=== PATIENT | female | born 1955 | race Caucasian/White ===

== ENCOUNTER → 2017-05-18 11:56 | Outpatient (CLI) | payer OTHER, MEDICARE, SELFPAY ==
[2017-05-18 12:10] LABS: Microscopic, Urine URINE MICROSCOPIC (MICROSCOPIC)
[2017-05-18 12:56] LABS: Basophils % 0.4 % (0.1-2.0); Eosinophils # 0.1 K/mm3 (0.0-0.4); Eosinophils % 1.1 % (0.1-12.0); Hemoglobin 12.8 g/dL (12.2-16.2); Lymphocytes # 1.5 K/mm3 (0.7-4.5); Lymphocytes % 18.5 K/mm3 (10-50); Mean Corpuscular HGB Conc 30.4 g/dL (31.8-35.4); Mean Corpuscular Hemoglobin 26.3 pg (27.0-31.2); Mean Corpuscular Volume 86.6 fl (81-99); Monocytes # 0.3 K/mm3 (0.1-1.0); Monocytes % 3.9 % (1.7-9.3); Neutrophils # 6.2 K/mm3 (1.8-7.8); Neutrophils % 76.2 % (37.0-80.0); Platelet Count 210 K/mm3 (142-424); Red Blood Count 4.85 M/mm3 (4.20-5.40); Red Cell Distribution Width 14.4 % (11.5-17.5); White Blood Count 8.1 K/mm3 (4.8-10.8)
[2017-05-18 13:33] LABS: Amphetamine/Metha Screen,Urine Negative ng/mL (<1000); Barbiturates Screen,Urine Negative ng/mL (<200); Benzodiazepines Screen,Urine Negative ng/mL (200); Cannabinoid Screen,Urine Negative ng/mL (<50); Cocaine Screen,Urine Negative ng/g (<300); Methadone Screen,Urine Negative ng/mL (<300); Opiate Screen,Urine Negative ng/mL (<300); Phencyclidine Screen,Urine Negative ng/mL (<25)
[2017-05-18 13:52] LABS: Appearance,Urine CLEAR (Clear); Bilirubin,Urine Negative (Negative); Blood, Urine Negative (Negative); Color,Urine YELLOW (Yellow); Glucose,Urine (UA) Negative (Negative); Ketones,Urine Negative (Negative); Leukocyte Esterase,Urine 2+ (Negative); Nitrate,Urine Negative (Negative); Protein,Urine Negative (Negative); Specific Gravity, Urine <= 1.005 (1.005-1.030); Urobilinogen,Urine 0.2 EU/dl (0.2)
[2017-05-18 13:53] LABS: Alanine Aminotransferase 26 U/L (12-78); Albumin Level 3.8 gm/dL (3.4-5.0); Albumin/Globulin Ratio 1.2 (1.1-1.8); Alkaline Phosphatase 157 U/L (46-116); Anion Gap 14.5 mEq/L (5-15); Bilirubin,Total 0.3 mg/dL (0.2-1.0); Blood Urea Nitrogen 19 mg/dL (7-18); Calcium 9.3 mg/dL (8.5-10.1); Carbon Dioxide 25 mmol/L (21.0-32.0); Chloride 106 mmol/L (98-107); Creatinine,Serum 0.62 mg/dL (0.55-1.02); Estimated Glomerular Filt Rate 99 ml/min (>60); Ferritin 10 ng/mL (8-388); GFR (African American) 119 ML/MIN (>60); Globulin 3.1 gm/dl (1.3-3.2); Glucose 107 mg/dL (74-106); Sodium 141 mmol/L (136-145); Total Protein,Serum 6.9 gm/dL (6.4-8.2)
[2017-05-18 13:55] LABS: Aspartate Amino Transferase 23 U/L (15-37); Potassium 4.5 mmoL/L (3.5-5.1)
[2017-05-18 14:05] LABS: Bacteria,Urine 2+ /lpf
[2017-05-20 12:08] LABS: Vitamin B12 391 pg/mL (232-1245); Vitamin D 25 Hydroxy 15.1 ng/mL (30.0-100.0)
== END ==
PROVIDERS: PCP Internal Medicine Adolescent Medicine; Visit Provider Internal Medicine Adolescent Medicine
DX: D50.9 Iron deficiency anemia, unspecified (principal); G25.9 Extrapyramidal and movement disorder, unspecified; E55.9 Vitamin D deficiency, unspecified
CPT/HCPCS: 36415; 80053; 80305; 81001; 82607; 82652; 82728; 85025; 87086; 87088; 87186

== ENCOUNTER → 2017-09-09 11:05 | Outpatient (CLI) | payer OTHER, MEDICARE, SELFPAY ==
[2017-09-09 11:32] LABS: Basophils # 0.1 K/mm3 (0-0.2); Eosinophils # 0.2 K/mm3 (0.0-0.4); Eosinophils % 2.5 % (0.1-12.0); Hematocrit 38.6 % (37.0-47.0); Hemoglobin 12.7 g/dL (12.2-16.2); Lymphocytes # 1.6 K/mm3 (0.7-4.5); Lymphocytes % 22.9 K/mm3 (10-50); Mean Corpuscular HGB Conc 32.9 g/dL (31.8-35.4); Mean Corpuscular Hemoglobin 23.8 pg (27.0-31.2); Mean Corpuscular Volume 72.5 fl (81-99); Mean Platelet Volume 24.8 fl (7.4-10.4); Monocytes # 0.3 K/mm3 (0.1-1.0); Monocytes % 4.2 % (1.7-9.3); Neutrophils # 4.9 K/mm3 (1.8-7.8); Neutrophils % 68.4 % (37.0-80.0); Platelet Count 105 K/mm3 (142-424); Red Blood Count 5.32 M/mm3 (4.20-5.40); White Blood Count 7.1 K/mm3 (4.8-10.8)
[2017-09-09 12:45] LABS: Alanine Aminotransferase 27 U/L (12-78); Albumin/Globulin Ratio 1.3 (1.1-1.8); Alkaline Phosphatase 146 U/L (46-116); Anion Gap 13.3 mEq/L (5-15); Aspartate Amino Transferase 23 U/L (15-37); Bilirubin,Total 0.3 mg/dL (0.2-1.0); Blood Urea Nitrogen 20 mg/dL (7-18); Calcium 9.6 mg/dL (8.5-10.1); Carbon Dioxide 30 mmol/L (21.0-32.0); Chloride 106 mmol/L (98-107); Creatinine,Serum 0.69 mg/dL (0.55-1.02); Estimated Glomerular Filt Rate 87 ml/min (>60); Ferritin 7 ng/mL (8-388); Free Thyroxine Index 2.9 ug/dL (5.93-13.13); GFR (African American) 105 ML/MIN (>60); Globulin 3.2 gm/dl (1.3-3.2); Glucose 108 mg/dL (74-106); Potassium 4.3 mmoL/L (3.5-5.1); Sodium 145 mmol/L (136-145); T4 (Thyroxine) 8.1 ug/dl (4.7-13.3); Thyroid Stimulating Hormone 2.19 uIU/ml (0.358-3.740); Total Protein,Serum 7.2 gm/dL (6.4-8.2); Triiodothryronine (T3) Uptake 36 % (31-39)
[2017-09-10 20:26] LABS: Vitamin B12 300 pg/mL (232-1245); Vitamin D 25 Hydroxy 28.5 ng/mL (30.0-100.0)
== END ==
PROVIDERS: Visit Provider Internal Medicine Adolescent Medicine
DX: D50.9 Iron deficiency anemia, unspecified (principal); G25.9 Extrapyramidal and movement disorder, unspecified; R20.2 Paresthesia of skin
CPT/HCPCS: 36415; 80053; 82607; 82652; 82728; 84436; 84443; 84479; 85025

== ENCOUNTER → 2017-12-09 10:01 | Outpatient (CLI) | payer OTHER, MEDICARE, SELFPAY ==
[2017-12-09 10:38] LABS: Basophils % 0.5 % (0.1-2.0); Eosinophils # 0.2 K/mm3 (0.0-0.4); Eosinophils % 2.6 % (0.1-12.0); Hematocrit 41.6 % (37.0-47.0); Hemoglobin 12.8 g/dL (12.2-16.2); Lymphocytes # 1.6 K/mm3 (0.7-4.5); Lymphocytes % 23.7 K/mm3 (10-50); Mean Corpuscular HGB Conc 30.7 g/dL (31.8-35.4); Mean Corpuscular Hemoglobin 25.2 pg (27.0-31.2); Mean Corpuscular Volume 82.3 fl (81-99); Mean Platelet Volume 8.4 fl (7.4-10.4); Monocytes # 0.3 K/mm3 (0.1-1.0); Monocytes % 4.3 % (1.7-9.3); Neutrophils # 4.6 K/mm3 (1.8-7.8); Neutrophils % 68.8 % (37.0-80.0); Platelet Count 203 K/mm3 (142-424); Red Blood Count 5.06 M/mm3 (4.20-5.40); Red Cell Distribution Width 16.8 % (11.5-17.5); White Blood Count 6.7 K/mm3 (4.8-10.8)
[2017-12-09 11:09] LABS: Alanine Aminotransferase 29 U/L (12-78); Albumin/Globulin Ratio 1.3 (1.1-1.8); Alkaline Phosphatase 140 U/L (46-116); Anion Gap 12.3 mEq/L (5-15); Aspartate Amino Transferase 22 U/L (15-37); Bilirubin,Total 0.3 mg/dL (0.2-1.0); Blood Urea Nitrogen 15 mg/dL (7-18); Calcium 9.2 mg/dL (8.5-10.1); Carbon Dioxide 29 mmol/L (21.0-32.0); Chloride 106 mmol/L (98-107); Creatinine,Serum 0.74 mg/dL (0.55-1.02); Estimated Glomerular Filt Rate 80 ml/min (>60); Ferritin 8 ng/mL (8-388); GFR (African American) 97 ML/MIN (>60); Globulin 3.2 gm/dl (1.3-3.2); Glucose 102 mg/dL (74-106); Potassium 4.3 mmoL/L (3.5-5.1); Sodium 143 mmol/L (136-145); Total Protein,Serum 7.2 gm/dL (6.4-8.2)
[2017-12-10 18:30] LABS: Vitamin B12 1014 pg/mL (232-1245); Vitamin D 25 Hydroxy 28.7 ng/mL (30.0-100.0)
== END ==
PROVIDERS: PCP Internal Medicine Adolescent Medicine; Visit Provider Internal Medicine Adolescent Medicine
DX: D50.8 Other iron deficiency anemias (principal); E53.8 Deficiency of other specified B group vitamins; E55.9 Vitamin D deficiency, unspecified
CPT/HCPCS: 36415; 80053; 82607; 82652; 82728; 85025

== ENCOUNTER → 2017-12-14 09:21 | Outpatient (CLI) | payer OTHER, MEDICARE, SELFPAY ==
--- NOTE | 2017-12-14 09:41 | MM_ITS ---
MM Dig screening mamm BI w/CAD CAD Screening COMPARISON: None, previous mammograms at [facility] have been purged INDICATION: There is no personal or family history of breast cancer TECHNIQUE: Standard CC and MLO images were obtained. R2 CAD reviewed. FINDINGS: Moderate diffuse scattered fibroglandular densities are seen throughout both breasts. There is asymmetric benign-appearing nodular densities left breast. Recommend the patient return for spot compression views and ultrasound may be necessary as well. There are few benign-appearing calcifications in each breast. There are no suspicious microcalcifications. There is arterial calcification in both breasts. IMPRESSION: Diffusely dense parenchymal pattern with asymmetric nodular densities left breast BI-RADS Category: 0 Need Additional Imaging Evaluation RECOMMENDED FOLLOW-UP: IMM - IMMEDIATE FOLLOW-UP RECOMMENDED (A letter has been sent to the patient regarding results of the study.)
--- NOTE | 2017-12-14 09:42 | XR_ITS ---
XR DEXA axial skeleton HISTORY: ITS.REASON: POST MENOPAUSAL ORDERING PHYSICIAN: Gagan Solomon MD PATIENT AGE: 62 years COMPARISON: None FINDINGS: The BMD measured at the Right femoral neck is 0.574 g/cm squared with a T score of -3.4. This is considered Osteoporotic according to the World Health Organization criteria. Fracture risk is High. Treatment is advised. L1 L4 density has a T score of -2.0. IMPRESSION: ] Wrist. Treatment recommended. Suggest follow-up exam December 2018
== END ==
PROVIDERS: PCP Internal Medicine Adolescent Medicine; Visit Provider Internal Medicine Adolescent Medicine
DX: Z12.31 Encounter for screening mammogram for malignant neoplasm of breast (principal); Z13.820 Encounter for screening for osteoporosis; Z78.0 Asymptomatic menopausal state
CPT/HCPCS: 77067; 77080

== ENCOUNTER → 2018-02-17 09:38 | Outpatient (CLI) | payer OTHER, MEDICARE, SELFPAY ==
--- NOTE | 2018-02-17 09:40 | MM_ITS ---
MM Dig mamm DX unilat LT CAD, US breast LT complete Ordering Physician: Gagan Solomon MD Patient Age: 62 years Female COMPARISON: 12/14/2017 INDICATION: Follow-up abnormal mammogram TECHNIQUE: Problem-solving views of the left breast along with left breast ultrasound FINDINGS: There is average fibroglandular tissue. Macrolobulated nodular density is noted in the lower aspect of the left breast at 5 mm. There was a nodular opacity present in the superior aspect of the left breast on the MLO view. This however did appear to compress out. Left breast ultrasound: At 5:00 near the nipple there is a macro lobular 5 mm hypoechoic lesion. This does appear to have some enhanced through transmission of sound but does have some macro lobular extension laterally. This may represent a complex cyst however due to the somewhat spiculated appearance ultrasound-guided fine-needle aspiration is suggested. IMPRESSION: Mildly suspicious lesion at 5:00 near the nipple noted on ultrasound. This may correspond to the nodular density noted in the inferior aspect of the left breast BI-RADS Category: 4 Suspicious Abnormality-Biopsy Considered RECOMMENDED FOLLOW-UP: BIO - BIOPSY RECOMMENDED Recommend ultrasound-guided fine-needle aspiration of the hypoechoic nodule at 5:00 A letter has been sent to the patient regarding results of the study.)
== END ==
PROVIDERS: PCP Internal Medicine Adolescent Medicine; Visit Provider Internal Medicine Adolescent Medicine
DX: R92.8 Other abnormal and inconclusive findings on diagnostic imaging of breast (principal)
CPT/HCPCS: 76641; 77065

== ENCOUNTER → 2018-03-09 09:29 | Outpatient (CLI) | payer OTHER, MEDICARE, SELFPAY ==
--- NOTE | 2018-03-09 09:33 | US_ITS ---
FNA w guidance, MM Dig mamm DX unilat LT CAD, US breast LT complete HISTORY: ITS.REASON: LT BREAST NODULE ORDERING PHYSICIAN: Gagan Solomon MD PATIENT AGE: 62 years COMPARISON: 02/17/2018 Prebiopsy ultrasound: Ultrasound performed the left breast targeted to the 5:00 region once again demonstrates the complex hypoechoic nodule with somewhat irregular margins. Appropriate location was marked for FNA/biopsy TECHNIQUE:: Following obtaining informed consent, using aseptic technique and local anesthesia with buffered lidocaine, fine-needle aspiration was performed of the nodule of interest using sonographic guidance. 1 pass was made into the nodule with a 25-gauge needle. Minimal aspirate was obtained and the nodule disappeared. Specimen was given to cytology. The patient tolerated the procedure well without evidence of immediate complications and left the ultrasound suite in stable condition. CYTOLOGY:Negative for malignancy. apocrine metaplasia compatible with cyst contents Postbiopsy mammogram: The previously noted nodular density in the inferior aspect of the left breast is less apparent. There is some increased density in this region which may be related to lidocaine infiltration last biopsy changes. IMPRESSION: Successful sonographic guided FNA of left breast nodule straightening a cyst. No evidence of malignancy. Recommend follow-up mammogram and ultrasound in 6 months per routine protocol
== END ==
PROVIDERS: PCP Internal Medicine Adolescent Medicine; Visit Provider Internal Medicine Adolescent Medicine
DX: R92.8 Other abnormal and inconclusive findings on diagnostic imaging of breast (principal)
CPT/HCPCS: 10022; 76641; 77065

== ENCOUNTER → 2018-10-18 10:46 | Outpatient (CLI) | payer OTHER, MEDICARE, SELFPAY ==
[2018-10-18 11:14] LABS: Basophils % 0.4 % (0.1-2.0); Eosinophils # 0.1 K/mm3 (0.0-0.4); Eosinophils % 1.5 % (0.1-12.0); Hemoglobin 12.7 g/dL (12.2-16.2); Lymphocytes # 1.5 K/mm3 (0.7-4.5); Lymphocytes % 17.2 % (10-50); Mean Corpuscular HGB Conc 29.5 g/dL (31.8-35.4); Mean Corpuscular Hemoglobin 25.1 pg (27.0-31.2); Mean Corpuscular Volume 85.1 fl (81-99); Mean Platelet Volume 8.7 fl (7.4-10.4); Monocytes # 0.3 K/mm3 (0.1-1.0); Monocytes % 3.9 % (1.7-9.3); Neutrophils # 6.5 K/mm3 (1.8-7.8); Neutrophils % 76.9 % (37.0-80.0); Platelet Count 204 K/mm3 (142-424); Red Blood Count 5.05 M/mm3 (4.20-5.40); Red Cell Distribution Width 15.5 % (11.5-17.5); White Blood Count 8.4 K/mm3 (4.8-10.8)
[2018-10-18 12:51] LABS: Alanine Aminotransferase 35 U/L (12-78); Albumin/Globulin Ratio 1.5 (1.1-1.8); Alkaline Phosphatase 83 U/L (46-116); Anion Gap 14.6 mEq/L (5-15); Aspartate Amino Transferase 30 U/L (15-37); Bilirubin,Total 0.2 mg/dL (0.2-1.0); Blood Urea Nitrogen 16 mg/dL (7-18); Calcium 9.3 mg/dL (8.5-10.1); Carbon Dioxide 27 mmol/L (21.0-32.0); Chloride 106 mmol/L (98-107); Creatinine,Serum 0.79 mg/dL (0.55-1.02); Estimated Glomerular Filt Rate 74 ml/min (>60); Ferritin 14 ng/mL (8-388); GFR (African American) 90 ML/MIN (>60); Globulin 2.7 gm/dl (1.3-3.2); Glucose 89 mg/dL (74-106); Potassium 4.6 mmoL/L (3.5-5.1); Sodium 143 mmol/L (136-145); Total Protein,Serum 6.7 gm/dL (6.4-8.2)
[2018-10-19 22:05] LABS: Vitamin B12 268 pg/mL (232-1245); Vitamin D 25 Hydroxy 20.9 ng/mL (30.0-100.0)
== END ==
PROVIDERS: Visit Provider Internal Medicine Adolescent Medicine
DX: D50.9 Iron deficiency anemia, unspecified (principal); E55.9 Vitamin D deficiency, unspecified
CPT/HCPCS: 36415; 80053; 82607; 82652; 82728; 85025

== ENCOUNTER → 2019-04-17 11:28 | Outpatient (CLI) | payer OTHER, MEDICARE, SELFPAY ==
--- NOTE | 2019-04-17 | CA_ITS ---
APPROVED REPORT Exam: Pharmacologic Technologist: Stacey Polanco Ht: 5 ft 5 in Wt: 130 lbs BSA: 1.65 m2 HR: 66 bpm BP: 145/77 mmHg Indications: Angina Medical History Medications: Propranolol,,,,, Iron,,,,, Famotidine,,,,, DulOXETINE,,,,, AmANTADINE,,,,, Alendronate,,,,, Constulose,,,,, Stress Test Details Test: LEXISCAN HR Resting HR: 73 bpm Max Heart Rate (APMHR): 159 bpm Max HR Achieved: 101 bpm Target HR (85% APMHR): 135 bpm % of APMHR: 63 Recovery HR: 80 bpm BP Resting BP: 145.0/77.0 mmHg Max BP: 148.0/84.0 mmHg Recovery BP: 148.0/84.0 mmHg ECG Clinical Reason for Termination: Completed Protocol Exercise duration: 04:00 min Highest Stage Achieved: Exercise capacity: 1.0 METs Stress ECG Conclusion Resting ECG: Normal sinus rhythm, inferior ST abnormalities. Symptoms: No chest pain Arrhythmias/Ectopy: None ST-T Changes: < 1.[address] segment changes. Conclusion: Non-diagnostic Test Summary REST . . . . . . . Resting REST 08:27 . . 73 . 145/ 77 . . Stage 1 . . . . . . . Myoview Injected Stage 1 01:00 . . 97 . . . . Stage 2 01:00 . . 101 . 125/ 72 . . Stage 3 01:00 . . 96 . 137/ 63 . . Stage 4 01:00 . . 87 . 144/ 79 . Stop exercise at 04:00 RECOVERY 01:00 . . 86 . . . . RECOVERY 02:00 . . 83 . . . . RECOVERY 03:00 . . 80 . 140/ 78 . . RECOVERY 04:00 . . 80 . 148/ 84 . . RECOVERY 04:12 . . 79 . 148/ 84 . . Electronically signed by : Brad Gabriel, 04/17/2019 20:28:47
--- NOTE | 2019-04-17 11:38 | NM_ITS ---
APPROVED REPORT Exam: Nuclear Stress Test Indication: Angina, Chest pain, SOB, Palpitaions, Syncope, Fatigue, HTN, Tobacco use, Family history Patient Location: Outpatient Stress Tech: Stacey Polanco NM Tech:Brenda Conner, ARRT, RT (R)(N) Ht: 5 ft 5 in Wt: 130 lbs Bra Size: B HR: 66 bpm BP: 145/77 mmHg BSA: 1.65 m2 BMI: 21.6 History: Angina, Chest pain, SOB, Palpitaions, Syncope, Fatigue, HTN, Tobacco use, Family history Procedure: Patient received a 0.4 mg of intravenous Lexiscan, resting heart rate 66 bpm, resting blood pressure 145/77 mmHg, with Lexiscan maximum heart rate achived was 100 bpm which is Less than 85 % of the maximum predicted heart rate and blood pressure was 125/72 mmHg. With Lexiscan, patient denied any complaint of chest pain. Electrocardiogram Resting EKG shows sinus rhythm, with Lexiscan there is less than 1.[address] segment depression noted from the baseline EKG. The EKG portion of the Lexiscan Myoview is nondiagnostic. Cardiac Stress and Resting SPECT Images: Cardiac Stress and Resting SPECT images were obtained using technetium 99m Myoview 32.5 mCi stress and 10.39 mCi at rest. Gated SPECT for analysis of segmental wall motion and calculation of the ejection fraction also done. Cardiac stress and resting SPECT images show uniform myocardial activity without segmental perfusion abnormality, computer derived ejection fraction is over 65% with no regional wall motion abnormality, right ventricle is normal size and contractility. Conclusion: 1. The EKG portion of the Lexiscan Myoview is nondiagnostic. 2. No scintigraphic evidence of reversible ischemia seen, computer derived ejection fraction is over 65% with no regional wall motion abnormality, right ventricle is normal size and contractility. 3. Normal Lexiscan Myoview study. Electronically signed by : Brad Gabriel, 04/17/2019 20:30:42
--- NOTE | 2019-04-17 12:20 | HMH.ITSHM ---
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 []amantadine DULOXETINE PROPRANOLOL FAMOTIDINE ALENDRONATE IRON CONSTOLOSE
== END ==
PROVIDERS: PCP Internal Medicine Adolescent Medicine; Visit Provider Internal Medicine Adolescent Medicine
DX: I20.8 Other forms of angina pectoris (principal)
CPT/HCPCS: 78452; 93017; A9502; J2785

== ENCOUNTER → 2019-05-16 12:46 | Outpatient (CLI) | payer OTHER, MEDICARE, SELFPAY ==
[2019-05-16 13:54] LABS: Alanine Aminotransferase 33 U/L (9-52); Albumin Level 3.9 g/dL (3.4-5.0); Albumin/Globulin Ratio 1.3 (1.1-1.8); Alkaline Phosphatase 83 U/L (46-116); Aspartate Amino Transferase 26 U/L (15-37); Bilirubin,Total 0.3 mg/dL (0.2-1.0); Blood Urea Nitrogen 17 mg/dL (7-18); Calcium 9.3 mg/dL (8.5-10.1); Carbon Dioxide 30 mmol/L (21.0-32.0); Chloride 110 mmol/L (98-107); Creatinine,Serum 0.66 mg/dL (0.55-1.02); Estimated Glomerular Filt Rate 91 ml/min (>60); GFR (African American) 110 ML/MIN (>60); Glucose 100 mg/dL (74-106); Sodium 147 mmol/L (137-145); Total Protein,Serum 6.9 g/dL (6.4-8.2)
[2019-05-16 14:21] LABS: Hemoglobin A1C 5.8 % (0.0-7.0)
== END ==
PROVIDERS: Visit Provider Internal Medicine Adolescent Medicine
DX: R73.09 Other abnormal glucose (principal)
CPT/HCPCS: 36415; 80053; 83036

== ENCOUNTER → 2019-07-03 08:04 | Outpatient (CLI) | payer OTHER, MEDICARE, SELFPAY ==
[2019-07-03 09:14] LABS: Basophils % 0.5 % (0.1-2.0); Eosinophils # 0.2 K/mm3 (0.0-0.4); Eosinophils % 3.4 % (0.1-12.0); Hematocrit 46.1 % (37.0-47.0); Lymphocytes # 1.4 K/mm3 (0.7-4.5); Lymphocytes % 27.3 % (10-50); Mean Corpuscular HGB Conc 30.4 g/dL (31.8-35.4); Mean Corpuscular Hemoglobin 26.9 pg (27.0-31.2); Mean Corpuscular Volume 88.5 fl (81-99); Mean Platelet Volume 9.5 fl (7.4-10.4); Monocytes # 0.2 K/mm3 (0.1-1.0); Neutrophils # 3.3 K/mm3 (1.8-7.8); Neutrophils % 64.7 % (37.0-80.0); Platelet Count 202 K/mm3 (142-424); Red Blood Count 5.21 M/mm3 (4.20-5.40); Red Cell Distribution Width 14.7 % (11.5-17.5); White Blood Count 5.2 K/mm3 (4.8-10.8)
[2019-07-03 09:17] LABS: Chloride 107 mmol/L (98-107)
[2019-07-03 09:18] LABS: Potassium 4.5 mmoL/L (3.5-5.1); Sodium 141 mmol/L (136-145)
[2019-07-03 09:20] LABS: Alanine Aminotransferase 21 U/L (12-78); Albumin Level 4.2 g/dl (3.5-5.0); Albumin/Globulin Ratio 1.6 (1.1-1.8); Alkaline Phosphatase 105 U/L (38-126); Anion Gap 11.5 mEq/L (5-15); Aspartate Amino Transferase 29 U/L (14-36); Bilirubin,Total 0.2 mg/dl (0.2-1.3); Blood Urea Nitrogen 24 mg/dl (7-17); Calcium 9.6 mg/dl (8.4-10.2); Carbon Dioxide 27 mmol/L (22.0-30.0); Estimated Glomerular Filt Rate 85 ml/min (>60); GFR (African American) 103 ML/MIN (>60); Globulin 2.7 g/dL (1.3-3.2); Glucose 106 mg/dl (74-100); Total Protein,Serum 6.9 g/dl (6.3-8.2)
[2019-07-03 09:38] LABS: Triiodothryronine (T3) Uptake 37 % (23.5-40.5)
[2019-07-03 09:39] LABS: Free Thyroxine Index 2.1 ug/dL (5.93-13.13); T4 (Thyroxine) 5.7 ug/dl (5.53-11.0)
[2019-07-03 09:53] LABS: Thyroid Stimulating Hormone 3.95 uIU/mL (0.465-4.68)
[2019-07-03 09:56] LABS: Ferritin 7.57 ng/ml (11.1-264)
[2019-07-04 23:12] LABS: Vitamin B12 192 pg/mL (232-1245); Vitamin D 25 Hydroxy 18.9 ng/mL (30.0-100.0)
== END ==
PROVIDERS: Visit Provider Internal Medicine Adolescent Medicine
DX: D50.9 Iron deficiency anemia, unspecified (principal); E55.9 Vitamin D deficiency, unspecified; R41.3 Other amnesia
CPT/HCPCS: 36415; 80053; 82607; 82652; 82728; 84436; 84443; 84479; 85025

== ENCOUNTER → 2020-03-12 08:40 | Outpatient (CLI) | payer OTHER, MEDICARE, SELFPAY ==
[2020-03-12 09:19] LABS: Basophils % 0.5 % (0.1-2.0); Eosinophils # 0.2 K/mm3 (0.0-0.4); Eosinophils % 4.4 % (0.1-12.0); Hematocrit 43.2 % (37.0-47.0); Hemoglobin 12.8 g/dL (12.2-16.2); Lymphocytes # 1.4 K/mm3 (0.7-4.5); Lymphocytes % 26.8 % (10-50); Mean Corpuscular HGB Conc 29.7 g/dL (31.8-35.4); Mean Corpuscular Hemoglobin 28.5 pg (27.0-31.2); Mean Corpuscular Volume 95.9 fl (81-99); Mean Platelet Volume 8.3 fl (7.4-10.4); Monocytes # 0.3 K/mm3 (0.1-1.0); Neutrophils # 3.3 K/mm3 (1.8-7.8); Neutrophils % 63.3 % (37.0-80.0); Platelet Count 271 K/mm3 (142-424); Red Blood Count 4.51 M/mm3 (4.20-5.40); Red Cell Distribution Width 14.5 % (11.5-17.5); White Blood Count 5.1 K/mm3 (4.8-10.8)
[2020-03-12 09:31] LABS: Chloride 110 mmol/L (98-107); Potassium 4.5 mmoL/L (3.5-5.1); Sodium 141 mmol/L (136-145)
[2020-03-12 09:33] LABS: Blood Urea Nitrogen 19 mg/dl (7-17); Estimated Glomerular Filt Rate 85 ml/min (>60); GFR (African American) 103 ML/MIN (>60)
[2020-03-12 09:34] LABS: Alanine Aminotransferase 21 U/L (12-78); Albumin Level 3.3 g/dl (3.5-5.0); Albumin/Globulin Ratio 1.5 (1.1-1.8); Alkaline Phosphatase 99 U/L (38-126); Anion Gap 7.5 mEq/L (5-15); Aspartate Amino Transferase 26 U/L (14-36); Bilirubin,Total 0.3 mg/dl (0.2-1.3); Calcium 9.1 mg/dl (8.4-10.2); Carbon Dioxide 28 mmol/L (22.0-30.0); Globulin 2.2 g/dL (1.3-3.2); Glucose 105 mg/dl (74-100); Magnesium 2.1 mg/dl (1.6-2.3); Total Protein,Serum 5.5 g/dl (6.3-8.2)
[2020-03-12 10:09] LABS: Ferritin 8.73 ng/ml (11.1-264)
[2020-03-12 10:41] LABS: 25-OH Vitamin D, Total 21.5 ng/mL (30-100)
[2020-03-12 11:13] LABS: Vitamin B12 492 pg/mL (239-931)
== END ==
PROVIDERS: Visit Provider Internal Medicine Adolescent Medicine
DX: G25.9 Extrapyramidal and movement disorder, unspecified (principal); R29.6 Repeated falls
CPT/HCPCS: 36415; 80053; 82306; 82607; 82728; 83735; 85025

== ENCOUNTER → 2020-04-17 14:48 | Outpatient (CLI) | payer OTHER, MEDICARE, SELFPAY ==
[2020-04-17 17:13] LABS: Folate 8.28 ng/mL
== END ==
PROVIDERS: Visit Provider Internal Medicine Medical Oncology
DX: E61.1 Iron deficiency (principal)
CPT/HCPCS: 36415; 82746

== ENCOUNTER → 2020-09-04 11:58 | Outpatient (CLI) | payer OTHER, MEDICARE, SELFPAY ==
[2020-09-04 12:40] LABS: Basophils % 0.4 % (0.1-2.0); Eosinophils # 0.2 K/mm3 (0.0-0.4); Hemoglobin 9.8 g/dL (12.2-16.2); Lymphocytes # 1.4 K/mm3 (0.7-4.5); Lymphocytes % 24.8 % (10-50); Mean Corpuscular Hemoglobin 22.3 pg (27.0-31.2); Mean Platelet Volume 8.5 fl (7.4-10.4); Monocytes # 0.2 K/mm3 (0.1-1.0); Monocytes % 4.1 % (1.7-9.3); Neutrophils # 3.8 K/mm3 (1.8-7.8); Neutrophils % 67.6 % (37.0-80.0); Platelet Count 220 K/mm3 (142-424); Red Blood Count 4.42 M/mm3 (4.20-5.40); Red Cell Distribution Width 18.7 % (11.5-17.5); White Blood Count 5.6 K/mm3 (4.8-10.8)
[2020-09-04 13:41] LABS: Chloride 105 mmol/L (98-107); Potassium 4.5 mmoL/L (3.5-5.1); Sodium 137 mmol/L (136-145)
[2020-09-04 13:44] LABS: Alanine Aminotransferase 28 U/L (12-78); Albumin Level 4.1 g/dl (3.5-5.0); Albumin/Globulin Ratio 1.5 (1.1-1.8); Alkaline Phosphatase 132 U/L (38-126); Anion Gap 10.5 mEq/L (5-15); Aspartate Amino Transferase 36 U/L (14-36); Bilirubin,Total 0.5 mg/dl (0.2-1.3); Blood Urea Nitrogen 23 mg/dl (7-17); Calcium 8.8 mg/dl (8.4-10.2); Carbon Dioxide 26 mmol/L (22.0-30.0); Estimated Glomerular Filt Rate 85 ml/min (>60); GFR (African American) 103 ML/MIN (>60); Globulin 2.7 g/dL (1.3-3.2); Glucose 85 mg/dl (74-100); Total Protein,Serum 6.8 g/dl (6.3-8.2)
[2020-09-04 13:59] LABS: Free Thyroxine Index 1.9 ug/dL (5.93-13.13); Triiodothryronine (T3) Uptake 38 % (23.5-40.5)
[2020-09-04 14:00] LABS: 25-OH Vitamin D, Total 21.3 ng/mL (30-100)
[2020-09-04 14:12] LABS: Thyroid Stimulating Hormone 1.31 uIU/mL (0.465-4.68)
[2020-09-04 14:17] LABS: Ferritin 6.42 ng/ml (11.1-264)
[2020-09-04 16:07] LABS: Vitamin B12 828 pg/mL (239-931)
== END ==
PROVIDERS: Visit Provider Internal Medicine Adolescent Medicine
DX: G25.9 Extrapyramidal and movement disorder, unspecified (principal); D50.9 Iron deficiency anemia, unspecified; E55.9 Vitamin D deficiency, unspecified
CPT/HCPCS: 36415; 80053; 82306; 82607; 82728; 84436; 84443; 84479; 85025

== ENCOUNTER 2020-10-11 23:46 | Emergency (ER) | payer OTHER, MEDICARE, SELFPAY ==
[2020-10-11 23:51] VITALS: BP 193/66; PULSE 96; RESP 18; TEMP 36.6; O2SAT 98
[2020-10-12] VITALS (7 sets, daily range): BP systolic 149–193; BP diastolic 65–87; PULSE 79–96; RESP 18; TEMP 36.6; O2SAT 92–97
--- NOTE | 2020-10-12 00:09 | CT_ITS ---
PROCEDURE INFORMATION: Exam: CT Abdomen And Pelvis With Contrast Exam date and time: 10/12/2020 12:09 AM Age: 64 years old Clinical indication: Abdominal pain; Localized; Right upper quadrant (ruq); Additional info: Ruq pain TECHNIQUE: Imaging protocol: Computed tomography of the abdomen and pelvis with contrast. Radiation optimization: All CT scans at this facility use at least one of these dose optimization techniques: automated exposure control; mA and/or kV adjustment per patient size (includes targeted exams where dose is matched to clinical indication); or iterative reconstruction. Contrast material: ISOVUE; Contrast volume: 75 ml; Contrast route: IV; COMPARISON: CR AFU ABDOMEN-FLAT UPRIGHT 10/06/2016 2:26 PM FINDINGS: Lungs: There are mild bibasilar dependent changes. Liver: Normal. No mass. Gallbladder and bile ducts: Previous cholecystectomy with mild intra and extrahepatic biliary dilatation. Pancreas: There is pancreatic atrophy and mild prominence of the pancreatic duct. Calcification at the pancreatic head. There is edema involving the pancreatic head with adjacent inflammation. Spleen: Normal. No splenomegaly. Adrenal glands: Nonspecific left adrenal gland nodule measuring 1 cm. Kidneys and ureters: 9 mm right renal cyst. There is symmetric prominence of both renal pelves without discrete obstructing ureteral calculus. Minimal left-sided nephrolithiasis. Stomach and bowel: Gastric postoperative change. There is moderate colonic fecal retention. Appendix: No evidence of appendicitis. Intraperitoneal space: Unremarkable. No free air. No significant fluid collection. Vasculature: Vascular calcification. Lymph nodes: Unremarkable. No enlarged lymph nodes. Urinary bladder: Unremarkable as visualized. Reproductive: Unremarkable as visualized. Bones/joints: There are degenerative changes involving the spine. Soft tissues: Unremarkable. IMPRESSION: 1. Edema involving the pancreatic head with adjacent inflammatory change compatible with acute pancreatitis. 2. No drainable fluid collection or evidence of pancreatic necrosis. 3. 1 cm left adrenal gland nodule, indeterminate. Adrenal protocol CT or MRI as clinically warranted. 4. Additional non emergent findings as above. COMMENTS: 1. Consistent with the [employer]'s Incidental Findings Committee white paper (J Am Lorenzo Radiol 2017): Any incidental adrenal lesion less than or equal to 1 cm is likely benign. No follow-up imaging is recommended for these lesions per consensus recommendations based on imaging criteria. Further lab evaluation could be pursued if warranted based on clinical findings. 2. Consistent with the [employer]'s Incidental Findings Committee white paper (J Am Lorenzo Radiol 2018): Any incidental renal lesion less than 1 cm or classified as too small to characterize, or any incidental cystic renal lesion characterized as simple-appearing, is likely benign. No follow-up imaging is recommended for these lesions per consensus recommendations based on imaging criteria.
[2020-10-12 00:53] LABS: Basophils % 0.2 % (0.1-2.0); Eosinophils # 0.1 K/mm3 (0.0-0.4); Eosinophils % 0.6 % (0.1-12.0); Hematocrit 38.8 % (37.0-47.0); Hemoglobin 11.7 g/dL (12.2-16.2); Lymphocytes # 1.5 K/mm3 (0.7-4.5); Lymphocytes % 14.8 % (10-50); Mean Corpuscular HGB Conc 30.1 g/dL (31.8-35.4); Mean Corpuscular Hemoglobin 24.1 pg (27.0-31.2); Mean Corpuscular Volume 79.9 fl (81-99); Mean Platelet Volume 8.8 fl (7.4-10.4); Monocytes # 0.5 K/mm3 (0.1-1.0); Monocytes % 4.9 % (1.7-9.3); Neutrophils # 7.8 K/mm3 (1.8-7.8); Neutrophils % 79.5 % (37.0-80.0); Platelet Count 219 K/mm3 (142-424); Red Blood Count 4.85 M/mm3 (4.20-5.40); Red Cell Distribution Width 19.1 % (11.5-17.5); White Blood Count 9.8 K/mm3 (4.8-10.8)
[2020-10-12 00:57] LABS: Alanine Aminotransferase 28 U/L (12-78); Albumin Level 4.4 g/dl (3.5-5.0); Albumin/Globulin Ratio 1.3 (1.1-1.8); Alkaline Phosphatase 142 U/L (38-126); Amylase 69 U/L (30-110); Anion Gap 13.8 mEq/L (5-15); Aspartate Amino Transferase 35 U/L (14-36); Bilirubin,Total 0.4 mg/dl (0.2-1.3); Blood Urea Nitrogen 16 mg/dl (7-17); Calcium 9.2 mg/dl (8.4-10.2); Carbon Dioxide 31 mmol/L (22.0-30.0); Chloride 98 mmol/L (98-107); Creatinine Clearance Estimated 50 mL/min (50-200); Estimated Glomerular Filt Rate 63 ml/min (>60); GFR (African American) 77 ML/MIN (>60); Globulin 3.3 g/dL (1.3-3.2); Glucose 120 mg/dl (74-100); Lipase 218 U/L (23-300); Potassium 3.8 mmoL/L (3.5-5.1); Sodium 139 mmol/L (136-145); Total Protein,Serum 7.7 g/dl (6.3-8.2)
[2020-10-12 01:02] LABS: C-Reactive Protein 12.1 mg/L (0-4)
[2020-10-12 01:17] LABS: Procalcitonin 0.093 ng/mL (0.0-2.0)
[2020-10-12 01:19] LABS: Erythrocyte Sedimentation Rate 21 mm/hr (0-30)
--- NOTE | 2020-10-12 02:15 | HMH.EDNVD ---
ED Disposition Clinical Impression: Pancreatitis, acute Qualifiers: Pancreatitis type: unspecified pancreatitis type Acute pancreatitis complication: no infection or necrosis Qualified Code(s): K85.90 - Acute pancreatitis without necrosis or infection, unspecified Disposition: Admitted as Observation Condition on Discharge: Good Instructions: DI for Acute Abdominal Pain Referrals: Gagan Solomon MD [Primary Care Provider] - - Critical Care Critical Care Time: No Attestation: On 10/11/20, the high probability of a clinically significant, sudden or life threatening deterioration of the following system(s) required my full and direct attention, intervention and personal management. The time I documented below is in addition to time spent performing reported procedures but includes the following listed in this critical care notation. Medical Decision Making - Medical Records Medical records reviewed: Yes: I reviewed the patient's medical records. - [place] Inquiry Pt receiving controlled substance: No Vital Signs: 10/11/20 23:51 10/12/20 00:04 10/12/20 00:27 Temperature 97.8 F Temperature Source Oral Pulse Rate 96 H 87 Pulse Rate [Right] 96 H Respiratory Rate 18 Blood Pressure 193/66 H 184/87 H Blood Pressure [Right Arm] 193/66 H Blood Pressure Mean [Right Arm] 108 02 Sat by Pulse Oximetry 98 95 97 Oxygen Delivery Method 10/12/20 00:30 10/12/20 01:00 10/12/20 02:00 Temperature Temperature Source Pulse Rate 92 H 87 79 Pulse Rate [Right] Respiratory Rate Blood Pressure 163/65 H 178/79 H 159/80 H Blood Pressure [Right Arm] Blood Pressure Mean [Right Arm] 02 Sat by Pulse Oximetry 97 95 92 L Oxygen Delivery Method Room Air 10/12/20 02:30 Temperature Temperature Source Pulse Rate 85 Pulse Rate [Right] Respiratory Rate Blood Pressure 149/86 H Blood Pressure [Right Arm] Blood Pressure Mean [Right Arm] 02 Sat by Pulse Oximetry 93 L Oxygen Delivery Method - Lab Data Lab results reviewed: Yes: I reviewed the patient's lab results. Lab Results 10/12/20 00:30: WBC 9.8, RBC 4.85, Hgb 11.7 L, Hct 38.8, MCV 79.9 L, MCH 24.1 L, MCHC 30.1 L, RDW 19.1 H, Plt Count 219, MPV 8.8, Neut % (Auto) 79.5, Lymph % (Auto) 14.8, [place] % (Auto) 4.9, Eos % (Auto) 0.6, Baso % (Auto) 0.2, Neut # (Auto) 7.8, Lymph # (Auto) 1.5, [place] # (Auto) 0.5, Eos # (Auto) 0.1, Baso # (Auto) 0.0, ESR 21 10/12/20 00:30: Sodium 139, Potassium 3.8, Chloride 98, Carbon Dioxide 31 H, Anion Gap 13.8, BUN 16, Creatinine 0.90, Estimated Creat Clear 50, Estimated GFR 63, Est GFR ( Amer) 77, Glucose 120 H, Calcium 9.2, Total Bilirubin 0.4, AST 35, ALT 28, Alkaline Phosphatase 142 H, C-Reactive Protein 12.1 H, Total Protein 7.7, Albumin 4.4, Globulin 3.3 H, Albumin/Globulin Ratio 1.3, Amylase 69, Lipase 218, Procalcitonin 0.093 10/12/20 02:23: Urine Color Straw, Urine Appearance Clear, Urine pH 8.0, Ur Specific Mccarley 1.010, Urine Protein Negative, Urine Glucose (UA) Negative, Urine Ketones Negative, Urine Blood Negative, Urine Nitrate Negative, Urine Bilirubin Negative, Urine Urobilinogen 0.2, Ur Leukocyte Esterase Negative, Urine WBC Occasional, Ur Squamous Epith Cells Occasional, Urine Bacteria Trace Result diagrams: 10/12/20 00:30 10/12/20 00:30 Orders (Tests/Meds): ED MEDICATIONS Generic Name Dose Route Start Last Admin Trade Name Freq PRN Reason Stop Dose Admin Sodium Chloride 1,000 mls @ 999 mls/hr 10/12/20 00:15 10/12/20 00:20 Sod Chlor 0.9% 1000ml Bag IV 10/12/20 01:15 999 mls/hr .Q1H1M ELI Administration Sodium Chloride 1,000 mls @ 999 mls/hr 10/12/20 02:30 10/12/20 02:27 Sod Chlor 0.9% 1000ml Bag IV 10/12/20 03:30 999 mls/hr .Q1H1M ELI Administration Sodium Chloride 8 ml 10/12/20 00:11 Sodium Chloride 0.9% 10ml Vial IV 11/11/20 00:10 NEEDED PRN dilute pepcid Discontinued Medications Generic Name Dose Route Start Last Admin Trade N
[2020-10-12 02:28] LABS: Microscopic, Urine URINE MICROSCOPIC (MICROSCOPIC)
[2020-10-12 02:30] LABS: Appearance,Urine CLEAR (Clear); Bilirubin,Urine Negative (Negative); Blood, Urine Negative (Negative); Color,Urine STRAW (Yellow); Glucose,Urine (UA) Negative (Negative); Ketones,Urine Negative (Negative); Leukocyte Esterase,Urine Negative (Negative); Nitrate,Urine Negative (Negative); Protein,Urine Negative (Negative); Urobilinogen,Urine 0.2 EU/dl (0.2)
[2020-10-12 02:34] LABS: Coronavirus 19, PCR Not Detected (NotDetected); Influenza A, PCR Not Detected (NotDetected); Influenza B, PCR Not Detected (NotDetected)
[2020-10-12 02:39] LABS: Bacteria,Urine Trace /lpf; Squamous Epithelial Cell,Urine Occasional #/hpf (0-5); WBC,Urine Occasional #/hpf (0-3)
--- NOTE | 2020-10-12 02:53 | PC.NURSE ---
paged Dr pitts at this time
--- NOTE | 2020-10-12 02:57 | PC.NURSE ---
Dr Parks on phone with dr pitts at this time
--- NOTE | 2020-10-12 03:04 | PC.NURSE ---
Pt does not want to be admitted and wishes to go home.
== END 2020-10-12 03:31 | disposition admitted as inpatient to this hospital (09) ==
LOC: ER 10-12 03:00 → 2ND 10-12 03:05
PROVIDERS: Emergency Provider Emergency Medicine; PCP Internal Medicine Adolescent Medicine
DX: K85.90 Acute pancreatitis without necrosis or infection, unspecified (principal); F17.210 Nicotine dependence, cigarettes, uncomplicated
CPT/HCPCS: 74177; 80053; 81001; 82150; 83690; 84145; 85025; 85651; 86140; 96365; 96366; 96375; 99283; J2405; Q9967; U0003

== ENCOUNTER → 2021-08-08 09:45 | Outpatient (CLI) | payer OTHER, MEDICARE, SELFPAY | PROVIDERS: Visit Provider Surgery | DX: Z01.812 Encounter for preprocedural laboratory examination (principal); Z11.52 Encounter for screening for COVID-19; Z13.810 Encounter for screening for upper gastrointestinal disorder; R10.13 Epigastric pain | CPT/HCPCS: C9803; U0003; U0005 ==

== ENCOUNTER 2021-08-11 11:39 | Day surgery (SDC) | payer OTHER, MEDICARE, SELFPAY ==
[2021-08-07 12:16] VITALS: BMI 20.7
[2021-08-11 12:31] VITALS: BP 166/90; PULSE 88; RESP 16; TEMP 36.7; O2SAT 96
--- NOTE | 2021-08-11 13:19 | HMH.SCOPE ---
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 Sedation:: Monitored anesthesia care Procedure:: After informed consent was obtained the patient was taken to the endoscopy suite. Sedation ensued after the patient was transferred to the left lateral decubitus position. Pulse, blood pressure, and oxygen saturation were monitored throughout the procedure. The endoscope was advanced into the efferent and afferent limbs distal to anastomosis. The gastroscope was carefully removed and the patient was transferred to recovery in stable condition. Please see findings and specimens below for detail. Findings:: Gastroesophageal junction at 38 cm Distal esophagus appeared normal with no inflammatory changes or ulcerations Inflammation of small gastric remnant; however, no ulcerations or bleeding noted Anastomosis appeared normal Both efferent limb and afferent limb appeared normal Specimens:: Gastric remnant biopsies Recommendations:: Follow-up pathology UGI/SBFT in near future May require cholestyramine Complications:: No immediate Estimated blood obtained (mL): 1
[2021-08-11 13:45] VITALS: O2SAT 96
--- NOTE | 2021-08-11 13:48 | P.PN_ITS ---
[facility] Anesthesia Checklist - Patient Identification Patient Identification: Arm Band - Structural Data Admitted From: Home Planned Operative Procedure/s: EGD Consent for Planned Operative Procedure(s) Verified: Yes Verified Documents: Surgical Consent - NPO Status Verified Time NPO: 00:00 - Airway Assessment C-Spine Mobility Assessed: Yes TMJ Mobility Assessed: Yes Dentition: Edentulous - Neurological Assessment Level of Consciousness: Awake, Alert, Appropriate - Anesthesia Plan Anesthesia Risk discussed: Yes ASA Class: III Anesthesia Type: MAC [facility] History I have reviewed the patient's past medical history: Yes Medical History: Denies:: Cancer, Diabetes Mellitus Type 1, Diabetes Mellitus Type 2, Internal Pacemaker, MRSA, Seizures *Have you ever received a pneumonia vaccine?: Yes *Have you received a flu vaccine this season?: Yes Anesthesia experience/problems:: none Other Surgeries: No: Pacemaker Amputation: No - *Social History Last grade of school completed: GED Smoking Status: Never smoker # Packs/Day (cigarettes): 1 Alcohol Intake: never Substance Use Type: denies use *Occupational Status:: unemployed Housing: house Household Members: spouse *Travel in the last 8 weeks: None Family Hx:: Unable to obtain, No significant family history
[2021-08-11 14:07] VITALS: BP 110/61; PULSE 77; RESP 16; TEMP 36.6; O2SAT 96
[2021-08-11 14:17] VITALS: BP 116/71; PULSE 82; RESP 16; TEMP 36.6; O2SAT 95
[2021-08-11 14:27] VITALS: BP 138/51; PULSE 85; RESP 16; TEMP 36.6; O2SAT 95
[2021-08-11 14:31] VITALS: BP 128/79; PULSE 77; RESP 16; TEMP 36.6; O2SAT 95
== END 2021-08-11 14:31 | disposition home or self-care (01) ==
LOC: OUTP 11:40
PROVIDERS: PCP Internal Medicine Adolescent Medicine; Visit Provider Surgery
PROC: 0DJ08ZZ Inspection of Upper Intestinal Tract, Via Natural or Artificial Opening Endoscopic (ICD-10-PCS; CPT 43235; principal; 2021-08-11 13:00)
DX: K31.9 Disease of stomach and duodenum, unspecified (principal); Z87.11 Personal history of peptic ulcer disease; Z90.49 Acquired absence of other specified parts of digestive tract; R10.13 Epigastric pain
CPT/HCPCS: 43239

== ENCOUNTER → 2021-08-28 07:42 | Outpatient (CLI) | payer OTHER, MEDICARE, SELFPAY ==
--- NOTE | 2021-08-28 07:43 | FL_ITS ---
FINAL REPORT CLINICAL HISTORY: NAUSEA, HX OF PEPTIC ULCER FT: 4:29 FINDINGS: AIR CONTRAST UPPER GI AND SMALL BOWEL FOLLOW THROUGH HISTORY: Nausea and vomiting, history of ulcer repair. TECHNIQUE: Patient ingested thick and thin barium contrast. Effervescent crystals were also administered. Spot and overhead films were performed. Additional barium was administered for a small bowel follow-through. A total of 25 images were saved. FINDINGS: UGI: The esophagus demonstrates no morphologic abnormalities. No mucosal defects are seen and motility appears normal. There are postoperative changes of partial gastrectomy. No gastric filling defects are seen. No episodes of gastroesophageal reflux observed. Small bowel loops are mildly dilated and contain retained debris. The patient states NPO for approximately 12 hours. There is no evidence of obstruction. Findings could be due to ileus. 13 mm barium tablet passes easily through the esophagus and into the stomach. SBFT: [employer] film demonstrates surgical clips in the right upper quadrant, consistent with prior cholecystectomy. Transit time of contrast to the colon is normal. Contrast reaches the colon in approximately 1 hour. The terminal ileum is slightly irregular. Terminal ileitis is not excluded. Fluoroscopy Time: 4 minutes 29 seconds. IMPRESSION: Status post partial gastrectomy. Mildly dilated small bowel loops with retained debris. There is no small bowel obstruction. Findings could be due to ileus. Slight irregularity of the terminal ileum and terminal ileitis is not excluded. Consider CT. Reviewed, Interpreted and Dictated by Milana Rhodes MD Transcribed by Olamide Machado PA-C Authenticated by Milana Rhodes MD on 08/28/2021 12:57:[address] [facility]
== END ==
PROVIDERS: PCP Internal Medicine Adolescent Medicine; Visit Provider Surgery
DX: R11.2 Nausea with vomiting, unspecified (principal); Z87.11 Personal history of peptic ulcer disease; Z90.3 Acquired absence of stomach [part of]
CPT/HCPCS: 74246; 74248

== ENCOUNTER → 2021-09-09 07:27 | Outpatient (CLI) | payer OTHER, MEDICARE, SELFPAY ==
--- NOTE | 2021-09-09 07:27 | CT_ITS ---
FINAL REPORT CLINICAL HISTORY: nausea, headache COMPARISON: 05/21/2016 FINDINGS: Axial images of the head were obtained without contrast. Coronal reformatted images were also obtained. This study was performed with techniques to keep radiation doses as low as reasonably achievable (ALARA). Individualized dose reduction techniques using automated exposure control or adjustment of mA and/or kV according to the patient's size were employed. There is generalized age-appropriate atrophy. Periventricular low-attenuation areas are seen consistent with mild chronic ischemic changes. There is no evidence of intracranial hemorrhage or mass. There is no evidence of acute infarct. There is no evidence of shift of the midline structures. No skull abnormality is seen on the bone window images. There are calcifications in several right mastoid air cells. IMPRESSION: Atrophy and mild periventricular chronic ischemic changes. No acute intracranial abnormality identified. Reviewed, Interpreted and Dictated by Ervin Macdonald III, MD Transcribed by Ananya Alicea Authenticated and [facility]
== END ==
PROVIDERS: PCP Internal Medicine Adolescent Medicine; Visit Provider Surgery
DX: R51.9 Headache, unspecified (principal); R11.0 Nausea
CPT/HCPCS: 70450

== ENCOUNTER 2022-03-22 20:02 | Inpatient (IN) | payer OTHER, MEDICARE, SELFPAY ==
[2022-03-22 20:02] VITALS: BP 176/86; PULSE 103; RESP 16; TEMP 36.7; O2SAT 96; BMI 20.7
--- NOTE | 2022-03-22 20:05 | XR_ITS ---
PROCEDURE INFORMATION: Exam: XR Chest Exam date and time: 03/22/2022 8:18 PM Age: 66 years old Clinical indication: Injury or trauma; Fall; Blunt trauma (contusions or hematomas) TECHNIQUE: Imaging protocol: Radiologic exam of the chest. Views: 4 or more views. COMPARISON: CR CXR CHEST(2 VIEWS-NOT PORTABLE) 10/06/2016 2:23 PM FINDINGS: Lungs: Unremarkable. No consolidation. Pleural spaces: Unremarkable. No pleural effusion. No pneumothorax. Heart/Mediastinum: Unremarkable. No cardiomegaly. Bones/joints: Unremarkable. IMPRESSION: Negative chest
--- NOTE | 2022-03-22 20:05 | XR_ITS ---
PROCEDURE INFORMATION: Exam: XR Right Hip Exam date and time: 03/22/2022 8:13 PM Age: 66 years old Clinical indication: Injury or trauma; Fall; Blunt trauma (contusions or hematomas); Right; Hip TECHNIQUE: Imaging protocol: Radiologic exam of the Right hip. Views: 2 or 3 views hip with pelvis when performed. COMPARISON: CT ABDOMEN PELVIS W CON 10/12/2020 1:19 AM FINDINGS: Bones/joints: There is an acute intertrochanteric fracture of the right hip with mild malalignment and foreshortening of the femoral neck. Remainder of visualized osseous structures are intact. Soft tissues: Unremarkable. IMPRESSION: Acute intertrochanteric fracture right hip
[2022-03-22 20:25] LABS: Coronavirus 19, PCR Not Detected (NotDetected); Influenza A, PCR Not Detected (NotDetected); Influenza B, PCR Not Detected (NotDetected)
--- NOTE | 2022-03-22 20:25 | HMH.EDFALL ---
Discharge Plan Disposition Patient Disposition: Admitted As Inpatient Chief Complaint: Fall Clinical Impressions Clinical Impression: Closed hip fracture, Anemia Discharge ED Provider: Bruce Parks Fall HPI General Chief Complaint: Fall Stated Complaint: fall Time Seen by Provider: 03/22/22 20:10 Mode of Arrival: EMS Source of Information: Patient, Spouse, EMS and Medical Record Limitations: No Limitations Description of Symptoms (Recalled from ER Triage Doc. by RN): pt states was making a bed and got blanket wrapped in feet and fall. pt c/o rt hip and leg pain History of Present Illness HPI Narrative: acute rt hip pain after fall MD complaint: fall Onset (ago): hour(s) Fall from: standing Fall witnessed: no Place fall occurred: home Loss of consciousness: none Prolonged down time: no Context: tripped/slipped Location of injury: head Location of injury - extremities: Right: thigh Severity: moderate Associated symptoms (after fall): denies Related Data Home Medications Medication Instructions Recorded Confirmed alendronate 35 mg tablet 35 mg PO WEEKLY bone health 04/17/20 03/22/22 amantadine HCl 100 mg capsule 100 mg PO BID . 04/17/20 03/22/22 cariprazine 1.5 mg capsule 1.5 mg PO DAILY . 04/17/20 03/22/22 (Vraylar) duloxetine 60 mg capsule,delayed 60 mg PO BID Depression 04/17/20 03/22/22 release ergocalciferol (vitamin D2) 1,250 1,250 mcg PO WEEKLY Supplement 04/17/20 03/22/22 mcg (50,000 unit) capsule propranolol 40 mg tablet 40 mg PO BID High blood pressure 04/17/20 03/22/22 Allergies Allergy/AdvReac Type Severity Reaction Status Date / Time tetracycline [TETRACYCLINE] Allergy Unknown I-HIVES Verified 09/23/21 10:10 [facility] Disclaimer: The information contained in this section may have been updated after the patient was seen, as this information can be updated by other users. Social History Smoking Status: Current every day smoker alcohol intake: never substance use type: denies use current occupational status: unemployed Travel in the last 8 weeks: None household members: spouse housing: house current occupational exposures/hazards: No caffeine: Yes ROS Obtained: Yes All systems reviewed & no additional complaints except as documented Physical Exam General General appearance: alert Head Head exam: atraumatic Eye Eye exam: Present PERRL and EOMI ENT ENT exam: Present mucous membranes moist Neck Neck exam: Present trachea midline Respiratory Respiratory exam: Present normal lung sounds bilaterally; Absent respiratory distress Cardiovascular Cardiovascular exam: Present regular rate and systolic murmur Abdominal Exam Abdominal exam: Present soft; Absent tenderness or guarding Expanded Lower Extremity Exam Right: Hip/Pelvis exam: Present shortening of leg, pain on hip/pelvis palpation and hip pain on leg movement Neurovascular/Tendon exam: Absent pulse deficit Neurological Exam Neurological exam: Present alert, oriented X3 and CN II-XII intact; Absent motor sensory deficit Psychiatric Psychiatric exam: Present normal affect Skin Skin exam: Absent rash Medical Decision Making Medical Records Medical records reviewed: Yes I reviewed the patient's medical records. [place] Inquiry Pt receiving controlled substance: No Vital Signs: 03/22/22 20:02 Temperature 98.0 F Temperature Source Oral Pulse Rate [Right] 103 H Respiratory Rate 16 Blood Pressure [Right Arm] 176/86 H Blood Pressure Mean [Right Arm] 116 02 Sat by Pulse Oximetry 96 Lab Data Lab results reviewed: Yes I reviewed the patient's lab results. Lab Results 03/22/22 20:12: SARS-CoV-2 (PCR) Not detected, Influenza A Untype (PCR) Not detected, Influenza Type B (PCR) Not detected 03/22/22 20:14: WBC 8.3, RBC 3.44 L, Hgb 8.2 L, Hct 28.0 L, MCV 81.6, MCH 23.9 L, MCHC 29.3 L, RDW 19.9 H, Plt Count 349, MPV 9.6, Neut % (Auto) 89.5 H, Lymph % (Auto) 7.0 L, [place] % (Auto) 3.
[2022-03-22 20:34] LABS: Alanine Aminotransferase 19 U/L (12-78); Albumin Level 3.9 g/dl (3.5-5.0); Albumin/Globulin Ratio 1.4 (1.1-1.8); Alkaline Phosphatase 177 U/L (38-126); Anion Gap 8.9 mEq/L (5-15); Aspartate Amino Transferase 32 U/L (14-36); Blood Urea Nitrogen 25 mg/dl (7-17); Calcium 8.9 mg/dl (8.4-10.2); Carbon Dioxide 25 mmol/L (22.0-30.0); Chloride 109 mmol/L (98-107); Creatinine Clearance Estimated 51 mL/min (50-200); Estimated Glomerular Filt Rate 56 ml/min (>60); GFR (African American) 68 ML/MIN (>60); Globulin 2.7 g/dL (1.3-3.2); Glucose 115 mg/dl (74-100); Potassium 3.9 mmoL/L (3.5-5.1); Sodium 139 mmol/L (136-145); Total Protein,Serum 6.6 g/dl (6.3-8.2)
[2022-03-22 20:35] LABS: Bilirubin,Total < 0.1 mg/dl (0.2-1.3)
--- NOTE | 2022-03-22 20:42 | CT_ITS ---
PROCEDURE INFORMATION: Exam: CT Right Lower Extremity Without Contrast, Hip Exam date and time: 03/22/2022 8:36 PM Age: 66 years old Clinical indication: Injury or trauma; Fall; Blunt trauma TECHNIQUE: Imaging protocol: CT of the Right lower extremity without contrast was performed. Exam focused on the hip. Radiation optimization: All CT scans at this facility use at least one of these dose optimization techniques: automated exposure control; mA and/or kV adjustment per patient size (includes targeted exams where dose is matched to clinical indication); or iterative reconstruction. COMPARISON: CR XR HIP RT 2-3V W/PELVIS 03/22/2022 8:13 PM FINDINGS: Bones/joints: There is a comminuted intertrochanteric fracture of the right hip with overriding of fracture components resulting in foreshortening of the femoral neck and varus angulation at the fracture site. Lesser trochanter is almost completely avulsed from the parent bone. There is no dislocation. Right hip joint articular surfaces fairly well preserved. Remaining visualized osseous structures are unremarkable. Soft tissues: Normal. IMPRESSION: Acute comminuted intertrochanteric fracture right hip
[2022-03-22 21:08] LABS: Basophils % 0.1 % (0.1-2.0); Eosinophils % 0.3 % (0.1-12.0); Hemoglobin 8.2 g/dL (12.2-16.2); Lymphocytes # 0.6 K/mm3 (0.7-4.5); Mean Corpuscular HGB Conc 29.3 g/dL (31.8-35.4); Mean Corpuscular Hemoglobin 23.9 pg (27.0-31.2); Mean Corpuscular Volume 81.6 fl (81-99); Mean Platelet Volume 9.6 fl (7.4-10.4); Monocytes # 0.3 K/mm3 (0.1-1.0); Monocytes % 3.1 % (1.7-9.3); Neutrophils # 7.4 K/mm3 (1.8-7.8); Neutrophils % 89.5 % (37.0-80.0); Platelet Count 349 K/mm3 (142-424); Red Blood Count 3.44 M/mm3 (4.20-5.40); Red Cell Distribution Width 19.9 % (11.5-17.5); White Blood Count 8.3 K/mm3 (4.8-10.8)
[2022-03-22 21:13] LABS: MANUAL DIFFERENTIAL MANUAL DIFFERENTIAL (MANUAL DIFF)
[2022-03-22 21:42] LABS: Hypochromasia 2+; Lymphocytes % 7 % (10-50); Monocytes % 2 % (2-9); Neutrophils % 91 % (42-76); Poikilocytosis 1+; Total Cells Counted 100
[2022-03-22 21:43] LABS: Platelet Estimate Normal; Stomatocytes 1+
[2022-03-22 22:53] VITALS: BP 169/108; PULSE 112; RESP 16; TEMP 36.7; O2SAT 96
--- NOTE | 2022-03-22 23:10 | PC.NURSE ---
PT ARRIVED TO FLOOR VIA STRETCHER AT THIS TIME
[2022-03-23] VITALS (20 sets, daily range): BP systolic 123–167; BP diastolic 72–91; PULSE 81–108; RESP 14–22; TEMP 6.1–43; O2SAT 90–96; BMI 20.8
--- NOTE | 2022-03-23 06:09 | PC.NURSE ---
Pt admitted this shift. Pt is A&OX4. She has been medicated for right hip pain PRN per MAR. Rhonchi noted to bilat upper lobes. Pt tolerates RA with O2 sats >90%. Jack catheter in place draining clear/yellow urine. 20GIV in RAC patent with NS infusing @100 ml/hr. Pt has remained NPO since 0000 this morning. Bed alarm on and functioning, and fall precautions in place.
[2022-03-23 07:28] LABS: Basophils % 0.6 % (0.1-2.0); Eosinophils # 0.1 K/mm3 (0.0-0.4); Eosinophils % 1.4 % (0.1-12.0); Hemoglobin 8.2 g/dL (12.2-16.2); Lymphocytes # 1.3 K/mm3 (0.7-4.5); Lymphocytes % 21.9 % (10-50); Mean Corpuscular HGB Conc 30.4 g/dL (31.8-35.4); Mean Corpuscular Hemoglobin 24.3 pg (27.0-31.2); Mean Corpuscular Volume 79.9 fl (81-99); Mean Platelet Volume 9.6 fl (7.4-10.4); Monocytes # 0.4 K/mm3 (0.1-1.0); Monocytes % 6.4 % (1.7-9.3); Neutrophils % 69.7 % (37.0-80.0); Platelet Count 324 K/mm3 (142-424); Red Blood Count 3.38 M/mm3 (4.20-5.40); Red Cell Distribution Width 20.1 % (11.5-17.5); White Blood Count 5.7 K/mm3 (4.8-10.8)
--- NOTE | 2022-03-23 07:36 | EXP.HP ---
History of Present Illness *Admission Date: 03/22/22 *Reason for visit:: Fall with right hip fracture *History of present illness: 66-year-old female with history of recurrent anemia from B12 and iron deficiency and a history of an idiosyncratic choreoathetoid movement disorder. She was making her bed yesterday and became tangled up in the bed clothes and fell down, right onto her right hip area. Intense pain, immobility, brought to the ER where she had a complex intertrochanteric right hip fracture and admitted to hospital for pain control and orthopedic consultation. [facility] Disclaimer: The information contained in this section may have been updated after the patient was seen, as this information can be updated by other users. Medical History (Updated 03/23/22 @ 07:42 by Gagan Solomon MD) Anxiety Cholecystectomy planned Depression HTN (hypertension) Multiple sclerosis Stomach ulcer Surgical History (Updated 03/23/22 @ 00:37 by Fara Mobley RN) H/O tubal ligation Hx of appendectomy Family History (Updated 03/23/22 @ 00:36 by Fara Mobley RN) FH: kidney cancer Diabetes CHF (congestive heart failure) Heart attack Social History Smoking Status: Current every day smoker alcohol intake: never substance use type: denies use current occupational status: unemployed Travel in the last 8 weeks: None household members: spouse housing: house current occupational exposures/hazards: No caffeine: Yes Review of Systems Review of Systems Review of systems:: pertinent systems reviewed and negative unless documented below Meds Home Medications and Allergies Home Medications Medication Instructions Recorded Confirmed Type alendronate 35 mg tablet 35 mg PO WEEKLY bone health 04/17/20 03/22/22 History amantadine HCl 100 mg capsule 200 mg PO BID Tremors 04/17/20 03/23/22 History cariprazine 1.5 mg capsule 1.5 mg PO DAILY . 04/17/20 03/22/22 History (Vraylar) duloxetine 60 mg capsule,delayed 60 mg PO BID Depression 04/17/20 03/22/22 History release ergocalciferol (vitamin D2) 1,250 1,250 mcg PO WEEKLY Supplement 04/17/20 03/22/22 History mcg (50,000 unit) capsule propranolol 40 mg tablet 40 mg PO BID High blood pressure 04/17/20 03/22/22 History cyanocobalamin (vitamin B-12) 1,000 mcg IM WEEKLY Supplement 03/23/22 03/23/22 History 1,000 mcg/mL injection solution famotidine 20 mg tablet 20 mg PO BID acid reflux 03/23/22 03/23/22 History New Prescriptions to Start Prescriptions: Allergies Allergy/AdvReac Type Severity Reaction Status Date / Time tetracycline [TETRACYCLINE] Allergy Unknown I-HIVES Verified 09/23/21 10:10 Exam Data for Last 24 hours Vital signs and Labs for Last 24 Hours: Temp Pulse Resp BP Pulse Ox 98.1 F 96 H 16 157/90 H 93 L 03/23/22 04:00 03/23/22 04:00 03/23/22 04:00 03/23/22 04:00 03/23/22 04:00 Laboratory Results - last 24 hr 03/22/22 20:12: SARS-CoV-2 (PCR) Not detected, Influenza A Untype (PCR) Not detected, Influenza Type B (PCR) Not detected 03/22/22 20:14: WBC 8.3, RBC 3.44 L, Hgb 8.2 L, Hct 28.0 L, MCV 81.6, MCH 23.9 L, MCHC 29.3 L, RDW 19.9 H, Plt Count 349, MPV 9.6, Neut % (Auto) 89.5 H, Lymph % (Auto) 7.0 L, [place] % (Auto) 3.1, Eos % (Auto) 0.3, Baso % (Auto) 0.1, Neut # (Auto) 7.4, Lymph # (Auto) 0.6 L, [place] # (Auto) 0.3, Eos # (Auto) 0.0, Baso # (Auto) 0.0, Total Counted 100, Neutrophils % (Manual) 91 H, Lymphocytes % (Manual) 7 L, Monocytes % (Manual) 2, Platelet Estimate Normal, Hypochromasia 2+, Poikilocytosis 1+, Stomatocytes 1+ 03/22/22 20:14: Sodium 139, Potassium 3.9, Chloride 109 H, Carbon Dioxide 25, Anion Gap 8.9, BUN 25 H, Creatinine 1.00, Estimated Creat Clear 51, Estimated GFR 56 L, Est GFR ( Amer) 68, Glucose 115 H, Calcium 8.9, Total Bilirubin < 0.1 L, AST 32, ALT 19, Alkaline Phosphatase 177 H, Total Protein 6.6, Albumin 3.9, Globulin 2.7, Albumin/Globulin Ratio 1.4 03/23/22 07:07: WBC 5.7 D, RBC
[2022-03-23 07:44] LABS: Anion Gap 7.5 mEq/L (5-15); Blood Urea Nitrogen 15 mg/dl (7-17); Calcium 8.4 mg/dl (8.4-10.2); Carbon Dioxide 27 mmol/L (22.0-30.0); Chloride 109 mmol/L (98-107); Creatinine Clearance Estimated 51 mL/min (50-200); Estimated Glomerular Filt Rate 101 ml/min (>60); GFR (African American) 122 ML/MIN (>60); Glucose 101 mg/dl (74-100); Potassium 3.5 mmoL/L (3.5-5.1); Sodium 140 mmol/L (136-145)
--- NOTE | 2022-03-23 10:23 | EXP.ORTH.CON ---
Documented by User: KERON Alvarez 03/23/22 11:43 History of Present Illness *Admission Date: 03/22/22 *Reason for visit:: Right hip fracture *History of present illness: Mrs. Ohara is a 66 year old female patient who was admitted to the acute inpatient service following a mechanical fall at home yesterday evening 03/22/2022. She reports that she was attempting to make the bed yesterday and became tangled up in the bed sheets/quilt, causing her to fall onto her right hip. She reports that she had immediate pain in the right hip and was unable to get up to walk so she was brought to the [facility] ER where subsequent x-ray demonstrated a right intertrochanteric femur fracture. This morning the patient is lying comfortably in bed and her is present at the bedside. She reports right hip pain as to be expected. She denies any other injuries. She denies any history of distal tingling/numbness. Her past medical history is significant for an anemia from B12 and iron deficiency, and history of an idiosyncratic choreoathetoid movement disorder. At baseline she lives in her own home and ambulates without the use of any assistive devices. She denies any other symptoms or concerns at this time. [facility] Disclaimer: The information contained in this section may have been updated after the patient was seen, as this information can be updated by other users. Medical History (Updated 03/23/22 @ 07:42 by Gagan Solomon MD) Anxiety Cholecystectomy planned Depression HTN (hypertension) Multiple sclerosis Stomach ulcer Surgical History (Updated 03/23/22 @ 00:37 by Fara Mobley RN) H/O tubal ligation Hx of appendectomy Family History (Updated 03/23/22 @ 00:36 by Fara Mobley RN) Other CHF (congestive heart failure) Diabetes FH: kidney cancer Heart attack Social History Smoking Status: Current every day smoker alcohol intake: never substance use type: denies use current occupational status: unemployed Travel in the last 8 weeks: None household members: spouse housing: house current occupational exposures/hazards: No caffeine: Yes Meds Home Medications and Allergies Home Medications Medication Instructions Recorded Confirmed Type alendronate 35 mg tablet 35 mg PO WEEKLY bone health 04/17/20 09/23/21 History amantadine HCl 100 mg capsule 200 mg PO BID Tremors 04/17/20 03/23/22 History cariprazine 1.5 mg capsule 1.5 mg PO DAILY . 04/17/20 09/23/21 History (Vraylar) duloxetine 60 mg capsule,delayed 60 mg PO BID Depression 04/17/20 03/22/22 History release ergocalciferol (vitamin D2) 1,250 1,250 mcg PO WEEKLY Supplement 04/17/20 03/22/22 History mcg (50,000 unit) capsule propranolol 40 mg tablet 40 mg PO BID High blood pressure 04/17/20 03/22/22 History cyanocobalamin (vitamin B-12) 1,000 mcg IM WEEKLY Supplement 03/23/22 03/23/22 History 1,000 mcg/mL injection solution famotidine 20 mg tablet 20 mg PO BID acid reflux 03/23/22 03/23/22 History New Prescriptions to Start Prescriptions: Allergies Allergy/AdvReac Type Severity Reaction Status Date / Time tetracycline [TETRACYCLINE] Allergy Unknown I-HIVES Verified 09/23/21 10:10 Ortho Exam (Inpt) Vital signs and Labs for Last 24 Hours: Temp Pulse Resp BP Pulse Ox 98.2 F 102 H 14 159/79 H 90 L 03/23/22 08:00 03/23/22 08:00 03/23/22 08:00 03/23/22 08:00 03/23/22 08:00 Laboratory Results - last 24 hr 03/22/22 20:12: SARS-CoV-2 (PCR) Not detected, Influenza A Untype (PCR) Not detected, Influenza Type B (PCR) Not detected 03/22/22 20:14: WBC 8.3, RBC 3.44 L, Hgb 8.2 L, Hct 28.0 L, MCV 81.6, MCH 23.9 L, MCHC 29.3 L, RDW 19.9 H, Plt Count 349, MPV 9.6, Neut % (Auto) 89.5 H, Lymph % (Auto) 7.0 L, [place] % (Auto) 3.1, Eos % (Auto) 0.3, Baso % (Auto) 0.1, Neut # (Auto) 7.4, Lymph # (Auto) 0.6 L, [place] # (Auto) 0.3, Eos # (Auto) 0.0, Baso # (Auto) 0.0, Total Counted 100, Neutrophil
--- NOTE | 2022-03-23 15:04 | PC.NURSE ---
PT IS RESTING IN BED. RIGHT LEG POSITIONED AND ELEVATED WITH PILLOWS. PT HAS REFUSED TURNING AND REPOSITIONING DUE TO IT BEING SO PAINFUL. MEDICATED PER MAR FOR DISCOMFORT. CONSENT HAS BEEN SIGNED FOR SURGERY. THE PLAN IS FOR PT TO GO TO SURGERY AT 1700. LUNG SOUNDS HAVE SCATTERED WHEEZES/RHONCHI. ABDOMEN SOFT/NON TENDER WITH ACTIVE BOWEL SOUNDS. CATHETER DRAINING AT BEDSIDE. WILL CONTINUE TO MONITOR.
--- NOTE | 2022-03-23 16:59 | XR_ITS ---
PROCEDURE INFORMATION: Exam: XR Right Hip Exam date and time: 03/23/2022 4:45 PM Age: 66 years old Clinical indication: Screening exam; Gamma nail inserted in right hip in or using c-arm guidance. ; Additional info: Orif right hip using c-arm guidance TECHNIQUE: Imaging protocol: Radiologic exam of the Right hip. Views: 2 or 3 views hip with pelvis when performed. COMPARISON: CT HIP RT WO CON 03/22/2022 8:36 PM FINDINGS: Bones/joints: Intraoperative radiographs of the right hip are obtained. There is intramedullary alisson and dynamic compression screw fixation of the proximal femur. Soft tissues: Unremarkable. IMPRESSION: Intraoperative radiographs as above.
--- NOTE | 2022-03-23 18:00 | P.PN_ITS ---
[facility] Disclaimer: The information contained in this section may have been updated after the patient was seen, as this information can be updated by other users. Medical History (Updated 03/23/22 @ 07:42 by Gagan Solomon MD) Anxiety Cholecystectomy planned Depression HTN (hypertension) Multiple sclerosis Stomach ulcer Surgical History (Updated 03/23/22 @ 00:37 by Fara Mobley RN) H/O tubal ligation Hx of appendectomy Family History (Updated 03/23/22 @ 00:36 by Fara Mobley RN) Other CHF (congestive heart failure) Diabetes FH: kidney cancer Heart attack Social History Smoking Status: Current every day smoker alcohol intake: never substance use type: denies use current occupational status: unemployed Travel in the last 8 weeks: None household members: spouse housing: house current occupational exposures/hazards: No caffeine: Yes [facility] Anesthesia Checklist Patient Identification Patient Identification: Arm Band Structural Data Admitted From: Inpatient Planned Operative Procedure/s: Right Hip Cephalomedullary Nailing Consent for Planned Operative Procedure(s) Verified: Yes Verified Documents: Surgical Consent and History and Physical NPO Status Verified Time NPO: 00:00 Additional verifications Anesthesia Reactions: No Airway Assessment C-Spine Mobility Assessed: Yes TMJ Mobility Assessed: Yes Dentition: Edentulous Neurological Assessment Level of Consciousness: Awake and Alert Anesthesia Plan Anesthesia Risk discussed: Yes Anesthesia Plan: Verified ASA Class: III Anesthesia Type: General
--- NOTE | 2022-03-23 18:45 | EXP.OP.NOTE ---
Date of procedure: 03/23/22 Pre-op Diagnosis:: Right intertrochanteric femur fracture Post-op Diagnosis:: Same Procedure performed:: 71029: Cephalomedullary nail fixation right intertrochanteric femur fracture Surgeon:: Lonnie Quintana JR, MD EXPORT SALES ASSISTANT:: Benja Brito Anesthesia: GETA Estimated blood loss (mL): 100 Clinical Note:: 66-year-old female fell, sustained right intertrochanteric femur fracture. I had a discussion with she and her family regarding further management, recommended cephalomedullary nail fixation. They were amenable with the plan. We discussed the risk and benefits of surgery. Risks included but were not limited to pain, bleeding, infection, damage to adjacent structures, need for further surgery, wound healing complications, loss of limb, . Patient expressed verbal consent and written consent was obtained for the above procedure. Operative findings:: Safe intraosseous hardware placement Operative note:: Patient was identified in preoperative holding. Operative site was marked in indelible ink. History, physical, consent were reviewed and updated. Patient was surrendered to the anesthesia team, taken to the operative suite. The patient was secured onto the fracture table with a belt and tape across the arms and upper chest area. Anesthesia was induced. A perineal post had been placed. The operative extremity was secured down and longitudinal traction applied through the post. The contralateral extremity was secured with pillow and jluis wrap to arm. C-arm fluoroscopy was then brought in to check fracture alignment, and it was found to be acceptable on AP and lateral views. The operative extremity was prepped and draped in the usual sterile fashion. The operative team donned sterile gowns and gloves and a timeout was called. All in attendance agreed regarding the patient's identity, procedure, operative site. Weight-based dose of antibiotics was given prior to incision. A stab wound incision was made proximal to the tip of the greater trochanter and a Steinmann pin placed on the tip of the greater trochanter, localizing it on AP and lateral views to be in the center. This was placed down into the femur to the level of the lesser trochanter. The knife was used to enlarge the opening proximally and a guide placed over the pin down to the tip of the greater trochanter. The drill was used through the guide to open the greater trochanter. A ball-tipped guidewire was placed in the canal was reamed to appropriate diameter. The cephalomedullary nail was advanced over the guidewire to appropriate position. The placement was checked on AP and lateral views. The triple sleeve cannula was then placed through the guide connected onto the insertion handle. This was placed against the skin and then an incision made through the skin and fascia down onto bone. The cannula was then placed down until it was flush on the bone. The guide pin was drilled up into the center of the femoral head on AP and lateral views. The inner sleeve was then removed, and the length of the blade was measured. Step reamer was advanced to appropriate depth over the wire. A 10.5 mm lag screw of appropriate length was placed with tip apex distance less than 20 mm. Attention was then turned proximally, and the flexible screwdriver was used to tighten down the proximal screw to the lag screw. The distal screws and cannulas were then placed through the targeting device and a small incision made through the skin and fascia allowing it to be placed flush against bone. Drill was used to drill through both cortices. An interlocking bolt of appropriate length was placed after drilling. Orthogonal fluoroscopic views demonstrated appropriate fracture alignment, safe intraosseous hardware placement with appropriate tip apex distance and no apparent fracture at the tip of the nail. Wounds were closed in anatomic layers. Sterile dressings applied. Counts were correct x2. There we
--- NOTE | 2022-03-23 18:56 | EXP.ANES.I ---
[facility] Anesthesia Record Part I Anesthesia Record I Intake, IV Amount: 1,100 Estimated blood loss (mL): 100 Urine output (mL): 50 Blood Pressure: 148/82 SaO2: 91 Pulse Rate: 91 Respiratory Rate: 16 Temperature: 96 F Patient is:: Drowsy, Nasal O2 and Stable Stable to PACU at:: 18:50
--- NOTE | 2022-03-23 19:14 | XR_ITS ---
PROCEDURE INFORMATION: Exam: XR Right Hip Exam date and time: 03/23/2022 6:54 PM Age: 66 years old Clinical indication: Hip pain; Right hip; Prior surgery; Surgery date: Post-operative (0-2 days); Additional info: Post right hip nailing TECHNIQUE: Imaging protocol: Radiologic exam of the Right hip. Views: 2 or 3 views hip with pelvis when performed. COMPARISON: SD XR HIP RT 2-3V W/PELVIS 03/23/2022 4:45 PM FINDINGS: Bones/joints: Intramedullary alisson and dynamic compression screw fixation. Underlying fracture of the right femur neck. Normal anatomic alignment. Soft tissues: Soft tissue gas along the right lateral hip and surgical skin dedra. IMPRESSION: Intraoperative findings as above.
--- NOTE | 2022-03-23 19:44 | SUR.PHASEI ---
1849- pt to pacu via bed. Pt is sleeping comfortably. Arouses easily. Warm blankets applied. Pt is laying with her legs bent. Pillow placed underneath for comfort measures. VSS. 1899-xray @ bedside for 2 views of right hip. Pt encouraged to deep breath and cough.VSS. 1909- pt sleeping. Arouses easily. No other changes in physical assessment. VSS. 1919-Detailed report called to [facility]. 1924-pt transfered to 2nd floor via bed per [place] w/4 lpm o2. Bedside report given to [facility] upon arrival. Bed lowered and locked in lowest position. Family @ BS.
[2022-03-24] VITALS (20 sets, daily range): BP systolic 114–167; BP diastolic 50–81; PULSE 80–101; RESP 14–22; TEMP 36.9–37.5; O2SAT 89–98; BMI 20.9
--- NOTE | 2022-03-24 05:09 | PC.NURSE ---
pt returned from surgery during this shift, currently on 2L NC, dressing to right hip, C/D/I, has complained of pain 2 X this shift and was treated per JUN, younger remains in place, 550 mL out so far this shift
[2022-03-24 06:56] LABS: Basophils % 0.3 % (0.1-2.0); Eosinophils # 0.1 K/mm3 (0.0-0.4); Eosinophils % 1.8 % (0.1-12.0); Hematocrit 24.6 % (37.0-47.0); Hemoglobin 7.5 g/dL (12.2-16.2); Lymphocytes # 0.7 K/mm3 (0.7-4.5); Lymphocytes % 9.6 % (10-50); Mean Corpuscular HGB Conc 30.2 g/dL (31.8-35.4); Mean Corpuscular Hemoglobin 24.7 pg (27.0-31.2); Mean Corpuscular Volume 81.5 fl (81-99); Mean Platelet Volume 8.9 fl (7.4-10.4); Monocytes # 0.4 K/mm3 (0.1-1.0); Monocytes % 5.4 % (1.7-9.3); Neutrophils # 6.2 K/mm3 (1.8-7.8); Neutrophils % 82.9 % (37.0-80.0); Platelet Count 287 K/mm3 (142-424); Red Blood Count 3.02 M/mm3 (4.20-5.40); Red Cell Distribution Width 20.2 % (11.5-17.5); White Blood Count 7.4 K/mm3 (4.8-10.8)
[2022-03-24 07:41] LABS: Chloride 108 mmol/L (98-107); Sodium 137 mmol/L (136-145)
[2022-03-24 07:42] LABS: Potassium 3.9 mmoL/L (3.5-5.1)
[2022-03-24 07:44] LABS: Blood Urea Nitrogen 15 mg/dl (7-17); Creatinine Clearance Estimated 51 mL/min (50-200); Estimated Glomerular Filt Rate 101 ml/min (>60); GFR (African American) 122 ML/MIN (>60)
[2022-03-24 07:45] LABS: Anion Gap 9.9 mEq/L (5-15); Calcium 8.3 mg/dl (8.4-10.2); Carbon Dioxide 23 mmol/L (22.0-30.0); Glucose 87 mg/dl (74-100)
--- NOTE | 2022-03-24 08:06 | EXP.ACUTE.PN ---
Subjective *Date: 03/24/22 *Time: 08:06 Interval history: Overnight patient did well. OR notes reviewed. Patient has some pain but has not had pain meds since 1 AM. Long discussion with her and her family about placement issues. Medical Exam Vital signs and Labs for Last 24 Hours: Vital Signs Temp Pulse Pulse Resp BP BP Pulse Ox 03/24/22 04:00 98.9 F 91 H 16 133/75 90 L 03/24/22 02:15 89 16 136/65 94 L 03/24/22 01:15 98.5 F 91 H 16 130/68 90 L 03/24/22 00:15 85 14 134/68 92 L 03/23/22 23:15 81 16 134/72 95 03/23/22 22:15 88 16 141/79 H 95 03/23/22 21:45 93 H 16 151/72 H 95 03/23/22 20:00 92 L 03/23/22 21:15 98.9 F 98 H 17 148/84 H 94 L 03/23/22 20:45 96 H 16 147/80 H 94 L 03/23/22 20:15 98 H 16 152/84 H 90 L 03/23/22 20:00 98 H 17 148/83 H 92 L 03/23/22 19:45 104 H 17 123/75 93 L 03/23/22 19:30 99.5 F 103 H 18 153/91 H 95 03/23/22 19:25 101 H 20 167/81 H 90 L 03/23/22 19:20 100 H 20 165/82 H 90 L 03/23/22 19:10 100 H 20 162/81 H 93 L 03/23/22 19:00 99 H 20 145/91 H 94 L 03/23/22 18:50 91 H 22 148/82 H 96 03/23/22 16:00 98.0 F 88 14 151/78 H 91 L 03/23/22 18:57 96 F L 91 H 16 148/82 H Intake and Output 03/23/22 03/24/22 03/24/22 19:59 03:59 11:59 Intake Total 1099 Output Total 600 / 1150 550 / 1150 Balance 500 / 829 -550 / 829 879 / 829 Intake: Intake, Total IV Amount 1099 Cefazolin Sodium 2 gm In 0.9 % 100 / 100 Sodium Chloride 100 ml @ 200 mls/hr IV Q8H [facility] Rx#:[id number] Ringers Solution,Lactated 1,000 779 / 779 ml @ 75 mls/hr IV .[id number] [facility] Rx#:[id number] Output: Output, Urine Amount 600 / 600 Output, Urine Amount (Catheter) 550 / 550 Jack 550 / 550 Other: Number of Unmeasured Voids 1 Weight 126 lb Patient Weight 03/24/22 11:59 Weight 126 lb Laboratory Results - last 24 hr 03/24/22 06:38: WBC 7.4 D, RBC 3.02 L, Hgb 7.5 L, Hct 24.6 L, MCV 81.5, MCH 24.7 L, MCHC 30.2 L, RDW 20.2 H, Plt Count 287, MPV 8.9, Neut % (Auto) 82.9 H, Lymph % (Auto) 9.6 L, [place] % (Auto) 5.4, Eos % (Auto) 1.8, Baso % (Auto) 0.3, Neut # (Auto) 6.2, Lymph # (Auto) 0.7, [place] # (Auto) 0.4, Eos # (Auto) 0.1, Baso # (Auto) 0.0 03/24/22 06:38: Sodium 137, Potassium 3.9, Chloride 108 H, Carbon Dioxide 23, Anion Gap 9.9, BUN 15, Creatinine 0.60, Estimated Creat Clear 51, Estimated GFR 101, Est GFR ( Amer) 122, Glucose 87, Calcium 8.3 L I & O for Labs for Last 24 Hours: Intake & Output 03/21/22 03/22/22 03/23/22 03/24/22 11:59 11:59 11:59 11:59 Intake Total 293 / 293 1978 Output Total 3150 / 3150 1150 / 1150 Balance -2857 / -2857 829 / 829 Weight 124 lb 15.998 oz 126 lb Comment:: Patient is alert, pleasant. Oriented x3. Extremities are warm and well-perfused. Heart rate regular. Abdomen soft. Jack catheter draining clear yellow urine.'s good boots in place. 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 Seems to been very well. Continue pain control. PT and OT evaluation. Anemia-hemoglobin down to 7.5, transfuse 1 unit given her postoperative status and history of anemia and fatigue issues. Chorea-fairly stable. PT OT. She is a bit higher risk for rehab given her movement disorder issues. We will send referral notes to rehab facilities.
--- NOTE | 2022-03-24 08:50 | EXP.ORTH.PN ---
Subjective *Date: 03/24/22 *Time: 08:57 Interval history: Mrs. Ohara is a 66 year old female patient who underwent an uneventful right hip cephalomedullary nail fixation performed by Dr. Quintana yesterday evening 03/23/2022. Today the patient is postop day #1. This morning the patient is lying comfortably in bed. She reports right hip pain as to be expected but states that it is well controlled with as needed pain medication and rest. She states that she did not rest well last night and is sleepy today. She denies any episodes of nausea, vomiting, fevers, chills, rigors, or distal tingling/numbness. She has not yet ambulated. She denies any other symptoms or concerns at this time. Ortho Exam (Inpt) Vital signs and Labs for Last 24 Hours: Temp Pulse Resp BP Pulse Ox 98.4 F 101 H 14 114/72 91 L 03/24/22 08:00 03/24/22 08:00 03/24/22 08:00 03/24/22 08:00 03/24/22 08:00 Laboratory Results - last 24 hr 03/24/22 06:38: WBC 7.4 D, RBC 3.02 L, Hgb 7.5 L, Hct 24.6 L, MCV 81.5, MCH 24.7 L, MCHC 30.2 L, RDW 20.2 H, Plt Count 287, MPV 8.9, Neut % (Auto) 82.9 H, Lymph % (Auto) 9.6 L, [place] % (Auto) 5.4, Eos % (Auto) 1.8, Baso % (Auto) 0.3, Neut # (Auto) 6.2, Lymph # (Auto) 0.7, [place] # (Auto) 0.4, Eos # (Auto) 0.1, Baso # (Auto) 0.0 03/24/22 06:38: Sodium 137, Potassium 3.9, Chloride 108 H, Carbon Dioxide 23, Anion Gap 9.9, BUN 15, Creatinine 0.60, Estimated Creat Clear 51, Estimated GFR 101, Est GFR ( Amer) 122, Glucose 87, Calcium 8.3 L I & O for Labs for Last 24 Hours: Intake & Output 03/21/22 03/22/22 03/23/22 03/24/22 23:59 23:59 23:59 23:59 Intake Total 1393 / 1393 1359 / 1359 Output Total 3750 / 4300 550 / 550 Balance -2357 / -2907 809 / 809 Weight 125 lb 124 lb 15.998 oz 125 lb 10.616 oz Head: Present normocephalic and atraumatic Eyes: Present as per HPI ENT: Present normal exam Neck: Present normal inspection, full ROM and trachea midline; Absent lymphadenopathy Respiratory: Present normal respiratory effort, able to speak in complete sentences and symmetric chest movement; Absent accessory muscle use Cardiac: Present Reg Rate and Rhythm GI: Present soft; Absent tenderness Comment:: Upon examination of the lower extremities: Limb lengths are grossly equal. Upon examination of the right hip: Dressings present are clean, dry, and intact. No evidence of drainage or bleeding noted. The right hip and proximal femur are tender to palpation. Attempted movements of the right hip are somewhat painful. Thigh and calf are soft nontender; Homans' sign is negative. No clinical evidence of DVT or compartment syndrome noted. Posterior tibial pulse 1+; capillary refill is brisk. Sensation to light touch is grossly intact throughout. Patient is actively lysing the foot, ankle, and toes. Diagnostic imaging: Postoperative x-ray performed at [facility] on 03/23/2020 reviewed along with radiologist report. X-ray of the right hip demonstrates an intertrochanteric femur fracture status post cephalomedullary nailing with orthopedic components in satisfactory alignment and fixation. No evidence of orthopedic complications noted. Radiologist report is as follows: FINDINGS: Bones/joints: Intramedullary alisson and dynamic compression screw fixation. Underlying fracture of the right femur neck. Normal anatomic alignment. Soft tissues: Soft tissue gas along the right lateral hip and surgical skin dedra. IMPRESSION: Intraoperative findings as above. Skin: Present intact, warm and normal turgor; Absent cyanosis, erythema, lesions or jaundice Neuro: Present Cranial Nerve 2-12 Intact, Motor Function Intact, Sensory Function Intact, alert, awake, oriented x 3, tone normal and moves all extremities; Absent Numbness or Tingling Assessment and Plan *Assessment and plan (1) Closed hip fracture: Status: Acute Category: Medical C
--- NOTE | 2022-03-24 10:28 | HMH.OTEV ---
OT Inpatient Evaluation Rehab OT IP Evaluation Start: 03/23/22 18:50 Freq: ONCE Status: Active Protocol: Document 03/24/22 10:24 MARQUIS (Rec: 03/24/22 10:28 MARQUIS [id number]) Rehab OT IP Assessment Subjective History 66-year-old female fell, sustained right intertrochanteric femur fracture. I had a discussion with she and her family regarding further management, recommended cephalomedullary nail fixation. They were amenable with the plan. We discussed the risk and benefits of surgery. Risks included but were not limited to pain, bleeding, infection, damage to adjacent structures, need for further surgery, wound healing complications, loss of limb, . Patient expressed verbal consent and written consent was obtained for the above procedure. Patient underwent s/p Cephalomedullary nail fixation right intertrochanteric femur fracture on 03/23/22. Patient lives at home with in 1 story home with 2-3 [place]. Independent with ADLs and fx'l mobility. Patient stated that she fell in her bedroom when trying to make the bed. Subjective I can try to move. Instructed Patient on proper hand and foot placement to complete supine->sit @ EOB requiring Mod A x2. Patient demonstrated good dynamic sitting balance, however requested to lay back in bed 2 * feeling nausea. Objective Patient Orientation Person,Place,Name,Age,Birthday ,Year Upper Extremity Gross ROM WNL Bed Mobility bed mobility - supine/sit Assist Level Minimal x 2 (25% assist) Rehab OT IP prob,goals,plan Problems Date of Evaluation: 03/24/22 OT IP Problems Bed Mobility,Transfers,Gait,
--- NOTE | 2022-03-24 10:31 | PC.NURSE ---
courtesy tech round: pt up to chair with call light within reach.
--- NOTE | 2022-03-24 11:10 | HMH.PTEV ---
Physical Therapy Evaluation Rehab PT IP Evaluation Start: 03/23/22 18:50 Freq: ONCE Status: Active Protocol: Document 03/24/22 11:00 LENA (Rec: 03/24/22 11:10 LENA [id number]) Subjective/History History History Patient is a 66 year old female presenting admitted to [facility] 03/23/22 secondar to a fall at home resulting in R intertrochanteric fracture. ORIF performed 03/23/22. Patient reports that she was previously living at home with spouse who is a haul truck driver and gone for 14 hours at a time. Patient reports 4 steps to enter the home. Previously independent with all ADL's . Subjective Subjective I'm tired and just want to sleep. I don't feel like walking right now. Rehab PT IP Eval Objective Appearance Patient Behavior Appropriate,Cooperative Patient Orientation Person,Place,Name,Birthday Difficulty following instructions none Speech Pattern Clear,Appropriate Ambulation Patient Able to Ambulate No Balance Ability to Arise Unable Sitting Balance Steady, safe Dynamic Sitting Balance Ability Normal Transfers Bed Transfer Ability Minimal x 1 (25% assist) Pain Right Hip Pain Intensity 6 ROM All Extremities PT ROM Status WFL MMT RLE PT MMT ABN Abnormal MMT Grade 3-/5 Rehab PT IP prob,goals,plan Problems Date of Evaluation: 03/24/22 PT IP Problems Bed Mobility,Transfers,Gait, Balance,Self care,Safety Rehab Potential Rehab Potential Good Equipment Needs Assistive Devices Rolling / Wheeled Walker Plan PT Intervention Plan Bed Mobility,Transfers,Gait, Balance,Self care,Safety, Therapeutic Exercise PT Plan Frequency BID Duration LOS Discharge Goals Bed Transfer Ability Independent Sit to Stand Chair Transfer Ability Contact Guard/Hand Hold Ambulation Assistive Device Rolling Walker Ambulation Distance (feet) 20 Discharge Plan PT Discharge Plan PT suggests that patient is to discharge to SNF for further rehab once found medically
--- NOTE | 2022-03-24 11:30 | SW/DCPLANNER ---
Addendum entered by [facility] 03/31/22 15:33: Patient information/order has been faxed to [facility] today. Addendum entered by [facility] 03/31/22 15:31: Per Dr Solomon due to patient ambulating the well and insurance not approving [facility] at this time: the plan is to discharge patient home tomorrow with home health ([facility]). MD did discuss this plan with patient. Patient is planned to discharge tomorrow pending no setbacks. Addendum entered by [facility] 03/30/22 13:12: All updated information has been faxed to [facility]. Addendum entered by [facility] 03/30/22 10:54: [facility] stated that she is currently working w/ insurance regarding this patien and will follow up. Addendum entered by [facility] 03/29/22 10:24: Per Padmini bocanegra/ [facility] has stated that insurance is still pending at this time (insurance company is closed today due to holiday). Per Dr Briceño patient is not medically stable for discharge today. I will continue to follow up with Padmini at [facility]. Addendum entered by [facility] 03/25/22 14:42: [facility] approval is still pending at this time. Addendum entered by [facility] 03/25/22 08:08: Padmini [facility]on[facility] stated that she is still waiting for insurance approval at this time. I have updated MD and patient/family. Addendum entered by [facility] 03/24/22 13:34: [facility] stated that she has sent all patient information to MD and insurance. Padmini stated that pending insurance approval she can accept this patient. Original Note: Patient/family have expressed an interest in [facility] once medically stable for discharge. P[facility] is willing to review the referral and stated that she will have a bed available for tomorrow. Patient information has been faxed to [facility] at this time. If [facility] can not accept patient would be interested in [place] or [facility].
--- NOTE | 2022-03-24 11:55 | PC.NURSE ---
OFFERED TO TURN AND REPOSITION PATIENT. PATIENT DECLINED AT THIS TIME; STATED SHE WAS COMFORTABLE AND WOULD TURN SELF WHEN SHE WAS READY. PATIENT REQUESTED A PEPSI; PROVIDED SOFT DRINK TO PATIENT. FAMILY MEMBER AT BEDSIDE.
--- NOTE | 2022-03-24 12:04 | EXP.ANES.II ---
[facility] Anesthesia Record Part II Anesthesia Record Part II Discharge Time: 19:25 Destination: Medical Surgical Department PACU nurse assessment reviewed?: Yes Patient Condition:: Good Anesthesia Complications:: None Swallowing reflex intact?: Yes Cyanosis?: No Blood Pressure: 167/81 Pulse Rate: 101 Temperature: 99.5 F Mental Status: Alert & Oriented Pain level:: 0 Nausea and/or vomitting:: None Intake, IV Amount: 0
[2022-03-24 16:55] LABS: Hemoglobin 8.1 g/dL (12.2-16.2)
[2022-03-25 04:00] VITALS: BP 146/74; PULSE 84; RESP 18; TEMP 36.9; O2SAT 92; BMI 21.7
--- NOTE | 2022-03-25 06:10 | PC.NURSE ---
Aox 4 and assist times 1 to turn. Has taken pain meds po twice my shift so she can go to [facility] today. i tried to lower her oxygen from 4L to 3L and she dropped to 88%. She states she doesn't wear oxygen at home.
[2022-03-25 06:58] LABS: Basophils % 0.2 % (0.1-2.0); Eosinophils # 0.1 K/mm3 (0.0-0.4); Eosinophils % 1.9 % (0.1-12.0); Hematocrit 28.4 % (37.0-47.0); Hemoglobin 8.4 g/dL (12.2-16.2); Lymphocytes # 0.8 K/mm3 (0.7-4.5); Lymphocytes % 11.4 % (10-50); Mean Corpuscular HGB Conc 29.7 g/dL (31.8-35.4); Mean Corpuscular Hemoglobin 24.1 pg (27.0-31.2); Mean Corpuscular Volume 81.1 fl (81-99); Mean Platelet Volume 9.5 fl (7.4-10.4); Monocytes # 0.4 K/mm3 (0.1-1.0); Monocytes % 5.7 % (1.7-9.3); Neutrophils # 5.6 K/mm3 (1.8-7.8); Neutrophils % 80.9 % (37.0-80.0); Platelet Count 245 K/mm3 (142-424); Red Cell Distribution Width 20.2 % (11.5-17.5); White Blood Count 6.9 K/mm3 (4.8-10.8)
[2022-03-25 07:06] LABS: Chloride 106 mmol/L (98-107)
[2022-03-25 07:07] LABS: Potassium 3.8 mmoL/L (3.5-5.1); Sodium 138 mmol/L (136-145)
[2022-03-25 07:10] LABS: Anion Gap 6.8 mEq/L (5-15); Blood Urea Nitrogen 11 mg/dl (7-17); Calcium 8.4 mg/dl (8.4-10.2); Carbon Dioxide 29 mmol/L (22.0-30.0); Creatinine Clearance Estimated 53 mL/min (50-200); Estimated Glomerular Filt Rate 124 ml/min (>60); GFR (African American) 150 ML/MIN (>60); Glucose 102 mg/dl (74-100)
[2022-03-25 08:00] VITALS: BP 143/69; PULSE 95; RESP 18; TEMP 36.9; O2SAT 93
--- NOTE | 2022-03-25 08:12 | EXP.DC.SUM ---
General Admission date:: 03/22/22 Discharge date: 03/25/22 HPI HPI HPI: Mrs. Ohara is a 66 year old female patient who was admitted to the acute inpatient service following a mechanical fall at home yesterday evening 03/22/2022. She reports that she was attempting to make the bed yesterday and became tangled up in the bed sheets/quilt, causing her to fall onto her right hip. She reports that she had immediate pain in the right hip and was unable to get up to walk so she was brought to the [facility] ER where subsequent x-ray demonstrated a right intertrochanteric femur fracture. This morning the patient is lying comfortably in bed and her is present at the bedside. She reports right hip pain as to be expected. She denies any other injuries. She denies any history of distal tingling/numbness. Her past medical history is significant for an anemia from B12 and iron deficiency, and history of an idiosyncratic choreoathetoid movement disorder. At baseline she lives in her own home and ambulates without the use of any assistive devices. She denies any other symptoms or concerns at this time. Hospital Course Hospital Course Hospital Course: Patient was admitted, underwent ORIF of hip fracture and this was uncomplicated on the day of admission. Following day did well. Slight anemia postoperatively and was given 1 unit of packed cells which did well and she maintained her hemoglobin above 8.5 this morning. Creatinine and other electrolytes are unremarkable. Eating well this morning and participating in PT. A bed is been found for her at the [facility] and she will be transferred there for ongoing rehab. Please note she is been on Percocet for pain with good control Exam Data for Last 24 hours Vital signs and Labs for Last 24 Hours: Temp Pulse Resp BP Pulse Ox 98.5 F 84 18 146/74 H 92 L 03/25/22 04:00 03/25/22 04:00 03/25/22 04:00 03/25/22 04:00 03/25/22 04:00 Laboratory Results - last 24 hr 03/24/22 08:42: Blood Type O Positive, Antibody Screen Negative, Crossmatch (AHG) See Detail 03/24/22 16:50: Hgb 8.1 L, Hct 27.0 L 03/25/22 06:49: WBC 6.9, RBC 3.50 L, Hgb 8.4 L, Hct 28.4 L, MCV 81.1, MCH 24.1 L, MCHC 29.7 L, RDW 20.2 H, Plt Count 245, MPV 9.5, Neut % (Auto) 80.9 H, Lymph % (Auto) 11.4, [place] % (Auto) 5.7, Eos % (Auto) 1.9, Baso % (Auto) 0.2, Neut # (Auto) 5.6, Lymph # (Auto) 0.8, [place] # (Auto) 0.4, Eos # (Auto) 0.1, Baso # (Auto) 0.0 03/25/22 06:49: Sodium 138, Potassium 3.8, Chloride 106, Carbon Dioxide 29, Anion Gap 6.8, BUN 11 D, Creatinine 0.50 L, Estimated Creat Clear 53, Estimated GFR 124, Est GFR ( Amer) 150 D, Glucose 102 H, Calcium 8.4 I & O for Last 24 hours: Intake & Output 03/22/22 03/23/22 03/24/22 03/25/22 11:59 11:59 11:59 11:59 Intake Total 293 / 293 2459 / 2459 1390 / 1390 Output Total 3150 / 3150 1150 / 1150 1550 / 1550 Balance -2857 / -2857 1309 / 1309 -160 / -160 Weight 124 lb 15.998 oz 125 lb 10.616 oz 130 lb 8.218 oz Constitutional Constitutional: no acute distress *Routine HEENT Exam Head: Present normocephalic Eye: Present EOMI and PERRL ENT: Present mucous membranes moist *Routine Neck Exam Neck: Present supple; Absent lymphadenopathy *Routine Respiratory Exam Respiratory: Present CTA bilaterally *Routine Cardiovascular Exam Cardiovascular: Present RRR *Routine Abdominal Exam Abdominal: Present soft and normoactive bowel sounds; Absent tenderness *Routine Extremities Exam Extremities: Absent cyanosis, clubbing or edema Comments: Patient is able to bend her hip. Distal extremities warm and well-perfused. Detailed Ortho exam per Ortho *Routine Skin Exam Skin: Present warm; Absent rash *Routine Neurological Exam Neurological: Present alert and oriented X3 Results Data Completed and Pending Labs on day of discharge: Labs from last 24 hours 03/25/22 03/25/22 03/24/22 06:49 06:49 16:50 WBC 6.9 RBC 3.50 L
--- NOTE | 2022-03-25 08:16 | DIET.NUTRFU ---
disliked breakfast this AM, encouraged her to fill out menu selection. Reviewed meal alternates for breakfast, did not want anything. Agreed to Ensure. Reminded her to get protein at all meals at Rehab facility. Offered to take lunch order and she declined.
--- NOTE | 2022-03-25 09:13 | EXP.ORTH.PN ---
Subjective *Date: 03/25/22 *Time: 08:50 Interval history: Mrs. Ohara is a 66 year old female patient who underwent an uneventful right hip cephalomedullary nail fixation performed by Dr. Quintana on 03/23/2022. Today the patient is postop day #2. This morning the patient is lying comfortably in bed. She reports right hip pain as to be expected but states that it is well controlled with as needed pain medication and rest. She denies any episodes of nausea, vomiting, fevers, chills, rigors, or distal tingling/numbness. She states that she has been up to the bedside charir but has not ambulated much. She denies any other symptoms or concerns at this time. Ortho Exam (Inpt) Vital signs and Labs for Last 24 Hours: Temp Pulse Resp BP Pulse Ox 98.5 F 84 18 146/74 H 92 L 03/25/22 04:00 03/25/22 04:00 03/25/22 04:00 03/25/22 04:00 03/25/22 04:00 Laboratory Results - last 24 hr 03/24/22 08:42: Blood Type O Positive, Antibody Screen Negative, Crossmatch (AHG) See Detail 03/24/22 16:50: Hgb 8.1 L, Hct 27.0 L 03/25/22 06:49: WBC 6.9, RBC 3.50 L, Hgb 8.4 L, Hct 28.4 L, MCV 81.1, MCH 24.1 L, MCHC 29.7 L, RDW 20.2 H, Plt Count 245, MPV 9.5, Neut % (Auto) 80.9 H, Lymph % (Auto) 11.4, [place] % (Auto) 5.7, Eos % (Auto) 1.9, Baso % (Auto) 0.2, Neut # (Auto) 5.6, Lymph # (Auto) 0.8, [place] # (Auto) 0.4, Eos # (Auto) 0.1, Baso # (Auto) 0.0 03/25/22 06:49: Sodium 138, Potassium 3.8, Chloride 106, Carbon Dioxide 29, Anion Gap 6.8, BUN 11 D, Creatinine 0.50 L, Estimated Creat Clear 53, Estimated GFR 124, Est GFR ( Amer) 150 D, Glucose 102 H, Calcium 8.4 I & O for Labs for Last 24 Hours: Intake & Output 03/22/22 03/23/22 03/24/22 03/25/22 23:59 23:59 23:59 23:59 Intake Total 1393 / 1393 2089 / 2149 660 / 660 Output Total 3750 / 4300 550 / 550 1550 / 1550 Balance -2357 / -2907 1539 / 1599 -890 / -890 Weight 125 lb 124 lb 15.998 oz 125 lb 10.616 oz 130 lb 8.218 oz Head: Present normocephalic and atraumatic Eyes: Present as per HPI ENT: Present normal exam Neck: Present normal inspection, full ROM and trachea midline; Absent lymphadenopathy Respiratory: Present normal respiratory effort, able to speak in complete sentences and symmetric chest movement; Absent accessory muscle use Cardiac: Present Reg Rate and Rhythm GI: Present soft; Absent tenderness Comment:: Upon examination of the lower extremities: Limb lengths are grossly equal. Upon examination of the right hip: Dressings present are clean, dry, and intact. No evidence of drainage or bleeding noted. Out of the dressings, the surgical incisions appear healthy and are healing well. No erythema, induration, bleeding, purulent drainage, or other signs of infection noted. The right hip and proximal femur are tender to palpation. Attempted movements of the right hip are somewhat painful. Thigh and calf are soft nontender; Homans' sign is negative. No clinical evidence of DVT or compartment syndrome noted. Posterior tibial pulse 1+; capillary refill is brisk. Sensation to light touch is grossly intact throughout. Patient is actively lysing the foot, ankle, and toes. Skin: Present intact, warm and normal turgor; Absent cyanosis, erythema, lesions or jaundice Neuro: Present Cranial Nerve 2-12 Intact, Motor Function Intact, Sensory Function Intact, alert, awake, oriented x 3, tone normal and moves all extremities; Absent Numbness or Tingling Assessment and Plan *Assessment and plan (1) Closed hip fracture: Status: Acute Category: Medical Code(s): S72.009A - Fracture of unspecified part of neck of unspecified femur, initial encounter for closed fracture Plan I have discussed the clinical findings and diagnostic imaging with the patient. Overall she is doing well this morning from an orthopedic standpoint and may be discharged when medically appropriate. I have changed her surgical dressings and the surgical incisions are healthy and without signs of infection. Sterile mally
[2022-03-25 15:32] VITALS: BP 144/78; PULSE 86; RESP 24; TEMP 37.4; O2SAT 92
[2022-03-25 20:00] VITALS: BP 155/65; PULSE 65; RESP 22; TEMP 37.2; O2SAT 93; O2SAT 94
--- NOTE | 2022-03-25 23:17 | PC.NURSE ---
Jonathan (son) has been added to contact list.
[2022-03-26 03:58] VITALS: BP 149/77; PULSE 93; RESP 20; TEMP 37.4; O2SAT 91
[2022-03-26 04:00] VITALS: BMI 22.6
--- NOTE | 2022-03-26 05:15 | PC.NURSE ---
Pt. awaiting approval from insurance to go to [facility]. Son states he will take his mother there if she is to leave.
[2022-03-26 08:00] VITALS: BP 169/61; PULSE 97; RESP 20; TEMP 37; O2SAT 94
--- NOTE | 2022-03-26 15:31 | PC.NURSE ---
Addendum entered by Surekha Mason RN 03/26/22 18:23: AT 1700 ROUNDS PT WAS POSITIONED IN BED. RESPIRATION 40/MIN. O2 SATURATION 93% ON 3 L. PT STATED SHE WAS FEELING SOA. LUNG SOUNDS HAD SCATTERED WHEEZES/RHONCHI AND RIGHT SIDED CRACKLES (RLL). NOTIFIED PCP. ORDERS RECEIVED ( PORTABLE CXR, LASIX 40 MG IV AND DUONEBS Q4H PRN) Original Note: PT IS RESTING IN BED. TOLERATED SITTING UP IN THE CHAIR FOR A COUPLE OF HOURS THIS SHIFT HOWEVER PT REQUESTED TO GO BACK TO BED 20 MIN AFTER PHYSICAL THERAPY GOT HER UP. PT HAS BEEN SLEEPING MOST OF THE SHIFT. DRESSING TO THE RIGHT HIP C/D/I. EATING AND DRINKING FAIR. LUNG SOUNDS HAVE SCATTERED WHEEZES/RHONCHI. ABDOMEN SOFT/NON TENDER WITH ACTIVE BOWEL SOUNDS. O2 SATURATION 90-94% ON 3 L NC. WILL CONTINUE TO MONITOR.
[2022-03-26 16:00] VITALS: BP 143/73; PULSE 90; RESP 18; TEMP 37.1; O2SAT 94
--- NOTE | 2022-03-26 17:26 | XR_ITS ---
PROCEDURE INFORMATION: Exam: XR Chest Exam date and time: 03/26/2022 5:29 PM Age: 66 years old Clinical indication: Shortness of breath; Additional info: SOA TECHNIQUE: Imaging protocol: Radiologic exam of the chest. Views: 1 view. COMPARISON: CR XR CHEST AP 03/22/2022 8:18 PM FINDINGS: Patient is mildly rotated. Lungs: Mild right basilar opacity. Lungs are otherwise clear. Pleural spaces: Unremarkable. No pleural effusion. No pneumothorax. Heart/Mediastinum: Cardiomediastinal silhouette is normal. Bones/joints: No acute abnormality. IMPRESSION: Mild right basilar opacity, may reflect atelectasis versus infectious/inflammatory process.
[2022-03-26 18:18] VITALS: PULSE 90; PULSE 96; O2SAT 93
[2022-03-26 20:00] VITALS: BP 153/63; PULSE 80; RESP 22; TEMP 38.3; O2SAT 93; O2SAT 98
[2022-03-26 21:21] LABS: Lactic Acid 0.6 mmol/L (0.7-2.1)
[2022-03-27] VITALS (9 sets, daily range): BP systolic 132–155; BP diastolic 69–99; PULSE 74–90; RESP 18–20; TEMP 36.4–36.9; O2SAT 89–96; BMI 22.1
--- NOTE | 2022-03-27 04:46 | PC.NURSE ---
Pt. had a temp of 101.0 and iv Levaquin given. Pt. to have a CXR this am and needs a sputum.
--- NOTE | 2022-03-27 06:00 | XR_ITS ---
PROCEDURE INFORMATION: Exam: XR Chest Exam date and time: 03/27/2022 5:43 AM Age: 66 years old Clinical indication: Shortness of breath; Additional info: SOA TECHNIQUE: Imaging protocol: Radiologic exam of the chest. Views: 1 view. COMPARISON: CR XR CHEST PORTABLE 03/26/2022 5:29 PM FINDINGS: Lungs: Unremarkable. No consolidation. Pleural spaces: Unremarkable. No pleural effusion. No pneumothorax. Heart/Mediastinum: Unremarkable. No cardiomegaly. Bones/joints: Unremarkable. IMPRESSION: No acute findings.
[2022-03-27 08:03] LABS: Basophils % 0.4 % (0.1-2.0); Eosinophils % 0.8 % (0.1-12.0); Hemoglobin 8.7 g/dL (12.2-16.2); Lymphocytes # 0.6 K/mm3 (0.7-4.5); Lymphocytes % 10.2 % (10-50); Mean Corpuscular Hemoglobin 24.1 pg (27.0-31.2); Mean Corpuscular Volume 80.3 fl (81-99); Mean Platelet Volume 9.6 fl (7.4-10.4); Monocytes # 0.5 K/mm3 (0.1-1.0); Monocytes % 9.7 % (1.7-9.3); Neutrophils # 4.4 K/mm3 (1.8-7.8); Neutrophils % 79.1 % (37.0-80.0); Platelet Count 177 K/mm3 (142-424); Red Blood Count 3.61 M/mm3 (4.20-5.40); White Blood Count 5.6 K/mm3 (4.8-10.8)
[2022-03-27 08:08] LABS: Chloride 100 mmol/L (98-107)
[2022-03-27 08:09] LABS: Sodium 137 mmol/L (136-145)
[2022-03-27 08:12] LABS: Blood Urea Nitrogen 19 mg/dl (7-17); Calcium 8.6 mg/dl (8.4-10.2); Carbon Dioxide 34 mmol/L (22.0-30.0); Creatinine Clearance Estimated 54 mL/min (50-200); Estimated Glomerular Filt Rate 101 ml/min (>60); GFR (African American) 122 ML/MIN (>60); Glucose 96 mg/dl (74-100)
--- NOTE | 2022-03-27 09:59 | EXP.ACUTE.PN ---
Subjective *Date: 03/27/22 *Time: 09:59 Interval history: Patient had fever yesterday evening and some shortness of breath. CXR was ordered and showed possible right sided pneumonia. Levaquin was started. This morning patient still feels short of breath. No other complaints. Medical Exam Vital signs and Labs for Last 24 Hours: Vital Signs Temp Pulse Pulse Resp BP Pulse Ox 03/27/22 08:00 98.2 F 88 18 132/75 96 03/27/22 04:00 98.5 F 87 20 141/69 H 92 L 03/26/22 20:00 93 L 03/26/22 20:00 101.0 F H 80 22 153/63 H 98 03/26/22 18:18 96 H 03/26/22 18:18 90 03/26/22 18:18 93 L 03/26/22 16:00 98.8 F 90 18 143/73 H 94 L Intake and Output 03/26/22 03/27/22 03/27/22 23:59 07:59 15:59 Intake Total 240 / 840 Output Total 1400 / 1950 450 / 650 200 / 650 Balance -1160 / -1110 -450 / -650 -200 / -650 Intake: Intake, Oral Amount 240 / 840 Output: Output, Urine Amount 1400 / 1950 450 / 650 200 / 650 Other: Number of Voids 1 Weight 133 lb 4.8 oz Patient Weight 03/27/22 23:59 Weight 133 lb 4.8 oz Laboratory Results - last 24 hr 03/26/22 20:58: Lactate 0.6 L 03/27/22 07:36: WBC 5.6, RBC 3.61 L, Hgb 8.7 L, Hct 29.0 L, MCV 80.3 L, MCH 24.1 L, MCHC 30.0 L, RDW 20.0 H, Plt Count 177 D, MPV 9.6, Neut % (Auto) 79.1, Lymph % (Auto) 10.2, [place] % (Auto) 9.7 H, Eos % (Auto) 0.8, Baso % (Auto) 0.4, Neut # (Auto) 4.4, Lymph # (Auto) 0.6 L, [place] # (Auto) 0.5, Eos # (Auto) 0.0, Baso # (Auto) 0.0 03/27/22 07:36: Sodium 137, Potassium 4.0, Chloride 100, Carbon Dioxide 34 H, Anion Gap 7.0, BUN 19 H D, Creatinine 0.60, Estimated Creat Clear 54, Estimated GFR 101, Est GFR ( Amer) 122, Glucose 96, Calcium 8.6 I & O for Labs for Last 24 Hours: Intake & Output 03/24/22 03/25/22 03/26/22 03/27/22 23:59 23:59 23:59 23:59 Intake Total 2089 / 2149 1620 / 1620 840 / 840 Output Total 550 / 550 2250 / 2250 1700 / 1950 650 / 650 Balance 1539 / 1599 -630 / -630 -860 / -1110 -650 / -650 Weight 125 lb 10.616 oz 130 lb 8.218 oz 136 lb 2 oz 133 lb 4.8 oz Radiology Reports for the Last 24 Hours: Repeat CXR this morning was read as normal but appears to be worse to me and is consistent with a right sided pneumonia Constitutional: Present no acute distress Respiratory: Present rhonchi (occasional) Cardiac: Present Reg Rate and Rhythm GI: Present normal bowel sounds; Absent tenderness Skin: Present intact; Absent erythema Assessment and Plan *Assessment and plan (1) Closed hip fracture: Status: Acute Category: Medical Code(s): S72.009A - Fracture of unspecified part of neck of unspecified femur, initial encounter for closed fracture (2) Anemia: Status: Acute Category: Medical Code(s): D64.9 - Anemia, unspecified (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
[2022-03-28] VITALS (9 sets, daily range): BP systolic 138–190; BP diastolic 70–93; PULSE 66–85; RESP 17–30; TEMP 36.5–37.2; O2SAT 85–95; BMI 21.5
--- NOTE | 2022-03-28 10:33 | EXP.ACUTE.PN ---
Subjective *Date: 03/28/22 *Time: 10:33 Interval history: Patient feels a little better this morning. She would like her neb treatments to be scheduled and not PRN. Medical Exam Vital signs and Labs for Last 24 Hours: Vital Signs Temp Pulse Pulse Resp BP Pulse Ox 03/28/22 08:00 97.7 F 80 17 152/74 H 92 L 03/28/22 07:10 82 03/28/22 07:10 79 03/28/22 07:10 85 L 03/28/22 04:00 98.4 F 78 18 148/78 H 91 L 03/27/22 23:52 97.6 F 74 18 150/81 H 94 L 03/27/22 21:54 74 03/27/22 21:54 74 03/27/22 20:00 98.4 F 90 18 141/99 H 91 L 03/27/22 16:00 98.2 F 78 18 134/79 92 L 03/27/22 16:54 77 03/27/22 16:54 75 03/27/22 16:54 94 L 03/27/22 12:00 98.3 F 80 20 155/79 H 89 L 03/27/22 13:10 81 03/27/22 13:10 80 03/27/22 13:10 94 L Intake and Output 03/27/22 03/28/22 03/28/22 23:59 07:59 15:59 Intake Total 240 / 240 180 / 180 Output Total 200 / 850 Balance 40 / -610 180 / 180 Intake: Intake, Oral Amount 240 / 240 180 / 180 Output: Output, Urine Amount 200 / 850 Other: Number of Voids 1 Number of Unmeasured Voids 1 Weight 129 lb 8 oz Patient Weight 03/28/22 23:59 Weight 129 lb 8 oz I & O for Labs for Last 24 Hours: Intake & Output 03/25/22 03/26/22 03/27/22 03/28/22 23:59 23:59 23:59 23:59 Intake Total 1620 / 1620 840 / 840 240 / 240 180 / 180 Output Total 2250 / 2250 1700 / 1950 850 / 850 Balance -630 / -630 -860 / -1110 -610 / -610 180 / 180 Weight 130 lb 8.218 oz 136 lb 2 oz 133 lb 4.8 oz 129 lb 8 oz Constitutional: Present no acute distress Respiratory: Present rhonchi (occasional) Cardiac: Present Reg Rate and Rhythm GI: Present normal bowel sounds; Absent tenderness Skin: Present intact; Absent erythema Assessment and Plan *Assessment and plan (1) Closed hip fracture: Status: Acute Category: Medical Code(s): S72.009A - Fracture of unspecified part of neck of unspecified femur, initial encounter for closed fracture (2) Anemia: Status: Acute Category: Medical Code(s): D64.9 - Anemia, unspecified (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 OK to schedule nebs, continue current treatment.
--- NOTE | 2022-03-28 20:49 | PC.NURSE ---
Pt up to bsc, SOA with exertion. Wheezing and use of accessory muscles noted. Dr. Briceño notified and orders received for Duoneb once now. RT notified.
[2022-03-29] VITALS (10 sets, daily range): BP systolic 128–158; BP diastolic 53–84; PULSE 58–84; RESP 18–26; TEMP 36.6–36.9; O2SAT 93–97; BMI 20.5
--- NOTE | 2022-03-29 03:45 | PC.NURSE ---
Pt up to BSC. SOA and tachypneic with exertion. Wheezing and use of accessory muscles noted. Pt requesting breathing treatment. Dr. Briceño notified and orders received for Duoneb Q4HR PRN. RT notified.
--- NOTE | 2022-03-29 04:17 | PC.NURSE ---
Pt has required PRN Duonebs in addition to Q6HR scheduled duonebs. Pt has no complaints or SOA while laying in bed, only with exertion. Pt remains on 4L NC, tolerating fair O2 sats in 90's. Audible wheezes noted. Pt c/o pain in right hip once this shift and was medicated per JUN. Voids per BSC with standby assistance. Dressing to right hip c/d/i. LR infusing @ 75 ml/hr.
[2022-03-29 07:10] LABS: Basophils % 0.6 % (0.1-2.0); Eosinophils # 0.1 K/mm3 (0.0-0.4); Hematocrit 29.9 % (37.0-47.0); Hemoglobin 9.1 g/dL (12.2-16.2); Lymphocytes # 0.7 K/mm3 (0.7-4.5); Lymphocytes % 15.2 % (10-50); Mean Corpuscular HGB Conc 30.4 g/dL (31.8-35.4); Mean Corpuscular Hemoglobin 24.2 pg (27.0-31.2); Mean Corpuscular Volume 79.7 fl (81-99); Mean Platelet Volume 10.7 fl (7.4-10.4); Monocytes # 0.4 K/mm3 (0.1-1.0); Monocytes % 7.7 % (1.7-9.3); Neutrophils # 3.6 K/mm3 (1.8-7.8); Neutrophils % 75.5 % (37.0-80.0); Platelet Count 131 K/mm3 (142-424); Red Blood Count 3.75 M/mm3 (4.20-5.40); Red Cell Distribution Width 19.9 % (11.5-17.5); White Blood Count 4.8 K/mm3 (4.8-10.8)
[2022-03-29 07:15] LABS: Chloride 99 mmol/L (98-107); Sodium 136 mmol/L (136-145)
[2022-03-29 07:18] LABS: Blood Urea Nitrogen 13 mg/dl (7-17); Calcium 8.6 mg/dl (8.4-10.2); Carbon Dioxide 35 mmol/L (22.0-30.0); Creatinine Clearance Estimated 50 mL/min (50-200); Estimated Glomerular Filt Rate 124 ml/min (>60); GFR (African American) 150 ML/MIN (>60); Glucose 93 mg/dl (74-100)
--- NOTE | 2022-03-29 08:00 | PC.NURSE ---
IV pump cleared for multiple shifts
--- NOTE | 2022-03-29 08:40 | EXP.ACUTE.PN ---
Subjective *Date: 03/29/22 *Time: 08:40 Interval history: Patient reports more difficulty breathing overnight, got an extra duoneb treatment. Medical Exam Vital signs and Labs for Last 24 Hours: Vital Signs Temp Pulse Pulse Resp BP Pulse Ox 03/29/22 05:45 72 03/29/22 05:45 76 03/29/22 05:45 93 L 03/29/22 04:00 98.5 F 75 25 H 158/84 H 93 L 03/29/22 00:00 98.1 F 68 26 H 147/74 H 94 L 03/28/22 22:00 66 30 H 152/72 H 94 L 03/28/22 21:21 85 03/28/22 21:21 85 03/28/22 21:21 91 L 03/28/22 20:00 98.9 F 81 30 H 190/93 H 91 L 03/28/22 15:14 98.4 F 68 17 149/70 H 95 03/28/22 12:43 72 03/28/22 12:43 69 03/28/22 12:43 90 L 03/28/22 11:29 98.6 F 74 17 138/80 92 L Intake and Output 03/28/22 03/29/22 03/29/22 23:59 07:59 15:59 Intake Total 240 / 900 2315 / 2315 Output Total 250 / 250 1100 / 1100 Balance -10 / 650 -1100 / 1215 2315 / 1215 Intake: Intake, Oral Amount 240 / 900 Intake, Total IV Amount 2315 / 2315 Ringers Solution,Lactated 1,000 2315 / 2315 ml @ 75 mls/hr IV .[id number] [facility] Rx#:[id number] Output: Output, Urine Amount 250 / 250 1100 / 1100 Other: Number of Unmeasured Voids 1 0 Weight 123 lb 5 oz Patient Weight 03/29/22 23:59 Weight 123 lb 5 oz Laboratory Results - last 24 hr 03/29/22 06:44: WBC 4.8, RBC 3.75 L, Hgb 9.1 L, Hct 29.9 L, MCV 79.7 L, MCH 24.2 L, MCHC 30.4 L, RDW 19.9 H, Plt Count 131 L D, MPV 10.7 H, Neut % (Auto) 75.5, Lymph % (Auto) 15.2, [place] % (Auto) 7.7, Eos % (Auto) 1.0, Baso % (Auto) 0.6, Neut # (Auto) 3.6, Lymph # (Auto) 0.7, [place] # (Auto) 0.4, Eos # (Auto) 0.1, Baso # (Auto) 0.0 03/29/22 06:44: Sodium 136, Potassium 4.0, Chloride 99, Carbon Dioxide 35 H, Anion Gap 6.0, BUN 13 D, Creatinine 0.50 L, Estimated Creat Clear 50, Estimated GFR 124, Est GFR ( Amer) 150 D, Glucose 93, Calcium 8.6 I & O for Labs for Last 24 Hours: Intake & Output 03/26/22 03/27/22 03/28/22 03/29/22 23:59 23:59 23:59 23:59 Intake Total 840 / 840 240 / 240 900 / 900 2315 / 2315 Output Total 1700 / 1950 850 / 850 250 / 250 1100 / 1100 Balance -860 / -1110 -610 / -610 650 / 650 1215 / 1215 Weight 136 lb 2 oz 133 lb 4.8 oz 129 lb 8 oz 123 lb 5 oz Microbiology Reports for the Last 24 Hours: Microbiology 03/26/22 20:58 Blood Blood Culture - Preliminary NO GROWTH AFTER 48 HOURS 03/26/22 20:58 Blood Blood Culture - Preliminary NO GROWTH AFTER 48 HOURS Constitutional: Present no acute distress Respiratory: Present rhonchi (occasional) and wheezes Cardiac: Present Reg Rate and Rhythm GI: Present normal bowel sounds; Absent tenderness Skin: Present intact; Absent erythema Assessment and Plan *Assessment and plan (1) Closed hip fracture: Status: Acute Category: Medical Code(s): S72.009A - Fracture of unspecified part of neck of unspecified femur, initial encounter for closed fracture (2) Anemia: Status: Acute Category: Medical Code(s): D64.9 - Anemia, unspecified (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
--- NOTE | 2022-03-29 08:41 | XR_ITS ---
PROCEDURE INFORMATION: Exam: XR Chest Exam date and time: 03/29/2022 8:47 AM Age: 66 years old Clinical indication: Cough; Additional info: F/u right sided pneumonia TECHNIQUE: Imaging protocol: Radiologic exam of the chest. Views: 2 views. COMPARISON: CR XR CHEST PORTABLE 03/27/2022 5:43 AM FINDINGS: Lungs: Previous right lung opacities on 03/27/2022 chest x-ray have resolved. No airspace consolidation or nodules. Lungs are hyperinflated. No vascular congestion. Pleural spaces: No pleural effusion. No pneumothorax. Heart/Mediastinum: Heart may be slightly enlarged. Bones/joints: No fractures or bone lesions. IMPRESSION: 1. Hyperinflation. No acute pulmonary disease. Previous right lung opacities have resolved. 2. Borderline cardiomegaly.
--- NOTE | 2022-03-29 09:12 | P.PN_ITS ---
Subjective *Date: 03/29/22 *Time: 09:12 Medical Exam Vital signs and Labs for Last 24 Hours: Vital Signs Temp Pulse Pulse Resp BP Pulse Ox 03/29/22 05:45 72 03/29/22 05:45 76 03/29/22 05:45 93 L 03/29/22 04:00 98.5 F 75 25 H 158/84 H 93 L 03/29/22 00:00 98.1 F 68 26 H 147/74 H 94 L 03/28/22 22:00 66 30 H 152/72 H 94 L 03/28/22 21:21 85 03/28/22 21:21 85 03/28/22 21:21 91 L 03/28/22 20:00 98.9 F 81 30 H 190/93 H 91 L 03/28/22 15:14 98.4 F 68 17 149/70 H 95 03/28/22 12:43 72 03/28/22 12:43 69 03/28/22 12:43 90 L 03/28/22 11:29 98.6 F 74 17 138/80 92 L Intake and Output 03/28/22 03/29/22 03/29/22 23:59 07:59 15:59 Intake Total 240 / 900 2315 / 2315 Output Total 250 / 250 1100 / 1100 Balance -10 / 650 -1100 / 1215 2315 / 1215 Intake: Intake, Oral Amount 240 / 900 Intake, Total IV Amount 2315 / 2315 Ringers Solution,Lactated 1,000 2315 / 2315 ml @ 75 mls/hr IV .[id number] [facility] Rx#:[id number] Output: Output, Urine Amount 250 / 250 1100 / 1100 Other: Number of Unmeasured Voids 1 0 Weight 55.934 kg Patient Weight 03/29/22 23:59 Weight 55.934 kg Laboratory Results - last 24 hr 03/29/22 06:44: WBC 4.8, RBC 3.75 L, Hgb 9.1 L, Hct 29.9 L, MCV 79.7 L, MCH 24.2 L, MCHC 30.4 L, RDW 19.9 H, Plt Count 131 L D, MPV 10.7 H, Neut % (Auto) 75.5, Lymph % (Auto) 15.2, [place] % (Auto) 7.7, Eos % (Auto) 1.0, Baso % (Auto) 0.6, Jerzy t # (Auto) 3.6, Lymph # (Auto) 0.7, [place] # (Auto) 0.4, Eos # (Auto) 0.1, Baso # (Auto) 0.0 03/29/22 06:44: Sodium 136, Potassium 4.0, Chloride 99, Carbon Dioxide 35 H, Anion Gap 6.0, BUN 13 D, Creatinine 0.50 L, Estimated Creat Clear 50, Estimated GFR 124, Est GFR ( Amer) 150 D, Glucose 93, Calcium 8.6 I & O for Labs for Last 24 Hours: Intake & Output 03/26/22 03/27/22 03/28/22 03/29/22 23:59 23:59 23:59 23:59 Intake Total 840 / 840 240 / 240 900 / 900 2315 / 2315 Output Total 1700 / 1950 850 / 850 250 / 250 1100 / 1100 Balance -860 / -1110 -610 / -610 650 / 650 1215 / 1215 Weight 61.745 kg 60.464 kg 58.74 kg 55.934 kg Microbiology Reports for the Last 24 Hours: Microbiology 03/26/22 20:58 Blood Blood Culture - Preliminary NO GROWTH AFTER 48 HOURS 03/26/22 20:58 Blood Blood Culture - Preliminary NO GROWTH AFTER 48 HOURS The patient's infection will respond to the chosen ABx?: Yes Is the patient receiving the right drug, dose, and route?: Yes Could a more targeted ABx be ordered?: No
--- NOTE | 2022-03-29 17:56 | PC.NURSE ---
no acute changes from previous shift. iv lasix given with adequate uop. ivmf stopped. pt has c/o soa x2 this shift and pain x1, treated per jun. dsg to rt hip in place, cdi. no concerns voiced at this time.
[2022-03-30] VITALS (11 sets, daily range): BP systolic 119–142; BP diastolic 56–83; PULSE 63–82; RESP 14–20; TEMP 36.4–36.8; O2SAT 92–97; BMI 21.4
--- NOTE | 2022-03-30 03:16 | PC.NURSE ---
Pt resting in bed at this time. Lungs had Bilat rhonchi this morning, resp even and non labored. Pt wearing 4L 02 per NC. Pt has been encouraged to ambulate and cough, deep breath. Pt A/O X 4. IV is patent. Pt educated on medications and Plan of care. Encouraged to report any needs. Bed locked in low position, side rails up x 2, call light in reach.
[2022-03-30 07:26] LABS: Eosinophils # 0.1 K/mm3 (0.0-0.4); Eosinophils % 1.4 % (0.1-12.0); Hematocrit 27.3 % (37.0-47.0); Hemoglobin 8.6 g/dL (12.2-16.2); Lymphocytes # 0.9 K/mm3 (0.7-4.5); Mean Corpuscular HGB Conc 31.6 g/dL (31.8-35.4); Mean Corpuscular Hemoglobin 24.8 pg (27.0-31.2); Mean Corpuscular Volume 78.5 fl (81-99); Mean Platelet Volume 10.1 fl (7.4-10.4); Monocytes # 0.4 K/mm3 (0.1-1.0); Monocytes % 8.2 % (1.7-9.3); Neutrophils # 2.9 K/mm3 (1.8-7.8); Neutrophils % 68.4 % (37.0-80.0); Platelet Count 94 K/mm3 (142-424); Red Blood Count 3.48 M/mm3 (4.20-5.40); White Blood Count 4.2 K/mm3 (4.8-10.8)
[2022-03-30 07:30] LABS: Chloride 96 mmol/L (98-107)
[2022-03-30 07:31] LABS: Sodium 136 mmol/L (136-145)
[2022-03-30 07:33] LABS: Potassium 3.6 mmoL/L (3.5-5.1)
[2022-03-30 07:34] LABS: Anion Gap 6.6 mEq/L (5-15); Blood Urea Nitrogen 15 mg/dl (7-17); Calcium 8.6 mg/dl (8.4-10.2); Carbon Dioxide 37 mmol/L (22.0-30.0); Creatinine Clearance Estimated 52 mL/min (50-200); Estimated Glomerular Filt Rate 124 ml/min (>60); GFR (African American) 150 ML/MIN (>60); Glucose 93 mg/dl (74-100)
--- NOTE | 2022-03-30 08:24 | EXP.ACUTE.PN ---
Subjective *Date: 03/30/22 *Time: 08:24 Interval history: Patient feels a little better today. Still on 4 Liters of O2 per NC, rehab has still not been approved. Medical Exam Vital signs and Labs for Last 24 Hours: Vital Signs Temp Pulse Pulse Resp BP Pulse Ox 03/30/22 06:12 79 03/30/22 06:12 82 03/30/22 06:12 95 03/30/22 04:00 98.1 F 69 20 142/83 H 97 03/30/22 00:00 98.0 F 66 20 131/56 L 95 03/29/22 23:13 83 03/29/22 23:13 83 03/29/22 20:00 98.5 F 70 22 134/80 94 L 03/29/22 18:15 76 03/29/22 18:15 76 03/29/22 18:15 95 03/29/22 16:00 98.4 F 67 20 154/80 H 97 03/29/22 12:00 98.1 F 81 18 128/53 L 95 03/29/22 11:01 58 L 03/29/22 11:01 60 Intake and Output 03/29/22 03/30/22 03/30/22 23:59 07:59 15:59 Intake Total 600 / 3275 240 / 240 Output Total 400 / 2600 250 / 250 Balance 200 / 675 -250 / -10 240 / -10 Intake: Intake, Oral Amount 600 / 960 240 / 240 Output: Output, Urine Amount 400 / 2600 250 / 250 Other: Number of Unmeasured Voids 0 Weight 128 lb 6.4 oz Patient Weight 03/30/22 23:59 Weight 128 lb 6.4 oz Laboratory Results - last 24 hr 03/30/22 06:50: WBC 4.2 L, RBC 3.48 L, Hgb 8.6 L, Hct 27.3 L, MCV 78.5 L, MCH 24.8 L, MCHC 31.6 L, RDW 20.0 H, Plt Count 94 L D, MPV 10.1, Neut % (Auto) 68.4, Lymph % (Auto) 21.0, [place] % (Auto) 8.2, Eos % (Auto) 1.4, Baso % (Auto) 1.0, Neut # (Auto) 2.9, Lymph # (Auto) 0.9, [place] # (Auto) 0.4, Eos # (Auto) 0.1, Baso # (Auto) 0.0 03/30/22 06:50: Sodium 136, Potassium 3.6, Chloride 96 L, Carbon Dioxide 37 H, Anion Gap 6.6, BUN 15, Creatinine 0.50 L, Estimated Creat Clear 52, Estimated GFR 124, Est GFR ( Amer) 150, Glucose 93, Calcium 8.6 I & O for Labs for Last 24 Hours: Intake & Output 03/27/22 03/28/22 03/29/22 03/30/22 23:59 23:59 23:59 23:59 Intake Total 240 / 240 900 / 900 3275 / 3275 240 / 240 Output Total 850 / 850 250 / 250 2600 / 2600 250 / 250 Balance -610 / -610 650 / 650 675 / 675 -10 / -10 Weight 133 lb 4.8 oz 129 lb 8 oz 123 lb 5 oz 128 lb 6.4 oz Constitutional: Present no acute distress Respiratory: Present rhonchi (occasional) and wheezes (much improved) Cardiac: Present Reg Rate and Rhythm GI: Present normal bowel sounds; Absent tenderness Skin: Present intact; Absent erythema Assessment and Plan *Assessment and plan (1) Closed hip fracture: Status: Acute Category: Medical Code(s): S72.009A - Fracture of unspecified part of neck of unspecified femur, initial encounter for closed fracture (2) Anemia: Status: Acute Category: Medical Code(s): D64.9 - Anemia, unspecified (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 Platelet drop like caused by Levaquin, will stop it today. Care management still working on a placement plan.
--- NOTE | 2022-03-30 15:48 | PC.NURSE ---
Patient weaned to 3LNC. When weaned to 2.5LNC oxygen saturations between 85-86%. VS stable. Lungs sound diminished on ascultation. Patient reports pain from right hip and oxycodone given. Patient able to ambulate into hallway with assistance. No other changes noted.
[2022-03-31] VITALS (10 sets, daily range): BP systolic 117–160; BP diastolic 48–90; PULSE 60–81; RESP 16–20; TEMP 36.6–37.1; O2SAT 82–97; BMI 21.4
[2022-03-31 07:14] LABS: Basophils # 0.1 K/mm3 (0-0.2); Basophils % 1.2 % (0.1-2.0); Eosinophils # 0.2 K/mm3 (0.0-0.4); Eosinophils % 2.6 % (0.1-12.0); Hematocrit 28.6 % (37.0-47.0); Hemoglobin 8.8 g/dL (12.2-16.2); Lymphocytes # 1.5 K/mm3 (0.7-4.5); Lymphocytes % 25.5 % (10-50); Mean Corpuscular HGB Conc 30.6 g/dL (31.8-35.4); Mean Corpuscular Hemoglobin 24.2 pg (27.0-31.2); Mean Corpuscular Volume 79.1 fl (81-99); Mean Platelet Volume 10.8 fl (7.4-10.4); Monocytes # 0.3 K/mm3 (0.1-1.0); Monocytes % 5.5 % (1.7-9.3); Neutrophils # 3.9 K/mm3 (1.8-7.8); Neutrophils % 65.2 % (37.0-80.0); Platelet Count 105 K/mm3 (142-424); Red Blood Count 3.62 M/mm3 (4.20-5.40); Red Cell Distribution Width 20.3 % (11.5-17.5)
[2022-03-31 07:23] LABS: Chloride 100 mmol/L (98-107); Potassium 3.8 mmoL/L (3.5-5.1); Sodium 138 mmol/L (136-145)
[2022-03-31 07:26] LABS: Anion Gap 7.8 mEq/L (5-15); Blood Urea Nitrogen 15 mg/dl (7-17); Calcium 8.3 mg/dl (8.4-10.2); Carbon Dioxide 34 mmol/L (22.0-30.0); Creatinine Clearance Estimated 52 mL/min (50-200); Estimated Glomerular Filt Rate 101 ml/min (>60); GFR (African American) 122 ML/MIN (>60); Glucose 102 mg/dl (74-100)
--- NOTE | 2022-03-31 09:11 | EXP.ORTH.PN ---
Subjective *Date: 03/31/22 *Time: 08:40 Interval history: Mrs. Ohara is a 66 year old female patient who underwent an uneventful right hip cephalomedullary nail fixation performed by Dr. Quintana on 03/23/2022. Today the patient is postop day #8. This morning the patient is lying comfortably in bed. She reports right hip pain as to be expected but states that it is well controlled with as needed pain medication and rest. She states that she has been up ambulating some over the weekend of this is going well. She denies any episodes of nausea, vomiting, fevers, chills, rigors, or distal tingling/numbness. She reports that her hip is not giving her much trouble overall. She denies any other symptoms or concerns at this time. Ortho Exam (Inpt) Vital signs and Labs for Last 24 Hours: Temp Pulse Resp BP Pulse Ox 98.1 F 77 18 117/48 L 90 L 03/31/22 08:00 03/31/22 08:00 03/31/22 08:00 03/31/22 08:00 03/31/22 08:00 Laboratory Results - last 24 hr 03/31/22 06:58: WBC 6.0 D, RBC 3.62 L, Hgb 8.8 L, Hct 28.6 L, MCV 79.1 L, MCH 24.2 L, MCHC 30.6 L, RDW 20.3 H, Plt Count 105 L, MPV 10.8 H, Neut % (Auto) 65.2, Lymph % (Auto) 25.5, [place] % (Auto) 5.5, Eos % (Auto) 2.6, Baso % (Auto) 1.2, Neut # (Auto) 3.9, Lymph # (Auto) 1.5, [place] # (Auto) 0.3, Eos # (Auto) 0.2, Baso # (Auto) 0.1 03/31/22 06:58: Sodium 138, Potassium 3.8, Chloride 100, Carbon Dioxide 34 H, Anion Gap 7.8, BUN 15, Creatinine 0.60, Estimated Creat Clear 52, Estimated GFR 101, Est GFR ( Amer) 122, Glucose 102 H, Calcium 8.3 L I & O for Labs for Last 24 Hours: Intake & Output 03/28/22 03/29/22 03/30/22 12/28/22 23:59 23:59 23:59 23:59 Intake Total 900 / 900 3275 / 3275 1960 / 1960 Output Total 250 / 250 2600 / 2600 1050 / 1050 200 / 200 Balance 650 / 650 675 / 675 910 / 910 -200 / -200 Weight 129 lb 8 oz 123 lb 5 oz 128 lb 6.4 oz 128 lb 6.391 oz Head: Present normocephalic and atraumatic Eyes: Present as per HPI ENT: Present normal exam Neck: Present normal inspection, full ROM and trachea midline; Absent lymphadenopathy Respiratory: Present normal respiratory effort, able to speak in complete sentences and symmetric chest movement; Absent accessory muscle use Cardiac: Present Reg Rate and Rhythm GI: Present soft; Absent tenderness Comment:: Upon examination of the lower extremities: Limb lengths are grossly equal. Upon examination of the right hip: Dressings present are clean, dry, and intact. No evidence of drainage or bleeding noted. The right hip and proximal femur are tender to palpation. Attempted movements of the right hip are somewhat painful. Thigh and calf are soft nontender; Homans' sign is negative. No clinical evidence of DVT or compartment syndrome noted. Posterior tibial pulse 1+; capillary refill is brisk. Sensation to light touch is grossly intact throughout. Patient is actively mobilizing the foot, ankle, and toes. Skin: Present intact, warm and normal turgor; Absent cyanosis, erythema, lesions or jaundice Neuro: Present Cranial Nerve 2-12 Intact, Motor Function Intact, Sensory Function Intact, alert, awake, oriented x 3, tone normal and moves all extremities; Absent Numbness or Tingling Assessment and Plan *Assessment and plan (1) Closed hip fracture: Status: Acute Category: Medical Code(s): S72.009A - Fracture of unspecified part of neck of unspecified femur, initial encounter for closed fracture Plan Patient is a 66-year-old female status post cephalomedullary nailing of the right hip performed by Dr. Quintana 03/23/2022. She was slated to be discharged to [facility] for short-term rehabilitation, but subsequently developed difficulty breathing and was found to have pneumonia for which she is now undergoing treatment. Overall she continues to do well from an orthopedic standpoint and may be discharged when medically appropriate. Continue PT/OT; patient may ambulate weightbearing as tolerated on the right lower extr
--- NOTE | 2022-03-31 13:01 | CT_ITS ---
FINAL REPORT TECHNIQUE: Then section axial CT images of the chest were obtained with contrast. Three-D reformatted images were also obtained.This study was performed with techniques to keep radiation doses as low as reasonably achievable (ALARA). Individualized dose reduction techniques using automated exposure control or adjustment of mA and/or kV according to the patient''s size were employed. CLINICAL HISTORY: . soa, recent surgery FINDINGS: There is no evidence of pulmonary embolism. There is no evidence of thoracic aortic aneurysm or dissection. There is no evidence of mediastinal or hilar mass or adenopathy. There is no evidence of pulmonary mass or suspicious nodule. There are bilateral lower lobe opacities, atelectasis or pneumonia. Limited images of the upper abdomen demonstrate postoperative changes from cholecystectomy and postoperative changes near the GE junction. IMPRESSION: 1. No evidence of pulmonary embolism. 2. Bilateral lower lobe opacities, atelectasis or pneumonia.. Reviewed, Interpreted and Dictated by Ervin Macdonald III, MD Transcribed by [employer] [facility] and [facility]
--- NOTE | 2022-03-31 15:09 | PC.NURSE ---
patient has done well this shift. no complaints. has been up to chair today. remains on 3l o2. has been standing and transferring well in room. diet tolerated well. encouraged to ring out as needed. expiratory mal noted.
--- NOTE | 2022-03-31 17:55 | EXP.ACUTE.PN ---
Subjective *Date: 03/31/22 *Time: 17:55 Interval history: Patient is feeling overall better today. Vital signs have improved and oxygen requirements have somewhat improved. This afternoon we did CTA of chest to make sure PE was not involved, and she does not have a PE, looks like atelectasis and other issues are improving. Medical Exam Vital signs and Labs for Last 24 Hours: Vital Signs Temp Pulse Pulse Resp BP Pulse Ox 03/31/22 16:00 98.4 F 66 18 151/73 H 96 03/31/22 15:38 88 L 03/31/22 11:52 98.2 F 63 18 160/78 H 97 03/31/22 08:00 98.1 F 77 18 117/48 L 90 L 03/31/22 05:45 67 03/31/22 05:45 72 03/31/22 05:45 82 L 03/31/22 04:00 97.9 F 60 16 140/68 94 L 03/31/22 00:00 98 F 81 16 148/55 H 94 L 03/30/22 22:57 63 03/30/22 22:57 63 03/30/22 22:57 94 L 03/30/22 20:00 92 L 03/30/22 20:00 97.9 F 69 16 124/62 92 L Intake and Output 03/31/22 03/31/22 03/31/22 03:59 11:59 19:59 Intake Total 240 / 1960 360 / 360 Output Total 200 / 1000 800 / 800 Balance 40 / 960 -440 / -440 Intake: Intake, Oral Amount 240 / 1960 360 / 360 Output: Output, Urine Amount 200 / 1000 800 / 800 Other: Weight 128 lb 6.391 oz Laboratory Results - last 24 hr 03/31/22 06:58: WBC 6.0 D, RBC 3.62 L, Hgb 8.8 L, Hct 28.6 L, MCV 79.1 L, MCH 24.2 L, MCHC 30.6 L, RDW 20.3 H, Plt Count 105 L, MPV 10.8 H, Neut % (Auto) 65.2, Lymph % (Auto) 25.5, [place] % (Auto) 5.5, Eos % (Auto) 2.6, Baso % (Auto) 1.2, Neut # (Auto) 3.9, Lymph # (Auto) 1.5, [place] # (Auto) 0.3, Eos # (Auto) 0.2, Baso # (Auto) 0.1 03/31/22 06:58: Sodium 138, Potassium 3.8, Chloride 100, Carbon Dioxide 34 H, Anion Gap 7.8, BUN 15, Creatinine 0.60, Estimated Creat Clear 52, Estimated GFR 101, Est GFR ( Amer) 122, Glucose 102 H, Calcium 8.3 L I & O for Labs for Last 24 Hours: Intake & Output 03/29/22 03/30/22 03/31/22 04/01/22 11:59 11:59 11:59 11:59 Intake Total 3155 / 3155 1080 / 1080 1960 / 1960 360 / 360 Output Total 1999 / 1999 1100 / 1750 1000 / 1000 800 / 800 Balance 1155 / 1155 -20 / -670 960 / 960 -440 / -440 Weight 123 lb 5 oz 128 lb 6.4 oz 128 lb 6.391 oz Comment:: Alert, pleasant. Oriented x3. Lungs have good air movement, very minimal atelectatic changes, does have some expiratory wheezing. No edema noted. Her functional status is vastly improved, PT notes reviewed. Good pulses in extremities, she is able to flex her hips and stand without significant pain. 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 Platelet drop like caused by Levaquin, will stop it today. Care management still working on a placement plan Plan update 03/31/2022-oxygenation improved, CTA negative. Continue supportive care, I think patient can go home and she is agreeable to this. We will set up DME and home health for tomorrow..
[2022-04-01] VITALS: BP 138/76; PULSE 78; RESP 20; TEMP 36.9; O2SAT 98
[2022-04-01 03:58] VITALS: BP 150/72; PULSE 64; RESP 18; TEMP 36.7; O2SAT 97
[2022-04-01 05:30] VITALS: PULSE 65; PULSE 71; O2SAT 95
--- NOTE | 2022-04-01 06:15 | PC.NURSE ---
patient says she is going home today, medicated x 1 for pain 8/10 right leg at 2023. no further c/o pain voiced.drsg c/d/i to right hip/thigh. no s/s of infection.
[2022-04-01 07:51] VITALS: BP 120/55; PULSE 71; RESP 20; TEMP 36.6; O2SAT 98
--- NOTE | 2022-04-01 09:47 | EXP.DC.SUM ---
General Admission date:: 03/22/22 Discharge date: 04/01/22 HPI HPI HPI: Mrs. Ohara is a 66 year old female patient who was admitted to the acute inpatient service following a mechanical fall at home yesterday evening 03/22/2022. She reports that she was attempting to make the bed yesterday and became tangled up in the bed sheets/quilt, causing her to fall onto her right hip. She reports that she had immediate pain in the right hip and was unable to get up to walk so she was brought to the [facility] ER where subsequent x-ray demonstrated a right intertrochanteric femur fracture. This morning the patient is lying comfortably in bed and her is present at the bedside. She reports right hip pain as to be expected. She denies any other injuries. She denies any history of distal tingling/numbness. Her past medical history is significant for an anemia from B12 and iron deficiency, and history of an idiosyncratic choreoathetoid movement disorder. At baseline she lives in her own home and ambulates without the use of any assistive devices. She denies any other symptoms or concerns at this time. Hospital Course Hospital Course Hospital Course: Patient was admitted, and found to have hip fracture as noted, underwent ORIF. Did very nicely with this. Initially did well with PT. Patient and family requested [facility] evaluation for transfer. This was in the works and in fact patient was approved to go to [facility] but she developed wheezing, congestion and viral pneumonitis. She was treated with oxygen, antibiotics and steroids, antibiotics were stopped for 5 days. Her respiratory status improved. This morning and she was doing well on 3 L nasal cannula oxygen. She will be discharged home with nebulizer treatments, oxygen, close follow-up in my office and with Ortho. She is met all of her orthopedic goals and is independently ambulating. Please see PT notes for details. Exam Data for Last 24 hours Vital signs and Labs for Last 24 Hours: Temp Pulse Resp BP Pulse Ox 97.8 F 71 20 120/55 L 98 04/01/22 07:51 04/01/22 07:51 04/01/22 07:51 04/01/22 07:51 04/01/22 07:51 I & O for Last 24 hours: Intake & Output 03/29/22 03/30/22 03/31/2222 11:59 11:59 11:59 11:59 Intake Total 3155 / 3155 1080 / 1080 1960 / 1960 960 / 960 Output Total 1999 1100 / 1750 1000 / 1000 2800 / 2800 Balance 1155 / 1155 -20 / -670 960 / 960 -1840 / -1840 Weight 123 lb 5 oz 128 lb 6.4 oz 128 lb 6.391 oz 120 lb 6 oz Microbiology Reports for the Last 24 Hours: Microbiology 03/26/22 20:58 Blood Blood Culture - Final NO GROWTH AFTER 5 DAYS 03/26/22 20:58 Blood Blood Culture - Final NO GROWTH AFTER 5 DAYS Constitutional Constitutional: no acute distress *Routine HEENT Exam Head: Present normocephalic Eye: Present EOMI and PERRL ENT: Present mucous membranes moist *Routine Neck Exam Neck: Present supple; Absent lymphadenopathy *Routine Respiratory Exam Respiratory: Present rhonchi and wheezes *Routine Cardiovascular Exam Cardiovascular: Present RRR *Routine Abdominal Exam Abdominal: Present soft and normoactive bowel sounds; Absent tenderness *Routine Extremities Exam Extremities: Absent cyanosis, clubbing or edema Comments: Per ortho *Routine Skin Exam Skin: Present warm; Absent rash *Routine Neurological Exam Neurological: Present alert and oriented X3 DS: Diagnosis Discharge Diagnosis (1) Closed hip fracture: Status: Acute (2) Anemia: Status: Acute (3) Chorea: Status: Acute (4) Pneumonia: Status: Acute (5) Thrombocytopenia: Status: Acute (6) Hypoxia: Status: Acute Meds Home Medications and Allergies Home Medications Medication Instructions Recorded Confirmed Type amantadine HCl 100 mg capsule 200 mg PO BID Tremors 04/17/20 03/23/22 History duloxetine 60 mg capsul
--- NOTE | 2022-04-01 09:51 | EXP.ORTH.PN ---
Subjective *Date: 04/01/22 *Time: 10:00 Interval history: Mrs. Ohara is a 66 year old female patient who underwent an uneventful right hip cephalomedullary nail fixation performed by Dr. Quintana on 03/23/2022. Today the patient is postop day #9. This morning the patient is lying comfortably in bed. She is anxious today about going home. She states that she is doing well in regards to her right hip. She has been participating with physical therapy and has been ambulating weightbearing as tolerated without difficulty. She denies any episodes of nausea, vomiting, fevers, chills, rigors, or distal tingling/numbness. She denies any other symptoms or concerns at this time. Ortho Exam (Inpt) Vital signs and Labs for Last 24 Hours: Temp Pulse Resp BP Pulse Ox 97.8 F 71 20 120/55 L 98 04/01/22 07:51 04/01/22 07:51 04/01/22 07:51 04/01/22 07:51 04/01/22 07:51 I & O for Labs for Last 24 Hours: Intake & Output 03/29/22 03/30/22 03/31/22 04/01/22 23:59 23:59 23:59 23:59 Intake Total 3275 / 3275 1960 / 1960 840 / 840 360 / 360 Output Total 2600 / 2600 1050 / 1050 1600 / 2400 1400 / 1400 Balance 675 / 675 910 / 910 -760 / -1560 -1040 / -1040 Weight 123 lb 5 oz 128 lb 6.4 oz 128 lb 6.391 oz 120 lb 6 oz Microbiology Reports for the Last 24 Hours: Microbiology 03/26/22 20:58 Blood Blood Culture - Final NO GROWTH AFTER 5 DAYS 03/26/22 20:58 Blood Blood Culture - Final NO GROWTH AFTER 5 DAYS Head: Present normocephalic and atraumatic Eyes: Present as per HPI ENT: Present normal exam Neck: Present normal inspection, full ROM and trachea midline; Absent lymphadenopathy Respiratory: Present normal respiratory effort, able to speak in complete sentences and symmetric chest movement; Absent accessory muscle use Cardiac: Present Reg Rate and Rhythm GI: Present soft; Absent tenderness Comment:: Upon examination of the lower extremities: Limb lengths are grossly equal. Upon examination of the right hip: Dressings present are clean, dry, and intact. No evidence of drainage or bleeding noted. The right hip and proximal femur are tender to palpation. Attempted movements of the right hip are somewhat painful. Thigh and calf are soft nontender; Homans' sign is negative. No clinical evidence of DVT or compartment syndrome noted. Posterior tibial pulse 1+; capillary refill is brisk. Sensation to light touch is grossly intact throughout. Patient is actively mobilizing the foot, ankle, and toes. Skin: Present intact, warm and normal turgor; Absent cyanosis, erythema, lesions or jaundice Neuro: Present Cranial Nerve 2-12 Intact, Motor Function Intact, Sensory Function Intact, alert, awake, oriented x 3, tone normal and moves all extremities; Absent Numbness or Tingling Assessment and Plan *Assessment and plan (1) Closed hip fracture: Status: Acute Category: Medical Code(s): S72.009A - Fracture of unspecified part of neck of unspecified femur, initial encounter for closed fracture Plan Patient is a 66-year-old female status post cephalomedullary nailing of the right hip performed by Dr. Quintana 03/23/2022. She was slated to be discharged to [facility] for short-term rehabilitation, but subsequently developed difficulty breathing and was found to have pneumonia for which she has been undergoing treatment. Overall she continues to do well from an orthopedic standpoint and may be discharged when medically appropriate. Continue PT/OT; patient may ambulate weightbearing as tolerated on the right lower extremity. Plan to continue DVT prophylaxis with Xarelto 10 mg p.o. daily for 5 weeks postoperatively. Continue rest, ice, activity modification, and pain medication as needed. Upon discharge, we will plan to see the patient for her first postoperative follow-up in our clinic in approximately 1 week for staple removal, xray, and wound inspection; the patient wesley
--- NOTE | 2022-04-02 12:45 | CARE MANAGER ---
Patient was ordered home health PT/OT and skilled nurisng prior to discharge with [facility] (Da could not see the patient until next week) spoke with Esther, osei, demographics faxed today. They will begin services today (04/02/22.)
--- NOTE | 2022-04-02 16:27 | CARE MANAGER ---
Contacted patient related to hospital discharge. Patient states she is in some pain but the pain medication does help. She denies questions or concerns and is aware of follow up appointments. LUDY Castro
== END 2022-04-01 11:03 | disposition home health service (06) | DRG 480 ==
LOC: ER 20:18 → 2ND 21:41
PROVIDERS: Family Medicine; Orthopaedic Surgery; Admitting Provider Internal Medicine Adolescent Medicine; Emergency Provider Emergency Medicine; PCP Internal Medicine Adolescent Medicine; Visit Provider Internal Medicine Adolescent Medicine
PROC: 0QH804Z Insertion of Internal Fixation Device into Right Femoral Shaft, Open Approach (ICD-10-PCS; principal; 2022-03-23 17:00)
DX: S72.001A Fracture of unspecified part of neck of right femur, initial encounter for closed fracture (principal); J18.9 Pneumonia, unspecified organism; D64.9 Anemia, unspecified; F32.A Depression, unspecified; I10 Essential (primary) hypertension; G35 Multiple sclerosis; I05.0 Rheumatic mitral stenosis; W18.30XA Fall on same level, unspecified, initial encounter; F17.200 Nicotine dependence, unspecified, uncomplicated; G25.5 Other chorea; D69.6 Thrombocytopenia, unspecified
CPT/HCPCS: 27245; 36415; 51702; 71045; 71046; 71275; 73502; 73700; 76000; 80048; 80053; 83605; 85007; 85014; 85018; 85025; 86850; 87040; 94640; 94760; 94761; 97110; 97116; 97163; 97165; 97530; 99285; C1713; C1769; C9803; J1956; J2405; P9016; Q9967; U0003; U0005

== ENCOUNTER → 2022-04-09 12:30 | Outpatient (CLI) | payer OTHER, MEDICARE, SELFPAY ==
--- NOTE | 2022-04-09 12:41 | XR_ITS ---
FINAL REPORT CLINICAL HISTORY: rt hip pain COMPARISON: March 23, 2022 FINDINGS: RIGHT HIP Two views of the right hip with an AP pelvis were obtained. There are postoperative changes from ORIF of the right proximal femur. The known intertrochanteric fracture is slightly less distinct from the prior exam, compatible with partial fracture healing. No displacement is noted. The hardware is unremarkable. The visualized bony structures are well aligned. No soft tissue abnormality is seen. IMPRESSION: Healing intertrochanteric fracture without displacement. Reviewed, Interpreted and Dictated by Irina Nichole MD Transcribed by My Martínez Authenticated and [facility]
== END ==
PROVIDERS: PCP Internal Medicine Adolescent Medicine; Visit Provider Orthopaedic Surgery
DX: S72.001A Fracture of unspecified part of neck of right femur, initial encounter for closed fracture (principal); M25.551 Pain in right hip
CPT/HCPCS: 73502

== ENCOUNTER 2022-05-07 10:43 | Emergency (ER) | payer OTHER, MEDICARE, SELFPAY ==
[2022-05-07] VITALS (30 sets, daily range): BP systolic 139–201; BP diastolic 77–108; PULSE 85–122; RESP 15–91; TEMP 36.8; O2SAT 29–100; BMI 23.6
--- NOTE | 2022-05-07 10:46 | HMH.EDGENADL ---
Discharge Plan Disposition Patient Disposition: Xfer Other Prescriptions Prescriptions: No Action amantadine HCl 100 mg capsule 200 mg PO BID duloxetine 60 mg capsule,delayed release(DR/EC) 60 mg PO BID ergocalciferol (vitamin D2) 1,250 mcg (50,000 unit) capsule 1,250 mcg PO WEEKLY Rx Instructions: 2 weekly propranolol 40 mg tablet 40 mg PO BID famotidine 20 mg tablet 20 mg PO BID Label Comments: TAKE 1 TABLET BY MOUTH TWICE DAILY cyanocobalamin (vitamin B-12) 1,000 mcg/mL solution 1,000 mcg IM WEEKLY Label Comments: USE DIRECTED INTRAMUSCULARLY ONCE WEEKLY FOR 30 DAYS acetaminophen-codeine 300-30 mg tablet 1 tab PO Q6H PRN (Reason: pain) Qty: 30 0RF Clinical Impressions Clinical Impression: Kerry-prosthetic fracture around prosthetic hip, Closed femur fracture Discharge ED Provider: Philip Hodge Adult HPI General Stated complaint: hip pain Time Seen by Provider: 05/07/22 10:46 History of Present Illness HPI narrative: Patient presents secondary to fall with significant soft tissue deformity in her right mid thigh. She complains of severe pain history is limited secondary to the pain. She is able to tell me that she has had a hip replacement and within the last few years on the same leg. She denies any decreased sensation or decreased motor movements in that leg. She was brought in by private vehicle by her family. Related Data Home Medications Medication Instructions Recorded Confirmed amantadine HCl 100 mg capsule 200 mg PO BID Tremors 04/17/20 04/09/22 duloxetine 60 mg capsule,delayed 60 mg PO BID Depression 04/17/20 04/09/22 release ergocalciferol (vitamin D2) 1,250 1,250 mcg PO WEEKLY Supplement 04/17/20 04/09/22 mcg (50,000 unit) capsule propranolol 40 mg tablet 40 mg PO BID High blood pressure 04/17/20 04/09/22 cyanocobalamin (vitamin B-12) 1,000 mcg IM WEEKLY Supplement 03/23/22 04/09/22 1,000 mcg/mL injection solution famotidine 20 mg tablet 20 mg PO BID acid reflux 03/23/22 04/09/22 Previous Rx's Medication Instructions Recorded acetaminophen 300 mg-codeine 30 mg 1 tab PO Q6H PRN pain #30 tabs 04/01/22 tablet Allergies Allergy/AdvReac Type Severity Reaction Status Date / Time tetracycline [TETRACYCLINE] Allergy Unknown I-HIVES Verified 04/09/22 13:19 [facility] Disclaimer: The information contained in this section may have been updated after the patient was seen, as this information can be updated by other users. Medical History (Updated 05/07/22 @ 11:35 by Philip Hodge MD) Anxiety Cholecystectomy planned Depression HTN (hypertension) Multiple sclerosis Stomach ulcer Surgical History (Updated 04/09/22 @ 13:20 by SLAVA Bush) H/O tubal ligation History of repair of right hip joint Hx of appendectomy Family History Other CHF (congestive heart failure) Diabetes FH: kidney cancer Heart attack Social History Smoking Status: Current every day smoker alcohol intake: never substance use type: denies use current occupational status: unemployed Travel in the last 8 weeks: None household members: spouse housing: house current occupational exposures/hazards: No caffeine: Yes ROS Obtained: Yes All systems reviewed & no additional complaints except as documented Physical Exam General General appearance: alert and in no apparent distress (In significant distress secondary to pain) Head Head exam: atraumatic and normocephalic Eye Eye exam: Present normal appearance, PERRL and EOMI ENT ENT exam: Present normal exam Neck Neck exam: Present normal inspection Chest Chest inspection: Present normal inspection and symmetric chest wall rise; Absent tenderness Respiratory Respiratory exam: Present normal lung sounds bilaterally; A
--- NOTE | 2022-05-07 11:09 | PC.NURSE ---
pt family in lobby, updated them on pt condition and POC at this time. Pt requested that we have him wait in the lobby until we get everything done and then bring him back. I told pt family that pt requested he wait in lobby at this time.
--- NOTE | 2022-05-07 11:23 | XR_ITS ---
FINAL REPORT CLINICAL HISTORY: fall COMPARISON: 04/09/2022 FINDINGS: Right femur Two views were obtained. There is a transverse fracture of the femur just inferior to the hardware with lateral displacement of the distal fracture fragment, new since prior. The joint spaces appear normal. No soft tissue abnormality is identified. IMPRESSION: Fracture of the femur with lateral displacement of the distal fracture fragment, new since prior. Reviewed, Interpreted and Dictated by Ervin Macdonald III, MD Transcribed by Ananya Alicea Authenticated and [facility]
--- NOTE | 2022-05-07 11:28 | PC.NURSE ---
RACHEAL CORDERO speaking with [facility] for consult with Ortho
--- NOTE | 2022-05-07 11:30 | PC.NURSE ---
on the phone with at
--- NOTE | 2022-05-07 11:35 | PC.NURSE ---
pt accepted to ER per Dr. Mckeon
--- NOTE | 2022-05-07 11:36 | PC.NURSE ---
Patient has been accepted by [facility];
[2022-05-07 11:57] LABS: Coronavirus 19, PCR Not Detected (NotDetected); Influenza A, PCR Not Detected (NotDetected); Influenza B, PCR Not Detected (NotDetected)
--- NOTE | 2022-05-07 13:00 | PC.NURSE ---
report called to destinee at [facility]
--- NOTE | 2022-05-07 13:45 | PC.NURSE ---
waiting environmental protection specialist back from [facility] on possible transport
--- NOTE | 2022-05-07 13:54 | PC.NURSE ---
[facility] accepted flight, states approx 28 min eta plus lift.
--- NOTE | 2022-05-07 14:00 | PC.NURSE ---
called house carpenter helper for chopper landing
--- NOTE | 2022-05-07 21:41 | PC.NURSE ---
Reports faxed to [facility] medical records per Irina Rodriguez
== END 2022-05-07 14:45 | disposition other institution (70) ==
PROVIDERS: Emergency Provider Student in an Organized Health Care Education/Training Program; PCP Internal Medicine Adolescent Medicine
DX: M97.01XA Periprosthetic fracture around internal prosthetic right hip joint, initial encounter (principal); F41.9 Anxiety disorder, unspecified; I10 Essential (primary) hypertension; G35 Multiple sclerosis; Z87.19 Personal history of other diseases of the digestive system; Z98.51 Tubal ligation status; X58.XXXA Exposure to other specified factors, initial encounter; Z82.49 Family history of ischemic heart disease and other diseases of the circulatory system; F17.210 Nicotine dependence, cigarettes, uncomplicated; Z83.3 Family history of diabetes mellitus; Z80.51 Family history of malignant neoplasm of kidney
CPT/HCPCS: 27250; 73552; 96374; 96375; 96376; 99152; 99291; C9803; G0390; J2405; U0003; U0005

== ENCOUNTER 2023-10-28 08:30 | Outpatient (CLI) | payer OTHER, MEDICARE, SELFPAY ==
--- NOTE | 2023-10-28 08:32 | CA_ITS ---
APPROVED REPORT EXAM: Comprehensive 2D, Doppler, and color-flow Echocardiogram Farm Machine Operator: Sulma Mansfield, DORIAN, RVS Ht: 5 ft 5 in Wt: 125lbs BSA: 1.62 BP: 145/56 mmHg Indications: weightloss, fatigue, abn ekg, pedal edema, ex-smoker, htn 2D Dimensions IVSd 1.10 cm F: 0.6-1.0 LVEF (Visual) 49.30 % PWd 1.11 cm F: 0.6 - 1.0 LA Volume 125.00 mL LVDd 5.36 cm F: 3.9 - 5.3 LA Volume Index 77.16 mL/m2 (M/F) 16-34 LVDs 4.01 cm F: 2.2 - 3.5 M-Mode Dimensions LA Diam 2.87 cm (1.9-4.0) EPSs 1.43 cm TAPSE 2.30 (<1.7) LV Diastology E Decel Time 137 (160-240 msec) E/A Ratio 0.85 MED A' 18.30 cm/s LAT A' 10.20 cm/s Aortic Valve AoV Peak Nitin. 147.0 (50-130 cm/s) AO Peak GR. 8.60 mmHg AO Mean GR. 4.30 (<5 mmHg) AO VTI 30.4 (18-25 cm) Mitral Valve MV A Velocity 171.0 (40-130 cm/s) E/A Ratio 0.85 Pulmonary Valve PV Peak Velocity 95.0 (50-150 cm/s) MN End VMAX 168.0 cm/s Tricuspid Valve TR P. Velocity 221.00 cm/s RAP Estimate 10.00 mmHg RVSP 29.50 mmHg Left Ventricle The left ventricle is normal size. The left ventricular systolic function is low-normal. There is increased LV wall thickness. There are no regional wall motion abnormalities present. Transmitral Doppler flow pattern suggests impaired LV relaxation. LVEF is 50%. Right Ventricle The right ventricle is normal size. The right ventricular systolic function is normal. Atria Left atrium is severely dilated. The right atrium size is normal. There is no Doppler evidence of interatrial shunt. Aortic Valve The aortic valve is mildly thickened. Trace aortic regurgitation. There is no aortic valvular stenosis. Mitral Valve Mild mitral annular calcification. The mitral valve leaflets are mildly thickened. Mild mitral stenosis. Mean MV gradient 6 mmHg (HR 95 bpm). Mild mitral regurgitation. Tricuspid Valve The tricuspid valve leaflets are thin and pliable. Mild tricuspid regurgitation. RVSP is 25-30 mmHg. Pulmonic Valve The pulmonary valve is normal in structure. Mild pulmonic regurgitation. Great Vessels The aortic root is normal in size. The ascending aorta is not well-visualized. IVC is normal in size and collapses >50% with inspiration. Pericardium Trivial, circumferential pericardial effusion is present. No echo indications of tamponade. Other Information Study Quality: Fair Conclusion Low-normal LV systolic function (LVEF 50%). Severe LA dilation. Mild MAC. Mild MS. Mean MV gradient 6 mmHg (HR 95 bpm). Mild MR, mild TR, mild PI. Trivial, circumferential pericardial effusion. No echo indications of tamponade. Electronically signed by : Halie Pena MD 10/30/2023 00:46:47
== END 2023-10-28 23:59 | disposition home or self-care (01) ==
LOC: RT 08:30
PROVIDERS: PCP Internal Medicine Adolescent Medicine; Visit Provider Internal Medicine Adolescent Medicine
DX: I51.7 Cardiomegaly (principal); R60.0 Localized edema; R94.31 Abnormal electrocardiogram [ECG] [EKG]
CPT/HCPCS: 93306

== ENCOUNTER 2023-11-18 15:37 | Emergency (ER) | payer OTHER, MEDICARE, SELFPAY ==
[2023-11-18] VITALS (30 sets, daily range): BP systolic 109–150; BP diastolic 44–74; PULSE 80–95; RESP 17–20; TEMP 36.6–36.8; O2SAT 91–97; BMI 20.7
--- NOTE | 2023-11-18 15:50 | ECG_ITS ---
APPROVED REPORT Exam: Resting ECG HR:77 bpm ECG Measurements Heart Rate 77 AXES MD 120 P 45 QRSd 77 QRS 41 QT 381 T 54 QTc 413 Conclusion SINUS RHYTHM POSSIBLE LEFT ATRIAL ENLARGEMENT [-0.1mV P-WAVE IN V1/V2] POSSIBLE LEFT VENTRICULAR HYPERTROPHY [VOLTAGE CRITERIA PLUS LAE OR QRS WIDENING] POSSIBLE SEPTAL MYOCARDIAL INFARCTION , PROBABLY OLD [30 ms Q WAVE IN V1/V2] V6 difficult to interpret secondary to artifact however there are no findings of STEMI Electronically signed by : NYLA NJ, 11/18/2023 23:51:41
--- NOTE | 2023-11-18 16:10 | XR_ITS ---
PROCEDURE INFORMATION: Exam: XR Chest Exam date and time: 11/18/2023 4:15 PM Age: 67 years old Clinical indication: Pain; Angina pectoris; Additional info: Chest pain TECHNIQUE: Imaging protocol: Radiologic exam of the chest. Views: 1 view. COMPARISON: 1. CT ANGIO CHEST PE PROTOCOL 03/31/2022 1:23 PM 2. CR XR CHEST 2V 03/29/2022 8:47 AM 3. CR XR CHEST PORTABLE 03/27/2022 5:43 AM FINDINGS: Lungs: Unremarkable. No consolidation. Pleural spaces: Unremarkable. No pleural effusion. No pneumothorax. Heart/Mediastinum: Heart size appears enlarged with interval increase in size since previous studies. Bones/joints: Unremarkable. IMPRESSION: Cardiomegaly with interval increase in size. No acute pulmonary disease.
[2023-11-18 16:20] LABS: Basophils % 0.6 % (0.1-2.0); Eosinophils # 0.1 K/mm3 (0.0-0.4); Eosinophils % 2.3 % (0.1-12.0); Lymphocytes # 0.9 K/mm3 (0.7-4.5); Lymphocytes % 20.1 % (10-50); Mean Corpuscular Hemoglobin 25.3 pg (27.0-31.2); Mean Corpuscular Volume 84.2 fl (81-99); Mean Platelet Volume 11.2 fl (7.4-10.4); Monocytes # 0.3 K/mm3 (0.1-1.0); Monocytes % 7.2 % (1.7-9.3); Neutrophils % 69.8 % (37.0-80.0); Platelet Count 243 K/mm3 (142-424); Red Blood Count 2.45 M/mm3 (4.20-5.40); Red Cell Distribution Width 23.8 % (11.5-17.5); White Blood Count 4.2 K/mm3 (4.8-10.8)
[2023-11-18 16:22] LABS: Albumin Level 3.4 g/dl (3.5-5.0); Chloride 105 mmol/L (98-107); Sodium 135 mmol/L (136-145)
[2023-11-18 16:23] LABS: Hematocrit 20.6 % (37.0-47.0); Hemoglobin 6.2 g/dL (12.2-16.2); Potassium 4.1 mmoL/L (3.5-5.1)
--- NOTE | 2023-11-18 16:23 | PC.NURSE ---
aware of H&H of 6.2 and 20.6
[2023-11-18 16:25] LABS: Alanine Aminotransferase 19 U/L (12-78); Anion Gap 7.1 mEq/L (5-15); Aspartate Amino Transferase 34 U/L (14-36); Blood Urea Nitrogen 20 mg/dl (7-17); Carbon Dioxide 27 mmol/L (22.0-30.0); Creatinine Clearance Estimated 50 mL/min (50-200); Estimated Glomerular Filt Rate 56 ml/min (>60); GFR (African American) 67 ML/MIN (>60)
[2023-11-18 16:26] LABS: Albumin/Globulin Ratio 1.4 (1.1-1.8); Alkaline Phosphatase 134 U/L (38-126); Bilirubin,Total 0.4 mg/dl (0.2-1.3); Calcium 8.2 mg/dl (8.4-10.2); Globulin 2.5 g/dL (1.3-3.2); Glucose 83 mg/dl (74-100); Total Protein,Serum 5.9 g/dl (6.3-8.2)
--- NOTE | 2023-11-18 16:37 | ED_ITS ---
Discharge Plan Disposition Patient Disposition: Home, Self-Care Condition: Good Prescriptions Prescriptions: No Action amantadine HCl 100 mg capsule 200 mg PO BID duloxetine 60 mg capsule,delayed release(DR/EC) 60 mg PO BID ergocalciferol (vitamin D2) 1,250 mcg (50,000 unit) capsule 1,250 mcg PO WEEKLY Rx Instructions: 2 weekly propranolol 40 mg tablet 40 mg PO BID famotidine 20 mg tablet 20 mg PO BID Patient Comments: TAKE 1 TABLET BY MOUTH TWICE DAILY cyanocobalamin (vitamin B-12) 1,000 mcg/mL solution 1,000 mcg IM WEEKLY Patient Comments: USE DIRECTED INTRAMUSCULARLY ONCE WEEKLY FOR 30 DAYS acetaminophen-codeine 300-30 mg tablet 1 tab PO Q6H PRN (Reason: pain) Qty: 30 0RF Referrals Follow up/Referrals: Gagan Solomon MD [Primary Care Provider] - See instructions Activity Restrictions/Add. Instructions Additional Instructions/Restrictions: You were evaluated in the ER and are appropriate for discharge at this time. Continue taking your home medications as previously prescribed. Make an appointment with Dr. Solomon as soon as possible to be reevaluated and to discuss iron infusion. Return to the ER with new, worsening, or otherwise concerning symptoms Clinical Impressions Clinical Impression: Iron deficiency anemia, Symptomatic anemia Print Language Print Language: Greenlandic Discharge ED Provider: Blanca Allen General Chief Complaint: Shortness of Breath/Dyspnea Stated Complaint: blood work per Juanito low blood count Time Seen by Provider: 11/18/23 16:21 Mode of Arrival: Ambulatory Source of Information: Patient and Spouse Limitations: No Limitations Description of Symptoms (Recalled from ER Triage Doc. by RN): pt sent by pcp office for further workup. pt reports she had labs drawn and was called today and told to come in. pt reports shortness of breath, weakness, chest heaviness. pt reports symptoms intermittent for the past month. per office report from pcp pts hemoglobin was approx 5, and told pt to come in. reports bilateral leg swelling, diarrhea that began today. History of Present Illness HPI narrative: 67-year-old female presents to the ER for concerns of abnormal labs as well as chest heaviness and diffuse weakness. Patient reports symptoms have been going on for the last month. Patient had labs at her primary few days ago and was called today for concerns of low hemoglobin and told to come in. Patient reports she has had intermittent leg swelling that they are not currently swollen. She also does report diarrhea though it is normal brown color, not bloody or black. No headache, occasional lightheadedness, ROS otherwise negative Related Data Home Medications ?Medication ?Instructions ?Recorded ?Confirmed amantadine HCl 100 mg capsule 200 mg PO BID Tremors 04/17/20 04/09/22 duloxetine 60 mg capsule,delayed 60 mg PO BID Depression 04/17/20 04/09/22 release ergocalciferol (vitamin D2) 1,250 1,250 mcg PO WEEKLY Supplement 04/17/20 04/09/22 mcg (50,000 unit) capsule propranolol 40 mg tablet 40 mg PO BID High blood pressure 04/17/20 04/09/22 cyanocobalamin (vitamin B-12) 1,000 mcg IM WEEKLY Supplement 03/23/22 04/09/22 1,000 mcg/mL injection solution famotidine 20 mg tablet 20 mg PO BID acid reflux 03/23/22 04/09/22 Previous Rx's ?Medication ?Instructions ?Recorded acetaminophen 300 mg-codeine 30 mg 1 tab PO Q6H PRN pain #30 tabs 04/01/22 tablet Allergies Allergy/AdvReac Type Severity Reaction Status Date / Time tetracycline [TETRACYCLINE] Allergy Unknown I-HIVES Verified 04/09/22 13:19 [facility] Disclaimer: The information contained in this section may have been updated after the patient was seen, as this information can be updated by other users. Medical History (Updated 11/18/23 @ 22:34 by Florina Reyes RN) Cholecystectomy planned Depression Anxiety HTN (hypertension) Stomach ulcer Multiple sclerosis Surgical History (Updated 04/09/22 @ 13:20 by SLAVA Bush) History of repair of right hip joint H/O tubal ligation Hx of appendectomy Family History Other CHF (congestive heart failure) Diabetes FH: kidney cancer Heart attack Social History Smoking Status: Current every day smoker alcohol intake: never substance use type: denies use current occupational status: unemployed Travel in the last 8 weeks: None household members: spouse housing: house current occupational exposures/hazards: No caffeine: Yes ROS Obtained: Yes All systems reviewed & no additional complaints except as documented Positive ROS per HPI Physical Exam General General appearance: alert and in no apparent distress Head Head exam: atraumatic and normocephalic Eye Eye exam: Present PERRL and EOMI ENT ENT exam: Present mucous membranes moist Neck Neck exam: Present normal inspection and full ROM Chest Chest inspection: Present symmetric chest wall rise Respiratory Respiratory exam: Present normal lung sounds bilaterally; Absent respiratory distress, wheezes or stridor Cardiovascular Cardiovascular exam: Present regular rate and normal rhythm Abdominal Exam Abdominal exam: Present soft; Absent distention or tenderness Extremities Exam Extremities exam: Present full ROM and other (Capillary refill 2 to 3 seconds); Absent edema Neurological Exam Neurological exam: Present alert and oriented X3; Absent motor sensory deficit Psychiatric Psychiatric exam: Present normal affect and normal mood Skin Skin exam: Present warm, dry and pallor HEART Score HEART Score HEART Score assessment performed?: Yes History (anamnesis): Slightly suspicious ECG: Non-specific disturbance Age: 45-65 years Risk factors: 1-2 risk factors Troponin: </= normal limit HEART Score: 3 Critical Care Critical Care Time Critical Care Time: No Medical Decision Making Medical Records Medical records reviewed: Yes I reviewed the patient's medical records. MR Comment: Patient has an extensive history of anemia dating back a few years. She does also have a history of orthopedic injury. [place] Inquiry Pt receiving controlled substance: No Vital Signs Vital Signs: 11/18/23 15:38 11/18/23 16:00 11/18/23 16:30 Temperature 97.9 F Temperature Source Oral Pulse Rate 80 83 Pulse Rate [Left Radial] 88 Respiratory Rate 17 TAR Vitals Timing Blood Pressure 121/60 125/56 L Blood Pressure [Right Arm] 121/49 L Blood Pressure Mean Blood Pressure Mean [Right Arm] 73 Blood Pressure Source Blood Pressure Position 02 Sat by Pulse Oximetry 97 96 94 L Oxygen Delivery Method Room Air Room Air 11/18/23 17:00 11/18/23 17:30 11/18/23 18:00 Temperature Temperature Source Pulse Rate 83 87 88 Pulse Rate [Left Radial] Respiratory Rate TAR Vitals Timing Blood Pressure 115/56 L 123/56 L 120/47 L Blood Pressure [Right Arm] Blood Pressure Mean Blood Pressure Mean [Right Arm] Blood Pressure Source Blood Pressure Position 02 Sat by Pulse Oximetry 93 L 92 L 93 L Oxygen Delivery Method 11/18/23 18:30 11/18/23 19:25 11/18/23 19:50 Temperature 98.2 F Temperature Source Oral Pulse Rate 90 94 H Pulse Rate [Left Radial] Respiratory Rate 20 20 TAR Vitals Timing Pre-Blood Vitals Blood Pressure 113/58 L 126/44 L 143/60 H Blood Pressure [Right Arm] Blood Pressure Mean 87 Blood Pressure Mean [Right Arm] Blood Pressure Source Automatic Cuff Blood Pressure Position Sitting 02 Sat by Pulse Oximetry 93 L 92 L 95 Oxygen Delivery Method Room Air Lab Data Labs: Lab Results 11/18/23 16:05: WBC 4.2 L, RBC 2.45 L, Hgb 6.2 L*, Hct 20.6 L*, MCV 84.2, MCH 25.3 L, MCHC 30.0 L, RDW 23.8 H, Plt Count 243, MPV 11.2 H, Neut % (Auto) 69.8, Lymph % (Auto) 20.1, Th[place]morton % (Auto) 7.2, Eos % (Auto) 2.3, Baso % (Auto) 0.6, Neut # (Auto) 3.0, Lymph # (Auto) 0.9, Throckmorton # (Auto) 0.3, Eos # (Auto) 0.1, Baso # (Auto) 0.0, Sodium 135 L, Potassium 4.1, Chloride 105, Carbon Dioxide 27, Anion Gap 7.1, BUN 20 H, Creatinine 1.00, Estimated Creat Clear 50, Estimated GFR 56 L, Est GFR ( Amer) 67, Glucose 83, Calcium 8.2 L, Iron 30 L, TIBC 450, Iron Saturation 6.27560 L, Total Bilirubin 0.4, AST 34, ALT 19, Alkaline Phosphatase 134 H, Troponin I 0.03, Total Protein 5.9 L, Albumin 3.4 L, Globulin 2.5, Albumin/Globulin Ratio 1.4 11/18/23 16:29: Blood Type O Positive, Antibody Screen Negative, Crossmatch ([facility]) See Detail 11/18/23 19:20: Troponin I 0.02 11/18/23 19:50: Stool Occult Blood Negative 11/18/23 16:05 11/18/23 16:05 Response Orders (Tests/Meds): ED MEDICATIONS Generic Name Dose Route Start Last Admin Trade Name Freq PRN Reason Stop Dose Admin Sodium Chloride 250 mls @ 25 mls/hr 11/18/23 19:15 11/18/23 20:30 Sod Chlor 0.9% 250ml Bag IV 11/19/23 19:14 25 mls/hr .Q10H ELI Administration Sodium Chloride 10 ml 11/18/23 16:10 Sodium Chloride 0.9% 10ml Flush Syringe IV 12/18/23 16:09 NEEDED PRN Maintain IV Site ORDERS Category Date Time Status Transfuse RBC's [Red Blood Cells] Stat BBK 11/18/23 16:29 Results Type and Screen Stat BBK 11/18/23 16:29 Results XR chest portable Stat Exams 11/18/23 16:10 Completed Complete Blood Count Auto Diff Stat Lab 11/18/23 16:05 Completed Comprehensive Metabolic Panel Stat Lab 11/18/23 16:05 Completed Iron and TIBC Stat Lab 11/18/23 16:05 Completed Occult Blood,Stool Stat Lab 11/18/23 19:50 Completed Transferrin Stat Lab 11/18/23 16:05 Received Troponin I Q3H Lab 11/18/23 19:20 Completed Troponin I Stat Lab 11/18/23 16:05 Completed Urinalysis and Microscopic Stat Lab 11/18/23 22:25 Received MDM Narrative Medical Decision Narrative: In summary, this 67-year-old female presents to the emergency department today with chest heaviness, lab recheck. On initial evaluation patient is hemodynamically stable, afebrile, pale, abdominal exam is benign, cardiopulmonary exam is benign. Differential diagnosis includes but is not limited to anemia, GI bleed, hematuria, iron deficiency, electrolyte abnormality, ACS. Based on these concerns, I ordered cardiac workup, serum labs, Hemoccult, urine studies. ECG personally interpreted demonstrates normal sinus rhythm, rate 77, normal axis, normal RI and QTc, no STEMI. Labs personally reviewed demonstrate significant anemia, hemoglobin 6.2, patient is consented for transfusion and receiving PRBC. Trace hyponatremia, mild prerenal azotemia, trace hypocalcemia. Hemoccult negative. Patient has findings on iron studies consistent with iron deficiency which given her history is likely the underlying cause of her anemia. XR personally interpreted demonstrates no acute thoracic abnormality, see radiology read for final interpretation. Troponin studies are unremarkable, no significant delta on repeat. Patient received blood transfusion. She tolerated this well. She remained stable after. She is appropriate for discharge at this time. I instructed her to follow-up closely with Dr. Solomon to discuss iron infusions. Patient was given instructions on symptomatic management, follow up instructions, and return precautions for the emergency department. Patient indicated understanding and was discharged in stable condition.
[2023-11-18 16:47] LABS: Iron 30 ug/dL (37-170)
[2023-11-18 16:56] LABS: Total Iron Binding Capacity 450 ug/dL (265-497); Troponin I 0.03 ng/ml (0.00-0.034)
--- NOTE | 2023-11-18 19:15 | PC.NURSE ---
rudy spoke to lab, blood would be ready 10-15 minutes after order is placed
[2023-11-18 20:08] LABS: Occult Blood,Stool Negative (Negative)
[2023-11-18] MEDS: 0.9 % SODIUM CHLORIDE 250 ML 25 ML IV (20:30)
[2023-11-18 21:00] LABS: Troponin I 0.02 ng/ml (0.00-0.034)
--- NOTE | 2023-11-18 21:45 | PC.NURSE ---
1950: Pre-Blood vital signs done.
--- NOTE | 2023-11-18 21:46 | PC.NURSE ---
Addendum entered by Florina Reyes RN 11/18/23 21:49: starting rate 75 ml/HR. Original Note: 2021: Blood checked and started vitals obtained at start.
--- NOTE | 2023-11-18 21:47 | PC.NURSE ---
2036: 15 minutes of blood completed,vital signs stable rate turned up to 150 ml/Hr.
--- NOTE | 2023-11-18 21:50 | PC.NURSE ---
2100: Pt. coughing and has a scratchy throat. blood stopped and Dr. Allen notified. Pt. states she gets a scratchy throat and coughs sometimes, she denies any blood transfusion reactions. vital signs stable.
--- NOTE | 2023-11-18 21:52 | PC.NURSE ---
2109: coughing has stopped and blood restarted at 150 ml/hr. tolerating well. VS stable.
--- NOTE | 2023-11-18 21:53 | PC.NURSE ---
2130 blood rate turned up to 200 ml/hr.
--- NOTE | 2023-11-18 22:20 | PC.NURSE ---
lab notified that trop was not needed and to cancel the order
[2023-11-18 22:29] LABS: Microscopic, Urine URINE MICROSCOPIC (MICROSCOPIC)
--- NOTE | 2023-11-18 22:41 | PC.NURSE ---
2218 Blood transfusion completed. vital signs stable. Pt. tolerated transfusion well.
[2023-11-18 22:49] LABS: Appearance,Urine CLEAR (Clear); Bilirubin,Urine Negative (Negative); Blood, Urine Negative (Negative); Color,Urine YELLOW (Yellow); Glucose,Urine (UA) Negative (Negative); Ketones,Urine Negative (Negative); Leukocyte Esterase,Urine Negative (Negative); Nitrate,Urine Negative (Negative); PH,Urine 6.5 (5.0-8.5); Protein,Urine Negative (Negative); Urobilinogen,Urine 0.2 EU/dl (0.2)
[2023-11-18 23:09] LABS: Squamous Epithelial Cell,Urine Occasional #/hpf (0-5)
--- NOTE | 2023-11-18 23:23 | PC.NURSE ---
Blood transfusion verified and started per [facility] policy with LUDY Espinoza at bedside with patient. TAR not allowing documenting RN or LUDY Espinoza to verify and begin blood transfusion in TAR. We are able to verify the blood, but TAR gives pop-up that doesn't allow to move further.
[2023-11-19 09:36] LABS: Transferrin 345 mg/dL (192-364)
== END 2023-11-18 23:20 | disposition home or self-care (01) ==
PROVIDERS: Emergency Provider Emergency Medicine; PCP Internal Medicine Adolescent Medicine
DX: D50.9 Iron deficiency anemia, unspecified (principal); D64.9 Anemia, unspecified
CPT/HCPCS: 36430; 71045; 80053; 81001; 82272; 83540; 83550; 84466; 84484; 85025; 86850; 93005; 99285; G0328; P9016

== ENCOUNTER 2023-11-29 08:29 | Outpatient (CLI) | payer OTHER, MEDICARE, SELFPAY ==
[2023-11-29] MEDS: SODIUM CHLORIDE 0.9% 10ML FLUSH SYRINGE 10 ML IV (08:52)
[2023-11-29] MEDS: SODIUM CHLORIDE 0.9% 50ML BAG 50 ML IV (08:52)
[2023-11-29 08:53] VITALS: BP 113/77; PULSE 94; RESP 20; TEMP 36.4; O2SAT 97
[2023-11-29] MEDS: IRON SUCROSE COMPLEX 200 MG in 0.9 % SODIUM CHLORIDE 100 ML 220 MG IV (08:53)
[2023-11-29 09:30] VITALS: BP 116/51; PULSE 84; RESP 20; TEMP 36.4; O2SAT 97
== END 2023-11-29 09:32 | disposition home or self-care (01) ==
LOC: INF 08:30
PROVIDERS: PCP Internal Medicine Adolescent Medicine; Visit Provider Internal Medicine Adolescent Medicine
DX: D50.9 Iron deficiency anemia, unspecified (principal)
CPT/HCPCS: 96365; J1756

== ENCOUNTER 2023-12-06 08:25 | Outpatient (CLI) | payer OTHER, MEDICARE, SELFPAY ==
[2023-12-06 09:01] VITALS: BP 119/86; PULSE 89; RESP 18; TEMP 36.6; O2SAT 99
[2023-12-06] MEDS: IRON SUCROSE COMPLEX 200 MG in 0.9 % SODIUM CHLORIDE 100 ML 220 MG IV (09:01)
[2023-12-06] MEDS: SODIUM CHLORIDE 0.9% 50ML BAG 50 ML IV (09:01)
[2023-12-06] MEDS: SODIUM CHLORIDE 0.9% 10ML FLUSH SYRINGE 10 ML IV (09:01)
[2023-12-06 09:43] VITALS: BP 150/85; PULSE 88; RESP 18; O2SAT 99
== END 2023-12-06 09:53 | disposition home or self-care (01) ==
LOC: INF 08:32
PROVIDERS: PCP Internal Medicine Adolescent Medicine; Visit Provider Internal Medicine Adolescent Medicine
DX: D50.9 Iron deficiency anemia, unspecified (principal)
CPT/HCPCS: 96365; J1756

== ENCOUNTER 2023-12-13 08:53 | Outpatient (CLI) | payer OTHER, MEDICARE, SELFPAY ==
--- NOTE | 2023-12-13 08:59 | CT_ITS ---
FINAL REPORT CLINICAL HISTORY: WEIGHT LOSS/ABD PAIN COMPARISON: 10/12/2020 FINDINGS: CT OF THE ABDOMEN AND PELVIS WITH CONTRAST Axial CT images of the abdomen and pelvis were obtained after the administration of oral and iv contrast. Coronal and sagittal reformatted images were also obtained and reviewed.This study was performed with techniques to keep radiation doses as low as reasonably achievable (ALARA). Individualized dose reduction techniques using automated exposure control or adjustment of mA and/or kV according to the patient's size were employed. Abdomen: Mild scarring is present in the lung bases.. The heart is normal in size. Postoperative changes of a gastric bypass are noted. The gallbladder has been surgically resected. Mild biliary ductal dilatation is noted in the liver, favor post cholecystectomy change.. The spleen is unremarkable. No adrenal mass is present. The pancreas reveals mild pancreatic ductal dilatation, with several calcifications in the head and uncinate process of the pancreas consistent with changes of chronic pancreatitis. There is a less than 3 mm nonobstructing left renal stone present. There is mild wall thickening of the right renal pelvis, not seen on the prior exam of 2020, likely inflammatory. 2 right renal cysts are present, the larger measuring 21 mm in size. The aorta is normal in caliber. Moderate vascular calcifications are noted. There is no free fluid or adenopathy. No mass or abnormal fluid collection is seen. Pelvis: The appendix is not well-visualized. The urinary bladder is unremarkable. No inflammatory process is seen. There is no evidence of mass or adenopathy. There is no evidence of bowel obstruction. A moderate to large amount of stool is present in the colon. IMPRESSION: Mild wall thickening is present in the right renal pelvis, new since the prior exam of 2020, likely inflammatory. Several calcifications are noted in the head and uncinate process of the pancreas with mild pancreatic ductal dilatation, consistent with chronic pancreatitis. The gallbladder has been surgically resected, and there is mild biliary ductal dilatation, favor post cholecystectomy change. Reviewed, Interpreted and Dictated by Ervin Macdonald III, MD Transcribed by Africa Ohara Authenticated and . [facility]
[2023-12-13] MEDS: SODIUM CHLORIDE 0.9% 10ML SYR (RAD ONLY) 10 ML IV (09:36)
[2023-12-13] MEDS: IOHEXOL-240 100ML BOTTLE 75 ML IV (09:36)
== END 2023-12-13 23:59 | disposition home or self-care (01) ==
LOC: RAD 08:54
PROVIDERS: PCP Internal Medicine Adolescent Medicine; Visit Provider Internal Medicine Adolescent Medicine
DX: R10.84 Generalized abdominal pain (principal); R63.4 Abnormal weight loss
CPT/HCPCS: 74177; Q9966

== ENCOUNTER 2023-12-23 09:08 | Outpatient (CLI) | payer OTHER, MEDICARE, SELFPAY ==
[2023-12-23 09:27] LABS: Basophils % 0.7 % (0.1-2.0); Eosinophils # 0.2 K/mm3 (0.0-0.4); Eosinophils % 4.3 % (0.1-12.0); Hematocrit 36.7 % (37.0-47.0); Hemoglobin 9.9 g/dL (12.2-16.2); Lymphocytes % 20.9 % (10-50); Mean Corpuscular Hemoglobin 23.8 pg (27.0-31.2); Mean Corpuscular Volume 88.1 fl (81-99); Mean Platelet Volume 8.3 fl (7.4-10.4); Monocytes # 0.2 K/mm3 (0.1-1.0); Monocytes % 4.2 % (1.7-9.3); Neutrophils # 3.2 K/mm3 (1.8-7.8); Neutrophils % 69.9 % (37.0-80.0); Platelet Count 204 K/mm3 (142-424); Red Blood Count 4.16 M/mm3 (4.20-5.40); White Blood Count 4.6 K/mm3 (4.8-10.8)
[2023-12-23 10:04] LABS: Amylase 71 U/L (30-110); Lipase 105 U/L (23-300)
[2023-12-23 10:39] LABS: Iron 44 ug/dL (37-170)
[2023-12-23 10:48] LABS: Total Iron Binding Capacity 425 ug/dL (265-497)
[2023-12-23 11:16] LABS: Ferritin 13.6 ng/ml (11.1-264)
== END 2023-12-23 23:59 | disposition home or self-care (01) ==
LOC: LAB 09:10
PROVIDERS: PCP Internal Medicine Adolescent Medicine; Visit Provider Nurse Practitioner Family
DX: D50.9 Iron deficiency anemia, unspecified (principal); K86.89 Other specified diseases of pancreas; K86.1 Other chronic pancreatitis; R10.84 Generalized abdominal pain
CPT/HCPCS: 36415; 82150; 82728; 83540; 83550; 83690; 85025

== ENCOUNTER 2024-01-09 12:38 | Outpatient (CLI) | payer OTHER, MEDICARE, SELFPAY ==
--- NOTE | 2024-01-09 12:43 | MR_ITS ---
FINAL REPORT TECHNIQUE: MRI of the abdomen with and without contrast, with MRCP three-dimensional study performed as well. CLINICAL HISTORY: chronic pancreatitis dilated pancreatic duct COMPARISON: Prior CT of the abdomen and pelvis dated 12/13/2023 FINDINGS: Multiplanar MR imaging of the abdomen was performed without and with contrast. Three-dimensional MRCP images of the abdomen were performed as well, evaluated and interpreted. There is motion on many sequences which somewhat limits overall image quality. Images of the liver reveal no evidence of mass. There is moderate biliary ductal dilatation present. The gallbladder has been surgically resected. The use of the MRCP are significantly limited by motion, however no evidence of common bile duct stone or stricture is seen. Mild pancreatic ductal dilatation is present. No other mass or adenopathy is identified. No abnormal fluid collection is seen. No abnormal contrast enhancement is seen on the postcontrast images. Right renal cysts are present measuring up to 21 mm, also seen on the prior CT of December 12. Cortical thinning is present in the upper pole of the left kidney. IMPRESSION: Motion on many sequences somewhat limits overall image quality. The patient is post cholecystectomy, and there is moderate biliary ductal dilatation. Three-dimensional MRCP images were performed, evaluated, and interpreted. There is no evidence of common bile duct stone or stricture. Mild pancreatic ductal dilatation is once again identified. Reviewed, Interpreted and Dictated by Ervin Macdonald III, MD Transcribed by Africa Ohara Authenticated and [facility]
[2024-01-09 13:13] LABS: Blood Urea Nitrogen 18 mg/dl (7-17); Estimated Glomerular Filt Rate 72 ml/min (>60); GFR (African American) 87 ML/MIN (>60)
[2024-01-09] MEDS: GADOTERIDOL INJ 20ML SYRINGE 11 ML IV (14:14)
[2024-01-09] MEDS: SODIUM CHLORIDE 0.9% 10ML SYR (RAD ONLY) 10 ML IV (14:14)
[2024-01-09] MEDS: 0.9 % SODIUM CHLORIDE 50 ML VIAL 20 ML IV (14:14)
== END 2024-01-09 23:59 | disposition home or self-care (01) ==
LOC: RAD 12:39
PROVIDERS: PCP Nurse Practitioner Family; Visit Provider Nurse Practitioner Family
DX: R10.84 Generalized abdominal pain (principal); K86.1 Other chronic pancreatitis; K86.89 Other specified diseases of pancreas
CPT/HCPCS: 36415; 74183; 82565; 84520; A9576

== ENCOUNTER 2024-02-20 10:25 | Day surgery (SDC) | payer OTHER, MEDICARE, SELFPAY ==
[2024-02-17 15:16] VITALS: BMI 20.2
--- OUTSIDE RECORDS SUMMARY | 2024-02-20 10:29 | XMS_ITS | Encounter Summary ---
Author Organization [facility] Address [address] [id number] Care Team Providers Care Mobile Battery Technician Name Role Phone Gagan Solomon MD Primary Care Provider [phone] Reason for Visit * Reason Onset Date Comments HCN - Patient Message 06/24/2022 Encounter Details Date Type Department Care Team (Late st Contact Info) Description 06/24/2022 Telephone [facility]opa[facility] Surgery [facility] Medicine [address] [place] [address] Eleuterio Rod MD [address] [place] [address] HCN - Patient Message Social History Tobacco Use Types Packs/Day Years Used Date Smoking Tobacco: Every Day Cigarettes Smokeless Tobacco: Never Alcohol Use Standard Drinks/Week Comments No 0 (1 standard drink = 0.6 oz pure alcohol) Alcoholic Drinks/day: Never Drank Alcohol PHQ-2 Answer Date Recorded Patient Health Questionnaire-2 Score 0 05/24/2022 PHQ-2A Answer Date Recorded Patient Health Questionnaire-2 Score 0 05/24/2022 Comments Unknown Sex and Gender Information Value Date Recorded Sex Assigned at Not on file Legal Sex Female 7:34 PM EDT Gender Identity Not on file Sexual Orientation Not on file COVID-19 Exposure Response Date Recorded In the last 10 days, have yo u been in contact with someone who was confirmed or suspected to have Coronavirus/COVID-19? No / Unsure 06/23/2022 7:51 AM EDT documented as of this encounter Miscellaneous Notes * Telephone Encounter - Marcus Chavez RN - 06/24/2022 1:59 PM EDT Duplicate task * Telephone Encounter - Josh Garcia - 06/24/2022 12:02 PM EDT Clinical Concern/Question Reason for Call: Dr. Rod pt is requesting a call back from clinical staff to confirm whether or not she should continue lovenox injections. Best contact number: [phone] Optimal time of day to reach caller: ANYTIME Additional comments/information from caller: None Note: Please do not reply to this message. Follow-up communication and further actions as a result of this message need to be communicated with the patient directly, if the patient is not active onMyChart. If the patient is active on MyChart, they will receive notification of the communication/outcome via [employer] documented in this encounter Plan of Treatment Not on file documented as of this encounter Visit Diagnoses Not on filedocumented in this encounter Additional Health Concerns Assessment Noted Time A fall risk assessment has been complete d for the patient 06/23/2022 7:58 AM EDT documented as of this encounter Care Teams Mobile Battery Technician Relationship Specialty Start Date End Date Gagna Solomon MD [address] [place] [id number] PCP - General 08/15/20 documented as of this encounter
--- OUTSIDE RECORDS SUMMARY | 2024-02-20 10:29 | XMS_ITS | Clinical Summary ---
Author Organization [facility] Address [address] [place] [address] Care Team Providers Care Medical Assistant Ob Gyn Name Role Phone Gagan Solomon MD Primary Care Provider [phone] Allergies Active Allergy Reactions Criticality Noted Date Comments Tetracycline Hives Medium 05/07/2022 Medications amantadine (Symmetrel) 100 MG capsule Take 200 mg by mouth 2 (two) times a day. Active cyanocobalamin (Vitamin B-12) 1000 MCG/ML injection Inject 1,000 mcg into the muscle 1 (one) time per week. Tuesday Active DULoxetine (Cymbalta) [address] capsule Take 60 mg by mouth 2 (two) times a day. Do not crush or chew. Active ipratropium-alb uterol (Duo-Neb) 0.5-2.5 mg/3 mL nebulizer solution Take 3 mL by nebulization every 8 (eight) hours. Active famotidine (Pepcid) 20 MG tablet Take 20 mg by mouth 2 (two) times a day if needed for heartburn. Active methocarbamol (Robaxin) 500 MG tablet Take 1 tablet (500 mg total) by mouth every 6 (six) hours if needed for muscle spasms. 50 tablet 3 Active acetaminophen (Tylenol) 500 MG tablet Take 2 tablets (1,000 mg total) by mouth every 6 (six) hours if needed for pain. 100 tablet 3 Active gabapentin (Neurontin) 100 MG capsule Take 1 capsule (100 mg total) by mouth 3 (three) times a day. 42 capsule 3 Active Active Problems Problem Noted Date Diagnosed Date Closed displaced transverse fracture of shaft of right femur 05/07/2022 Primary hypertension 05/07/2022 Multiple sclerosis 05/07/2022 Immunizations Name Administration Dates Next Due Influenza, seasonal, injectable 06/06/2012,02/02,02/01/2012 Pneumococcal Polysaccharide PPV23 06/06/2012 Family History Medical History Relation Name Comments FRANKY disease Brother 1 Hypertension Brother 2 Stroke Brother 3 Kidney cancer Father Conversions - Other Mother Respirat ory Failure Heart disease Mother Thyroid cancer Sister Relation Name Status Comments Brother 1 Brother 2 Brother 3 Father Mother Sister Social History Tobacco Use Types Packs/Day Years [...] on file Sexual Orientation Not on file Last Filed Vital Signs Vital Sign Reading Time Taken Comments Blood Pressure 144/73 06/23/2022 7:58 AM EDT Pulse 88 06/23/2022 7:58 AM EDT Temperature 36.8 ??C (98.2 ??F) 06/23/2022 7:58 AM ED T Respiratory Rate 16 05/14/2022 12:14 PM EST Oxygen Saturation 96% 06/23/2022 7:58 AM EDT Inhaled Oxygen Concentration - - Weight 56.7 kg (125 lb) 06/23/2022 7:58 AM EDT Height 165.1 cm (5' 5 ) 06/23/2022 7:58 AM EDT Body Mass Index 20.8 06/23/2022 7:58 AM EDT Plan of Treatment Health Maintenance Due Date Last Done Comments [facility]-Bone Density Scan 1957 [facility]-Hepatitis C Screening 1957 [facility]-Medicare Annual Wellness (AWV) 1955 [facility]-/Child/Adol SDOH Screenings 1955 [facility]- SDOH Screenings 11/29/1975 [facility]-Adult SDOH Screenings 11/29/1975 CT Colonography 2002 FIT-DNA 2002 FIT 2002 FOBT 2002 Sigmoidoscopy 2002 [facility]-Breast Cancer Screening 11/29/2007 [facility]-Zoster Vaccines (1 of 2) 11/29/2007 [facility]-Pneumococcal Vaccine: 65+ Years (2 of 2 - PCV) 2022 06/06/2012 [facility]-Depression Screening 05/24/2023 05/24/2022 [id number] Vaccine (2 - season) 2023 08/11/2020 [facility]-Influenza Vaccine (#1) 12/04/202312/10, 01/07/2020, 01/24/2019, Additional history exists Colonoscopy 03/10/2026 03/10/2016, 10/22/2011 [facility]-Colorectal Cancer Screening 03/10/2026 [facility]-DTaP,Tdap,and Td Vaccines (2 - Td or Tdap) 04/17/2030 04/17/2020 [facility]-RSV Vaccine: 60+ Years or (1 - 1-dose 75+ series) 2032 [facility]-HIB Vaccines Aged Out No longer e ligible based on patient's age to complete this topic [facility]-HPV Vaccines Aged Out No longer e ligible based on patient's age to complete this topic [facility]-Hepatitis A Vaccines Aged Out No longer eligible based on patient's age to complete this topic [facility]-IPV Vaccines Aged Out No longer e ligible based on patient's age to complete this topic [facility]-Rotavirus Vaccines Aged Out No lo nger eligible based on patient's age to complete this topic Medical Devices Implanted Type Area Brake Reliner Device Identifier Shelf Expiration Date Model / Serial / Lot Screw Lag [id number] 10.5mm Ti 90mm - [id number] Implanted:Qty: 1 on 05/08/2022 by Eleuterio Rod MD at [facility] Right: Femur [employer] ([employer])-[id number] 02/01/2027 [id number] / / [id number] Nail Long 2mm Rad [id number] Rt - [id number] Implanted:Qty: 1 on 05/08/2022 by Eleuterio Rod MD at [facility] Right: Femur [employer] ([employer])-[id number] 07/02/2026 [id number] / / [id number] Screw 5.0mm T2 Lock Full Thrd 45mm - [id number] Implanted:Qty: 1 on 05/08/2022 by Eleuterio Rod MD at [facility] Right: Femur [employer] ([employer])-[id number] 09/01/2026 [id number] / / [id number] Screw 5.0mm Ti T2 Lock Full Thrd 40mm - [id number] Implanted:Qty: 1 on 05/08/2022 by Eleuterio Rod MD at [facility] Right: Femur [employer] ([employer])-[id number] 02/01/2027 [id number] / / [id number] Procedures Procedure Name Priority Date/Time Associated Diagnosis Comments COLONOSCOPY 03/10/2016 from Last 3 Months or Most Recently Relevant to Health Maintenance Results * COLONOSCOPY (03/10/2016) Anatomical Region Laterality Modality Endoscopy Narrative 03/10/2016 Ordered by an unspecified provider. us Historical Provider GI PROCEDURE ORDERABLES F inal Result from Last 3 Months or Most Recently Relevant to Health Maintenance Insurance MEDICARE [facility] Advance Directives * Full Code (Latest Code Status on File) Date Activated Date Inactivated Comments 05/07/2022 8:33 PM 05/14/2022 3:56 PM Question Answer Comments Patient has decision-making capacity? Yes Care Teams Medical Assistant Ob Gyn Relationship Specialty Start Date End Date Gagan Solomon MD [address] [place] [address] PCP - General 08/15/20
--- OUTSIDE RECORDS SUMMARY | 2024-02-20 10:29 | XMS_ITS | Encounter Summary ---
Author Organization Healthcare Address [address] [place] [address] Care Team Providers Care Painter Plate Name Role Phone Gagan Solomon MD Primary Care Provider [phone] Encounter Details Date Type Department Care Team (Latest Contact Info) Description 06/23/2022 8:01 AM EDT - 06/23/2022 11:59 PM EDT Hospital En[facility] [address] [place] [address] Closed displaced transverse fracture of shaft of right femur with routine healing, subsequent encounter Discharge Disposition: Home or Self Care Social History Tobacco Use Types Packs/Day Years [...] AM EDT documented as of this encounter Medications at Time of Discharge acetaminophen (Tylenol) 500 MG tablet Take 2 tablets (1,000 mg total) by mouth every 6 (six) hours if needed for pain. 100 tablet 05/14/2022 amantadine (Symmetrel) 100 MG capsule Take 200 mg by mouth 2 (two) times a day. cyanocobalamin (Vitamin B-12) 1000 MCG/ML injection Inject 1,000 mcg into the muscle 1 (one) time per week. Tuesday DULoxetine (Cymbalta) [address] capsule Take 60 mg by mouth 2 (two) times a day. Do not crush or chew. famotidine (Pepcid) 20 MG tablet Take 20 mg by mouth 2 (two) times a day if needed for heartburn. gabapentin (Neurontin) 100 MG capsule Take 1 capsule (100 mg total) by mouth 3 (three) times a day. 42 capsule 05/14/2022 ipratropium-albu terol (Duo-Neb) 0.5-2.5 mg/3 mL nebulizer solution Take 3 mL by nebulization every 8 (eight) hours. methocarbamol (Robaxin) 500 MG tablet Take 1 tablet (500 mg total) by mouth every 6 (six) hours if needed for muscle spasms. 50 tablet 05/14/2022 naloxone (Narcan) 4 mg/0.1 mL nasal spray Administer 1 spray (4 mg total) into affected nostril(s) if needed for opioid reversal. Call 911. Give 4 mg (1 spray) into one nostril. Repeat every 2-3 minutes as needed, alternating nostrils, until medical assistance arrives. 1 each 05/14/2022 4 documented as of this encounter Plan of Treatment Not on file documented as of this encounter Procedures Procedure Name Priority Date/Time Associated Diagnosis Comments XR FEMUR RIGHT 2+ VIEWS Routine 06/23/2022 8:16 AM EDT Closed displaced transverse fracture of shaft of right femur with routine healing, subsequent encounter documented in this encounter Results * XR Femur Right 2+ Views (06/23/2022 8:16 AM EDT) Anatomical Region Laterality Modality Lower Extremities, Femur Right Digital Radiography Impressions 06/23/2022 8:21 AM EDT No evidence of hardware loosening or failure with increased callus formation across the right femoral fracture. CRITICAL RESULT: ?? No. COMMUNICATION: Per this written report. Dictated by August Quigley MD on 06/23/2022 8:19 AM Signed by August Quigley MD on 06/23/2022 8:21 AM Narrative 06/23/2022 8:21 AM EDT Exam/Procedure: XR FEMUR RIGHT 2+ VIEWS ordered by АННА PENNINGTON, [id number] CLINICAL INDICATION: pain TECHNIQUE: XR FEMUR RIGHT 2+ VIEWS COMPARISON: 05/08/2022 FINDINGS: Redemonstration of an intramedullary nail with screw fixation spanning the right femur fracture with similar osseous alignment and increased callus formation compared to the prior study. No new fracture is noted relative to the prior exam. Interval removal of skin dedra and resolution soft tissue emphysema. Procedure Note August Quigley MD - 06/23/2022 Exam/Procedure: XR FEMUR RIGHT 2+ VIEWS ordered by АННА PENNINGTON,[id number] CLINICAL INDICATION: pain TECHNIQUE: XR FEMUR RIGHT 2+ VIEWS COMPARISON: 05/08/2022 FINDINGS: Redemonstration of an intramedullary nail with screw fixation spanning theright femur fracture with similar osseous alignment and increased callusformation compared to the prior study. No new fracture is noted relativeto the prior exam. Interval removal of skin dedra and resolution softtissue emphysema. IMPRESSION: No evidence of hardware loosening or failure with increased callusformation across the right femoral fracture. CRITICAL RESULT: No. COMMUNICATION: Per this written report. Dictated by August Quigley MD on 06/23/2022 8:19 AM Signed by August Quigley MD on 06/23/2022 8:21 AM us Анна Pennington RISK MANAGER IMG XR PROCEDURES Final Res ult documented in this encounter Visit Diagnoses Diagnosis Closed displaced transverse fracture of shaft of right femur with routine healing, subsequent encounter documented in this encounter Additional Health Concerns Assessment Noted Time A fall risk assessment has been complete d for the patient 06/23/2022 7:58 AM EDT documented as of this encounter Care Teams Painter Plate Relationship Specialty Start Date End Date Gagan Solomon MD [address] [place] [address] PCP - General 08/15/20 documented as of this encounter
--- OUTSIDE RECORDS SUMMARY | 2024-02-20 10:29 | XMS_ITS | Encounter Summary ---
Author Organization [facility] Address [address] [place] [id number] Care Team Providers Care Branch Rental Manager Name Role Phone Gagan Solomon MD Primary Care Provider [phone] Source Comments This information has been disclosed to you from confidential records protectfrom disclosure by state law. You shall make no further disclosure of thisinformation without the specific, written, and informed release of theindividual to whom it pertains, or as otherwise permitted by law. A generalauthorization for the release of medical or other information is not sufficientfor the purposes of the release of HIV test results or diagnoses. [id number] Reason for Visit * Reason Comments Fatigue Involuntary Movements Encounter Details Date Type Department Care Team (Late st Contact Info) Description 01/25/2017 11:20 AM EDT Office Visit [facility] [address] [facility], [address] [place] [address] Gallo Arora MD [address] [facility] [place] [address] Malnutrition, calorie ([facility]) (Primary Dx); Neuropathy; Movement disorder Social History Tobacco Use Types Packs/Day Years Used Date Smoking Tobacco: Every Day Smokeless Tobacco: Never Alcohol Use Standard Drinks/Week Comments No 0 (1 standard drink = 0.6 oz pur e alcohol) Comments Unknown Sex and Gender Information Value Date Recorded Sex Assigned at Not on file Legal Sex Female 9:15 AM EDT Gender Identity Not on file Sexual Orientation Not on file documented as of this encounter Last Filed Vital Signs Vital Sign Reading Time Taken Comments Blood Pressure 105/70 01/25/2017 10:59 AM EDT Pulse 66 01/25/2017 10:59 AM EDT Temperature - - Respiratory Rate - - Oxygen Saturation - - Inhaled Oxygen Concentration - - Weight 60.3 kg (133 lb) 01/25/2017 10:59 AM EDT Height 165.1 cm (5' 5 ) 01/25/2017 10:59 AM EDT Body Mass Index 22.13 01/25/2017 10:59 AM EDT documented in this encounter Progress Notes * Gallo Arora MD - 01/25/2017 11:20 AM EDT Images from the original note were not included. Richa Ohara 1955 [id number] #[id number] Imp Nutritional deficiency Neuropathy akathesia rec Outside records from [facility] EMG/NCT Discharge summaries MRI brain report [facility] laboratory for serum methylmalonic acid, serum protein electrophoresis, ANI with reflex, ANCA panel, CPK, hepatitis C antibody, ESR, Trepia, HIV, cryoglobulins, vitamin D, thiamine, pyridoxine, and serum screen for heavy metals (Hg, Pb, As), cmp, cbc with diff, Folate, ferritin F/u one month --Danitza MRI brain 10/06/16 [facility] --Danitza * Gallo Arora MD - 01/25/2017 11:20 AM EDT Images from the original note were not included. Ms. Ohara is a 61-year-old, right-handed resident of [place], [place] whom we have been asked to evaluate for generalized fatigue, but also blurred vision, involuntary movements of the arms, faceand legs, impaired concentration, hearing problems, leg pain, as well as back and neck pain. Symptoms began about 1 year ago, at that time when she presented to [facility] with severe anem ia. We do not have those records available for our review today, but according to them her hemoglobin was 3 and that it was estimated that she may in 2 weeks if not treated. She has been bothered by chronic fatigue since that time, feeling hot 5 or 6 times a week for 30 or 40 minutes like my body will burn up from the waist up to the face and from the feet distally, blurred vision, heari ng difficulties, leg pain, pain in the neck and lower back, decreased concentration, and involuntary movements of the arms and legs. She believes she was seen at the [facility] sometime in the past, for these involuntary movements, treated with diphenhydramine which failed, and currently is taking amantadine. Other medical issues include peptic ulcer disease with a loss to 70 pounds in 2009 leading to discovery of an ulcer that ruptured into the stomach , and about 6 months later, removal of two-thirds of my stomach. She has also had her gallbladder removed 2009, and a tubal 1979. She hasbeen three times with 2 live births, 2 living children currently, and the tubal .She has also been treated for depression and migraines. MEDICATIONS: 1. Amantadine. 2. Fluoxetine. 3. Hydroxyzine. 4. Linaclotide. 5. Nortriptyline. 6. Ondansetron. 7. Propranolol. ALLERGIES: 1. There is a history of an adverse or allergic reaction to tetracycline. SOCIAL HISTORY: Her , with whom she is here today, and she have been 23 years. 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 She does smoke tobacco, but never used alcohol. She finished the 10th grade, but did get her GED (general equivalance diploma). FAMILY HISTORY:Positive for diabetes, stroke, heart disease, hyperlipidemia, seizures, migraines, hypertension, cancer. Her mother from complications of heart disease and her father from cancer. REVIEW OF SYSTEMS: A 12-point review of systems is positive for items mentioned above and in addition, rash, rapidheartbeat, shortness of breath, abdominal pain, vomiting and constipation, sexual dysfunction, anxiety. On examination she is alert. Memory for recent and remote events seems adequate. Attention and concentration may be mildly impaired. Speech is fluent. Verbal comprehension intact. Vital signs by nursing staff, blood pressure 105/70, pulse 66, weight 133 pounds, stated height 5 feet 5 inches. With the [place] Cognitive Assessment she scores 28 points. She missed 1 point for being unable toname more than 8 words that begin with the letter F in 1 minute, and 1 point for delayed recall. Pupils are equal, round and reactive to light. Extraocular movements are full without increase in horizontal nystagmus. Visual suarez full. Visual acuity 20/25 -1 O.D., 20/30 -1 O.S. with glasses using a pocket card. Facial sensation normal. No facial weakness. Hearing judged normal by finger rub. Tongue midline, but some mild glossitis. Sternocleidomastoid and trapezius strength normal, but somepain with rotation of the head either to the left or right, not so much with flexion. Strength and tone in both upper and lower extremities probably normal. Rapid alternating movement and fine motor movement probably normal. Coordination as tested by [id number] and rapid foot patting normal. There is noted mild akathisia with a restless posture, moving arms, hands, legs and trunk and facial movements. Sensation to vibration decreased to the knees. Position sense preserved distally. Light touch and sharp decreased to the knees bilaterally. Deep tendon reflexes are easily elicited in the upper extremities, not particularly brisk at the knees, depressed at the ankles, but overall symmetrica l. Plantar response is flexor. She can stand from a seated position, arms crossed at the chest, using the power of both legs simultaneously and walks briskly down the kovacs and back again with normal arm swing. Tandem is judged only fair to poor. Romberg negative. IMPRESSION: Symptoms of fatigue, memory impairment, chronic pain, onset about 2015, may be due to chronic nutritional deficiency associated with partial gastric resection and, by history, a profound weight loss. In addition, sensory disturbance may represent a neuropathy. Comorbid conditions include akathisia, chronic headaches suggesting migraine, depression, anxiety, and tobacco use. RECOMMENDATION(S): 1. Obtain outside records from the [facility] including any discharge summaries, Neurologic consultations, and the result of an EMG/NCV that she believes was performed there. 2. Obtain MRI report from [facility]. 3. Lab today for serum methylmalonic acid, serum protein electrophoresis, ANI with reflex, ANCA panel, CPK, hepatitis C antibody, sedimentation rate, Trepia, HIV, cryoglobulins, vitamin D, thiamine, pyridoxine, serum screen for heavy metals, complete metabolic profile, CBC with diff, folate and serum ferritin. 4. Follow up with us after these studies are completed. Cc: Gagan Keating MD [address] [place] [address] Addendum 01/26/17: Testing indicates low vitamin D 12.2 ng/ml. Staff will notify the patient of theresults of the vitamin D and instruct the following: The patient should either supplement their diet with vitamin D rich foods (dairy products fortified with vitamin D, fish or liver), or vitamin D supplements (1600 IU of vitamin D3 daily). After one month, the vitamin D can be rechecked and if normal, reduce the dosage to the daily requirement of 600 IU per day. They should followup with us or their personal physician to follow vitamin D levels, calcium, and phosphorous. --Danitza Addendum 01/29/17: MMA high at 722 nmol/L consistent with B12 deficiency, and serum ferritin low at7.1 ng/ml. Staff will notify patient of the abnormal tests and have her f/u with Dr. Ohara or us for treatment of the deficiencies. --Danitza /[facility] [id number] Addendum 02/01/17: Records from Dr. Gagan Keating received. 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 --Danitza Addendum 03/07/17: I called patient and instructed staff that II need the radiologist report of the MRI brain 10/06/16 from [facility] faxed to me. She has been unable to schedule a f/u appointment due to her 's busy schedule. Staff will squeeze her into my schedule on a no later than 11:30 am within the next month and let her know. --Danitza documented in this encounter Plan of Treatment Not on file documented as of this encounter Results * (ABNORMAL) Ferritin (01/25/2017 12:24 PM EDT) Ferritin 7.1(L) 11.0 - 306.8 ng/mL 01/25/2017 9:49 PM EDT [facility] Serum specimen (specimen) 01/25/2017 12:24 PM EDT 01/25/2017 9:08 PM EDT Gallo Arora MD LAB BLOOD ORDERABLES Jocelyn l Result Performing Organization Address City/[facility]/ZIP Co de Phone Number [facility] [address] * Folate RBC (01/25/2017 12:24 PM EDT) Folate, Hemolysate 367.3 Not Estab. ng/mL 01/26/2017 4:28 PM EDT [facility] SR Hematocrit 39.5 34.0 - 46.6 % 01/26/2017 8:30 AM EDT [facility] RBC Folate 930 >498 ng/mL 01/26/2017 4:28 PM EDT [facility] Whole blood specimen (specimen) 01/25/2017 12:24 PM EDT 01/26/2017 5:08 PM EDT Narrative [facility] - 01/26/2017 5:08 PM EDT PERFORMED AT: [facility] [id number] PAD TUFTER: Tony Carranza, PhD ?? PHONE: [phone] Gallo Arora MD LAB BLOOD ORDERABLES Jocelyn l Result [facility] [address] * Differential (01/25/2017 12:24 PM EDT) Neutrophils Relative 61.9 40.0 - 80.0 % 01/25/2017 9:31 PM EDT [facility] Lymphocytes Relative 29.2 15.0 - 45.0 % 01/25/2017 9:31 PM EDT [facility] Monocytes Relative 6.7 0.0 - 12.0 % 01/25/2017 9:31 PM EDT [facility] Eosinophils Relative 1.7 0.0 - 8.0 % 01/25/2017 9:31 PM EDT [facility] Basophils Relative 0.5 0.0 - 1.0 % 01/25/2017 9:31 PM EDT [facility] nRBC 0 0 - 0 /100 WBC 01/25/2017 9:31 PM EDT [facility] Neutrophils Absolute 3,466 1,500 - 7,800 /uL 01/25/2017 9:31 PM EDT [facility] Lymphocytes Absolute 1,635 850 - 3,900 /uL 01/25/2017 9:31 PM EDT [facility] Monocytes Absolute 375 200 - 950 /uL 01/25/2017 9:31 PM EDT [facility] Eosinophils Absolute 95 15 - 500 /uL 01/25/2017 9:31 PM EDT [facility] Basophils Absolute 28 0 - 200 /uL 01/25/2017 9:31 PM EDT [facility] Whole blood specimen (specimen) 01/25/2017 12:24 PM EDT 01/25/2017 9:22 PM EDT Gallo Arora MD LAB BLOOD ORDERABLES Jocelyn savage Result [facility] [address] * (ABNORMAL) CBC (01/25/2017 12:24 PM EDT) WBC 5.6 3.8 - 10.8 10E3/uL 01/25/2017 9:31 PM EDT [facility] RBC 4.50 3.80 - 5.10 10E6/uL 01/25/2017 9:31 PM EDT [facility] Hemoglobin 12.9 11.7 - 15.5 g/dL 01/25/2017 9:31 PM EDT [facility] Hematocrit 39.8 35.0 - 45.0 % 01/25/2017 9:31 PM EDT [facility] MCV 88.5 80.0 - 100.0 fL 01/25/2017 9:31 PM EDT [facility] MCH 28.7 27.0 - 33.0 pg 01/25/2017 9:31 PM EDT [facility] MCHC 32.4 32.0 - 36.0 g/dL 01/25/2017 9:31 PM EDT [facility] RDW 15.8(H) 11.0 - 15.0 % 01/25/2017 9:31 PM EDT [facility] Platelets 174 140 - 400 10E3/uL 01/25/2017 9:31 PM EDT [facility] MPV 9.0 7.5 - 11.5 fL 01/25/2017 9:31 PM EDT [facility] Whole blood specimen (specimen) 01/25/2017 12:24 PM EDT 01/25/2017 9:22 PM EDT us Gallo Arora MD LAB BLOOD ORDERABLES Jocelyn l Result Performing Organization Address City/State/[facility] Co de Phone Number [facility] [address] * (ABNORMAL) Comprehensive metabolic panel (01/25/2017 12:24 PM EDT) Sodium 143 133 - 146 mmol/L 01/25/2017 9:47 PM EDT [facility] Potassium 4.2 3.5 - 5.3 mmol/L 01/25/2017 9:47 PM EDT [facility] Chloride 110 98 - 110 mmol/L 01/25/2017 9:47 PM EDT [facility] CO2 24 21 - 33 mmol/L 01/25/2017 9:47 PM EDT [facility] Anion Gap 9 3 - 16 mmol/L 01/25/2017 9:47 PM EDT [facility] BUN 24 7 - 25 mg/dL 01/25/2017 9:47 PM EDT [facility] Creatinine 0.71 0.60 - 1.30 mg/dL 01/25/2017 9:47 PM EDT [facility] Glucose 71 70 - 100 mg/dL 01/25/2017 9:47 PM EDT [facility] Calcium 9.0 8.6 - 10.3 mg/dL 01/25/2017 9:47 PM EDT [facility] Total Bilirubin 0.3 0.0 - 1.5 mg/dL 01/25/2017 9:47 PM EDT [facility] AST 22 13 - 39 U/L 01/25/2017 9:47 PM EDT [facility] ALT 20 7 - 52 U/L 01/25/2017 9:47 PM EDT [facility] Alkaline Phosphatase 142(H) 36 - 125 U/L 01/25/2017 9:47 PM EDT [facility] Total Protein 6.0(L) 6.4 - 8.9 g/dL 01/25/2017 9:47 PM EDT [facility] Albumin 3.8 3.5 - 5.7 g/dL 01/25/2017 9:47 PM EDT [facility] Osmolality, Calculated 299 278 - 305 mOsm/kg 01/25/2017 9:47 PM EDT [facility] eGFR AA CKD-EPI >90 See note. 7 9:47 PM EDT [facility] eGFR NONAA CKD-EPI >90 See note. 01/25/2017 9:47 PM EDT [facility] Plasma specimen (specimen) 01/25/2017 12:24 PM EDT 01/25/2017 9:24 PM EDT Narrative [facility] - 01/25/2017 9:47 PM EDT Must the patient be fasting for this test?->No As of 06/03/2015 the estimated GFR is calculated from serum creatinine using the Chronic Kidney Disease Epidemiology Collaboration (CKD-EPI) equation in patients 18 years and older. ??The reference range is >60 mL/min/1.73m2. ??eGFR values greater than 90 will be reported as >90mL/min/1.73m2. Reference: Troy , Black LA, Talon CH, Bello YL, Eric AF, 3rd, Jun HI, et. al. A new equation to estimate glomerular filtration rate. ??Carley Tc Operator Med. 2009:150(9):604-12 us Gallo Arora MD LAB BLOOD ORDERABLES Jocelyn l Result [facility] [address] [place] [address], [facility] * Heavy Metals Panel, Blood (01/25/2017 12:24 PM EDT) Lead None Detected 0 - 19 ug/dL 01/28/2017 4:22 PM EDT [facility] Comment: ?Environmental Exposure: ? WHO Recommendation ?<20 ?Occupational Exposure: ? OSHA Lead Std ?40 ? SASHA ?30 ?Detection Limit = ??1 Arsenic 15 2 - 23 ug/L 01/28/2017 10:37 PM EDT [facility] Comment:Detection Limit = 1 Mercury None Detected 0.0 - 14.9 ug/L 01/28/2017 10:37 PM EDT [facility] Comment: ?Environmental Exposure: ??<15.0 ?Occupational Exposure: ? SASHA - Inorganic Mercury: 15.0 ?Detection Limit = ??1.0 Whole blood specimen (specimen) 01/25/2017 12:24 PM EDT 01/29/2017 12:05 AM EDT [facility] - 01/29/2017 12:05 AM EDT PERFORMED AT: [address] [id number] PAD TUFTER: Matt Lackey MD ?? PHONE: [phone] Gallo Arora MD LAB BLOOD ORDERABLES Jocelyn l Result Performing Organization Address [facility] de Phone Number [facility] [address] [place] [address] * Vitamin B6 (01/25/2017 12:24 PM EDT) Pathologist [facility] Vitamin B6 7.0 2.0 - 32.8 ug/L 01/27/2017 4:49 PM EDT [facility] Plasma specimen (specimen) 01/25/2017 12:24 PM EDT 01/27/2017 5:08 PM EDT [facility] - 01/27/2017 5:08 PM EDT PERFORMED AT: [address] [id number] PAD TUFTER: Matt Lackey MD ?? PHONE: [phone] Gallo Arora MD LAB BLOOD ORDERABLES Jocelyn l Result Performing Organization Address [facility] de Phone Number [facility] [address] [place] [address] * Vitamin B1, whole blood (01/25/2017 12:24 PM EDT) Vit. B1, Whole Blood 125.3 66.5 - 200.0 nmol/L 02/01/2017 5:48 PM EDT [facility] Comment: This test was developed and its performance characteristics determined by [employer]. It has not been cleared or approved by the Food and Drug Administration. Whole blood specimen (specimen) 01/25/2017 12:24 PM EDT 02/01/2017 6:06 PM EDT [facility] - 02/01/2017 6:06 PM EDT PERFORMED AT: [address] [id number] PAD TUFTER: Matt Lackey MD ?? PHONE: [phone] Gallo Arora MD LAB BLOOD ORDERABLES Jocelyn l Result Performing Organization Address [facility] Co de Phone Number [facility] [address] [facility]. [address] * (ABNORMAL) Vitamin D 25 hydroxy (01/25/2017 12:24 PM EDT) Vit D, 25-Hydroxy 12.2(L) 30.0 - 100 ng/mL 01/26/2017 11:12 AM EDT [facility]ALTH [facility] Comment: Vitamin D deficiency has been defined by the [place] of Medicine (IOM) and an Endocrine Society practice guideline as a level of serum 25-OH Vitamin D less than 20 ng/mL. ?? The Endocrine Society went on to further define Vitamin D insufficiency as a level between 21-29 ng/mL. 1) ??IOM. 2010 Dietary reference intakes for calcium and D. ??Gómez D.C: The National Academies Press 2) ??Ridge MF, Awilda DAVENPORT, Zaria TOBAR, et al. ??Evaluation, treatment, and prevention of Vitamin D deficiency: an Endocrine Society clinical practice guideline. ??JCEM. ??2010; 96(7):1911-30. Serum specimen (specimen) 01/25/2017 12:24 PM EDT 01/25/2017 9:08 PM EDT Gallo Arora MD LAB BLOOD ORDERABLES Jocelyn l Result Performing Organization Address [facility]/ZIP Co de Phone Number [facility] [address] [facility] [place] [address], [facility] * Cryoglobulin, Screen (01/25/2017 12:24 PM EDT) Cryoglobulin Comment None detected 01/31/2017 3:32 PM EDT [facility] Comment: None Detected at 72 hours This test was developed and its performance characteristics determined by [facility]. It has not been cleared or approved by the Food and Drug Administration. Serum specimen (specimen) 01/25/2017 12:24 PM EDT 01/31/2017 4:08 PM EDT Narrative [facility] - 01/31/2017 4:08 PM EDT PERFORMED AT: [facility] [id number] PAD TUFTER: Tony Carranza, PhD ?? PHONE: [phone] Gallo Arora MD LAB BLOOD ORDERABLES Jocelyn l Result Performing Organization Address City/[facility] Co de Phone Number [facility] [address] [place] [address] * HIV 1+2 Antibody/Antigen with Reflex (01/25/2017 12:24 PM EDT) Pathologist [facility] HIV 1+2 AB/AGN Nonreactive Nonreactive 01/25/2017 10:00 PM EDT [facility] Serum specimen (specimen) 01/25/2017 12:24 PM EDT 01/25/2017 9:08 PM EDT Narrative [facility] - 01/25/2017 10:00 PM EDT HIV-1 p24 Antigen and HIV-1/HIV-2 Antibody not detected. Gallo Arora MD LAB BLOOD ORDERABLES Jocelyn l Result Performing Organization Address [facility] Co de Phone Number [facility] [address] [place] [address]. [address] * Syphilis Screening (Trepia) (01/25/2017 12:24 PM EDT) Treponema Pallidum Negative Negative 01/26/2017 9:55 AM EDT [facility] Comment: No serological evidence of infection with Treponema pallidum (incubating or early primary syphilis cannot be excluded). Serum specimen (specimen) 01/25/2017 12:24 PM EDT 01/25/2017 9:08 PM EDT Gallo Arora MD LAB BLOOD ORDERABLES Jocelyn l Result [facility] [address] * Sed Rate (01/25/2017 12:24 PM EDT) Pathologist [facility] Sed Rate 17 0 - 30 mm/hr 01/25/2017 9:50 PM EDT [facility] Whole blood specimen (specimen) 01/25/2017 12:24 PM EDT 01/25/2017 9:22 PM EDT Gallo Arora MD LAB BLOOD ORDERABLES Jocelyn l Result Performing Organization Address [facility] Co de Phone Number [facility] [address] * Hepatitis C Antibody (01/25/2017 12:24 PM EDT) [facility] HCV Ab Nonreactive Nonreactive 01/25/2017 9:59 PM EDT [facility] Comment:Health Department no tified in accordance with reportable infectious disease guidelines. HCVAB Number 0.13 0.00 - 0.79 S/CO 01/25/2017 9:59 PM EDT [facility] Serum specimen (specimen) 01/25/2017 12:24 PM EDT 01/25/2017 9:08 PM EDT Narrative [facility] - 01/25/2017 9:59 PM EDT Antibodies to HCV not detected; does not exclude the possibility of exposure to HCV. Gallo Arora MD LAB BLOOD ORDERABLES Jocelyn l Result Performing Organization Address City/[facility]/ZIP Co de Phone Number [facility] [address] * (ABNORMAL) CK (01/25/2017 12:24 PM EDT) [facility] Total CK 25(L) 30 - 223 U/L 01/25/2017 9:47 PM EDT [facility] Plasma specimen (specimen) 01/25/2017 12:24 PM EDT 01/25/2017 9:24 PM EDT us Gallo Arora MD LAB BLOOD ORDERABLES Jocelyn savage Result [facility] [address] [place] [address], [facility] * ANCA Panel (01/25/2017 12:24 PM EDT) ANCA Myeloperoxidase AB <9.0 0.0 - 9.0 U/mL 01/27/2017 2:11 PM EDT [facility] LAB ANCA Proteinase 3 <3.5 0.0 - 3.5 U/mL 01/27/2017 2:11 PM EDT [facility] C-ANCA <1:20 Neg:<1:20 titer 01/26/2017 4:11 PM EDT [facility] Perinuclear (P-ANCA) Titer <1:20 Neg:<1:20 titer 01/26/2017 4:11 PM EDT [facility] Comment: The presence of positive fluorescence exhibiting P-ANCA or C-ANCA patterns alone is not specific for the diagnosis of Heriberto's Granulomatosis (WG) or microscopic polyangiitis. Decisions about treatment should not be based solely on ANCA IFA results. ??The International ANCA Group Consensus recommends follow up testing of positive sera with both DE-3 and MPO-ANCA enzyme immunoassays. As many as 5% serum samples are positive only by EIA. Ref. AM J Clin Pathol 1999;111:507-513. Atypical Panca Titer <1:20 Neg:<1:20 titer 01/26/2017 4:11 PM EDT [facility] Comment: The atypical pANCA pattern has been observed in a significant percentage of patients with ulcerative colitis, primary sclerosing cholangitis and autoimmune hepatitis. Serum specimen (specimen) 01/25/2017 12:24 PM EDT 01/27/2017 3:08 PM EDT Narrative HEALTH LAB - 01/27/2017 3:08 PM EDT PERFORMED AT: [facility] [id number] PAD TUFTER: Matt Lackey MD ?? PHONE: [phone] PERFORMED AT: [facility] [address] [id number] PAD TUFTER: Tony Carranza, PhD ?? PHONE: [phone] Gallo Arora MD LAB BLOOD ORDERABLES Jocelyn l Result Performing Organization Address City/[facility] Co de Phone Number [facility] [address] [facility]. [address] * ANI w/reflex to IFA/Comp Panel (01/25/2017 12:24 PM EDT) Pathologist [facility] ANI Screen Negative Negative 02/02/2017 2:27 PM EDT [facility] ANI Ratio 0.29 0.00 - 0.99 ratio 02/02/2017 2:27 PM EDT [facility] Serum specimen (specimen) 01/25/2017 12:24 PM EDT 01/25/2017 9:08 PM EDT Gallo Arora MD LAB BLOOD ORDERABLES Jocelyn l Result Performing Organization Address [facility] Co de Phone Number [facility] [address] [facility]. [address] * (ABNORMAL) Serum Protein Electrophoresis, Reflex to IT (01/25/2017 12:24 PM EDT) [facility] Album[facility], Protein Electrophoresis 3.9 3.70 - 4.90 g/dL 01/27/2017 10:40 AM EDT [facility] Alpha 1 0.3 0.20 - 0.40 g/dL 01/27/2017 10:40 AM EDT [facility] Alpha 2 0.6 0.50 - 1.00 g/dL 01/27/2017 10:40 AM EDT [facility] Beta 0.6 0.60 - 1.00 g/dL 01/27/2017 10:40 AM EDT [facility] Gamma Globulin 0.8 0.50 - 1.50 g/dL 01/27/2017 10:40 AM EDT [facility] Total Protein (PE) 6.2(L) 6.4 - 8.9 g/dL 01/26/2017 7:29 AM EDT [facility] M Aubrey 0.0 g/dL 01/27/2017 10:40 AM EDT [facility] Interpretation (PE) See Note 01/27 10:40 AM EDT [facility] Comment:Protein separation s hows a normal pattern. No monoclonal protein seen.Reviewed by Franca Mccarthy MD and Benny Mccoy, PhD. Serum specimen (specimen) 01/25/2017 12:24 PM EDT 01/25/2017 9:17 PM EDT us Gallo Arora MD LAB BLOOD ORDERABLES Jocelyn l Result Performing Organization Address City/[facility] Co de Phone Number [facility] [address] [facility]. [address] * (ABNORMAL) Methylmalonic acid, serum (01/25/2017 12:24 PM EDT) Methylmalonic Acid 722(H) 0 - 378 nmol/L 01/29/2017 12:20 AM EDT [facility] Serum specimen (specimen) 01/25/2017 12:24 PM EDT 01/29/2017 1:06 AM EDT Narrative HEALTH LAB - 01/29/2017 1:06 AM EDT PERFORMED AT: [address] [id number] PAD TUFTER: Matt Lackey MD ?? PHONE: [phone] us Gallo Arora MD LAB BLOOD ORDERABLES Jocelyn l Result Performing Organization Address [facility] Co de Phone Number [facility] [address] [facility]. 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
--- OUTSIDE RECORDS SUMMARY | 2024-02-20 10:29 | XMS_ITS | Encounter Summary ---
Author Organization [facility] Address [address] [place] [address] Care Team Providers Care Conservation Of Resources Commissioner Name Role Phone Gagan Solomon MD Primary Care Provider [phone] Source Comments This information has been disclosed [...] release of HIV test results or diagnoses. [id number] Reason for Visit * Reason Comments Results Encounter Details Date Type Department Care Team (Late st Contact Info) Description 03/07/2017 Telephone [facility] Neurology at [address], [address] [place] [address] Gallo Arora MD [address] [facility] [place] [address] Results Social History Tobacco Use Types Packs/Day Years [...] on file documented as of this encounter Miscellaneous Notes * Telephone Encounter - Fara Joy LPN - 03/07/2017 4:11 PM EST Received MRI report. Faxed to [facility] office for to review, as he will be there tomorrow. * Telephone Encounter - Fara Joy LPN - 03/07/2017 3:38 PM EST Images from the original note were not included. MD Fara Silva LPN Caller: Unspecified (Today, ??9:08 AM) ?? Ms. Joy: ??I called her but I need the radiologist report of the MRI brain 10/06/[facility] faxed to me. ??She has been unable to schedule a f/u appointment due to her 's busy schedule. ??Please squeeze her into my schedule on a Tuesday in [place] no later than11:30 am within the next month and let her know. ??Thanks. ??--Danitza Contacted Psychiatric. Requested MRI Brain 10/06/16 report be faxed to me. Awaiting Report. Left Mrs Lev whittington VM to return my call to get her scheduled with Dr Arora. * Telephone Encounter - Roly Barrientos MA - 03/07/2017 9:08 AM EST Pt requesting results for MRI, states she completed a MRI out side of [facility], also states she gave a copy to Dr Arora in 01-25-17 appt and has yet to receive a response. Please advise. documented in this encounter Plan of Treatment Not on file documented as of this encounter Visit Diagnoses Not on filedocumented in this encounter Care Teams Conservation Of Resources Commissioner Relationship Specialty Start Date End Date Gagan Solomon MD PCP - General Internal Medicine 01/25/17 documented as of this encounter
--- OUTSIDE RECORDS SUMMARY | 2024-02-20 10:29 | XMS_ITS | Clinical Summary ---
Author Organization [facility] Address [facility] [place] [address] Care Team Providers Care Loss Prevention Leader Name Role Phone Gagan Solomon MD Primary Care Provider [phone] Source Comments This information has been disclosed to you from confidential records protectedfrom disclosure by state law. You shall make no further disclosure of thisinformation without the specific, written, and informed release of theindividual to whom it pertains, or as otherwise permitted by law. A generalauthorization for the release of medical or other information is not sufficientfor the purposes of therelease of HIV test results or diagnoses. [id number] Allergies Active Allergy Reactions Criticality Noted Date Comments Tetracyclines 01/25/2017 Medications linaclotide (LINZESS) 290 mcg Cap Take 290 mcg by mouth daily. Active FLUoxetine (PROZAC) 20 MG tablet Take 20 mg by mouth daily. Active amantadine HCl (SYMMETREL) 100 mg capsule Take 100 mg by mouth 2 times a day. Active hydrOXYzine pamoate (VISTARIL) 25 MG capsule Take 25 mg by mouth 3 times a day. Active nortriptyline (PAMELOR) 10 MG capsule Take 10 mg by mouth 2 times a day. Active ondansetron (ZOFRAN) 4 MG tablet Take 4 mg by mouth 3 times a day. Active propranolol (INDERAL) 10 MG tablet Take 10 mg by mouth 2 times a day. Active Family History Medical History Relation Comments Cancer Father Heart disease Mother Relation Status Comments Father Mother Social History Tobacco Use Types Packs/Day Years [...] Mass Index 22.13 01/25/2017 10:59 AM EDT Plan of Treatment Not on file Insurance [facility] [address] RESOURCE Care Teams Loss Prevention Leader Relationship Specialty Start Date End Date Gagan Solomon MD PCP - General Internal Medicine 01/25/17
--- OUTSIDE RECORDS SUMMARY | 2024-02-20 10:29 | XMS_ITS | Encounter Summary ---
Author Organization [facility] Address [address] [id number] Care Team Providers Care Bindery Operator Name Role Phone Gagan Solomon MD Primary Care Provider [phone] Reason for Visit * Reason Comments Post-op Follow-up Encounter Details Date Type Department Care Team (Late st Contact Info) Description 05/24/2022 8:50 AM EST Office Visit [facility] [address], [address] [place] [address] Анна Pennington, JANA [address] [place] [address] Closed displaced transverse fracture of shaft of right femur with routine healing, subsequent encounter (Primary Dx) Social History Tobacco Use Types Packs/Day Years Used Date Smoking Tobacco: Every Day Cigarettes Smokeless Tobacco: Never Tobacco Cessation:Ready to Q uit: Not Asked; Counseling Given: Not Answered Alcohol Use Standard Drinks/Week Comments No 0 [...] suspected to have Coronavirus/COVID-19? No / Unsure 05/24/2022 8:39 AM EST documented as of this encounter Last Filed Vital Signs Vital Sign Reading Time Taken Comments Blood Pressure 104/70 05/24/2022 8:48 AM EST Pulse 97 05/24/2022 8:48 AM EST Temperature 36.7 ??C (98.1 ??F) 05/24/2022 8:48 AM ES T Respiratory Rate - - Oxygen Saturation 96% 05/24/2022 8:48 AM EST Inhaled Oxygen Concentration - - Weight 56.7 kg (125 lb) 05/24/2022 8:48 AM EST Height 165.1 cm (5' 5 ) 05/24/2022 8:48 AM EST Body Mass Index 20.8 05/24/2022 8:48 AM EST documented in this encounter Miscellaneous Notes * Progress Notes - Анна Pennington APRN - 05/24/2022 8:50 AM EST CC: Removal of deep implant, IMN right femoral shaft fracture 05/08/2022 HPI: Richa Ohara is a 66 y.o. female 2wks s/p the above listed procedures. She states that sheis doing well. She has not started home health therapy yet but is up ambulating with her walker at home. She states that most of her pain is in her femur and knee. Denies any numbness, tingling. Denies any trauma or injury. Denies any fever, chills, nausea, vomiting. Physical Assessment: Well healing surgical incisions. Gwyn c/d/I. No edema, erythema, ecchymosis. Discomfort with PROM of hip/knee. Calf non-tender. Strength EHL/FHL/GSC/TA1. SILT s/s/sp/dp/t. Toes WWP. XRAY: No images Assessment/Plan: Status Post Removal of deep implant, IMN right femoral shaft fracture 05/08/2022 -Gwyn removed, steristrips placed - She can shower and get incisions wet, no soaking/lotion/ointments to incisions -WBAT RLE -Recommend Ice/elevation/over the counter medications as needed for pain -Follow-up in 4wks, with xrays, sooner if needed The patient was given an opportunity to ask questions and all their questions were answered to their satisfaction. documented in this encounter Plan of Treatment Not on file documented as of this encounter Results * XR Femur Right [...] RIGHT 2+ VIEWS ordered by АННА PENNINGTON, [id number] CLINICAL INDICATION: pain TECHNIQUE: XR FEMUR RIGHT 2+ VIEWS COMPARISON: 05/08/2022 FINDINGS: Redemonstration of an intramedullary nail with screw fixation spanning the right femur fracture with similar osseous alignment and increased callus formation compared to the prior study. No new fracture is noted relative to the prior exam. Interval removal of skin gwyn and resolution soft tissue emphysema. Procedure Note August Quigley MD - 06/23/2022 Exam/Procedure: XR FEMUR RIGHT 2+ VIEWS ordered by АННА PENNINGTON,[id number] CLINICAL INDICATION: pain TECHNIQUE: XR FEMUR RIGHT 2+ VIEWS COMPARISON: 05/08/2022 FINDINGS: Redemonstration of an intramedullary nail with screw fixation spanning theright femur fracture with similar osseous alignment and increased callusformation compared to the prior study. No new fracture is noted relativeto the prior exam. Interval removal of skin gwyn and resolution softtissue emphysema. IMPRESSION: No evidence of hardware loosening or failure with increased callusformation across the right femoral fracture. CRITICAL RESULT: No. COMMUNICATION: Per this written report. Dictated by August Quigley MD on 06/23/2022 8:19 AM Signed by August Quigley MD on 06/23/2022 8:21 AM us Анна Pennington FOLDER STITCHER OPERATOR IMG XR PROCEDURES Final Res ult documented in this encounter Visit Diagnoses Diagnosis Closed displaced transverse fracture of shaft of right femur with routine healing, subsequent encounter- Primary Closed displaced transverse fracture of shaft of right femur with routine healing, subsequent encounter documented in this encounter Additional Health Concerns Assessment Noted Time A fall risk assessment has been complete d for the patient 05/24/2022 8:45 AM EST documented as of this encounter Care Teams Bindery Operator Relationship Specialty Start Date End Date Gagan Solomon MD [address] [place] [address] PCP - General 08/15/20 documented as of this encounter
--- OUTSIDE RECORDS SUMMARY | 2024-02-20 10:29 | XMS_ITS | Encounter Summary ---
Author Organization [facility] Address [address] [place] [address] Care Team Providers Care Television Mechanic Name Role Phone Gagan Solomon MD Primary Care Provider [phone] Encounter Details Date Type Department Care Team (Latest Contact Info) Description 06/23/2022 Travel Social History Tobacco Use Types Packs/Day Years [...] AM EDT documented as of this encounter Plan of Treatment Not on file documented as of this encounter Visit Diagnoses Not on filedocumented in this encounter Additional Health Concerns Assessment Noted Time A fall risk assessment has been complete d for the patient 06/23/2022 7:58 AM EDT documented as of this encounter Care Teams Television Mechanic Relationship Specialty Start Date End Date Gagan Solomon MD [address] [place] [address] PCP - General 08/15/20 documented as of this encounter
--- OUTSIDE RECORDS SUMMARY | 2024-02-20 10:29 | XMS_ITS | Encounter Summary ---
Author Organization [facility] Address [address] [place] [address] Care Team Providers Care Kilnman Name Role Phone Gagan Solomon MD Primary Care Provider [phone] Encounter Details Date Type Department Care Team (Latest Contact Info) Description 05/24/2022 Travel Social History Tobacco Use Types Packs/Day [...] AM EST documented as of this encounter Plan of Treatment Not on file documented as of this encounter Visit Diagnoses Not on filedocumented in this encounter Additional Health Concerns Assessment Noted Time A fall risk assessment has been complete d for the patient 05/24/2022 8:45 AM EST documented as of this encounter Care Teams Kilnman Relationship Specialty Start Date End Date Gagan Solomon MD [address] [place] [address] PCP - General 08/15/20 documented as of this encounter
--- OUTSIDE RECORDS SUMMARY | 2024-02-20 10:29 | XMS_ITS | Encounter Summary ---
Author Organization [facility] Address [address] [place] [address] Care Team Providers Care Artillery Meteorological Man Name Role Phone Gagan Solomon MD Primary Care Provider [phone] Source Comments This information has been disclosed [...] release of HIV test results or diagnoses. [id number] Encounter Details Date Type Department Care Team (Late st Contact Info) Description 02/08/2017 Telephone [facility] Neurology at [address], [address] [place] [phone] Gallo Arora MD [address] [facility] [place] [address] Social History Tobacco Use Types Packs/Day Years [...] encounter Miscellaneous Notes * Telephone Encounter - Ofelia Do MA - 02/08/2017 12:12 PM EST Patient was notified. Told to call her PCP for her blood levels being low. She will follow up on 03/01. * Telephone Encounter - Ofelia Do MA - 02/08/2017 11:02 AM EST Please advise. I will be happy to call patient back with results. * Telephone Encounter - Patricia Ruiz LPN - 02/08/2017 10:55 AM EST Pt states she was seen by Dr Arora on 01/25. States she would like to have her lab results. Pleaseadvise. documented in this encounter Plan of Treatment Not on file documented as of this encounter Visit Diagnoses Not on filedocumented in this encounter Care Teams Artillery Meteorological Man Relationship Specialty Start Date End Date Gagan Solomon MD PCP - General Internal Medicine 01/25/17 documented as of this encounter
--- OUTSIDE RECORDS SUMMARY | 2024-02-20 10:29 | XMS_ITS | Encounter Summary ---
Author Organization [facility] Address [address] [place] [address] Care Team Providers Care Outpatient Physical Therapist Assistant Name Role Phone Gagan Solomon MD Primary Care Provider [phone] Source Comments This information has been disclosed [...] release of HIV test results or diagnoses. [id number] Encounter Details Date Type Department Care Team (Late st Contact Info) Description 01/26/2017 Telephone [facility] Neurology at [address], [address] [place] [phone] Gallo Arora MD [address] [facility] [place] [address] Social History Tobacco Use Types [...] encounter Miscellaneous Notes * Telephone Encounter - Ely Shahid MA - 01/26/2017 2:01 PM EDT Spoke with the patient and gave her the result of her Vitamin D. Call completed * Telephone Encounter - Ely Shahid MA - 01/26/2017 2:00 PM EDT ----- Message from Gallo Arora MD sent at 01/26/2017 1:58 PM EDT ----- Testing indicates low vitamin D. Please notify the patient of the results of the vitamin D and instruct the following: The patient should either supplement their diet with vitamin D rich foods (dairyproducts fortified with vitamin D, fish or liver), or vitamin D supplements (1600 IU of vitamin D3 daily). After one month, the vitamin D can be rechecked and if normal, reduce the dosage to the daily requirement of 600 IU per day. They should followup with us or their personal physician to follow vitamin D levels, calcium, and phosphorous. Thanks. --Danitza documented in this encounter Plan of Treatment Not on file documented as of this encounter Visit Diagnoses Not on filedocumented in this encounter Care Teams Outpatient Physical Therapist Assistant Relationship Specialty Start Date End Date Gagan Solomon MD PCP - General Internal Medicine 01/25/17 documented as of this encounter
--- OUTSIDE RECORDS SUMMARY | 2024-02-20 10:29 | XMS_ITS | Encounter Summary ---
Author Organization [facility] Address [address] [place] [address] Care Team Providers Care Patrol Officer Name Role Phone Gagan Solomon MD Primary Care Provider [phone] Source Comments This information has been disclosed [...] release of HIV test results or diagnoses. [id number] Encounter Details Date Type Department Care Team (Late st Contact Info) Description 02/08/2017 Oncology Treatment Summary [facility] Neurology at [address], [address] [place] [address] Gallo Arora MD [address] [facility] [place] [address] Social History Tobacco Use Types [...] on file documented as of this encounter Plan of Treatment Not on file documented as of this encounter Visit Diagnoses Not on filedocumented in this encounter Care Teams Patrol Officer Relationship Specialty Start Date End Date Gagan Solomon MD PCP - General Internal Medicine 01/25/17 documented as of this encounter
--- OUTSIDE RECORDS SUMMARY | 2024-02-20 10:29 | XMS_ITS | Encounter Summary ---
Author Organization [facility] Address [address] [id number] Care Team Providers Care Western Felt Hat Blocker Name Role Phone Gagan Solomon MD Primary Care Provider [phone] Reason for Visit * Reason Onset Date Comments HCN - Patient Message 06/23/2022 Encounter Details Date Type Department Care Team (Late st Contact Info) Description 06/23/2022 Telephone [facility] Orthopaedic Surgery & Sports Medicine [address] [place] [address] Eleuterio Rod MD [address] [place] [address] HCN - Patient Message Social [...] Encounter - Marcus Chavez RN - 06/24/2022 1:58 PM EDT I called patient and told that she could stop the injections per PAINT ROLLER COVERMAKER recommendations. * Telephone Encounter - Marcus Chavez RN - 06/24/2022 12:00 PM EDT Tried calling patient no answer left VM for patient to call back need to know what Rx she is takingfor blood thinner. * Telephone Encounter - Shavon Verdugo - 06/23/2022 3:03 PM EDT Clinical Concern/Question Reason for Call: patient of Dr. Rod is requesting a call back regarding if she needs to continuetaking her blood thinner. Best contact number: [phone] (home) Optimal time of day to reach caller: ANYTIME Additional comments/information from caller: None Note: Please do not reply to this message. Follow-up communication and further actions as a result of this message need to be communicated with the patient directly, if the patient is not active onMyChart. If the patient is active on MyChart, they will receive notification of the communication/outcome via [employer]. documented in this encounter Plan of Treatment Not on file documented as of this encounter Visit Diagnoses Not on filedocumented in this encounter Additional Health Concerns Assessment Noted Time A fall risk assessment has been complete d for the patient 06/23/2022 7:58 AM EDT documented as of this encounter Care Teams Western Felt Hat Blocker Relationship Specialty Start Date End Date Gagan Solomon MD [address] [place] [address] PCP - General 08/15/20 documented as of this encounter
--- OUTSIDE RECORDS SUMMARY | 2024-02-20 10:29 | XMS_ITS | Encounter Summary ---
Author Organization Healthcare Address [address] [id number] Care Team Providers Care City Councilman Name Role Phone Gagan Solomon MD Primary Care Provider [phone] Reason for Visit * Reason Comments Follow-up Encounter Details Date Type Department Care Team (Late st Contact Info) Description 06/23/2022 7:50 AM EDT Office Visit [facility] Orthopaedic Surgery & Sports Medicine [address] [place] [address] Eleuterio Rod MD [address] [place] [address] Closed displaced transverse fracture of [...] AM EDT documented as of this encounter Last Filed Vital Signs Vital Sign Reading Time Taken Comments Blood Pressure 144/73 06/23/2022 7:58 AM EDT Pulse 88 06/23/2022 7:58 AM EDT Temperature 36.8 ??C (98.2 ??F) 06/23/2022 7:58 AM ED T Respiratory Rate - - Oxygen Saturation 96% 06/23/2022 7:58 AM EDT Inhaled Oxygen Concentration - - Weight 56.7 kg (125 lb) 06/23/2022 7:58 AM EDT Height 165.1 cm (5' 5 ) 06/23/2022 7:58 AM EDT Body Mass Index 20.8 06/23/2022 7:58 AM EDT documented in this encounter Miscellaneous Notes * Progress Notes - Maryam Graves PA - 06/23/2022 7:50 AM EDT Chief complaint: Right periprosthetic femoral shaft fracture s/p Removal of hardware, IMN right femoral shaft fracture DOS: 05/08/2022 HPI: Richa Ohara is a 66 year old female who presents to clinic for follow up 6 weeks s/p the above stated procedure. Patient states that she has been doing well since her last visit. She is currently in a wheelchair however typically ambulates around the home with a walker and is working with PT to transition to a cane. Patient did not use any assistive devices prior to her injury. She is working with home health PT 2x weekly and feels like she is improving. Denies any numbness, tingling. Denies any further trauma or injury. Physical Assessment: Right lower extremity: No erythema, ecchymosis Mild edema of ankle Knee ROM 0-120 Ankle ROM 20 dorsiflexion, 30 plantarflexion Strength 5/5 EHL/FHL/GSC/TA 4/5 KF/KE 3/5 HF/HAbd/HAdd SILT s/s/sp/dp/t +2 dp/pt pulses XRAY: 2 views right femur were ordered, reviewed, and interpreted by us, showing healing fracture with hardware in place, no signs of loosening or failure Assessment: 66 year old female Status Post Removal of hardware, IMN right femoral shaft fracture DOS: 05/08/2022 Plan: -Continue WBAT RLE -Continue PT for strengthening and gait training -FU 6 weeks with images The patients images were discussed with them. The patient was given an opportunity to ask questionsand all their questions were answered to their satisfaction. Maryam Graves PA-C Department of Orthopaedic Surgery and Sports Medicine Consult Pager: [phone] Service Pager:[phone] Cosigned by Eleuterio Rod MD at 06/25/2022 9:25 AM EDT Associated attestation - Eleuterio Rod MD - 06/25/2022 9:25 AM EDT I saw and evaluated the patient with the resident/fellow. I discussed the case with the resident/fellow and agree with the findings and plan as documented. documented in this encounter Plan of Treatment Not on file documented as of this encounter Visit Diagnoses Diagnosis Closed displaced transverse fracture of shaft of right femur with routine healing, subsequent encounter- Primary documented in this encounter Additional Health Concerns Assessment Noted Time A fall risk assessment has been complete d for the patient 06/23/2022 7:58 AM EDT documented as of this encounter Care Teams City Councilman Relationship Specialty Start Date End Date Gagan Solomon MD [address] [place] [address] PCP - General 08/15/20 documented as of this encounter
--- OUTSIDE RECORDS SUMMARY | 2024-02-20 10:29 | XMS_ITS | Encounter Summary ---
Author Organization [facility] Address [facility] [place] [address] Care Team Providers Care Fourdrinier Tender Name Role Phone Unavailable Primary Care Provider Unavailabl e Source Comments This information has been disclosed [...] release of HIV test results or diagnoses. [id number] Encounter Details Date Type Department Care Team (Late st Contact Info) Description 01/24/2017 Abstract [facility] Neurology at [address], [address] [place] [address] Gallo Arora MD [address] [facility] [place] [address] Social History Tobacco Use Types Packs/Day Years Used Date Smoking Tobacco: Never Assessed Comments Unknown Sex and Gender Information Value Date Recorded Sex Assigned at Not on file Legal Sex Female 9:15 AM EDT Gender Identity Not on file Sexual Orientation Not on file documented as of this encounter Plan of Treatment Not on file documented as of this encounter Visit Diagnoses Not on filedocumented in this encounter
--- OUTSIDE RECORDS SUMMARY | 2024-02-20 10:30 | XMS_ITS | Encounter Summary ---
Author Organization [facility] Address [address] [place] [address] Care Team Providers Care Beauty Culturist Apprentice Name Role Phone Unavailable Primary Care Provider Unavailabl e Encounter Details Date Type Department Care Team (Late st Contact Info) Description 11/01/2012 [facility] Vitals Encounter [facility] OUTPATIENT CONVERSIONS [address] [place] [address] ProviderAwa MD [address] [place] [address] Social History Tobacco Use Types Packs/Day Years Used Date Smoking Tobacco: Never Assessed Comments Unknown Sex and Gender Information Value Date Recorded Sex Assigned at Not on file Legal Sex Female 7:34 PM EDT Gender Identity Not on file Sexual Orientation Not on file documented as of this encounter Last Filed Vital Signs Vital Sign Reading Time Taken Comments Blood Pressure - - Pulse - - Temperature - - Respiratory Rate - - Oxygen Saturation - - Inhaled Oxygen Concentration - - Weight 59 kg (130 lb 0.1 oz) 11/01/2012 11:16 AM EDT Height 165.1 cm (5' 5 ) 11/01/2012 11:16 AM EDT Body Mass Index 21.63 11/01/2012 11:16 AM EDT documented in this encounter Plan of Treatment Not on file documented as of this encounter Visit Diagnoses Not on filedocumented in this encounter
--- OUTSIDE RECORDS SUMMARY | 2024-02-20 10:30 | XMS_ITS | Encounter Summary ---
Author Organization [facility] Address [address] [place], [place] [id number] Care Team Providers Care Derrick Barge Operator Name Role Phone Unavailable Primary Care Provider Unavailabl e Encounter Details Date Type Department Care Team (Late st Contact Info) Description 12/19/2012 [facility] Vitals Encounter [facility] OUTPATIENT CONVERSIONS [address] [place] [address] ProviderAwa MD [address] [place] [address] Social History Tobacco Use Types Packs/Day [...] - Inhaled Oxygen Concentration - - Weight 57.2 kg (125 lb 15.9 oz) 12/19/2012 8:05 AM EDT Height 165.1 cm (5' 5 ) 12/19/2012 8:05 AM EDT Body Mass Index 20.97 12/19/2012 8:05 AM EDT documented in this encounter Plan of Treatment Not on file documented as of this encounter Visit Diagnoses Not on filedocumented in this encounter
--- OUTSIDE RECORDS SUMMARY | 2024-02-20 10:30 | XMS_ITS | Encounter Summary ---
Author Organization [facility] Address [address] [place], [place] [address] Care Team Providers Care Associate Professor Of Art Name Role Phone Gagan Solomon MD Primary Care Provider [phone] Reason for Visit * Auth/Cert (Routine) Specialty Diagnoses / Procedures Referred By Best luna Referred To Contact Diagnoses Oth fracture of shaft of right femur, init for clos fx (CMS/HCC) Mechanical fall; periprosthetic fx with >90 degree; in traction splint Gagan Weiss MD [address] [facility] [address] [place] [address] Phone: tel: fax: [facility] [address] [place] [address] Phone: tel: Referral ID Status Reason Start Date Expiration Date Visits Re quested Visits Authorized [id number] 1 1 Encounter Details Date Type Department Care Team (Late st Contact Info) Description 05/08/2022 7:37 AM EST Anesthesia Event [facility] [address] [place] [address] Juan Carlos Garcia MD [address] [place] [id number] Anesthesia Record Procedure Summary Procedure Name Responsible Anesthesiologist Anesthesia Start Time Anesthesia Stop Time Right femur removal of IMN and insertion of IMN (Right: Leg Upper) Juan Carlos Garcia MD 05/08/22 0737 05/08/22 1016 Events Date Time Event Comment 05/08/2022 0733 0737 An Start 0739 An Start Data 0740 In Room 0745 An Induction The patient was reevaluated immediately before moderate or deep sedation use and before anesthesia induction. 0747 An Intubation 0751 Anesthesia Ready 0829 Proc Start 1003 Proc Fin 1007 An Extubation 1011 an stop data 1012 Out of Room 1016 Handoff to Receiving I compl eted my handoff to the receiving clinician during which we: 1. Identified the patient 2. Identified the responsible provider 3. Reviewed the pertinent medical history 4. Discussed the surgical course 5. Reviewed intra-op anesthesia management and issues during anesthesia 6. Set expectations for post-procedure period 7. Allowed opportunity for questions and acknowledgement of understanding. 1016 An Stop Meds Name Total HYDROmorphone 1 MG/ML 0.5 mg Lidocaine HCl 100 MG/5ML 60 mg rocuronium 50 MG/5ML 90 mg midazolam (Versed) injection 1 mg/mL 2 m g fentaNYL (Sublimaze) injection 50 mcg/mL 50 mcg propofol (Diprivan) injection 10 mg/mL 1 50 mg dexamethasone (Decadron) injection 4 mg/ mL 4 mg ePHEDrine injection prefilled syringe 5 mg/mL 10 mg phenylephrine (Con-Synephrine) prefilled syringe 1 mg/10 mL 250 mcg ondansetron (Zofran) injection 2 mg/mL 4 mg sugammadex (Bridion) injection 100 mg/mL 200 mg ceFAZolin (Ancef) injection 2 g 2 g lactated Ringer's infusion 1,000 mL * Agents Name O2 N2O Air Sevoflurane Isoflurane Desflurane Inspired Desflurane Inspired Isoflurane Inspired Sevoflurane N2O Inspired N2O * Blood No blood administrations on file. Lines, Drains, and Airways Type Details Placement Removal Wound 05/08/22; 0836; N; Y es; Incision (surgical incision for femur fracture repair); Leg; Anterior, Proximal, Right, Upper 05/08/22 0836 by Gagan Coates RN Urethral Catheter Placement Date: 05/07/22; Placement Time: 0150; Existing LDA Placed by: Outside Facility; Type: Latex; Removal Date: 05/09/22; Removal Time: 0800 05/07/22 0150 by Alina Shepherd RN 05/09/22 0800 by Anahy Schulz RN Peripheral IV Placement Date: 05/07/22; Placement Time: 1534; Existing LDA Placed by: EMS; Catheter Size: 20 G; Orientation: Right; Location: Antecubital; Removal Date: 05/08/22; Removal Time: 2104; Removal Reason: Other (Comment) (pain w/flush attempt;) 05/07/22 1534 by Alina Shepherd RN 05/08/222104 by Kiki Xie RN Peripheral IV Placement Date: 05/07/22; Placement Time: 180; Catheter Size: 20 G; Orientation: Left; Location: Wrist; Removal Date: 05/14/22; Removal Time: 1300; Removal Reason: Discharge 05/07/22 180 by Alina Shepherd RN 05/14/22 1300 by Harmony Peace RN ETT Placement Date: 05/08/22; Placement Time: 07 (created via procedure documentation); Mask Ventilation: 0; Technique: Direct laryngoscopy; Type: ETT - single; Single Lumen Tube Size: 7 mm; Cuffed: Yes; Laryngoscope: Alberto; Blade Size: 3; Location: Oral; Grade View: Grade I; Insertion Attempts: 1; Placement Verification: Auscultation, Capnometry; Airway Comments: Atraumatic. No change to dentition. ; Placed by: Resident ; Removal Date: 05/08/22; Removal Time: 1007 05/08/22 0747 by Doug Flor DO 05/08/22 1007 by Doug Flor DO documented in this encounter Social History Tobacco Use Types Packs/Day Years Used Date Smoking Tobacco: Every Day Cigarettes Smokeless Tobacco: Never Alcohol Use Standard Drinks/Week Comments No 0 (1 standard drink = 0.6 oz pure alcohol) Alcoholic Drinks/day: Never Drank Alcohol Comments Unknown Sex and Gender Information Value Date Recorded Sex Assigned at Not on file Legal Sex Female 7:34 PM EDT Gender Identity Not on file Sexual Orientation Not on file COVID-19 Exposure Response Date Recorded In the last 10 days, have yo u been in contact with someone who was confirmed or suspected to have Coronavirus/COVID-19? No / Unsure 05/07/2022 3:17 PM EST documented as of this encounter Miscellaneous Notes * Anesthesia Postprocedure Evaluation - Doug Flor DO - 05/08/2022 10:20 AM EST Patient: Richa Ohara Anesthesia Type: general Vitals Value Taken Time BP 145/73 05/08/22 1020 Temp 98.1 05/08/22 1020 Pulse 86 05/08/22 1020 Resp 17 05/08/22 1020 SpO2 97 05/08/22 1020 Anesthesia Post Evaluation Patient location during evaluation: PACU Level of consciousness: baseline Pain management: adequate (pain score 0-3) Airway patency: natural airway Cardiovascular status: acceptable Respiratory status: acceptable Hydration status: acceptable No notable events documented. Cosigned by Juan Carlos Garcia MD at 05/08/2022 11:28 AM EST Associated attestation - Juan Carlos Garcia MD - 05/08/2022 11:28 AM EST I agree with the findings and care plan documented in the postprocedure evaluation note. * Anesthesia Procedure Notes - Doug Flor DO - 05/08/2022 8:35 AM EST Associated Order(s): Airway Airway Date/Time: 05/08/2022 7:47 AM Urgency: elective Airway not difficult General Information and Staff Patient location during procedure: OR Anesthesiologist: Juan Carlos Garcia MD Resident: Doug Flor DO Performed: Resident Indications and Patient Condition Indications for airway management: anesthesia Spontaneous Ventilation: absent Preoxygenated: yes Patient position: sniffing Mask difficulty assessment: 0 - not attempted Final Airway Details Final airway type: endotracheal airway Successful airway: ETT Cuffed: yes Successful intubation technique: direct laryngoscopy Endotracheal tube insertion site: oral Blade: Alberto Blade size: #3 ETT size (mm): 7.0 Cormack-Lehane Classification: grade I - full view of glottis Placement verified by: chest auscultation and capnometry Cuff volume (mL): 5 Measured from: gums ETT to gums (cm): 20 Number of attempts at approach: 1 Additional Comments Atraumatic. No change to dentition. Cosigned by Juan Carlos Garcia MD at 05/08/2022 9:36 AM EST Associated attestation - Juan Carlos Garica MD - 05/08/2022 9:36 AM EST I was present during all critical and rascon portions of the procedure(s) and immediately available [facility] the entire duration. See resident note for details. * Anesthesia Preprocedure Evaluation - Juan Carlos Garcia MD - 05/08/2022 7:05 AM EST Images from the original note were not included. Patient: Richa Ohara Procedure Information Date/Time: 05/08/22729 Procedure: Right femur removal of IMN and insertion of IMN (Right: Leg Upper) - Supine, clare, ortho soft tissue, synthes TFNA, sterile traction, c-arm Location: [facility] / [facility] OR Surgeons: Eleuterio Rod MD HPI: Richa Ohara is a 66 y.o. female with HTN, MS, idiosyncratic choreoathetosis movements, peptic ulcer disease s/p stomach resection, and body mass index is 20.8 kg/m??. who presents with Oth fracture of shaft of right femur, init for clos fx (CMS/[facility]), now for History of right intratrochanteric femur fracture from a fall status post ORIF in March, [facility]. Postoperatively patient developed viral pneumonitis, she was treated with oxygen, antibiotic and steroid. Currently patient uses using wheelchair and walker at home. Now with subsequent fall and femur fracture. ROS: Relevant Problems Cardio (+) Primary hypertension ALLERGIES: Allergies Allergen Reactions ??? Tetracycline Hives NPO STATUS: SOCIAL HX: Social History Tobacco Use ??? Smoking status: Every Day Packs/day: 0.25 Types: Cigarettes ??? Smokeless tobacco: Never Substance Use Topics ??? Alcohol use: No Comment: Alcoholic Drinks/day: Never Drank Alcohol ??? Drug use: Never SURGICAL HX: Past Surgical History: Procedure Laterality Date ??? CHOLECYSTECTOMY N/A Cholecystectomy from [facility] ??? OTHER SURGICAL HISTORY N/A Esophagogastroduodenoscopy from [facility] ??? OTHER SURGICAL HISTORY N/A Exploratory Laparotomy from [facility] ??? TUBAL LIGATION N/A Tubal Ligation from [facility] PAST MEDICAL HX: Past Medical History: Diagnosis Date ??? 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 Anemia ??? Chronic or unspecified gastric ulcer with perforation (CMS/HCC) Gastric ulcer with perforation ??? Conversions - Other Acute Peptic Ulcer With Perforation ??? Conversions - Other Cerumen Impaction ??? Conversions - Other Constipation ??? Conversions - Other Dehydration (Na, H2O) ??? Conversions - Other Duodenal Ulcer ??? Conversions - Other Hypokalemia ??? Deficiency of other specified B group vitamins Vitamin B 12 deficiency ??? Depression ??? Heart failure (CMS/HCC) ??? Iron deficiency Iron deficiency ??? Peptic ulcer ??? Unspecified protein-calorie malnutrition (CMS/HCC) Malnutrition ??? Vitamin D deficiency MEDICATIONS: Scheduled ??? [MAR Hold] amantadine, 200 mg, Oral, BID ??? [MAR Hold] DULoxetine, 60 mg, Oral, BID ??? [MAR Hold] ergocalciferol, 50,000 Units, Oral, Weekly ??? [MAR Hold] famotidine, 20 mg, Oral, BID ??? [MAR Hold] gabapentin, 100 mg, Oral, TID ??? [MAR Hold] methocarbamol, 500 mg, Oral, 4x daily ??? [MAR Hold] polyethylene glycol, 17 g, Oral, Daily ??? [MAR Hold] Povidone-Iodine, 1 Swab, Nasal, Daily ??? [MAR Hold] propranolol, 40 mg, Oral, BID ??? [MAR Hold] senna-docusate, 1 tablet, Oral, BID Outpatient No medications prior to admission. No current outpatient medications PRNs PRN medications: [MAR Hold] acetaminophen, [MAR Hold] bisacodyl, [MAR Hold] ipratropium-albuterol, [MAR Hold] magnesium hydroxide, [MAR Hold] oxyCODONE OR [MAR Hold] oxyCODONE, Insert peripheral IV AND Saline lock IV AND [MAR Hold] sodium chloride AND [MAR Hold] sodium chloride OBJECTIVE DATA: LABS O Positive HGB (g/dL) Date Value 05/08/2022 9.2 (L) 05/07/2022 10.1 (L) 05/22/2016 9.6 (L) HCT (%) Date Value 05/08/2022 31.9 (L) 05/07/2022 33.9 (L) 05/22/2016 32.4 (L) Platelet Count Date Value 05/08/2022 228 10*3/uL 05/07/2022 222 10*3/uL 05/22/2016 229 k/uL INR (no units) Date Value 05/08/2022 0.9 05/21/2016 1.0 Potassium, Plasma (mmol/L) Date Value 05/08/2022 3.6 (L) 05/07/2022 3.9 05/21/2016 4.0 Creatinine, Plasma (mg/dL) Date Value 05/08/2022 0.60 Labs in last 18 hours CBC WBC 6.90 Hb 9.2 (L) Plt 228 Hct 31.9 (L) ANC ?? INR 0.9, PTT ??, Anti-Xa ?? BMP Na 138 Cl 102 BUN 16 Glu 178 (H) K 3.6 (L) Co2 27 Cr 0.60 Ca 8.8 (L) iCa ?? Mg 1.9, Phos 4.2 Lactate ?? LFT AST 33 AlkPhos 159 (H) T Prot 5.8 (L) ALK 21 Bili <0.2 (L) Alb ?? D.Bili ?? EKG Encounter Date: 05/07/22 ECG Adult Result Value EKG DIAGNOSIS CLASS Borderline Abnormal Ventricular Rate 112 Atrial Rate 112 HI Interval 134 QRSD Interval 90 QT Interval 328 QTC Interval 447 P Ramona 67 R Ramona 55 T Wave Ramona 74 Diagnosis Poor data quality, interpretation may be adversely affected Diagnosis Sinus tachycardia Diagnosis Otherwise normal ECG *Note: Due to a large number of results and/or encounters for the requested time period, some results have not been displayed. A complete set of results can be found in Results Review. ECHO No echocardiogram results found for the past 12 months PFTs No results found for: DFU2YQB, KJV1APBY, LRC8SJV, FVCPRED IMAGING: XR Femur Right 2+ Views, XR Knee Right 3 + Views, XR Femur Left 2+ Views, XR Tibia Fibula Right 2+ Views, XR Hips Bilateral W or WO Pelvis 3-4 Views Result Date: 05/07/2022 Narrative: Exam/Procedure: XR TIBIA FIBULA RIGHT 2+ VIEWS, XR HIPS BILATERAL W OR WO PELVIS 3-4 VIEWS, XR FEMUR RIGHT 2+ VIEWS, XR KNEE RIGHT 3 VIEWS, XR FEMUR LEFT 2+ VIEWS ordered by ROBERTO RAUSCH, [id number] CLINICAL INDICATION: Femur fx TECHNIQUE: XR TIBIA FIBULA RIGHT 2+ VIEWS, XR HIPS BILATERALW OR WO PELVIS 3-4 VIEWS, XR FEMUR RIGHT 2+ VIEWS, XR KNEE RIGHT 3 VIEWS, XR FEMUR LEFT 2+ VIEWS COMPARISON: None. FINDINGS: No widening of the SI joints or the symphysis. Osteopenia. The pelvic ringappears intact. Hips anatomically aligned. Proximal left femur appears intact. Intact proximal right femoral hardware, likely from ORIF of prior intertrochanteric fracture. Displaced diaphyseal fracture of the proximal right femur just caudal to the intramedullary portion of the hardware, with cranial migration of the distal fracture segment, and posterior apex angulation of the fracture. The distal right femur appears intact and anatomically aligned, no fracture or or effusion is appreciated at the right knee. Impression: Displaced diaphyseal fracture of the proximal right femur just caudal to the previouslyplaced hardware, with cranial migration of the distal fracture segment, and posterior apex angulation. No other acute osseous findings. CRITICAL RESULT: No. COMMUNICATION: Per this written report. Dictated by Paul Garcia MD on 05/07/2022 6:01 PM Signed by Paul Garcia MD on 05/07/2022 6:05 PM XR Femur Right 2+ Views Result Date: 05/07/2022 Narrative: This study was performed at an outside facility and has been loaded into the PACS systemfor reference only. This order has been auto-finalized and does not contain a result. XR Chest 1 View Result Date: 05/07/2022 Narrative: CLINICAL INDICATION: Preop. TECHNIQUE: Frontal chest. COMPARISON: None. FINDINGS: No consolidation, effusion, or pneumothorax. Scarring versus small focus of atelectasis lateral left lung base. Cardiac size is within limits of technique, with unremarkable cardiac and mediastinal contours. Mild tortuosity thoracic aorta. Trachea patent. No free subdiaphragmatic gas. No acute osseous findings. Impression: No acute thoracic findings. CRITICAL RESULT: No. COMMUNICATION: Per this written report. Dictated by Paul Garcia MD on 05/07/2022 5:53 PM Signed by Paul Garcia MD on 05/07/2022 5:54 PM PRIOR ANESTHETICS: No reported prior anesthetic complications. PHYSICAL EXAM: Body mass index is 20.8 kg/m??. Vitals: 05/07/22 2151 05/07/22 2335 05/08/22 0354 05/08/22 0623 BP: (!) 177/88 (!) 170/78 (!) 151/74 115/86 BP Location: Right arm Right arm Right arm Patient Position: Lying Lying Lying Pulse: 98 79 75 71 Resp: 18 18 18 15 Temp: 37.1 ??C (98.7 ??F) 36.8 ??C (98.2 ??F) 36.7 ??C (98.1 ??F) 37 ??C (98.6 ??F) TempSrc: Oral Oral Oral Oral SpO2: 96% 97% 96% 100% Weight: Temp: [36.7 ??C (98.1 ??F)-37.2 ??C (98.9 ??F)] 37 ??C (98.6 ??F) Heart Rate: [71-122] 71 Resp: [13-30] 15 BP: (115-186)/(74-107) 115/86 ROS Anesthesia: Does not have a history of anesthetic complications and PONV. Cardiovascular: hypertension: Does not have chest pain. Respiratory: Negative respiratory ROS.no asthma: no COPD: HEENT: missing teeth. Neurological: Neuro additional comments: Multiple sclerosis Musculoskeletal: Musc/Skel/Integ additional comments: fracture Integumentary: Negative skin ROS. Gastrointestinal: PUD (s/p gastric surgery). Genitourinary: Negative ROS. Hematological/Lymphatic: anemia. Endocrine/Metabolic: Negative endocrine ROS. does not have diabetes mellitus. Does not have thyroid disorder. Physical Exam Airway Mallampati: I Mouth opening: normal TM distance: >3 FB Neck ROM: full Cardiovascular Rhythm: regular Rate: normal Dental (+) upper dentures, edentulous Pulmonary - normal exam Breath sounds clear to auscultation Neurological Oriented: normal to time, normal to place and normal to person and oriented to person, place and time Skin Musculoskeletal (+) fracture Extremities Anesthesia Plan ASA 3 Anesthesia technique(s) discussed with the patient/family: General Anesthesia plan agreed upon was: general Post operative pain planned: discuss with surgical team Induction planned: intravenous and rapid sequence Airway management planned: general endotracheal Anesthetic plan and risks discussed with patient. Use of blood products discussed with patient who consented to blood products. Plan discussed with resident. Additional Equipment Requests documented in this encounter Plan of Treatment Not on file documented as of this encounter Procedures Procedure Name Priority Date/Time Associated Diagnosis Comments PB ANESTHESIA PLACEHOLDER Routine 05/08/2022 7:47 AM EST HI AN ELECTIVE ENDOTRACHEAL AIRWAY Routine 05/08/2022 7:47 AM EST documented in this encounter Results * HI AN ELECTIVE ENDOTRACHEAL AIRWAY, PB ANESTHESIA PLACEHOLDER (05/08/2022 7:47 AM EST) Narrative Juan Carlos Garcia MD - 05/08/2022 7:47 AM EST Doug Flor DO ? 05/08/2022 ??8:39 AM Airway Date/Time: 05/08/2022 7:47 AM Urgency: elective Airway not difficult General Information and Staff Patient location during procedure: OR Anesthesiologist: Juan Carlos Garcia MD Resident: Doug Flor DO Performed: Resident Indications and Patient Condition Indications for airway management: anesthesia Spontaneous Ventilation: absent Preoxygenated: yes Patient position: sniffing Mask difficulty assessment: 0 - not attempted Final Airway Details Final airway type: endotracheal airway Successful airway: ETT Cuffed: yes Successful intubation technique: direct laryngoscopy Endotracheal tube insertion site: oral Blade: Alberto Blade size: #3 ETT size (mm): 7.0 Cormack-Lehane Classification: grade I - full view of glottis Placement verified by: chest auscultation and capnometry Cuff volume (mL): 5 Measured from: gums ETT to gums (cm): 20 Number of attempts at approach: 1 Additional Comments Atraumatic. No change to dentition. us Juan Carlos Garcia MD ANESTHESIA ORDERABLES Final R esult documented in this encounter Visit Diagnoses Not on filedocumented in this encounter Administered Medications Inactive Administered Medications - up to 3 most recent administrations Medication Order MAR Action Action Date Dose Rate Site ceFAZolin (Ancef) injection 2 g 2 g, Intravenous, Once, 1 dose, On 05/08/22 at 0745, Routine, Holding - Preprocedure Given 05/08/2022 8:02 AM EST 2 g dexamethasone (Decadron) injection Intravenous, As needed, Starting on 05/08/22 at 0818, Until 05/08/22 at 1020, Routine, Anesthesia Intraprocedure Given 05/08/2022 8:18 AM EST 4 mg ePHEDrine Sulfate prefilled syringe Intravenous, As needed, Starting on 05/08/22 at 0816, Until 05/08/22 at 1020, Routine, Anesthesia Intraprocedure Given 05/08/2022 8:32 AM EST 5 mg Given 05/08/2022 8:16 AM EST 5 mg fentaNYL (Sublimaze) injection Intravenous, As needed, Starting on 05/08/22 at 0745, Until 05/08/22 at 1020, Routine, Anesthesia Intraprocedure Given 05/08/2022 7:45 AM EST 50 mcg HYDROmorphone (Dilaudid) injection Intravenous, As needed, Starting on 05/08/22 at 0816, Until 05/08/22 at 1020, Routine, Anesthesia Intraprocedure Given 05/08/2022 8:16 AM EST 0.5 mg lactated Ringer's infusion Intravenous, Continuous PRN, Starting on 05/08/22 at 0737, Until 05/08/22 at 1020, Routine New Bag 05/08/2022 7:37 AM EST Lidocaine HCl solution prefilled syringe Buccal, As needed, Starting on 05/08/22 at 0745, Anesthesia Intraprocedure Given 05/08/2022 7:45 AM EST 60 mg midazolam (Versed) injection Intravenous, As needed, Starting on 05/08/22 at 0737, Until 05/08/22 at 1020, Routine, Anesthesia Intraprocedure Given 05/08/2022 7:37 AM EST 2 mg ondansetron (Zofran) injection Intravenous, As needed, Starting on 05/08/22 at 0943, Until 05/08/22 at 1020, Routine, Anesthesia Intraprocedure Given 05/08/2022 9:43 AM EST 4 mg phenylephrine in NS (Con-Synephrine) 100 mcg/mL prefilled syringe Intravenous, As needed, Starting on 05/08/22 at 0818, Until 05/08/22 at 1020, Routine, Anesthesia Intraprocedure Given 05/08/2022 8:40 AM EST 100 mcg Given 05/08/2022 8:18 AM EST 100 mcg Given 05/08/2022 7:54 AM EST 50 mcg propofol (Diprivan) injection Intravenous, As needed, Starting on 05/08/22 at 0745, Until 05/08/22 at 1020, Routine, Anesthesia Intraprocedure Given 05/08/2022 9:57 AM EST 10 mg Given 05/08/2022 9:55 AM EST 10 mg Given 05/08/2022 9:53 AM EST 10 mg rocuronium (ZeMuron) injection Intravenous, As needed, Starting on 05/08/22 at 0745, Until 05/08/22 at 1020, Routine, Anesthesia Intraprocedure Given 05/08/2022 9:24 AM EST 10 mg Given 05/08/2022 8:40 AM EST 10 mg Given 05/08/2022 7:45 AM EST 70 mg sugammadex (Bridion) 200 MG/2ML injection Intravenous, As needed, Starting on 05/08/22 at 0945, Until 05/08/22 at 1020, Routine, Anesthesia Intraprocedure Given 05/08/2022 9:45 AM EST 200 mg documented in this encounter Additional Health Concerns Infection Onset Date Last Indicated Resolved Time Respiratory Rule-Out 05/08/2022 05/07/2022 023 9:09 AM EST documented as of this encounter Care Teams Associate Professor Of Art Relationship Specialty Start Date End Date Gagan Solomon MD [address] [place] [id number] PCP - General 08/15/20 documented as of this encounter
--- OUTSIDE RECORDS SUMMARY | 2024-02-20 10:30 | XMS_ITS | Encounter Summary ---
Author Organization [facility] Address [address] [place], [place] [id number] Care Team Providers Care Accounts Payable Professional Name Role Phone Unavailable Primary Care Provider Unavailabl e Encounter Details Date Type Department Care Team (Late st Contact Info) Description 03/01/2012 [facility] Vitals Encounter [facility] OUTPATIENT CONVERSIONS [address] [place] [address] ProviderAwa MD [address] [place] [id number] Social History Tobacco Use Types Packs/Day [...] - Inhaled Oxygen Concentration - - Weight 54 kg (119 lb 0.1 oz) 03/01/2012 11:02 AM EST Height - - Body Mass Index - - documented in this encounter Plan of Treatment Not on file documented as of this encounter Visit Diagnoses Not on filedocumented in this encounter
--- OUTSIDE RECORDS SUMMARY | 2024-02-20 10:30 | XMS_ITS | Encounter Summary ---
Author Organization [facility] Address [address] [place], [place] [id number] Care Team Providers Care Singer And Unloader Name Role Phone Unavailable Primary Care Provider Unavailabl e Encounter Details Date Type Department Care Team (Late st Contact Info) Description 03/23/2016 Legacy AEHR Vitals Encounter [facility] OUTPATIENT CONVERSIONS [address] [place] [address] ProviderAwa MD [address] [place] [address] Social History Tobacco Use Types Packs/Day [...] - Inhaled Oxygen Concentration - - Weight 53.1 kg (117 lb) 03/23/2016 1:06 PM EST Height 165.1 cm (5' 5 ) 03/23/2016 1:06 PM EST Body Mass Index 19.47 03/23/2016 1:06 PM EST documented in this encounter Plan of Treatment Not on file documented as of this encounter Visit Diagnoses Not on filedocumented in this encounter
--- OUTSIDE RECORDS SUMMARY | 2024-02-20 10:30 | XMS_ITS | Encounter Summary ---
Author Organization [facility] Address [address] [place] [id number] Care Team Providers Care Top Taper Machine Name Role Phone Unavailable Primary Care Provider Unavailabl e Encounter Details Date Type Department Care Team (Late st Contact Info) Description 06/25/2016 [facility] Vitals Encounter [facility] OUTPATIENT CONVERSIONS [address] [place] [address] ProviderAwa MD [address] [place] [id number] Social History Tobacco Use Types Packs/Day [...] - Inhaled Oxygen Concentration - - Weight 54.9 kg (121 lb 0.2 oz) 06/25/2016 9:02 A M EDT Height 165.1 cm (5' 5 ) 06/25/2016 9:02 AM EDT Body Mass Index 20.14 06/25/2016 9:02 AM EDT documented in this encounter Plan of Treatment Not on file documented as of this encounter Visit Diagnoses Not on filedocumented in this encounter
--- OUTSIDE RECORDS SUMMARY | 2024-02-20 10:30 | XMS_ITS | Encounter Summary ---
Author Organization [facility] Address [address] [place] [address] Care Team Providers Care Field Logistics Coordinator Name Role Phone Gagan Solomon MD Primary Care Provider [phone] Reason for Visit * Reason Comments Fall * Auth/Cert (Routine) Specialty Diagnoses / Procedures Referred By Best luna Referred To Contact Diagnoses Oth fracture of shaft of right femur, init for clos fx (CMS/HCC) Mechanical fall; periprosthetic fx with >90 degree; in traction splint Gagan Osuna MD [address] [place] [id number] Phone: tel: fax: [facility] Emergency Department [address] [place] [address] Phone: tel: Referral ID Status Reason Start Date Expiration Date Visits Re quested Visits Authorized [id number] 1 1 Encounter Details Date Type Department Care Team (Latest Contact Info) Description 05/07/2022 3:15 PM EST - 05/14/2022 1:55 PM EST Hospital Encounter [facility] Inpatient [address] [place] [address] Bruce Murphy MD [address] [place] [address] Gagan Osuna MD [address] [place] [address] Closed displaced transverse fracture of shaft of right femur, initial encounter (CMS/HCC) (Primary Dx) Discharge Disposition: Home or Self Care Social [...] Sign Reading Time Taken Comments Blood Pressure 152/78 05/14/2022 12:14 PM EST Pulse 90 05/14/2022 12:14 PM EST Temperature 36.8 ??C (98.3 ??F) 05/14/2022 12:[address] Respiratory Rate 16 05/14/2022 12:14 PM EST Oxygen Saturation 96% 05/14/2022 12:14 PM EST Inhaled Oxygen Concentration - - Weight 56.7 kg (125 lb) 05/11/2022 11:00 AM EST Height 165.1 cm (5' 5 ) 05/11/2022 11:00 AM EST Body Mass Index 20.8 05/11/2022 11:00 AM EST documented in this encounter Medications at Time of Discharge [...] needed for muscle spasms. 50 tablet 05/14/2022 enoxaparin (Lovenox) 30 MG/0.3ML solution prefilled syringe Inject 0.3 mL (30 mg total) under the skin 2 (two) times a day. 17.4 mL 05/14/2022 3 naloxone (Narcan) 4 mg/0.1 mL nasal spray Administer 1 spray (4 mg total) into affected nostril(s) if needed for opioid reversal. Call 911. Give 4 mg (1 spray) into one nostril. Repeat every 2-3 minutes as needed, alternating nostrils, until medical assistance arrives. 1 each 05/14/2022 4 oxyCODONE (Roxicodone) 5 MG immediate release tablet Take 1 tablet (5 mg total) by mouth every 6 (six) hours if needed for severe pain for up to 5 days. 20 tablet 05/14/2022 3 senna-docusate (Kerry-Colace) 8.6-50 MG tablet Take 1 tablet by mouth 2 (two) times a day for 14 days. 28 tablet 05/14/2022 3 documented as of this encounter Miscellaneous Notes * Addendum Note - Shamika Betancur RN - 05/14/2022 1:55 PM Soer addended by: Shamika Betancur RN on: 05/21/2022 6:07 PM Actions taken: Utilization Review saved * Addendum Note - Shamika Betancur RN - 05/14/2022 1:55 PM ESTEncounter addended by: Shamika Betancur RN on: 05/24/2022 2:25 PM Actions taken: Flowsheet accepted * Progress Notes - Sadi Perez MD - 05/14/2022 11:23 AM EST GME DAILY PROGRESS NOTE 05/14/22 Subjective Subjective: Ambulance to the bathroom without any issues, has no acute concerns. Remains on room air without any difficulties. ROS: Constitutional: denies fevers, chills CV: denies chest pain, palpitations Resp: denies cough, SOA GI: denies nausea, vomiting Objective Objective: Vitals: Temp: [36.9 ??C (98.4 ??F)-37.1 ??C (98.7 ??F)] 36.9 ??C (98.4 ??F) Heart Rate: [79-93] 84 Resp: [16] 16 BP: (128-164)/(62-85) 149/69 Physical Exam: Physical Exam Constitutional: General: She is not in acute distress. HENT: Head: Normocephalic and atraumatic. Cardiovascular: Rate and Rhythm: Normal rate and regular rhythm. Heart sounds: No murmur heard. No friction rub. No gallop. Pulmonary: Effort: No respiratory distress. Breath sounds: No stridor. No wheezing. Abdominal: General: Abdomen is flat. There is no distension. Palpations: There is no mass. Tenderness: There is no abdominal tenderness. Neurological: Mental Status: She is alert and oriented to person, place, and time. Labs and Imaging: Results from last 7 days Lab Units 05/11/22 1153 05/09/22 0512 05/08/22 0027 WBC 10*3/uL 6.53 6.14 6.90 HEMOGLOBIN g/dL 9.0* 8.6* 9.2* HEMATOCRIT % 31.4* 31.0* 31.9* PLATELETS 10*3/uL 221 189 228 Results from last 7 days Lab Units 05/09/22 2159 05/09/22 0536 05/08/22 0027 05/07/22 1714 SODIUM mmol/L -- 141 138 138 SODIUM, SYRINGE mmol/L 140 -- -- -- POTASSIUM mmol/L -- 4.7 3.6* 3.9 CHLORIDE mmol/L -- 106 102 103 CO2 mmol/L -- 30* 27 26 BUN mg/dL -- 19 16 18 CREATININE mg/dL -- 0.81 0.60 0.62 CALCIUM mg/dL -- 8.7* 8.8* 8.7* BILIRUBIN TOTAL mg/dL -- -- <0.2* -- ALKALINE PHOSPHATASE U/L -- -- 159* -- ALT U/L -- -- 21 -- AST U/L -- -- 33 -- GLUCOSE mg/dL -- 116* 178* 132* Labs personally reviewed in the EMR. No new imaging Imaging personally reviewed in the EMR. Assessment/Plan Assessment and Plan: Ms. Ohara is a 66 yo F w/ hx of osteoporosis, movement disorder, chronic anemia who presented for periprosthetic fracture. Went to the OR on 05/08. #Acute Right periprosthetic femur fracture RAGHAV, revision CMN (05/08/22) -OR on 05/08/22 -pain control, DVT ppx and medical management per primary #Acute on Chronic Hypoxic Respiratory failure--Improved -her last hospitalization, apparently discharged on home O2 but not requiring any oxygen needs currently -CXR on 05/07- personally reviewed, read discussed small focus of atelectasis vs scarring in LLL -COVID/viral panel - negative -CXR on 05/09 - personally reviewed, no consolidation/effusion -suspect this may be related to component of underlying COPD given risk factors, less likely concern for parenchymal lung involvement or infectious etiologies PLAN: -continue post-op pulm hygeine/IS -continue to wean supplemental O2 as possible with goal to return to RA at discharge -will continue to monitor symptoms #Chronic normocytic anemia -Hgb 10.1 on admission, MCV 81 -prior admission in 2016 with hx of ELIZABETH and B12 deficiency causing underlying anemia -currently undergoing B12 and iron supplementation #Movement disorder -prior neurology admission for akathisia/dyskinesia and was discharged on TID benadryl at that time -patient reported hx of MS but no previous documented evaluations or medications -likely suspect dyskinesia verses parkinsonian like disease process underlying -continue amantadine 200 mg twice daily CHRONIC CONDITIONS: #Tobacco use disorder -currently smoking ~5 cigarettes/day -denies any current need for NRT #Depression-continue cymbalta #Hypokalemia - resolved #Hx of B12 deficiency -prior hx of B12 deficiency, per patient undergoing B12 replacement #Vitamin D insufficiency -vitamin D level - 16.5 on admission, continue vitamin D supplementation Fluids: PO Electrolytes: Replete as needed DVT Ppx: PLOV Diet: Adult diet Diet texture: Regular GI Ppx: Pepcid Glycemic control: N/A Last BM: 05/13/22 Code status: Full Code Thank you for allowing us to participate in the care of this patient. Please Secure Chat or page with any questions or concerns. GME will continue to follow. Sadi Perez, PGY-2 Internal Medicine Pager: [phone] Signed: 05/14/2022 - 11:23 AM Cosigned by Gio Moran MD at 05/14/2022 2:08 PM EST Associated attestation - Gio Moran MD - 05/14/2022 2:08 PM EST I saw and evaluated the patient. I discussed the case with the resident/fellow and agree with the findings and plan as documented. * Nursing Note - Triston Simpson, RN - 05/14/2022 11:20 AM EST Orthopedic Transition Nurse Note General: Spoke with: Patient and Bedside optometric technologist and Interventions: Assessed: Dressing Dressing Interventions: CDI Wound 05/08/22 Incision Leg Anterior;Proximal;Right;Upper (Active) Wound Assessment Unable to assess 05/10/22 0800 Margins Unable to assess 05/10/22 08 Kerry-Wound Assessment Unable to assess 05/10/22 08 Closure Unable to assess 05/10/22 08 Dressing Other (Comment) 05/10/22 08 Dressing Changed New 05/08/22 1025 Dressing Status Clean;Dry;Intact 05/10/22 0800 Education: Education provided on: Dressing, Signs and symptoms of infection, Weight bearing mobility, Pain protocol/management, Lovenox teaching/importance, and Ortho trauma booklet given Plan of Care: Follow up with Анна Jacqueline on 05/24/2022 at 0850. Op-Plan: Completed Contact Card Given: yes Comments: Patient to discharge to subacute rehab today. RLE: If bandage becomes wet, soiled, or falls off it may be replaced with a clean dry gauze dressing as needed. For medical questions or concerns after discharge, please contact the Orthopedic Transition Nurse at [phone] Tuesday through Tuesday 8:00 am to 2:30 pm. If you feel your concern is a medical emergency please call 911 immediately. * Progress Notes - Janeth Gallagher - 05/14/2022 10:58 AM EST Case Management Discharge Note Richa Ohara 66 y.o. female CSN: [id number] Admission: 05/07/2022 3:15 PM Primary Problem: Closed displaced transverse fracture of shaft of right femur (CMS/[facility]) Primary Career Services Assistant: Primary Caregiver: (Self) Assistance Available at Discharge: Current Outpatient/Agency/Support Group: DME Availability of Care Givers (#Hours): 24 hours Family/Career Services Assistant(s) Willingness Assessed to care for patient at home: Yes Family/Career Services Assistant(s) Readiness Assessed to care for patient at home: Yes Housing Circumstances-Z Codes: Patient Referred to Financial or Community Resources: Discharge Facility/Level of Care Needs: Discharge Facility/Level of Care Needs: rehabilitation facility Patient's Choice of Community Agency(s): Patient's Choice of Community Agency(s): [facility] Patient/Family Anticipated Services at Transition: Patient/Family Anticipated Services at Transition: rehabilitation services DME/Equipment Needed after Discharge: Equipment Currently Used at Home: walker, rolling, cane, quad, wheelchair, manual Equipment Needed After Discharge: none Readmission Within the Last 30 Days: Readmission Within the Last 30 Days: no previous admission in last 30 days Medicare Documentation: Follow-up: No follow-up provider specified. Discharge Transportation: Transportation Anticipated: medical transport Transportation Home at Discharge: Medical Transport Has discharge transport been arranged?: Yes What day is the transport expected?: 05/14/22 What time is the transport expected?: 1400 Follow Up Transport: Additional Comments: Per ORT team, pt is medically ready for discharge to inpt rehab. Pt insurance denied for acute rehab and P2P not completed. Pt has been accepted to [facility] and has a bed on SRU this day. Pt insurance precert completed and approved for inpt subacute rehab. Transportation scheduled with [facility] for pickup at 14:00. RN to call report to [phone]. SW will fax discharge summary & MAR to [phone]. Janeth Gallagher * Discharge Summary - Laura Menendez MD - 05/14/2022 10:49 AM EST Hospitalization Admit Date/Time: 05/07/2022 3:15 PM Admitting Attending: Gagan Osuna Discharge Date: 05/14/22 Discharge Attending Physician: Gagan Osuna Md PCP name and Address: Gagan Solomon MD [address] / [place] [address] Referring provider name and address: Hossein Hodge MD [address] [place] [address] Chief Concern, Brief History of Present Illness, and Hospital Course Richa Ohara is a 66 y.o. female with PMH significant for multiple sclerosis on steroids, chorea,and HTN who presented on 05/07 to [facility] ED as a transfer from [facility] with a right periprosthetic femur fracture. She was taken to the OR on 05/08 for Removal of deep implant right hip, Open treatment right femoral shaft fracture with medullary implant. Patient tolerated the procedure without complication, was extubated in the operating room, and transferred to the PACU for recovery from anesthesia. Shortly thereafter, patient was transferred to the acute care floor for recovery. Hospital medicine was consulted for co management given patient's comorbidities. Patient's hospital course was without complications. Patient was given prophylactic antibiotics, pain was controlled on oral pain medications, and patient tolerated a regular diet. PT/OT evaluated patient and deemed her appropriate foracute rehab. The patient was kept on DVT prophylaxis with SCD's and lovenox. The patient was deemd appropriate for discharge to [facility]. The patient was discharged 05/14/22. Surgeries and Procedures Procedures performed in this encounter Procedures Case Request Operating Room: Right femur removal of IMN and insertion of IMN Right femur removal of IMN and insertion of IMN (Right) Medication List .. acetaminophen 500 MG tablet Commonly known as: Tylenol Take 2 tablets (1,000 mg total) by mouth every 6 (six) hours if needed for pain. amantadine 100 MG capsule Commonly known as: Symmetrel Take 200 mg by mouth 2 (two) times a day. cyanocobalamin 1000 MCG/ML injection Commonly known as: Vitamin B-12 Inject 1,000 mcg into the muscle 1 (one) time per week. Tuesday DULoxetine [address] capsule Commonly known as: Cymbalta Take 60 mg by mouth 2 (two) times a day. Do not crush or chew. enoxaparin 30 MG/0.3ML solution prefilled syringe Commonly known as: Lovenox Inject 0.3 mL (30 mg total) under the skin 2 (two) times a day. famotidine 20 MG tablet Commonly known as: Pepcid Take 20 mg by mouth 2 (two) times a day if needed for heartburn. gabapentin 100 MG capsule Commonly known as: Neurontin Take 1 capsule (100 mg total) by mouth 3 (three) times a day. ipratropium-albuterol 0.5-2.5 mg/3 mL nebulizer solution Commonly known as: Duo-Neb Take 3 mL by nebulization every 8 (eight) hours. methocarbamol 500 MG tablet Commonly known as: Robaxin Take 1 tablet (500 mg total) by mouth every 6 (six) hours if needed for muscle spasms. naloxone 4 mg/0.1 mL nasal spray Commonly known as: Narcan Administer 1 spray (4 mg total) into affected nostril(s) if needed for opioid reversal. Call 911. Give 4 mg (1 spray) into one nostril. Repeat every 2-3 minutes as needed, alternating nostrils, untilmedical assistance arrives. oxyCODONE 5 MG immediate release tablet Commonly known as: Roxicodone Take 1 tablet (5 mg total) by mouth every 6 (six) hours if needed for severe pain for up to 5 days. senna-docusate 8.6-50 MG tablet Commonly known as: Kerry-Colace Take 1 tablet by mouth 2 (two) times a day for 14 days. Where to Get Your Medications These medications were sent to [facility] - [place], [place] - [address] , [facility] [id number] naloxone 4 mg/0.1 mL nasal spray Information about where to get these medications is not yet available Ask your nurse or doctor about these medications acetaminophen 500 MG tablet enoxaparin 30 MG/0.3ML solution prefilled syringe gabapentin 100 MG capsule methocarbamol 500 MG tablet oxyCODONE 5 MG immediate release tablet senna-docusate 8.6-50 MG tablet Discharge Diagnosis Medical Problems Active and Resolved Hospital Problems Hospital Primary hypertension (Chronic) Multiple sclerosis (CMS/HCC) (Chronic) * (Principal) Closed displaced transverse fracture of shaft of right femur (CMS/HCC) Post Discharge Instructions Weightbearing as tolerated right lower extremity Outpatient Follow-Up Future Appointments Date Time Provider Department Center 05/24/2022 8:50 AM [facility] Test Results Pending At Discharge Pending Labs Order Current Status Blood Culture (Aerobic/Anaerobet Set) Preliminary result Blood Culture (Aerobic/Anaerobet Set) Preliminary result Prepare Leukocyte Reduced RBC: 2 Units Preliminary result Prepare Leukocyte Reduced RBC: 2 Units, Leukoreduced Preliminary result Pertinent Physical Exam At Time of Discharge Physical Exam oriented, appropriate and conversant nonlabored respirations RLE: Inspection - dressings c/d/I, jluis wrap in place Motor - TA, GSC, EHL, FHL intact Sensory - SP, DP, Sural, Saph, Tib nn. intact Vascular - Palpable DP/PT pulses, digits WWP RLE proximal swelling is soft to palpation, no ecchymosis, no suspicion for hematoma Discharge Disposition/Condition Disposition: [facility] Condition: Stable (s/sx potential problems absent or manageable) I spent >30 minutes of patient care and instruction time in preparation for this discharge. Cosigned by Eleuterio Rod MD at 05/17/2022 1:24 PM EST * Hospital Course - Laura Menendez MD - 05/14/2022 10:02 AM EST Richa Ohara is a 66 y.o. female with PMH significant for multiple sclerosis on steroids, chorea,and HTN who presented on 05/07 to [facility] ED as a transfer from [facility] with a right periprosthetic femur fracture. She was taken to the OR on 05/08 for Removal of deep implant right hip, Open treatment right femoral shaft fracture with medullary implant. Patient tolerated the procedure without complication, was extubated in the operating room, and transferred to the PACU for recovery from anesthesia. Shortly thereafter, patient was transferred to the acute care floor for recovery. Hospital medicine was consulted for co management given patient's comorbidities. Patient's hospital course was without complications. Patient was given prophylactic antibiotics, pain was controlled on oral pain medications, and patient tolerated a regular diet. PT/OT evaluated patient and deemed her appropriate foracute rehab. The patient was kept on DVT prophylaxis with SCD's and lovenox. The patient was deemd appropriate for discharge to [facility]. The patient was discharged 05/14/22. * Progress Notes - Laura Menendez MD - 05/14/2022 6:31 AM EST Orthopaedic Surgery Note SUBJECTIVE: Patient resting comfortably in bed. She is now postoperative day 6 from removal of hardware and cephalomedullary nail fixation of her right periprosthetic femur fracture. Pain is well controlled, tolerating diet. No fevers, chills, sweats. OBJECTIVE: Vitals: 05/14/22 0329 BP: (!) 164/74 Pulse: 79 Resp: Temp: 37 ??C (98.6 ??F) SpO2: 93% Physical exam: oriented, appropriate and conversant nonlabored respirations RLE: Inspection - dressings c/d/I, jluis wrap in place Motor - TA, GSC, EHL, FHL intact Sensory - SP, DP, Sural, Saph, Tib nn. intact Vascular - Palpable DP/PT pulses, digits WWP RLE proximal swelling is soft to palpation, no ecchymosis, no suspicion for hematoma Assessment: 66 y.o. female with a right periprosthetic femur fx s/p RAGHAV, revision CMN (05/08/22). Plan: Mobility Orders Mobility Protocol: Ortho/Trauma/Spine Mobility Guidelines Spinal Precautions: No cranial, cervical or thoracolumbar spinal precautions necessary Extremity: RLE Extremity Precautions: Extremity Precautions Mobility Restrictions (RLE): Weight bear as tolerated (WBAT) Type of Brace (RLE): None Other mobility precautions: No other precautions required -Pain control per multimodal protocol -Bowel regimen while on narcotic pain medications -DVT prophylaxis: Prophylactic Lovenox while inpatient -PT/OT have evaluated the patient recommend acute rehab placement DISPO: Patient is awaiting acute rehab placement at this time Laura Menendez MD Orthopaedic Trauma Service Pager: [phone] Orthopaedic Recon/Spine/Foot and Ankle Service Pager: [phone] Cosigned by Eleuterio Rod MD at 05/14/2022 1:00 PM EST * Care Plan - Rolo Rodriguez RN - 05/13/2022 10:51 AM EST Problem: Adult Inpatient Plan of Care Goal: Plan of Care Review Outcome: Ongoing, Progressing Flowsheets (Taken 05/13/2022 1051) Progress: improving Plan of Care Reviewed With: patient Goal: Patient-Specific Goal (Individualized) Outcome: Ongoing, Progressing Goal: Absence of Hospital-Acquired Illness or Injury Outcome: Ongoing, Progressing Goal: Optimal Comfort and Wellbeing Outcome: Ongoing, Progressing Goal: Readiness for Transition of Care Outcome: Ongoing, Progressing Problem: Skin Injury Risk Increased Goal: Skin Health and Integrity Outcome: Ongoing, Progressing Problem: Self-Care Deficit Goal: Improved Ability to Complete Activities of Daily Living Outcome: Ongoing, Progressing * Nursing Note - Triston Simpson RN - 05/13/2022 10:45 AM EST Orthopedic Transition Nurse Note General: Spoke with: Patient and Bedside optometric technologist and Interventions: Assessed: Dressing Dressing Interventions: CDI Wound 05/08/22 Incision Leg Anterior;Proximal;Right;Upper (Active) Wound Assessment Unable to assess 05/10/22799 Margins Unable to assess 05/10/22799 Kerry-Wound Assessment Unable to assess 05/10/22799 Closure Unable to assess 05/10/22799 Dressing Other (Comment) 05/10/22799 Dressing Changed New 05/08/22 1025 Dressing Status Clean;Dry;Intact 05/10/22799 Education: Education provided on: Dressing, Signs and symptoms of infection, Weight bearing mobility, Pain protocol/management, Lovenox teaching/importance, and Ortho trauma booklet given Plan of Care: Follow up with Анна Phillips on 05/24/2022 at 0850. Op-Plan: Completed Contact Card Given: yes Comments: Patient in chair. Insurance denied acute rehab; awaiting subacute rehab. RLE: If bandage becomes wet, soiled, or falls off it may be replaced with a clean dry gauze dressing as needed. For medical questions or concerns after discharge, please contact the Orthopedic Transition Nurse at [phone] Tuesday through Tuesday 8:00 am to 2:30 pm. If you feel your concern is a medical emergency please call 911 immediately. * Progress Notes - Mina Pierre - 05/13/2022 9:00 AM EST Physical Therapy Treatment Patient Name: Richa Ohara Today's Date: 05/13/2022 PT Discharge Recommendations: Acute rehab Equipment Recommended: Defer to facility Subjective RN and patient agreed to therapy session Participants in Care Family/Caregiver Present: No Family/Caregiver: (Adult male and female visitors) Sales And Marketing Agent: Not Applicable Presentation Oxygen Therapy: None (Room air) O2 Delivery Method: Nasal cannula O2 Flow Rate (L/min): 1.5 L/min Pre-Session: Head of bed elevated Pre-Session Comments: RN agreed to therapy session at thsi time Post-Session: Sitting in chair, Call light in reach, RN notified Post-Session Comments: All needs met Precautions Right Lower Extremity Weight Bearing Status: Weight Bearing as Tolerated Medical Precautions: Fall precautions Objective Pain 4/10 pain in right LE Delirium Screening Madden Agitation Sedation Scale (RASS): Alert and calm Confusion Assessment Method-ICU (CAM-ICU/PCAM-ICU) Feature 3: Altered Level of Consciousness: Negative Ambulation Device: Rolling walker Apparatus: Chair follow Assistance: Standby assist Distance : 220 feet Ambulation Comments: Step-through gait pattern; reported 50% weightbearing; right foot flat during initial contact Therapeutic Activity (25 minutes) SBA supine - sit to EOB; maintained good sitting balance; SBA sit - stand with RWx Assessment Patient reported increased right LE swelling but agreed to get up any ambulate. SBA with all bed mobility and transfers; increased ambulating distance to 220 feet SBA with Rwx and no rests. Toleratedincreased weightbearing through right LE during stance phase. PT Recommendations Discharge Destination: Acute rehab Discharge Equipment: Defer to facility Plan Continue with current PT POC PT Goals PT GOAL DETAILS Goal Established Date Time Frame Goal Status PT Goal 1: Pt will transfer sit<>stand and bed<>chair IND/Mod (I) with least restrictive device as appropriate 05/09/22 2 weeks PT Goal 2: Pt will ambulate x150ft IND/Mod (I) with least restrictive device as appropriate 05/09/22 2 weeks PT Goal 3: Pt will ascend/descend x3 steps SBA using bilateral hand rails as needed 05/09/22 2 weeks PT Goal 4: Pt/Pt's family will be IND with HEP, safety recommendations, and discharge recommendations. 05/09/22 2 weeks Written by Mina Pierre on 05/13/22 at 2:17 PM. * Progress Notes - Sofia Anne - 05/13/2022 8:57 AM EST Occupational Therapy Treatment Patient Name: Richa Ohara Today's Date: 05/13/2022 OT Discharge Recommendations: Acute rehab Equipment Recommended: Defer to facility Subjective Pt agreeable to OT. Participants in Care Family/Caregiver Present: No Presentation Oxygen Therapy: None (Room air) Pre-Session: Supine, Head of bed elevated Post-Session: Sitting in chair, Call light in reach, RN notified RN agreeable to session. Pt positioned for comfort and pressure relief at end of session. Precautions Right Lower Extremity Weight Bearing Status: Weight Bearing as Tolerated Medical Precautions: Fall precautions Objective Pain Pt reported 4/10 pain in right LE. Pt positioned for comfort following session. Delirium Screening [place]en Agitation Sedation Scale (RASS): Alert and calm Cognition Cognition Overall Cognitive Status: Within Functional Limits Self-Care Interventions (9 minutes) Pt participated in ADLs including feeding, grooming, and dressing tasks. OT provided setup of itemsand verbal cues during activities. OT provided education regarding home safety with rolling walker,including removal of throw rugs and importance of ensuring household pets do not get underfoot or jump on her in order to decrease fall risk. Feeding Feeding Level of Assistance: Independent Feeding Where Assessed: Chair Level Grooming Grooming Level of Assistance: Supervision Grooming Where Assessed: Edge of bed, Patient declined participation with standing grooming tasks Lower Body Dressing Lower Body Dressing Level of Assistance: Able to independently adjust left sock and pajama pants while reclined in bed Therapeutic Activity (15 minutes) Pt participated in therapeutic activities to improve tolerance for upright and increase functional endurance needed for the completion of ADLs and progression of mobility. Increased time provided to allow patient to adjust to positional changes and initiate independent movement. Pt was on room air during session with no c/o SOA. Pt required SBA for bed mobility and functional transfers with rolling walker. Pt walked in kovacs with rolling walker to help facilitate ability to return to ADLs in thenatural environment (kitchen, bathroom, community, etc). Please refer to bed mobility, transfers, and balance sections for details regarding required levels of assist. Bed Mobility Bed Mobility Exam: Scooting/Bridging Level of [place]: Stand-by assist (to scoot to edge of bed in sitting) Physical/Nonphysical Assist: Verbal Cues Assistive Device: Bed rails Bed Mobility Exam: Supine to Sit Level of [place]: Stand-by assist Physical/Nonphysical Assist: HOB elevated Assistive Device: Bed rails Transfers Transfer Exam: Sit to stand Level of [place]: Stand-by assist Physical/Nonphysical Assist: Set-up required Assistive Device: Walker, rolling Transfer Exam: Stand to Sit Level of [place]: Stand-by assist Physical/Nonphysical Assist: Set-up required Assistive Device: Walker, rolling Transfer Exam: Bed to Chair/Chair to Bed Level of [place]: Stand-by assist Physical/Nonphysical Assist: Verbal Cues, Set-up required Assistive Device: Walker, rolling Balance Postural Appearance Posture: Within Functional Limits Static Sitting Balance Static Sitting-Level of Assistance: Supervision Static Standing Balance Static Standing-Balance Support: (Rolling walker) Static Standing-Level of Assistance: Standby assist Dynamic Standing Balance Dynamic Standing-Balance Support: (Rolling walker) Dynamic Standing Level of Assistance: Standby assist Assessment Pt demonstrated increased independence with functional mobility and ADLs this session. Pt will continue to benefit from OT services to further address independence and safety with self care tasks andto help promote return to previous level of function. OT Recommendations Discharge Destination: Acute rehab Discharge Equipment: Defer to facility Plan Continue OT plan of care. Goals OT GOAL DETAILS Goal Established Date Time Frame Goal Status OT Goal 1: Pt will complete functional mobility to bed, chair, toilet wth supervision, necessary AEupon discharge 05/09/22 2 weeks OT Goal 2: Pt will complete LB dressing CGA with AE as needed upon discharge 05/09/22 2 weeks OT Goal 3: Pt will complete toileting routine CGA with AD as needed upon discharge 05/09/22 2 weeks OT Goal 4: Pt will complete grooming routine standing at sink without seated rest break upon discharge 05/09/22 2 weeks Written by Sofia Anne on 05/13/22 at 12:15 PM. * Progress Notes - Laura Menendez MD - 05/13/2022 6:19 AM EST Orthopaedic Surgery Note SUBJECTIVE: Patient resting comfortably in bed. She is now postoperative day 5 from removal of hardware and cephalomedullary nail fixation of her right periprosthetic femur fracture. Patient states pain is well controlled she is tolerating by mouth diet. No fevers, chills, sweats. Yesterday reported concern for RLE swelling which was jluis wrapped and has improved today. Was able to ambulate last night. OBJECTIVE: Vitals: 05/13/22 0405 BP: (!) 142/66 Pulse: 85 Resp: Temp: 36.7 ??C (98 ??F) SpO2: 94% Physical exam: oriented, appropriate and conversant nonlabored respirations RLE: Inspection - dressings c/d/I, jluis wrap in place Motor - TA, GSC, EHL, FHL intact Sensory - SP, DP, Sural, Saph, Tib nn. intact Vascular - Palpable DP/PT pulses, digits WWP RLE proximal swelling is soft to palpation, no ecchymosis, no suspicion for hematoma Assessment: 66 y.o. female with a right periprosthetic femur fx s/p RAGHAV, revision CMN (05/08/22). Plan: Mobility Orders Mobility Protocol: Ortho/Trauma/Spine Mobility Guidelines Spinal Precautions: No cranial, cervical or thoracolumbar spinal precautions necessary Extremity: RLE Extremity Precautions: Extremity Precautions Mobility Restrictions (RLE): Weight bear as tolerated (WBAT) Type of Brace (RLE): None Other mobility precautions: No other precautions required -Pain control per multimodal protocol -Bowel regimen while on narcotic pain medications -DVT prophylaxis: Prophylactic Lovenox while inpatient -PT/OT have evaluated the patient recommend acute rehab placement DISPO: Patient is awaiting acute rehab placement at this time Laura Menendez MD Orthopaedic Trauma Service Pager: [phone] Orthopaedic Recon/Spine/Foot and Ankle Service Pager: [phone] Cosigned by Eleuterio Rod MD at 05/14/2022 1:00 PM EST * Nursing Note - Vani Lassiter RN - 05/13/2022 12:57 AM EST Remote Telemetry Nursing Note Event Type: New remote tele admit, Patient educated on telemetry monitoring, and Routine rounds Heart Rate of 80 S1/S2: Audible Patient Condition: Telemetry Status Stable Patient Disposition: Remains on remote telemetry Placed on continuous O2 sats: ordered written over 4 days ago. Pt on room air. Pt states leg pain is lessened today, using IS . Pt is awaiting Rehab placement. Lungs clear to ausculation. Sats reading 95% on room air. * Progress Notes - Mary Polanco RN - 05/12/2022 2:27 PM EST Case Management Adult Progress Note Richa Ohara 66 y.o. female CSN: [id number] Admission: 05/07/2022 3:15 PM Primary Problem: Closed displaced transverse fracture of shaft of right femur (CMS/HCC) Anticipated Discharge Date: tbd Has Discharge Plans Changed? No Housing Circumstances: Not Applicable Housing Circumstances Action Taken: Other none Additional Comments [facility] sent the intent to deny acute rehab. Pam said they could pre cert for the SRU. I asked herto do that. SW will continue to follow. Mary Polanco RN * Care Plan - Rolo Rodriguez RN - 05/12/2022 2:20 PM EST Problem: Adult Inpatient Plan of Care Goal: Plan of Care Review Outcome: Ongoing, Progressing Flowsheets (Taken 05/12/2022 1420) Progress: improving Plan of Care Reviewed With: patient Goal: Patient-Specific Goal (Individualized) Outcome: Ongoing, Progressing Goal: Absence of Hospital-Acquired Illness or Injury Outcome: Ongoing, Progressing Goal: Optimal Comfort and Wellbeing Outcome: Ongoing, Progressing Goal: Readiness for Transition of Care Outcome: Ongoing, Progressing Problem: Skin Injury Risk Increased Goal: Skin Health and Integrity Outcome: Ongoing, Progressing Problem: Self-Care Deficit Goal: Improved Ability to Complete Activities of Daily Living Outcome: Ongoing, Progressing * Consults - Luz Marina Pete - 05/12/2022 12:43 PM EST Adult Nutrition Evaluation Note Richa Ohara 66 y.o. female CSN: [id number] Room/Bed 764/764A Nutrition evaluation type: assessment Reason for evaluation: LOS Hospital course: 66 y.o female admitted from OSH with right sided femur fx after falling down 3 stairs. OR 2/4 fir right femur removal of IMN and insertion of IMN. CXR/blood culture obtained. Awaiting acute rehab placement at this time. Past medical/ surgical history: 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 Anemia Chronic or unspecified gastric ulcer with perforation (CMS/HCC) Gastric ulcer with perforation Conversions - Other Acute Peptic Ulcer With Perforation Conversions - Other Cerumen Impaction Conversions - Other Constipation Conversions - Other Dehydration (Na, H2O) Conversions - Other Duodenal Ulcer Conversions - Other Hypokalemia Deficiency of other specified B group vitamins Vitamin B 12 deficiency Depression Heart failure (CMS/HCC) Iron deficiency Iron deficiency Peptic ulcer Unspecified protein-calorie malnutrition (CMS/HCC) Malnutrition Vitamin D deficiency Past Surgical History: Procedure Laterality Date CHOLECYSTECTOMY N/A Cholecystectomy from [facility] OTHER SURGICAL HISTORY N/A Esophagogastroduodenoscopy from [facility] OTHER SURGICAL HISTORY N/A Exploratory Laparotomy from [facility] TUBAL LIGATION N/A Tubal Ligation from [facility] Social history: Additional comments: Tolerating PO diet, intakes ranging from 25-100%. No nausea, vomiting or diarrhea. Last BM 05/09. Vitals and Basic Assessment: BP: 139/72 Temp: 36.7 ??C (98.1 ??F) Oxygen Therapy: Supplemental oxygen O2 Delivery Method: Nasal cannula [place] Coma Scale Score: 15 Sav Scale Score: 22 Last BM Date: 05/09/22 Allergies: NKFA Medications: acetaminophen, 1,000 mg, Oral, q6h ELI amantadine, 200 mg, Oral, BID DULoxetine, 60 mg, Oral, BID enoxaparin, 30 mg, Subcutaneous, q12h ergocalciferol, 50,000 Units, Oral, Weekly famotidine, 20 mg, Oral, BID gabapentin, 300 mg, Oral, TID methocarbamol, 500 mg, Oral, 4x daily polyethylene glycol, 17 g, Oral, Daily senna-docusate, 1 tablet, Oral, BID Meds were reviewed: Yes Labs: Lab Results Component Value Date GLUCOSE 116 (H) 05/09/2022 CALCIUM 8.7 (L) 05/09/2022 NA 140 05/09/2022 K 4.7 05/09/2022 CO2 30 (H) 05/09/2022 CL 106 05/09/2022 BUN 19 05/09/2022 CREATININE 0.81 05/09/2022 PHOS 4.2 05/07/2022 MG 1.9 05/07/2022 HGBA1C 5.2 05/07/2022 Anthropometrics: Height: 165.1 cm (5' 5 ) Weight: 56.7 kg (125 lb) BMI (Calculated): 20.8 Weight Evaluation: Normal (BMI 18.5-24.9) [place] Body Weight (kg): 56.8 Percent [place] Body Weight: 100 Wt Readings from Last 5 Encounters: 05/11/22 56.7 kg (125 lb) 06/25/16 54.9 kg (121 lb 0.2 oz) 03/23/16 53.1 kg (117 lb) 03/22/13 57.2 kg (126 lb 2 oz) 12/19/12 57.2 kg (125 lb 15.9 oz) Estimated Needs: Current Nutrition Intake: Diet Supplements: None Diet Order: Adult Diet Diet Texture: Regular Percent Meals Eaten (%): 55% x 5 meals Diet Experience and Nutrition History: Diet Education Provided: Will monitor Pertinent home medications: vitamin B12 Nutrition Focused Physical Exam: Physical exam performed on (date): deferred Assessment of Malnutrition: Nutrition Problem: Increased nutrient needs Calories and Protein related to s/p femur IMN as evidenced by increased needs for healing. Status of Nutrition Diagnosis: New Nutrition Interventions and Recommendations: - Continue Regular diet - Add Boost Plus TID - Add Laron BID to provide 160 kcal, 14 gm L-Arginine, 14 gm L-Glutamine, vitamins C, E, B12, and calcium and zinc - Document intakes - Bowel regimen as needed Nutrition Monitoring and Goals: - Consume 75% or greater of meals - Monitor weight, labs, and elytes Acuity Level: 1 Luz Marina Pete * Nursing Note - Triston Simpson RN - 05/12/2022 11:45 AM EST Orthopedic Transition Nurse Note General: Spoke with: Patient and Bedside optometric technologist and Interventions: Assessed: Dressing Dressing Interventions: CDI Wound 05/08/22 Incision Leg Anterior;Proximal;Right;Upper (Active) Wound Assessment Unable to assess 05/10/22799 Margins Unable to assess 05/10/22799 Kerry-Wound Assessment Unable to assess 05/10/22799 Closure Unable to assess 05/10/22799 Dressing Other (Comment) 05/10/22799 Dressing Changed New 05/08/22 1025 Dressing Status Clean;Dry;Intact 05/10/22799 Education: Education provided on: Dressing, Signs and symptoms of infection, Weight bearing mobility, Pain protocol/management, Lovenox teaching/importance, and Ortho trauma booklet given Plan of Care: Follow up with Angeledilbertoshahla Jacqueline on 05/24/2022 at 0850. Op-Plan: Completed Contact Card Given: yes Comments: Awaiting acute rehab. Patient has some swelling on her RLE and wants MD to look at it; will f/u with team. RLE: If bandage becomes wet, soiled, or falls off it may be replaced with a clean dry gauze dressing as needed. For medical questions or concerns after discharge, please contact the Orthopedic Transition Nurse at [phone] Tuesday through Tuesday 8:00 am to 2:30 pm. If you feel your concern is a medical emergency please call 911 immediately. * Progress Notes - Sadi Perez MD - 05/12/2022 7:52 AM EST GME Consult Progress Note 05/12/22 Subjective: No acute concerns overnight. Today she is noting increased swelling of her right lower extremity around her wound site, pain limiting her ambulation. Otherwise she is looking forward to working with PT/OT. No other acute concerns, pain is otherwise well controlled with her current regimen. ROS: Constitutional: denies fevers, chills CV: denies chest pain, palpitations Resp: denies cough, SOA GI: denies nausea, vomiting Objective: Vitals: Temp: [36.7 ??C (98.1 ??F)-37.3 ??C (99.2 ??F)] 36.7 ??C (98.1 ??F) Heart Rate: [80-110] 89 Resp: [14] 14 BP: (112-145)/(59-78) 139/72 Physical Exam: General: appears stated age, no apparent distress HEENT: anicteric sclera, no conjunctival drainage CV: normal rate with regular rhythm, no appreciable MRG, no LE edema Resp: no appreciable wheezes/crackles, nonlabored breathing GI: soft, no TTP, nondistended Neuro: awake and alert, no gross deficits Psych: appropriate mood with congruent affect, cooperative during exam Labs and Imaging: Results from last 7 days Lab Units 05/11/22 1153 05/09/22 0512 05/08/22 0027 WBC 10*3/uL 6.53 6.14 6.90 HEMOGLOBIN g/dL 9.0* 8.6* 9.2* HEMATOCRIT % 31.4* 31.0* 31.9* PLATELETS 10*3/uL 221 189 228 Results from last 7 days Lab Units 05/09/22 2159 05/09/22 0536 05/08/22 0027 05/07/22 1714 SODIUM mmol/L -- 141 138 138 SODIUM, SYRINGE mmol/L 140 -- -- -- POTASSIUM mmol/L -- 4.7 3.6* 3.9 CHLORIDE mmol/L -- 106 102 103 CO2 mmol/L -- 30* 27 26 BUN mg/dL -- 19 16 18 CREATININE mg/dL -- 0.81 0.60 0.62 CALCIUM mg/dL -- 8.7* 8.8* 8.7* BILIRUBIN TOTAL mg/dL -- -- <0.2* -- ALKALINE PHOSPHATASE U/L -- -- 159* -- ALT U/L -- -- 21 -- AST U/L -- -- 33 -- GLUCOSE mg/dL -- 116* 178* 132* Labs personally reviewed in the EMR. Imaging personally reviewed in the EMR. Impression: CXR with no consolidations/effusions. Assessment and Plan: Ms. Ohara is a 66 yo F w/ hx of osteoporosis, movement disorder, chronic anemia who presented for periprosthetic fracture. Went to the OR on 05/08. #Acute Right periprosthetic femur fracture RAGHAV, revision CMN (05/08/22) -OR on 05/08/22 -pain control, DVT ppx and medical management per primary #Chronic hypoxic respiratory failure -states that she was sent home on O2 after discharge from the hospital in March, although statesthat she has not required any oxygen/has not had oxygen at home the past month -CXR on 05/07- personally reviewed, read discussed small focus of atelectasis vs scarring in LLL -COVID/viral panel - negative -CXR on 05/09 - personally reviewed, no consolidation/effusion -no official COPD diagnosis per pt, significant smoking hx as discussed below -patient remains a 1.5 liters/minute, otherwise medically stable with no new sputum production PLAN: -continue post-op pulm hygeine/IS -continue to wean supplemental O2 as possible with goal to return to RA at discharge -will continue to monitor symptoms #Chronic normocytic anemia -Hgb 10.1 on admission, MCV 81 -prior admission in 2015 with hx of ELIZABETH and B12 deficiency causing underlying anemia -currently undergoing B12 and iron supplementation #Movement disorder -pt discusses hx of MS, although prior neurology admission discussed akathisia/dyskinesia and was discharged on TID benadryl at that time -continue amantadine 200 mg twice daily CHRONIC CONDITIONS: #Tobacco use disorder -currently smoking ~5 cigarettes/day -denies any current need for NRT #Depression-continue cymbalta #Hypokalemia - resolved #Hx of B12 deficiency -prior hx of B12 deficiency, per patient undergoing B12 replacement #Vitamin D insufficiency -vitamin D level - 16.5 on admission, continue vitamin D supplementation Last bowel movement: 05/09/22 Thank you for allowing us to participate in the care of this patient. Please Secure Chat or page with any questions or concerns. [facility]ME will continue to follow. Patient was seen and examined with the Attending Physician Dr. Moran. Sadi Perez, PGY-2 Internal Medicine Pager: [phone] Signed: 05/12/2022 - 11:57 AM Cosigned by Gio Moran MD at 05/12/2022 4:10 PM EST Associated attestation - Gio Moran MD - 05/12/2022 4:10 PM EST I saw and evaluated the patient. I discussed the case with the resident/fellow and agree with the findings and plan as documented. * Progress Notes - Sg Obando MD - 05/12/2022 3:19 AM EST Orthopaedic Surgery Note SUBJECTIVE: Patient resting comfortably in bed. She is now postoperative day 4 from removal of hardware and cephalomedullary nail fixation of her right periprosthetic femur fracture. Patient states pain is well controlled she is tolerating by mouth diet. No fevers, chills, sweats. She is anxious clover discharged OBJECTIVE: Vitals: 05/11/22 2323 BP: 137/78 Pulse: 87 Resp: Temp: 37.3 ??C (99.2 ??F) SpO2: 94% Physical exam: oriented, appropriate and conversant nonlabored respirations RLE: Inspection - dressings c/d/I Motor - TA, GSC, EHL, FHL intact Sensory - SP, DP, Sural, Saph, Tib nn. intact Vascular - Palpable DP/PT pulses, digits WWP Assessment: 66 y.o. female with a right periprosthetic femur fx s/p RAGHAV, revision CMN (05/08/22). Plan: Mobility Orders Mobility Protocol: Ortho/Trauma/Spine Mobility Guidelines Spinal Precautions: No cranial, cervical or thoracolumbar spinal precautions necessary Extremity: RLE Extremity Precautions: Extremity Precautions Mobility Restrictions (RLE): Weight bear as tolerated (WBAT) Type of Brace (RLE): None Other mobility precautions: No other precautions required -Pain control per multimodal protocol -PT/OT evaluation while inpatient -Bowel regimen while on narcotic pain medications -DVT prophylaxis: Prophylactic Lovenox while inpatient -PT/OT have evaluated the patient recommend acute rehab placement -Follow-up: Dr. Eleuterio Rod, Orthopaedic Trauma Surgery on 05/26/2022 at [facility], [facility] DISPO: Patient is awaiting acute rehab placement at this time Sg Obando PGY-2 Orthopaedic Surgery [facility] Orthopaedic Trauma Service Pager: [phone] Orthopaedic Recon/Spine/Foot and Ankle Service Pager: [phone] Cosigned by Eleuterio Rod MD at 05/12/2022 2:32 PM EST * Care Plan - Rolo Rodriguez RN - 05/11/2022 11:19 AM EST Problem: Adult Inpatient Plan of Care Goal: Plan of Care Review Outcome: Ongoing, Progressing Flowsheets (Taken 05/11/2022 1119) Progress: improving Plan of Care Reviewed With: patient Goal: Patient-Specific Goal (Individualized) Outcome: Ongoing, Progressing Goal: Absence of Hospital-Acquired Illness or Injury Outcome: Ongoing, Progressing Goal: Optimal Comfort and Wellbeing Outcome: Ongoing, Progressing Goal: Readiness for Transition of Care Outcome: Ongoing, Progressing Problem: Skin Injury Risk Increased Goal: Skin Health and Integrity Outcome: Ongoing, Progressing Problem: Self-Care Deficit Goal: Improved Ability to Complete Activities of Daily Living Outcome: Ongoing, Progressing * Nursing Note - Triston Simpson RN - 05/11/2022 11:05 AM EST Orthopedic Transition Nurse Note General: Spoke with: Patient and Bedside optometric technologist and Interventions: Assessed: Dressing Dressing Interventions: CDI and RLE JLUIS wrap and old traction pin site gauze removed Wound 05/08/22 Incision Leg Anterior;Proximal;Right;Upper (Active) Wound Assessment Unable to assess 05/10/22 0800 Margins Unable to assess 05/10/22 08 [place]-Wound Assessment Unable to assess 05/10/22 08 Closure Unable to assess 05/10/22 08 Dressing Other (Comment) 05/10/22 08 Dressing Changed New 05/08/22 1025 Dressing Status Clean;Dry;Intact 05/10/22 0800 Education: Education provided on: Dressing, Signs and symptoms of infection, Weight bearing mobility, Pain protocol/management, Lovenox teaching/importance, and Ortho trauma booklet given Plan of Care: Follow up with Анна Phillips on 05/24/2022 at 0850. Op-Plan: Completed Contact Card Given: yes Comments: Patient in chair. Awaiting acute rehab. RLE: If bandage becomes wet, soiled, or falls off it may be replaced with a clean dry gauze dressing as needed. For medical questions or concerns after discharge, please contact the Orthopedic Transition Nurse at [phone] Tuesday through Tuesday 8:00 am to 2:30 pm. If you feel your concern is a medical emergency please call 911 immediately. * Progress Notes - Mina Pierre - 05/11/2022 9:40 AM EST Physical Therapy Treatment Patient Name: Richa Ohara Today's Date: 05/11/2022 PT Discharge Recommendations: Acute rehab Equipment Recommended: Defer to facility Subjective RN and patient agreed to therapy session Participants in Care Family/Caregiver Present: No Family/Caregiver: (Adult male and female visitors) Sales And Marketing Agent: Not Applicable Presentation Oxygen Therapy: Supplemental oxygen O2 Delivery Method: Nasal cannula O2 Flow Rate (L/min): 1.5 L/min Pre-Session: Head of bed elevated Pre-Session Comments: 1.5L O2 via nasal cannula Post-Session: Sitting in chair, Call light in reach, RN notified Post-Session Comments: 1.5L O2 via nasal cannula, RN student and NCT present Precautions Right Lower Extremity Weight Bearing Status: Weight Bearing as Tolerated Medical Precautions: Fall precautions Objective Pain 3/10 pain in right knee at the beginning of session and 4/10 pain at end of session Delirium Screening [place] Agitation Sedation Scale (RASS): Alert and calm Confusion Assessment Method-ICU (CAM-ICU/PCAM-ICU) Feature 3: Altered Level of Consciousness: Negative Ambulation Device: Rolling walker Apparatus: Chair follow Assistance: Contact guard assist Distance : 170' with 4 standing rests Ambulation Comments: Step-to gait pattern leading with right LE, right foot flat during initial contact, reported 25% WB'ing through RLE Therapeutic Activity (23 minutes) Min assist supine - sit to EOB; sat on EOB x 6 minutes SBA while unsupported; CGA assist sit - stand with RWx; CGA during static standing balance with RWx while attempting to increase weightbearing on right LE Assessment Min assist with bed mobility and CGA with transfers; increased ambulation distance to 170 feet CGA with Rwx but required four standing rests. Tolerated approximately 25% weight bearing through right LE which is an improvement from yesterday's session. PT Recommendations Discharge Destination: Acute rehab Discharge Equipment: Defer to facility Plan Continue with current PT POC PT Goals PT GOAL DETAILS Goal Established Date Time Frame Goal Status PT Goal 1: Pt will transfer sit<>stand and bed<>chair IND/Mod (I) with least restrictive device as appropriate 05/09/22 2 weeks PT Goal 2: Pt will ambulate x150ft IND/Mod (I) with least restrictive device as appropriate 05/09/22 2 weeks PT Goal 3: Pt will ascend/descend x3 steps SBA using bilateral hand rails as needed 05/09/22 2 weeks PT Goal 4: Pt/Pt's family will be IND with HEP, safety recommendations, and discharge recommendations. 05/09/22 2 weeks Written by Mina Pierre on 05/11/22 at 1:58 PM. * Progress Notes - Sofia Anne - 05/11/2022 9:35 AM EST Occupational Therapy Treatment Patient Name: Richa Ohara Today's Date: 05/11/2022 OT Discharge Recommendations: Acute rehab Equipment Recommended: Defer to facility Subjective Pt agreeable to OT. Participants in Care Family/Caregiver Present: No Presentation Oxygen Therapy: None (Room air) Pre-Session: Supine, Head of bed elevated Post-Session: Sitting in chair, Call light in reach, RN notified RN agreeable to session. Pt positioned for comfort and pressure relief at end of session. Precautions Right Lower Extremity Weight Bearing Status: Weight Bearing as Tolerated Medical Precautions: Fall precautions Objective Pain Pt with no c/o pain during session; positioned for comfort following treatment. Delirium Screening Madden Agitation Sedation Scale (RASS): Alert and calm Cognition Cognition Overall Cognitive Status: Within Functional Limits Self-Care Interventions Lower Extremity Dressing Sock Level of Assistance: Contact guard (to adjust left sock while seated edge of bed) Toileting Pt declined participation with toileting this session Therapeutic Activity (23 minutes) Pt participated in therapeutic activities to improve tolerance for upright and increase functional endurance needed for the completion of ADLs and progression of mobility. Increased time provided to allow patient to adjust to positional changes and initiate independent movement. Pt was on room air during session with no c/o SOA. Pt transitioned supine to with minimum assist for right LE. Pt maintained sitting balance at edge of bed with SBA for static balance and CGA for dynamic balance. Pt walked in kovacs with rolling walker to help facilitate ability to return to ADLs in the natural environment (kitchen, bathroom, community, etc). Four standing rest breaks required due to fatigue. OT provided physical assist and verbal cues during tasks. Bed Mobility Bed Mobility Exam: Scooting/Bridging Level of [place]: Contact guard (to scoot to edge of bed in sitting) Physical/Nonphysical Assist: Verbal Cues Assistive Device: Bed rails Bed Mobility Exam: Supine to Sit Level of [place]: Minimum assist (75% patient's effort) Physical/Nonphysical Assist: Verbal Cues, Set-up required Assistive Device: Bed rails Transfers Transfer Exam: Sit to stand Level of [place]: Contact guard Physical/Nonphysical Assist: Verbal Cues, Set-up required Assistive Device: Walker, rolling Transfer Exam: Stand to Sit Level of [place]: Contact guard Physical/Nonphysical Assist: Verbal Cues, Set-up required Assistive Device: Walker, rolling Transfer Exam: Bed to Chair/Chair to Bed Level of [place]: Contact guard Physical/Nonphysical Assist: Verbal Cues, Set-up required Assistive Device: Walker, rolling Assessment Pt demonstrated increased independence with functional mobility and improved tolerance for activitythis session. Pt will continue to benefit from OT services to further address independence and safety with self care tasks and to help promote return to previous level of function. OT Recommendations Discharge Destination: Acute rehab Discharge Equipment: Defer to facility Plan Continue OT plan of care. Goals OT GOAL DETAILS Goal Established Date Time Frame Goal Status OT Goal 1: Pt will complete functional mobility to bed, chair, toilet wt supervision, necessary AEupon discharge 05/09/22 2 weeks OT Goal 2: Pt will complete LB dressing CGA with AE as needed upon discharge 05/09/22 2 weeks OT Goal 3: Pt will complete toileting routine CGA with AD as needed upon discharge 05/09/22 2 weeks OT Goal 4: Pt will complete grooming routine standing at sink without seated rest break upon discharge 05/09/22 2 weeks Written by Sofia Anne on 05/11/22 at 12:44 PM. * Progress Notes - Sg Obando MD - 05/11/2022 2:14 AM EST Orthopaedic Surgery Note SUBJECTIVE: Patient resting comfortably in bed. She is now postoperative day 3 from removal of hardware and cephalomedullary nail fixation of her right periprosthetic femur fracture. Patient states pain is well controlled she is tolerating by mouth diet. Last bowel movement now 2 days ago. No fevers, chills, sweats. OBJECTIVE: Vitals: 05/11/22 0017 BP: 139/77 Pulse: 93 Resp: Temp: 37.3 ??C (99.1 ??F) SpO2: 90% Physical exam: oriented, appropriate and conversant nonlabored respirations RLE: Inspection - dressings c/d/I Motor - TA, GSC, EHL, FHL intact Sensory - SP, DP, Sural, Saph, Tib nn. intact Vascular - Palpable DP/PT pulses, digits WWP Assessment: 66 y.o. female with a right periprosthetic femur fx s/p RAGHAV, revision CMN (05/08/22). Plan: Mobility Orders Mobility Protocol: Ortho/Trauma/Spine Mobility Guidelines Spinal Precautions: No cranial, cervical or thoracolumbar spinal precautions necessary Extremity: RLE Extremity Precautions: Extremity Precautions Mobility Restrictions (RLE): Weight bear as tolerated (WBAT) Type of Brace (RLE): None Other mobility precautions: No other precautions required -Pain control per multimodal protocol -PT/OT evaluation while inpatient -Bowel regimen while on narcotic pain medications -DVT prophylaxis: Prophylactic Lovenox while inpatient -PT/OT have evaluated the patient recommend acute rehab placement -Follow-up: Dr. Eleuterio Rod, Orthopaedic Trauma Surgery on 05/26/2022 at [facility], Orthopaedic Surgery [address], 1[address] Fl, Wing C Sg Obando PGY-2 Orthopaedic Surgery [facility] Orthopaedic Trauma Service Pager: [phone] Orthopaedic Recon/Spine/Foot and Ankle Service Pager: [phone] Cosigned by Eleuterio Rod MD at 05/11/2022 3:09 PM EST * Progress Notes - IndianaFawad - 05/10/2022 1:31 PM EST Case Management Adult Initial Progress Note Richa Ohara 66 y.o. female CSN: [id number] Admission: 05/07/2022 3:15 PM Primary Problem: Closed displaced transverse fracture of shaft of right femur (CMS/HCC) Edge Banding Off Bearer reviewed chart and spoke with patient to complete this Initial Case Management Assessment. PCP: Gagan Solomon MD Emergency Contact: Extended Emergency Contact Information Primary Emergency Contact: Emma Ohara Mobile Relation: Spouse Preferred language: Azerbaijani Sales And Marketing Agent needed? No Insurance: Primary Visit Coverage Payer Plan Sponsor Code Group Number Group Name MEDICARE MEDICARE A & B Primary Visit Coverage Subscriber Subscriber ID Subscriber Name Subscriber [facility] Subscriber Address [id number] RICHA OHARA [id number] [address] [place] [address] Secondary Visit Coverage Payer Plan Sponsor Code Group Number Group Name [facility] [id number] Secondary Visit Coverage Subscriber Subscriber ID Subscriber Name Subscriber [facility] Subscriber Address [id number] EMMA OHARA [address] [place] [address] Patient information: Primary Caregiver: (Self) Daily Living Activities: Functional Status: Independent Living Arrangements: Spouse/Significant other Type of Residence: Private residence, [address] [address] Smoker in the Home?: No Current DME: Equipment Currently Used at Home: cane, quad, wheelchair, manual, walker, rolling Income Information: Current Resources Utilized: None Housing Circumstances-Z Codes: Patient Referred to: Anticipated Discharge Date: TBD Patient's Discharge Goal: Patient/Family Anticipates Transition to: inpatient rehabilitation facility Assistance Available at Discharge: Availability of Care Givers (#Hours): 24 hours Discharge Transport: Transportation Anticipated: family or friend will provide Follow Up Transport: Transportation Needed to Follow up Appoinments: Family/Friend will Provide Home Health / Home Infusion / Outpatient Dialysis Services: None reported. Living Will/Advance Directive/Power of Industrial/Organizational Psychologist /Guardian: Living Will: None Medical/Financial POA: None Guardian: None Additional Comments: Pt was admitted a closed displaced transverse fracture of shaft of right femur. SW student spoke topt and explained role. Pt confirmed demographic information. Pt lives with her in a multi level home in [place], [place]. Pt was functionally independent before this admission. Pt's anticipated d\c plan is acute rehab per PT\OT. Pt is agreeable to inpatient rehab and SW will make referral to [facility]. Pt's anticipated d\c date is TBD due to finalizing d\c plans. Pt's will provide transportation at d\c, assistance post d\c, and transportation to follow up appts. SW will follow up and assist as needed. Fawad Be [facility] Case Management Social Work Student 05/10/22 Cosigned by Janeth Gallagher at 05/10/2022 2:37 PM EST * Nursing Note - Triston Simpson RN - 05/10/2022 11:45 AM EST Orthopedic Transition Nurse Note General: Spoke with: Patient and Bedside optometric technologist and Interventions: Assessed: Dressing Dressing Interventions: CDI Wound 05/08/22 Incision Leg Anterior;Proximal;Right;Upper (Active) Wound Assessment Unable to assess 05/10/22 0800 Margins Unable to assess 05/10/22 0800 Kerry-Wound Assessment Unable to assess 05/10/22 0800 Closure Unable to assess 05/10/22799 Dressing Other (Comment) 05/10/22799 Dressing Changed New 05/08/22 1025 Dressing Status Clean;Dry;Intact 05/10/22799 Education: Education provided on: Dressing, Signs and symptoms of infection, Weight bearing mobility, Pain protocol/management, Lovenox teaching/importance, and Ortho trauma booklet given Plan of Care: Follow up with Анна Phillips on 05/24/2022 at 0850. Op-Plan: Completed Contact Card Given: yes Comments: Patient in chair. Awaiting acute rehab. Patient states she cannot take Aspirin due to having ulcersremoved and part of her stomach 12 years ago; will f/u with team. RLE: JLUIS wrap may be removed 72 hours following surgery, and then re-applied daily for swelling as needed taking care not to remove the sterile OR dressing underneath. If bandage becomes wet, soiled,or falls off it may be replaced with a clean dry gauze dressing as needed. For medical questions or concerns after discharge, please contact the Orthopedic Transition Nurse at [phone] Tuesday through Tuesday 8:00 am to 2:30 pm. If you feel your concern is a medical emergency please call 911 immediately. * Progress Notes - Mina Pierre - 05/10/2022 11:40 AM EST Physical Therapy Treatment Patient Name: Richa Ohara Today's Date: 05/10/2022 PT Discharge Recommendations: Acute rehab Equipment Recommended: Defer to facility Subjective RN and patient agreed to therapy session at this time Participants in Care Family/Caregiver Present: Yes Family/Caregiver: (Adult male and female visitors) Sales And Marketing Agent: Not Applicable Presentation Oxygen Therapy: Supplemental oxygen O2 Delivery Method: Nasal cannula O2 Flow Rate (L/min): 1.5 L/min Pre-Session: Head of bed elevated Pre-Session Comments: 2 visitors present, 1.5L O2 via nasal cannula, SCD on left LE only Post-Session: Sitting in chair, Call light in reach, Chair alarm, RN notified Post-Session Comments: 1.5L O2 via nasal cannula Precautions Right Lower Extremity Weight Bearing Status: Weight Bearing as Tolerated Medical Precautions: Fall precautions Objective Pain 7/10 pain in right knee - RN aware of pain level - pain medication not due at time of therapy session Delirium Screening Madden Agitation Sedation Scale (RASS): Alert and calm Confusion Assessment Method-ICU (CAM-ICU/PCAM-ICU) Feature 3: Altered Level of Consciousness: Negative Ambulation Device: Rolling walker Apparatus: Chair follow Assistance: Contact guard assist Distance : 55' Ambulation Comments: Right LE toe touch weight bearing despite verbal cueing to be full weight bearing Therapeutic Activity (25 minutes) Min assist supine - sit to EOB; sat on EOB x 10 minutes SBA while unsupported; min assist sit - stand with RWx (treated right LE as TTWB'ing) Assessment Patient put forth good effort but was limited to right knee pain. Required minimal assist with all bed mobility and transfers; demonstrated good static sitting and standing balance; increased ambulation distance to 55 feet CGA with Rwx. She was followed by chair and returned to room via that chair. PT Recommendations Discharge Destination: Acute rehab Discharge Equipment: Defer to facility Plan Continue with current PT POC PT Goals PT GOAL DETAILS Goal Established Date Time Frame Goal Status PT Goal 1: Pt will transfer sit<>stand and bed<>chair IND/Mod (I) with least restrictive device as appropriate 05/09/22 2 weeks PT Goal 2: Pt will ambulate x150ft IND/Mod (I) with least restrictive device as appropriate 05/09/22 2 weeks PT Goal 3: Pt will ascend/descend x3 steps SBA using bilateral hand rails as needed 05/09/22 2 weeks PT Goal 4: Pt/Pt's family will be IND with HEP, safety recommendations, and discharge recommendations. 05/09/22 2 weeks Written by Mina Pierre on 05/10/22 at 3:19 PM. * Progress Notes - Anuradha Kang MD - 05/10/2022 11:01 AM EST GME Consult Progress Note 05/10/22 Subjective: Concern for sputum/T - 100.2 overnight. CXR/blood culture obtained. Patient denies any cough/sputumproduction this morning. ROS: Constitutional: denies fevers, chills CV: denies chest pain, palpitations Resp: denies cough, SOA GI: denies nausea, vomiting Objective: Vitals: Temp: [36.8 ??C (98.2 ??F)-37.9 ??C (100.2 ??F)] 36.8 ??C (98.2 ??F) Heart Rate: [80-87] 87 Resp: [16] 16 BP: (113-164)/(67-92) 113/90 FiO2 (%): [28 %] 28 % Physical Exam: General: appears stated age, no apparent distress HEENT: anicteric sclera, no conjunctival drainage CV: normal rate with regular rhythm, no appreciable MRG, no LE edema Resp: no appreciable wheezes/crackles, nonlabored breathing GI: soft, no TTP, nondistended Neuro: awake and alert, no gross deficits Psych: appropriate mood with congruent affect, cooperative during exam Labs and Imaging: Results from last 7 days Lab Units 05/09/22 0512 05/08/22 0027 05/07/22 1714 WBC 10*3/uL 6.14 6.90 8.00 HEMOGLOBIN g/dL 8.6* 9.2* 10.1* HEMATOCRIT % 31.0* 31.9* 33.9* PLATELETS 10*3/uL 189 228 222 Results from last 7 days Lab Units 05/09/229 05/09/22 0536 05/08/22 0027 05/07/22 1714 SODIUM mmol/L -- 141 138 138 SODIUM, SYRINGE mmol/L 140 -- -- -- POTASSIUM mmol/L -- 4.7 3.6* 3.9 CHLORIDE mmol/L -- 106 102 103 CO2 mmol/L -- 30* 27 26 BUN mg/dL -- 19 16 18 CREATININE mg/dL -- 0.81 0.60 0.62 CALCIUM mg/dL -- 8.7* 8.8* 8.7* BILIRUBIN TOTAL mg/dL -- -- <0.2* -- ALKALINE PHOSPHATASE U/L -- -- 159* -- ALT U/L -- -- 21 -- AST U/L -- -- 33 -- GLUCOSE mg/dL -- 116* 178* 132* Labs personally reviewed in the EMR. Imaging personally reviewed in the EMR. Impression: CXR with no consolidations/effusions. Assessment and Plan: Ms. Ohara is a 66 yo F w/ hx of osteoporosis, movement disorder, chronic anemia who presented for periprosthetic fracture. Went to the OR on 05/08. #Acute Right periprosthetic femur fracture -OR on 05/08/22 -pain control and medical management per primary #Chronic hypoxic respiratory failure -states that she was sent home on O2 after discharge from the hospital in March, although statesthat she has not required any oxygen/has not had oxygen at home the past month -CXR on 05/07- personally reviewed, read discussed small focus of atelectasis vs scarring in LLL -COVID/viral panel - negative -CXR on 05/09 - personally reviewed, no consolidation/effusion -no official COPD diagnosis per pt, significant smoking hx as discussed below Plan: -continue post-op pulm hygeine/IS -continue to wean supplemental O2 as possible with goal to return to RA at discharge -will continue to monitor symptoms #Chronic normocytic anemia -Hgb 10.1 on admission, MCV 81 -prior admission in 2015 with hx of ELIZABETH and B12 deficiency causing underlying anemia -currently undergoing B12 and iron supplementation #Movement disorder -pt discusses hx of MS, although prior neurology admission discussed akathisia/dyskinesia and was discharged on TID benadryl at that time -states that she is currently on amantadine for this #Tobacco use disorder -currently smoking ~5 cigarettes/day -denies any current need for NRT #Depression-continue cymbalta #Hypokalemia - resolved #Hx of B12 deficiency -prior hx of B12 deficiency, per patient undergoing B12 replacement #Vitamin D insufficiency -vitamin D level - 16.5 on admission, continue vitamin D supplementation Last bowel movement: 05/09/22 Thank you for allowing us to participate in the care of this patient. Please Secure Chat or page with any questions or concerns. GME will continue to follow. Anuradha Kang MD Internal Medicine - PGY3 Cosigned by Gio Moran MD at 05/10/2022 12:00 PM EST Associated attestation - Gio Moran MD - 05/10/2022 12:00 PM EST I saw and evaluated the patient. I discussed the case with the resident/fellow and agree with the findings and plan as documented. * Discharge Instr - Other Orders - Triston Simpson, RN - 05/10/2022 8:17 AM EST Do not take out stitches or dedra. Leave the bandage on. Right leg JLUIS wrap may be removed 72 hours following surgery, and then re- applied daily for swelling as needed taking care not to remove the sterile OR dressing underneath. If bandage becomes wet, soiled, or falls off it may be replaced with a clean dry gauze dressing as needed. Shower at any time. Avoid soaking your wound. Based upon recent changes to [place] law related to prescribing opioid pain medications, our providers will not provide more than a 14 day supply of controlled medications following a major surgery or trauma from the date of your injury or hospital discharge. [place] 218[place], [place], & 201 [place] 9:260. * Discharge Instr - Activity - Triston Simpson, RN - 05/10/2022 8:17 AM EST Move around as you are able. Do not drive while taking narcotic medications. Use assistive equipment as instructed. Weight bearing as tolerated through right leg. * Discharge Instr - AVS First Page - Triston Simpson RN - 05/10/2022 8:17 AM EST Reasons to call: Feels warm or hot to the touch Is red or dark pink Is tight or swollen and looks shiny Becomes more tender or sore to the touch Wound smells bad Wound is draining pus, bleeding or coming open Temperature is above 101.5 F Pain is not relieved by medications For medical questions or concerns after discharge, please contact the Orthopedic Transition Nurse at [phone] Tuesday through Tuesday 8:00 am to 2:30 pm. If you feel your concern is a medical emergency please call 911 immediately. * Progress Notes - Cherelle??, Nancy Bradshaw MD - 05/10/2022 7:31 AM EST Orthopaedic Surgery Note 05/10/2022 SUBJECTIVE: POD 2 s/p RAGHAV, revision CMN right periprosthetic femur fracture. The patient is restingcomfortably in bed this morning with pain controlled. Tolerating diet, +urine +BM. Ambulated to chair with PT yesterday. Reinforced importance of SCDs which were not in place. OBJECTIVE: Vitals: 05/10/22 0451 BP: (!) 164/73 Pulse: 87 Resp: 16 Temp: 37.4 ??C (99.3 ??F) SpO2: 92% Physical exam: oriented, appropriate and conversant nonlabored respirations RLE: Inspection - dressings c/d/I Motor - TA, GSC, EHL, FHL intact Sensory - SP, DP, Sural, Saph, Tib nn. intact Vascular - Palpable DP/PT pulses, digits WWP Assessment: 66 y.o. female with a right periprosthetic femur fx s/p RAGHAV, revision CMN (05/08/22). Plan: Mobility Orders Mobility Protocol: Ortho/Trauma/Spine Mobility Guidelines Spinal Precautions: No cranial, cervical or thoracolumbar spinal precautions necessary Extremity: RLE Extremity Precautions: Extremity Precautions Mobility Restrictions (RLE): Weight bear as tolerated (WBAT) Type of Brace (RLE): None Other mobility precautions: No other precautions required -Pain control per multimodal protocol -PT/OT evaluation while inpatient -Bowel regimen while on narcotic pain medications -Post-operative IV abx per protocol. -DVT prophylaxis: PLOV. Please keep SCDs in place. -Remove younger catheter -Disposition: placement in acute rehab -Follow-up: Dr. Eleuterio Rod, Orthopaedic Trauma Surgery on 05/26/2022 at [facility], Orthopaedic Surgery [address], 1[address] Fl, Wing C Nancy Villarreal?MD [facility] Orthopedic Surgery PGY-1 [facility] Personal Pager: [phone] Orthopaedic Trauma Service Pager: [phone] Orthopaedic Recon/Spine/Foot and Ankle Service Pager: [phone] Cosigned by Eleuterio Rod MD at 05/10/2022 12:27 PM EST * Progress Notes - Roly Yoon L - 05/09/2022 9:23 AM EST Occupational Therapy Evaluation Patient Name: Richa Ohara Today's Date: 05/09/2022 OT Discharge Recommendations: Acute rehab Equipment Recommended: Defer to facility History Richa Ohara is 66 y.o. female admitted 05/07/2022 for work-up of Closed displaced transverse fracture of shaft of right femur (CMS/HCC). Problem List Active Hospital Problems Diagnosis Date Noted Closed displaced transverse fracture of shaft of right femur (CMS/HCC) 05/07/2022 Primary hypertension 05/07/2022 Multiple sclerosis (CMS/HCC) 05/07/2022 Procedures 05/08/2022 Procedure(s): Right femur removal of IMN and insertion of IMN Past Medical History Patient has a past medical history of Acquired absence of stomach (part of), Anemia, Chronic or unspecified gastric ulcer with perforation (CMS/HCC), Conversions - Other, Conversions - Other, Conversions - Other, Conversions - Other, Conversions - Other, Conversions - Other, Deficiency of other specified B group vitamins, Depression, Heart failure (CMS/HCC), Iron deficiency, Peptic ulcer, Unspecified protein-calorie malnutrition (CMS/HCC), and Vitamin D deficiency. Past Surgical History Patient has a past surgical history that includes Cholecystectomy (N/A); Tubal ligation (N/A); Other surgical history (N/A); and Other surgical history (N/A). 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' RE: animals at home Participants in Care Family/Caregiver Present: No Sales And Marketing Agent: Not Applicable Presentation Oxygen Therapy: Supplemental oxygen O2 Flow Rate (L/min): 2 L/min Lines and Tubes: Intravenous access Pre-Session: Supine, Lines intact Pre-Session Comments: RN present, agreeable to skilled services Post-Session: Sitting in chair, RN notified, Lines intact, Call light in reach Post-Session Comments: pt positioned for comfort, pressure relief with all needs met Home Living/Set-up Lives With: Spouse Home Type: House Home Adaptive Equipment: shower chair, Cane, Bedside commode, Crutches, Wheelchair-manual, Rollator(hurry cane, 2 rollators) Home Layout: Stairs to enter with rails, One level Number of Stairs: 3 (bimanually) Bathroom: Tub/Shower: Walk-in shower Bathroom: Toilet: Tall, Grab bars Home Living Comments: 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, no family or friends to assist Prior Level of Function Receives Help From: No assist required prior to admission Level of Mobility: Ambulatory- community Mobility [place]: Independent gait without device History of Falls: Yes (one prior fall in Dec with suzan insertion RLE) ADL Performance: Independent Patient/Family Goals 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 Objective Pain Pt endorses 9/10 RLE lara at rest and with movement, RN administers pain medication at start of session, in position of comfort at departure Delirium Screening Madden Agitation Sedation Scale (RASS): Alert and calm Confusion Assessment Method-ICU (CAM-ICU/PCAM-ICU) Feature 3: Altered Level of Consciousness: Negative Cognition Overall Cognitive Status: Within Functional Limits Arousal/Alertness: Appropriate responses to stimuli Mood/Behavior: Alert Orientation Level: Oriented X4 Single Step Commands: 100% of the time Multi-Step Commands: 100% of the time Method of Communication: Verbal Vision - Basic Assessment Current Vision: Intact Right Upper Extremity Examination RUE ROM Assessment RUE Assessment: Within Functional Limits Manual Muscle Testing - RUE: Within functional limits Sensation Light Touch: Right Upper Extremity: Intact Left Upper Extremity Examination LUE ROM Assessment LUE Assessment: Within Functional Limits Manual Muscle Testing - LUE: Within functional limits Sensation Light Touch: Left Upper Extremity: Intact Right Lower Extremity Examination RLE ROM Assessment RLE Assessment: (hip WFL; knee (-5) deg from full extension, flexion ~60 deg, ankle WFL.) Manual Muscle Testing - RLE: (grossly at least 3+/5) Sensation Light Touch: Right Lower Extremity: Intact Left Lower Extremity Examination LLE ROM Assessment LLE Assessment: Within Functional Limits Manual Muscle Testing: Within functional limits Sensation Light Touch: Left Lower Extremity: Intact Bed Mobility Bed Mobility Exam: Scooting/Bridging Level of [place]: Contact guard Physical/Nonphysical Assist: Verbal Cues, Supervision Assistive Device: Bed rails Bed Mobility Exam: Supine to Sit Level of [place]: Contact guard Physical/Nonphysical Assist: Verbal Cues, Set-up required, HOB elevated Transfers Transfer Exam: Sit to stand Level of [place]: Minimum assist (75% patient's effort) Physical/Nonphysical Assist: Verbal Cues, Nonverbal cues (demo/gestures) Assistive Device: Walker, rolling Transfer Exam: Stand to Sit Level of [place]: Contact guard Physical/Nonphysical Assist: Verbal Cues, Nonverbal cues (demo/gestures) Assistive Device: Walker, rolling Transfer Exam: Bed to Chair/Chair to Bed Level of [place]: Minimum assist (75% patient's effort) Physical/Nonphysical Assist: Verbal Cues, Supervision Type of Transfer: (ambulates) Assistive Device: Walker, rolling Self-Care Interventions Self Care/Home Management (ADLs) Time Entry: 29 Session addressing return to prior routine and safety, independence with sequential self care and functional mobility tasks. Pt is limited by pain, educated on adaptive techniques to improve independence with mobility and promote comfort. VC provided for pursed lip breathing while completing tasks and pt educated on threading RLE through first to reduce pain, promote independence. Pt utilizes RW with VC for hand placement to reduce fall risk to ambulate to recliner to promote tolerance to upright positioning, reduce risk for pneumonia, pressure sores. Pt endorses some dizziness at end of short walk, encouraged to sit to reduce fall risk. UE Dressing UE Dressing Level of Assistance: Setup UE Dressing Where Assessed: Edge of bed Lower Extremity Dressing Pants Level of Assistance: Minimum assistance LE Dressing Where Assessed: Edge of bed LE Dressing Interventions: underwear initiated bed level, dons pants EOB, stands to bring over buttocks completely, assist to thread over RLE Self-Care CARE Tool Performance SELF-CARE ITEMS CARE SCORE Eating 6 Oral Hygiene 5 Toileting Hygiene 3 Shower/Bathe Self 3 Upper Body Dressing 5 Lower Body Dressing 3 Putting On / Taking Off Footwear 2 CARE Tool Performance Score Kam Score Assist Level Description 6 Independent Patient completes the activity by him/herself with no assistance from a helper. 5 Set-up or Clean-up Assistance [place] sets up or cleans up; patient completes activity. [place] assists only prior to or following the activity. 4 Supervision or touching assistance [place] provides verbal cues and/or touching/steadying and/or contact guard assistance as patient completes activity. Assistance may be provided throughout the activity or intermittently. 3 Partial/Moderate Assistance [place] does LESS THAN HALF the effort. [place] lifts, holds or supports trunk or limbs, but provides less than half the effort. 2 Substantial/Maximal Assistance [place] does MORE THAN HALF the effort. [place] lifts or holds trunkor limbs and provides more than half the effort. 1 Dependent [place] does ALL of the effort. Patient does none of the effort to complete the activity. Or, the assistance of 2 or more helpers is required for the patient to complete the activity. Activity Not Attempted Values 7 Patient refused. 9 Not applicable - Not attempted and the patient did not perform this activity prior to the currentillness, exacerbation, or injury. 10 Not attempted due to environmental limitations (e.g., lack of equipment, weather constraints) 88 Not attempted due to medical condition or safety concerns Standardized Assessments [facility] 6-Click Daily Activities Help from Other: Don/Doff Regular Lower Body Clothings: Little Help From Other: Bathing: Little Help From Other: Toileting: Little Help From Other: Don/Doff Upper Body Clothings: Little Help From Other: Grooming: Little Help From Other: Eating Meals: None [facility] 6 Click - Daily Activities Score: 19 Assessment Pt tolerates session with no adverse reactions, stable vital signs. Upon skilled occupational therapy assessment and evaluation of strength, coordination, cognition, performance in self care and functional mobility tasks, pt requires skilled services. Prior to admission, pt is independent with selfcare tasks and functional mobility with AD (hx of RLE injury in Dec- rollator use since, prior to that, no AD). Currently, pt is most limited by pain, activity tolerance, fall risk, level of assist for self care and mobility tasks. Pt requires skilled services during hospitalization with recommendation for acute rehabilitation at discharge to promote independence, quality of life, reduce fall khadijah-admission risk. 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 OT Findings: Impaired ADL performance, Impaired IADL performance, Impaired functional mobility, Impaired circulation, Impaired balance Evaluation/Treatment Tolerance: Patient limited by pain Rehab Potential: Good, to achieve stated therapy goals Barriers to Discharge: Comorbidities, Lack of family support Demonstrates Need for Referral to Another Service: Social work Eval Complexity Occupational Profile: Expanded review of medical/therapy records and additional review of physical,cognitive, or psychosocial history Performance Deficits: Activities of daily living (ADLs), Instrumental activities of daily living (IADLs), Rest and sleep, Leisure, Social participation, Habits, Routines, Personal, Physical, Social, Body functions, Body structures Clinical Decision Making: Moderate Overall Eval complexity: Moderate OT Recommendations Discharge Destination: Acute rehab Discharge Equipment: Defer to facility Demonstrates Need for Referral to Another Service: Social work Plan Planned OT Interventions ADL retraining, IADL retraining, Balance training, Strengthening, Functional mobility, Caregiver education, Bed mobility Training OT Frequency 2 - 5 times per week OT Duration 2 weeks Goals OT GOAL DETAILS Time Frame OT Goal 1: Pt will complete functional mobility to bed, chair, toilet wth supervision, necessary AEupon discharge 2 weeks OT Goal 2: Pt will complete LB dressing CGA with AE as needed upon discharge 2 weeks OT Goal 3: Pt will complete toileting routine CGA with AD as needed upon discharge 2 weeks OT Goal 4: Pt will complete grooming routine standing at sink without seated rest break upon discharge 2 weeks Written by Yoon Dunham on 05/09/22 at 1:13 PM. * Progress Notes - Cassandra Greene - 05/09/2022 9:20 AM EST Physical Therapy Evaluation Patient Name: Richa Ohara Today's Date: 05/09/2022 PT Discharge Recommendations: Acute rehab Equipment Recommended: Defer to facility History Richa Ohara is 66 y.o. female admitted 05/07/2022 for work-up of Closed displaced transverse fracture of shaft of right femur (CMS/[facility]). Problem List Active Hospital Problems Diagnosis Date Noted Closed displaced transverse fracture of shaft of right femur ([facility]) 05/07/2022 Primary hypertension 05/07/2022 Multiple sclerosis ([facility]) 05/07/2022 Procedures 05/08/2022 Procedure(s): Right femur removal of IMN and insertion of IMN Past Medical History Patient has a past medical history of Acquired absence of stomach (part of), Anemia, Chronic or unspecified gastric ulcer with perforation ([facility]), Conversions - Other, Conversions - Other, Conversions - Other, Conversions - Other, Conversions - Other, Conversions - Other, Deficiency of other specified B group vitamins, Depression, Heart failure ([facility]), Iron deficiency, Peptic ulcer, Unspecified protein-calorie malnutrition ([facility]), and Vitamin D deficiency. Past Surgical History Patient has a past surgical history that includes Cholecystectomy (N/A); Tubal ligation (N/A); Other surgical history (N/A); and Other surgical history (N/A). Precautions Right Lower Extremity Weight Bearing Status: Weight Bearing as Tolerated Medical Precautions: Fall precautions Subjective Pt states this fracture hurts more than my other one did. Participants in Care Family/Caregiver Present: No Sales And Marketing Agent: Not Applicable Presentation Oxygen Therapy: Supplemental oxygen O2 Flow Rate (L/min): 2 L/min Lines and Tubes: Intravenous access Pre-Session: Supine, Lines intact Pre-Session Comments: RN present, agreeable to skilled services Post-Session: Sitting in chair, RN notified, Lines intact, Call light in reach Post-Session Comments: pt positioned for comfort, pressure relief with all needs met Home Living/Set-up Lives With: Spouse Home Type: House Home Adaptive Equipment: shower chair, Cane, Bedside commode, Crutches, Wheelchair-manual, Rollator(hurry cane, 2 rollators) Home Layout: Stairs to enter with rails, One level Number of Stairs: 3 (bimanually) Bathroom: Tub/Shower: Walk-in shower Bathroom: Toilet: Tall, Grab bars Home Living Comments: 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, no family or friends to assist Prior Level of Function Receives Help From: No assist required prior to admission Level of Mobility: Ambulatory- community Mobility [place]: Independent gait without device History of Falls: Yes (one prior fall in Dec with suzan insertion RLE) ADL Performance: Independent Patient/Family Goals Improve mobility Objective Pain Pain: Yes Pain Rating (0-10): 9 Pain Location: right LE Pain Type: Surgical pain Response/Interventions: increased ambulation or activity and position changed Delirium Screening Madden Agitation Sedation Scale (RASS): Alert and calm Confusion Assessment Method-ICU (CAM-ICU/PCAM-ICU) Feature 3: Altered Level of Consciousness: Negative Cognition Overall Cognitive Status: Within Functional Limits Arousal/Alertness: Appropriate responses to stimuli Mood/Behavior: Alert Orientation Level: Oriented X4 Single Step Commands: 100% of the time Multi-Step Commands: 100% of the time Method of Communication: Verbal Vision - Basic Assessment Current Vision: Intact Right Upper Extremity Examination RUE Assessment: Within Functional Limits Manual Muscle Testing - RUE: Within functional limits Sensation Light Touch: Right Upper Extremity: Intact Left Upper Extremity Examination LUE ROM Assessment LUE Assessment: Within Functional Limits Manual Muscle Testing - LUE Manual Muscle Testing - LUE: Within functional limits Sensation Light Touch: Left Upper Extremity: Intact Right Lower Extremity Examination RLE ROM Assessment RLE Assessment: (hip WFL; knee (-5) deg from full extension, flexion ~60 deg, ankle WFL.) Manual Muscle Testing - RLE Manual Muscle Testing - RLE: (grossly at least 3+/5) Sensation Light Touch: Right Lower Extremity: Intact Left Lower Extremity Examination LLE Assessment: Within Functional Limits Manual Muscle Testing: Within functional limits Sensation Light Touch: Left Lower Extremity: Intact Bed Mobility Bed Mobility Exam: Scooting/Bridging Level of [place]: Contact guard Physical/Nonphysical Assist: Verbal Cues, Supervision Bed Mobility Exam: Supine to Sit Level of [place]: Contact guard Physical/Nonphysical Assist: Verbal Cues, Set-up required, HOB elevated Transfers Transfer Exam: Sit to stand Level of [place]: Minimum assist (75% patient's effort) Physical/Nonphysical Assist: Verbal Cues, Nonverbal cues (demo/gestures) Assistive Device: Walker, rolling Transfer Exam: Stand to Sit Level of [place]: Contact guard Physical/Nonphysical Assist: Verbal Cues, Nonverbal cues (demo/gestures) Assistive Device: Walker, rolling Transfer Exam: Bed to Chair/Chair to Bed Level of [place]: Minimum assist (75% patient's effort) Physical/Nonphysical Assist: Verbal Cues, Supervision Type of Transfer: (ambulates) Assistive Device: Walker, rolling Balance Postural Appearance Posture: Within Functional Limits Static Sitting Balance Static Sitting-Level of Assistance: Standby assist Dynamic Sitting Balance Level of Assistance: Standby assisst Static Standing Balance Static Standing-Balance Support: Right upper extremity support, Left upper extremity support Static Standing-Level of Assistance: Contact guard Dynamic Standing Balance Dynamic Standing-Balance Support: Right upper extremity support, Left upper extremity support Dynamic Standing Level of Assistance: Minimum assistance Gait Training (12 minutes) Device: Rolling walker Assistance: Minimum assistance Distance: x2 side steps toward right, +5ft (bed to chair) Gait Analysis: Decreased step length, decreased leann, lack of terminal knee extension in stance phase right LE Gait Training Interventions: Prior to initiating gait training Pt educated on weight bearing statusright LE. She was given verbal cues to weight shift to right LE in standing with use of rolling walker to assess weight bearing tolerance prior to taking steps. Verbal cues for increased step length and right knee extension in stance phase. Tactile cues to manage rolling walker during turns. Therapeutic Exercise (13 minutes) Pt instructed in the following exercises while seated in recliner and performed x1 rep of each as demonstration: Supine Gluteal Sets - 1 x daily - 7 x weekly - 3 sets - 10 reps Supine Hip Abduction - 1 x daily - 7 x weekly - 3 sets - 10 reps Supine Quad Set - 1 x daily - 7 x weekly - 3 sets - 10 reps Supine Heel Slide - 1 x daily - 7 x weekly - 3 sets - 10 reps Seated Long Arc Quad - 1 x daily - 7 x weekly - 3 sets - 10 reps Supine Ankle Pumps - 1 x daily - 7 x weekly - 3 sets - 10 reps. Verbal + tactile cues given to improve technique. Pt given written handout of exercises. Standardized Assessments Standardized Assessments Standardized Assessments: AMPA 6-Clicks Mobility Assessment AMPA 6-Clicks Mobility Assessment Difficulty patient has turning over in bed (including adjusting bedclothes, sheets, and blankets)?:A little Difficulty patient has sitting down on and standing up from a chair with arms (wheelchair, bedside commode, etc.)?: A little Difficulty patient has moving from lying on back to sitting on the side of the bed?: A little How much help does the patient need moving to and from a bed to a chair (including a wheelchair)?: A little How much help does the patient need to walk in hospital room?: A little How much help does the patient need climbing 3-5 steps with a railing?: Unable [facility] 6-Clicks Mobility Assessment Total : 16 Assessment Pt's overall mobility limited 2/2 below impairments. No adverse reactions to treatment. Pt would benefit from continued PT during this admission to address previously mentioned deficits and improve functional mobility. Recommend discharge to Acute rehab facility as Pt is currently unable to ambulate household distances, and does not have 24/7 assist available at home. Impairments: Decreased endurance, ventilation, and/or gas exchange, Impaired balance, Impaired functional mobility/transfers, Impaired locomotion, Impaired gait dynamics/performance, Decreased strength, Pain, Decreased range of motion Activity Limitations: Inability to ambulate community distances, Inability to transfer independently, Inability to ambulate household distances, Inability to ambulate independently, Inability to complete ADLs independently Participation Restrictions: Self-care, Home management, Community leisure Activity Tolerance: Tolerates 10-20 minutes of activity without rest Evaluation/Treatment Tolerance: Patient limited by pain Diagnosis: impaired functional mobility Rehab Potential: Good, to achieve stated therapy goals Eval Complexity History Profile: 1 - 2 personal factors and/or comorbidities Clinical Presentation: Evolving clinical presentation with changing characteristics Clinical Decision Making: Moderate complexity PT Recommendations Discharge Destination: Acute rehab Discharge Equipment: Defer to facility Plan Planned PT Interventions Balance training, Bed mobility training, Gait training, Transfer training, Strengthening, Neuromuscular re-education, ROM, Functional Mobility, Stretching PT Frequency 3 - 5 times per week PT Duration 2 weeks Goals PT GOAL DETAILS Time Frame PT Goal 1: Pt will transfer sit<>stand and bed<>chair IND/Mod (I) with least restrictive device as appropriate 2 weeks PT Goal 2: Pt will ambulate x150ft IND/Mod (I) with least restrictive device as appropriate 2 weeks PT Goal 3: Pt will ascend/descend x3 steps SBA using bilateral hand rails as needed 2 weeks PT Goal 4: Pt/Pt's family will be IND with HEP, safety recommendations, and discharge recommendations. 2 weeks Written by Cassandra Greene on 05/09/22 at 1:06 PM. * Progress Notes - David Alvarado MD - 05/09/2022 6:34 AM EST Orthopaedic Surgery Note 05/09/2022 SUBJECTIVE: POD 1 s/p RAGHAV, revision CMN right periprosthetic femur fracture. The patient is restingcomfortably in bed this morning with pain control. She is tolerating diet without nausea or emesis.Younger catheter remains in place. Tertiary examination completed and negative for additional injuries at this time. HgB/Hct stable at 8.6/31.0. OBJECTIVE: Vitals: 05/09/22 0716 BP: 118/55 Pulse: 79 Resp: Temp: 37 ??C (98.6 ??F) SpO2: 92% Physical exam: oriented, appropriate and conversant nonlabored respirations No pain noted with active or passive ROM and palpation of the bilateral upper and lower extremitiesexcept for noted injuries below. Bilateral knees: Stable to varus and valgus stress at 0 and 30??. Firm endpoint on Chema exam. RLE: Inspection - 1 cm area of bloody strikethrough over the proximal lateral hip dressing. Overlying JLUIS dressings clean, dry, intact Motor - TA, GSC, EHL, FHL intact Sensory - SP, DP, Sural, Saph, Tib nn. intact Vascular - Palpable DP/PT pulses, digits WWP Assessment: 66 y.o. female with a right periprosthetic femur fx s/p RAGHAV, revision CMN (05/08/22). Plan: Mobility Orders Mobility Protocol: Ortho/Trauma/Spine Mobility Guidelines Spinal Precautions: No cranial, cervical or thoracolumbar spinal precautions necessary Extremity: RLE Extremity Precautions: Extremity Precautions Mobility Restrictions (RLE): Weight bear as tolerated (WBAT) Type of Brace (RLE): None Other mobility precautions: No other precautions required -Internal medicine perioperative medical evaluation and optimization much appreciated -Pain control per multimodal protocol -PT/OT evaluation while inpatient -Bowel regimen while on narcotic pain medications -Post-operative IV abx per protocol. -DVT prophylaxis: PLOV -Remove younger catheter -Disposition: pending PT/OT assessment -Follow-up: Dr. Eleuterio Rod, Orthopaedic Trauma Surgery on 05/26/2022 at [facility], Orthopaedic Surgery [address], [address], [address] David Alvarado MD [facility] Department of Orthopaedic Surgery, PGY5 Cosigned by Eleuterio Rod MD at 05/09/2022 11:34 AM EST * Care Plan - Kiki Xie - 05/09/2022 3:14 AM EST Problem: Adult Inpatient Plan of Care Goal: Plan of Care Review Outcome: Ongoing, Progressing Flowsheets (Taken 05/09/2022312) Progress: improving Goal: Patient-Specific Goal (Individualized) Outcome: Ongoing, Progressing Flowsheets (Taken 05/08/20221999) Patient/Family-Specific Goals (Include Timeframe): pt will report tolerable pain level throughout shift Goal: Absence of Hospital-Acquired Illness or Injury Outcome: Ongoing, Progressing Goal: Optimal Comfort and Wellbeing Outcome: Ongoing, Progressing Goal: Readiness for Transition of Care Outcome: Ongoing, Progressing Problem: Skin Injury Risk Increased Goal: Skin Health and Integrity Outcome: Ongoing, Progressing * Progress Notes - Anuradha Kang MD - 05/08/2022 1:22 PM EST GME Consult Progress Note 05/08/22 Subjective: Pt seen post-op. Was about to eat lunch when seen. Denied any significant pain. ROS: Constitutional: denies fevers, chills CV: denies chest pain, palpitations Resp: denies cough, SOA GI: denies nausea, vomiting Objective: Vitals: Temp: [36.6 ??C (97.8 ??F)-37.2 ??C (98.9 ??F)] 36.6 ??C (97.8 ??F) Heart Rate: [71-122] 85 Resp: [12-23] 16 BP: (115-186)/(64-98) 118/68 Physical Exam: General: appears stated age, no apparent distress HEENT: anicteric sclera, no conjunctival drainage CV: normal rate with regular rhythm, no appreciable MRG, no LE edema Resp: mild wheezes bilaterally, nonlabored breathing on 2L NC when seen GI: soft, no TTP, nondistended Neuro: awake and alert, no gross deficits Psych: appropriate mood with congruent affect, cooperative during exam Labs and Imaging: Results from last 7 days Lab Units 05/08/22 0027 05/07/22 1714 WBC 10*3/uL 6.90 8.00 HEMOGLOBIN g/dL 9.2* 10.1* HEMATOCRIT % 31.9* 33.9* PLATELETS 10*3/uL 228 222 Results from last 7 days Lab Units 05/08/22 0027 05/07/22 1714 SODIUM mmol/L 138 138 POTASSIUM mmol/L 3.6* 3.9 CHLORIDE mmol/L 102 103 CO2 mmol/L 27 26 BUN mg/dL 16 18 CREATININE mg/dL 0.60 0.62 CALCIUM mg/dL 8.8* 8.7* BILIRUBIN TOTAL mg/dL <0.2* -- ALKALINE PHOSPHATASE U/L 159* -- ALT U/L 21 -- AST U/L 33 -- GLUCOSE mg/dL 178* 132* Assessment and Plan: Ms. Ohara is a 66 yo F w/ hx of osteoporosis, MS, coreoathetosis, #Acute Right periprosthetic femur fracture -OR on 05/08/22 -pain control and medical management per primary #Chronic hypoxic respiratory failure -states that she was sent home on O2 after discharge from the hospital in March, although statesthat she has not required any oxygen/has not had oxygen at home the past month -CXR - personally reviewed, read discussed small focus of atelectasis vs scarring in LLL -COVID/viral panel - negative -on 2L NC when seen Plan: -continue post-op pulm hygeine/IS -continue to wean supplemental O2 as possible with goal to return to RA at discharge #Chronic normocytic anemia -Hgb 10.1 on admission, MCV 81 -prior admission in 2015 with hx of ELIZABETH and B12 deficiency causing underlying anemia -currently undergoing B12 and iron supplementation #Movement disorder -pt discusses hx of MS, although prior neurology admission discussed akathisia/dyskinesia and was discharged on TID benadryl at that time -states that she is currently on amantadine for this -pt is also on propranolol, curious if in the setting of underlying movement disorder #Vitamin D insufficiency -vitamin D level - 16.5 on admission -continue vitamin D supplementation #Hx of B12 deficiency -prior hx of B12 deficiency, per patient undergoing B12 replacement #Tobacco use disorder -currently smoking ~5 cigarettes/day -denies any current need for NRT #Depression -continue cymbalta #Hypokalemia -3.6 on 05/08, given replacement overnight Thank you for allowing us to participate in the care of this patient. Please Secure Chat or page with any questions or concerns. GME will continue to follow. Official pharmacy med rec pending at thistime, further medical recommendations pending. Anuradha Kang MD Internal Medicine - PGY3 Cosigned by Gio Moran MD at 05/09/2022 8:00 AM EST Associated attestation - Gio Moran MD - 05/09/2022 8:00 AM EST I saw and evaluated the patient. I discussed the case with the resident/fellow and agree with the findings and plan as documented. * Anesthesia PACU Signout - Dain Nye MD - 05/08/2022 10:46 AM EST Patient: Richa Ohara Anesthesia Type: general Vitals Value Taken Time BP 147/64 05/08/22 1035 Temp 36.7 ??C (98.1 ??F) 05/08/22 1015 Pulse 82 05/08/22 1045 Resp 14 05/08/22 1045 SpO2 98 % 05/08/22 1045 Anesthesia PACU Signout Patient location during evaluation: PACU Patient participation: complete - patient participated Level of consciousness: baseline Pain management: adequate (pain score 0-3) Airway patency: natural airway Hydration status: acceptable PONV: none Cardiovascular status: acceptable and hemodynamically stable Respiratory status: acceptable, spontaneous ventilation and room air Discharge Disposition: admit to inpatient unit Cosigned by Luis Carlos Corado MD at 05/08/2022 11:14 AM EST Associated attestation - Luis Carlos Corado MD - 05/08/2022 11:14 AM EST I agree with the resident's PACU evaluation and sign-out as documented. -Luis Carlos Corado MD * Op Note - Eleuterio Rod MD - 05/08/2022 8:29 AM EST Operative Note Date: 05/08/22 Location: [facility] Name: Richa Ohara, : 1955, Diagnoses: Pre-op Diagnosis Closed displaced transverse fracture of shaft of right femur, initial encounter ([facility]) Post-op Diagnosis Closed displaced transverse fracture of shaft of right femur, initial encounter ([facility]) Procedure(s): Removal of deep implant right hip Open treatment right femoral shaft fracture with medullary implant Attending Surgeon(s): * Eleuterio Rod - Primary Real Estate Professional(s): * Doug Hdez MD - Resident - Assisting Anesthesia: General ASA: III Blood Administration: Blood Product Administration History None Estimated Blood Loss: 75 ml Drains: Urethral Catheter Latex (Active) Site Assessment Clean;Skin intact 05/08/22 1025 CAUTI: Collection Container Standard drainage bag 05/08/22 1025 CAUTI: Securement Method Securing device (Describe) 05/08/22 1025 CAUTI: Specimen Collection Port Covered with Alcohol Cap Yes 05/08/22 0715 CAUTI: Urinary Catheter Necessity Yes, meets criteria 05/07/22 1808 Output (mL) 400 mL 05/08/22 0354 Implants Type Name Action Serial No. SCREW LAG [id number] 10.5MM TI 90MM - [id number] Implanted NAIL LONG 2MM RAD [id number] RT - [id number] Implanted SCREW 5.0MM T2 LOCK FULL THRD 45MM - [id number] Implanted SCREW 5.0MM TI T2 LOCK FULL THRD 40MM - [id number] Implanted Specimen: Findings: Displaced transverse kerry implant femoral shaft fracture Indications: Richa Ohara is an 66 y.o. female who is having surgery for Closed displaced transverse fracture of shaft of right femur, initial encounter ([facility]). Narrative: The patient was identified marked in the preop holding area. The details, risks, benefits, of surgery were discussed. Alternatives to the operative plan were also discussed. Informed consent was obtained from the patient. The patient was taken to the operative suite and surrendered to general anesthesia. We prepped and draped the right lower extremity in the usual sterile fashion. A time-out was performed the entire operative service was in agreement with patient, position, procedure, and side. Perioperative antibiotics were administered within 1 hour of incision time. Under fluoroscopic guidance. Lateral incisions were carried out to engage the previously placed lagscrew into the femoral head as well as the distal interlocking bolts. An axial wire was then used to cannulate the proximal femoral nail. We then in gauge the set screwdriver proximally and the couple the set screw from the lag screw into the femoral head. Lag screw was completely removed. We then in gauge the extraction apparatus to the previously placed short nail. The 2 distal locking bolts were then removed and the short nail was removed. Next, we placed a ball-tipped guide wire into the proximal femoral shaft. This was advanced to the level of the fracture and indirect reduction tactics were used to secure reduction sufficient to pass the ball-tipped guidewire and advanced to the level of the distal femoral physeal scar. We measured our length to be approximately 395 mm. We reamed sequentially up to a size 14.5 mm Reamer through the shaft. We selected a [place] gamma nail size 13 x 380. The nail was fully seated. We placed a lag screw into the femoral head so as to minimize the tip apex distance. Two distal locking bolts werethen placed using standard freehand technique. Radiographs demonstrated acceptable reduction safe implant placement. We irrigated copiously all incisions and closed in layers with dedra on the skin. Sterile dressings were applied. The patient awakened successfully and transferred back in stable condition. I was present the entire operation Postop plan: Weightbearing as tolerated right lower extremity IV antibiotics times 24 hours Mobility with physical therapy Tertiary survey Pain control DVT prophylaxis Complications: None; patient tolerated the procedure well. Submitted by: Eleuterio Rod MD - 05/08/2022 * Progress Notes - Kvng Martinez MD - 05/08/2022 6:05 AM EST Orthopaedic Surgery Progress Note SUBJECTIVE: No acute events overnight. Doing well. Pain controlled. Discussed surgical plan with patient and . All questions answered. No nausea, vomiting, fevers or chills. Denies any pain in LLE including L hip. OBJECTIVE: Vitals: 05/08/22 0354 BP: (!) 151/74 Pulse: 75 Resp: 18 Temp: 36.7 ??C (98.1 ??F) SpO2: 96% Right Lower Extremity: Txn in place Fires TA/GSC/EHL/FHL SILT DP/SP/Sural/Saph/Tib nerve dist. cap refill <2sec, toes wwp Left Lower Extremity: No TTP. No pain with logroll of hip. No pain with flexion/abduction. Fires TA/GSC/EHL/FHL SILT DP/SP/Sural/Saph/Tib nerve dist. cap refill <2sec, toes wwp ASSESSMENT/PLAN: Richa Ohara is a 66 y.o. female with R midshaft periprosthetic femur fx -To OR today -NPO since midnight -Marked and consented -Medically optimized for surgery -CT bony pelvis prior to OR WB Status: NWB RLE, PT txn Mobility Orders Mobility Protocol: Ortho/Trauma/Spine Mobility Guidelines Spinal Precautions: No cranial, cervical or thoracolumbar spinal precautions necessary Extremity: RLE Extremity Precautions: Extremity Precautions Mobility Restrictions (RLE): Non-weight bear (NWB) Type of Brace (RLE): None Other mobility precautions: No other precautions required DVT PPX: plan to resume POD 1 (2/5) Pain control Nutritional optimization Bowel regimen PT/OT recommendations: pending OR Follow up: pending OR Disposition: To OR today Kvng Martinez Dept. of Orthopaedic Surgery and Sports Medicine Orthopedic Reconstructiion ([facility]) Service Pager: [phone] Orthopedic Trauma (ORF) Service Pager: [phone] Cosigned by Eleuterio Rod MD at 05/08/2022 10:49 AM EST * Consults - Nely Wallace APRN - 05/07/2022 9:32 PM ESTAssociated Order(s): Consult to [facility] Consult to [facility] Consult performed by: Nely Wallace APRN Consult ordered by: Radha Marroquin MD Reason For Consult: Medical co management Requesting Service: Orthopedic Requested Date/Time: 05/07/2022 History Of Present Illness Richa Ohara is a 66 y.o. female with past medical history of depression, hypertension, osteoporosis, multiple sclerosis, idiosyncratic choreoathetosis movements, and peptic ulcer disease with perforated gastric ulcer in 2009 s/p billroth II, vagotomy, antrectomy in 2010 Patient had right intratrochanteric femur fracture from a fall status post ORIF in March, at [facility]. Postoperatively patient developed viral pneumonitis, she was treated with oxygen, antibiotic and steroid. Currently patient uses using wheelchair and walker at home. Today patient was walking down 3 steps on her front porch. At the last step, her leg gave out. She was caught by her . Patient did not fall on the ground. However patient felt her right leg was broken. Patient initially went to [facility] x-ray showed periprosthetic femur fracture. Patient was put on a traction splint. Then she was transferred to for higher level care. At , patient was placed on tibial traction by Orthopedic. She denies prodromal symptoms including chest pain, palpitation, shortness of breath or dizziness leading up to the incident. Patient stated her heart rate normal slightly high, runs between 90s to low 100s. Patient denies any headache, chest pain, dyspnea, cough, sore throat, nausea, vomiting, or abdominal pain. Past Medical History She has a past medical history of Acquired absence of stomach (part of), Anemia, Chronic or unspecified gastric ulcer with perforation (CMS/HCC), Conversions - Other, Conversions - Other, Conversions- Other, Conversions - Other, Conversions - Other, Conversions - Other, Deficiency of other specified B group vitamins, Depression, Heart failure (CMS/HCC), Iron deficiency, Peptic ulcer, Unspecified protein-calorie malnutrition (CMS/HCC), and Vitamin D deficiency. Surgical History She has a past surgical history that includes Cholecystectomy (N/A); Tubal ligation (N/A); Other surgical history (N/A); and Other surgical history (N/A). Family History Family History Problem Relation Name Age of Onset FRANKY disease Brother Heart disease Mother Hypertension Brother Kidney cancer Father Conversions - Other Mother Respiratory Failure Stroke Brother Thyroid cancer Sister Social History She reports that she has quit smoking. She does not have any smokeless tobacco history on file. Shereports that she does not drink alcohol. No history on file for drug use. Allergies Tetracycline Medications Current Facility-Administered Medications Medication Dose Route Frequency Provider Last Rate Last Admin acetaminophen (Tylenol) tablet 650 mg 650 mg Oral q6h PRN Kendy Madison MD 650 mg at 05/07/222103 [START ON 05/08/2022] amantadine (Symmetrel) capsule 200 mg 200 mg Oral BID Mary Wallace APRN bisacodyl (Dulcolax) suppository 10 mg 10 mg Rectal Daily PRN Kendy Madsion MD DULoxetine (Cymbalta) DR capsule 60 mg 60 mg Oral BID Nely Wallace APRN 60 mg at 05/07/222253 [START ON 05/10/2022] ergocalciferol (Vitamin D-2) capsule 50,000 Units 50,000 Units Oral Weekly Nely Wallace APRN famotidine (Pepcid) tablet 20 mg 20 mg Oral BID Nely Wallace APRN 20 mg at 05/07/222253 gabapentin (Neurontin) capsule 100 mg 100 mg Oral TID Kendy Madison MD 100 mg at 05/07/222103 ipratropium-albuterol (Duo-Neb) 0.5-2.5 mg/3 mL nebulizer solution 3 mL 3 mL Nebulization q6h PRN Nely Wallace APRN magnesium hydroxide (Milk of Magnesia) 2400 MG/10ML suspension 10 mL 10 mL Oral Daily PRN Nova Madison MD methocarbamol (Robaxin) tablet 500 mg 500 mg Oral 4x daily Kendy Madison MD 500 mg at 05/07/222104 oxyCODONE (Roxicodone) immediate release tablet 5 mg 5 mg Oral q6h PRN Kendy Madison MD Or oxyCODONE (Roxicodone) immediate release tablet 10 mg 10 mg Oral q6h PRN Kendy Madison MD 10 mgat 05/07/222104 polyethylene glycol (Miralax) packet 17 g 17 g Oral Daily Kendy Madison MD Povidone-Iodine 5 % swab solution 1 Swab 1 Swab Nasal Daily Gagan Osuna MD 1 Swab at propranolol (Inderal) tablet 40 mg 40 mg Oral BID MaryTamelaalvon Wallace APRN 40 mg at 05/07/222253 senna-docusate (Kerry-Colace) 8.6-50 MG per tablet 1 tablet 1 tablet Oral BID Kendy Madison MD sodium chloride 0.9 % flush 10 mL 10 mL Intravenous q12h PRN Kendy Madison MD And sodium chloride 0.9 % flush 10 mL 10 mL Intravenous PRN Kendy Madison MD Review of Systems Review of Systems Musculoskeletal: Right leg pain All other systems reviewed and are negative. Physical Exam Physical Exam Vitals reviewed. Constitutional: Comments: thin appearance HENT: Mouth/Throat: Mouth: Mucous membranes are moist. Pharynx: Oropharynx is clear. Eyes: Conjunctiva/sclera: Conjunctivae normal. Pupils: Pupils are equal, round, and reactive to light. Cardiovascular: Rate and Rhythm: Regular rhythm. Tachycardia present. Pulses: Dorsalis pedis pulses are 1+ on the right side and 1+ on the left side. Posterior tibial pulses are 1+ on the right side and 1+ on the left side. Pulmonary: Effort: Pulmonary effort is normal. Breath sounds: Examination of the right-upper field reveals decreased breath sounds. Examination ofthe left-upper field reveals decreased breath sounds. Examination of the right-middle field revealsdecreased breath sounds. Examination of the left-middle field reveals decreased breath sounds. [place] of the right-lower field reveals decreased breath sounds. Examination of the left-lower field reveals decreased breath sounds. Decreased breath sounds present. Abdominal: General: Abdomen is flat. Bowel sounds are normal. Palpations: Abdomen is soft. Musculoskeletal: Comments: Right lower extremity with traction, right side thigh to palpate. Decreased range of motion in the right lower extremity Skin: General: Skin is warm and dry. Capillary Refill: Capillary refill takes less than 2 seconds. Neurological: Mental Status: She is alert and oriented to person, place, and time. Comments: Mild chorea on arms/hands Psychiatric: Mood and Affect: Mood normal. Behavior: Behavior normal. Thought Content: Thought content normal. Judgment: Judgment normal. Last Recorded Vitals Blood pressure (!) 173/93, pulse 107, temperature 37.2 ??C (98.9 ??F), temperature source Oral, resp. rate 14, weight 56.7 kg (125 lb), SpO2 91 %. Relevant Results Labs in last 18 hours CBC WBC 8.00 Hb 10.1 (L) Plt 222 Hct 33.9 (L) ANC ?? INR ??, PTT ??, Anti-Xa ?? BMP Na 138 Cl 103 BUN 18 Glu 132 (H) K 3.9 Co2 26 Cr 0.62 Ca 8.7 (L) iCa ?? Mg 1.9, Phos 4.2 Lactate ?? LFT AST ?? AlkPhos ?? T Prot ?? ALK ?? Bili ?? Alb ?? D.Bili ?? XR Femur Right 2+ Views [[id number]] Resulted: 05/07/221804 Order Status: Completed Updated: 05/07/221805 Narrative: Exam/Procedure: XR TIBIA FIBULA RIGHT 2+ VIEWS, XR HIPS BILATERAL W OR WO PELVIS 3-4 VIEWS, XR FEMUR RIGHT 2+ VIEWS, XR KNEE RIGHT 3 VIEWS, XR FEMUR LEFT 2+ VIEWS ordered by ROBERTO GRAVES, [id number] CLINICAL INDICATION: Femur fx TECHNIQUE: XR TIBIA FIBULA RIGHT 2+ VIEWS, XR HIPS BILATERAL W OR WO PELVIS 3-4 VIEWS, XR FEMUR RIGHT 2+ VIEWS, XR KNEE RIGHT 3 VIEWS, XR FEMUR LEFT 2+ VIEWS COMPARISON: None. FINDINGS: No widening of the SI joints or the symphysis. Osteopenia. The pelvic ring appears intact. Hips anatomically aligned. Proximal left femur [...] proximal right femur just caudal to the previously placed hardware, with cranial migration of the distal fracture segment, and posterior apex angulation. No other acute osseous findings. CRITICAL RESULT: No. COMMUNICATION: Per this written report. Dictated by Paul Garcia MD on 05/07/2022 6:01 PM Signed by Paul Garcia MD on 05/07/2022 6:05 PM XR Knee Right 3 + Views [[id number]] Resulted: 05/07/221804 Order Status: Completed Updated: 05/07/221805 Narrative: Exam/Procedure: XR TIBIA FIBULA RIGHT 2+ VIEWS, XR HIPS BILATERAL W OR WO PELVIS 3-4 VIEWS, XR FEMUR RIGHT 2+ VIEWS, XR KNEE RIGHT 3 VIEWS, XR FEMUR LEFT 2+ VIEWS ordered by ROBERTO GRAVES, [id number] CLINICAL INDICATION: Femur fx TECHNIQUE: XR TIBIA FIBULA RIGHT 2+ VIEWS, XR HIPS BILATERAL W OR WO PELVIS 3-4 VIEWS, XR FEMUR RIGHT 2+ VIEWS, XR KNEE RIGHT 3 VIEWS, XR FEMUR LEFT 2+ VIEWS COMPARISON: None. FINDINGS: No widening of the SI joints or the symphysis. Osteopenia. The pelvic ring appears intact. Hips anatomically aligned. Proximal left femur [...] proximal right femur just caudal to the previously placed hardware, with cranial migration of the distal fracture segment, and posterior apex angulation. No other acute osseous findings. CRITICAL RESULT: No. COMMUNICATION: Per this written report. Dictated by Paul Garcia MD on 05/07/2022 6:01 PM Signed by Paul Garcia MD on 05/07/2022 6:05 PM XR Chest 1 View [[id number]] Resulted: 05/07/221753 Order Status: Completed Updated: 05/07/221754 Narrative: CLINICAL INDICATION: Preop. TECHNIQUE: Frontal chest. [...] Paul Garcia MD on 05/07/2022 5:54 PM XR Femur Left 2+ Views [[id number]] Resulted: 05/07/221804 Order Status: Completed Updated: 05/07/221805 Narrative: Exam/Procedure: XR TIBIA FIBULA RIGHT 2+ VIEWS, XR HIPS BILATERAL W OR WO PELVIS 3-4 VIEWS, XR FEMUR RIGHT 2+ VIEWS, XR KNEE RIGHT 3 VIEWS, XR FEMUR LEFT 2+ VIEWS ordered by ROBERTO GRAVES, [id number] CLINICAL INDICATION: Femur fx TECHNIQUE: XR TIBIA FIBULA RIGHT 2+ VIEWS, XR HIPS BILATERAL W OR WO PELVIS 3-4 VIEWS, XR FEMUR RIGHT 2+ VIEWS, XR KNEE RIGHT 3 VIEWS, XR FEMUR LEFT 2+ VIEWS COMPARISON: None. FINDINGS: No widening of the SI joints or the symphysis. Osteopenia. The pelvic ring appears intact. Hips anatomically aligned. Proximal left femur [...] proximal right femur just caudal to the previously placed hardware, with cranial migration of the distal fracture segment, and posterior apex angulation. No other acute osseous findings. CRITICAL RESULT: No. COMMUNICATION: Per this written report. Dictated by Paul Garcia MD on 05/07/2022 6:01 PM Signed by Paul Garcia MD on 05/07/2022 6:05 PM XR Tibia Fibula Right 2+ Views [[id number]] Resulted: 05/07/221804 Order Status: Completed Updated: 05/07/221805 Narrative: Exam/Procedure: XR TIBIA FIBULA RIGHT 2+ VIEWS, XR HIPS BILATERAL W OR WO PELVIS 3-4 VIEWS, XR FEMUR RIGHT 2+ VIEWS, XR KNEE RIGHT 3 VIEWS, XR FEMUR LEFT 2+ VIEWS ordered by ROBERTO GRAVES, [id number] CLINICAL INDICATION: Femur fx TECHNIQUE: XR TIBIA FIBULA RIGHT 2+ VIEWS, XR HIPS BILATERAL W OR WO PELVIS 3-4 VIEWS, XR FEMUR RIGHT 2+ VIEWS, XR KNEE RIGHT 3 VIEWS, XR FEMUR LEFT 2+ VIEWS COMPARISON: None. FINDINGS: No widening of the SI joints or the symphysis. Osteopenia. The pelvic ring appears intact. Hips anatomically aligned. Proximal left femur [...] proximal right femur just caudal to the previously placed hardware, with cranial migration of the distal fracture segment, and posterior apex angulation. No other acute osseous findings. CRITICAL RESULT: No. COMMUNICATION: Per this written report. Dictated by Paul Garcia MD on 05/07/2022 6:01 PM Signed by Paul Garcia MD on 05/07/2022 6:05 PM XR Hips Bilateral W or WO Pelvis 3-4 Views [[id number]] Resulted: 05/07/221804 Order Status: Completed Updated: 05/07/221805 Narrative: Exam/Procedure: XR TIBIA FIBULA RIGHT 2+ VIEWS, XR HIPS BILATERAL W OR WO PELVIS 3-4 VIEWS, XR FEMUR RIGHT 2+ VIEWS, XR KNEE RIGHT 3 VIEWS, XR FEMUR LEFT 2+ VIEWS ordered by ROBERTO GRAVES, [id number] CLINICAL INDICATION: Femur fx TECHNIQUE: XR TIBIA FIBULA RIGHT 2+ VIEWS, XR HIPS BILATERAL W OR WO PELVIS 3-4 VIEWS, XR FEMUR RIGHT 2+ VIEWS, XR KNEE RIGHT 3 VIEWS, XR FEMUR LEFT 2+ VIEWS COMPARISON: None. FINDINGS: No widening of the SI joints or the symphysis. Osteopenia. The pelvic ring appears intact. Hips anatomically aligned. Proximal left femur [...] proximal right femur just caudal to the previously placed hardware, with cranial migration of the distal fracture segment, and posterior apex angulation. No other acute osseous findings. CRITICAL RESULT: No. COMMUNICATION: Per this written report. Dictated by Paul Garcia MD on 05/07/2022 6:01 PM Signed by Paul Garcia MD on 05/07/2022 6:05 PM Assessment/Plan Principal Problem: Oth fracture of shaft of right femur, init for clos fx ([facility]) # Right periprosthetic femur fracture Preoperative Medical Assessment-Optimization This is not an emergent surgery; patient does not have any active conditions like chest pain, acutecoronary syndrome, decompensated congestive heart failure or unstable arrhythmia; this surgery is not low risk surgery; patient has <4 METS due to recently ORIF of the right femur. The revised cardiac risk index is 1 due to remote history of diastolic heart failure. The risk of major cardiac event is 6%. Patient is a lifelong smoker, she denies history of emphysema or COPD. Encourage incentive spirometry. DuoNebs as needed I have explained her and her about the associate medical risks with treatment choices. # Hypoxic respiratory failure - patient was discharged from the hospital with oxygen in March. Patient stated she had not using oxygen for while. Her initial O2 sat was 93% on room air at [facility]. Currently on 2 L per nasal cannula with continues pulse ox. 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 Hemoglobin was 3.6 and required blood transfusion and IV iron infusion. Patient denies any recent history of heart failure. Cosigned by Radha Marroquin MD at 05/11/2022 7:13 AM EST Associated attestation - Radha Marroquin MD - 05/11/2022 7:13 AM EST The patient was seen only by Advanced Practice Provider ([facility]), and care was reviewed with me. * Consults - Roberto Graves PA - 05/07/2022 5:54 PM ESTAssociated Order(s): IP CONSULT TO ORTHOPAEDICS Chief Complaint: Fall HPI: Richa Ohara is a 66 y.o. female with PMH significant for multiple sclerosis on steroids, chorea, and HTN who presents to [facility] ED as a transfer from [facility] with a right periprosthetic femur fracture. Patient states that she was walking down 2 steps on her front porch and mis-stepped and fell. Patient was unable to ambulate after the fall. She was taken to [facility] where imaging revealed a right periprosthetic femur fracture. She was placed into at the OSH and transferred to for further management of this fracture. Patient states that she had a hip fracture on 03/22 that was repaired by Dr. Quintana from [facility] in [place], [place]. She developed pneumoniapost-op and was discharged home once medically stable. Last Meal: AM 2/3 Past Medical History: 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 Chronic or unspecified gastric ulcer with perforation (CMS/HCC) Gastric ulcer with perforation Conversions - Other Acute Peptic Ulcer With Perforation Conversions - Other Cerumen Impaction Conversions - Other Constipation Conversions - Other Dehydration (Na, H2O) Conversions - Other Duodenal Ulcer Conversions - Other Hypokalemia Deficiency of other specified B group vitamins Vitamin B 12 deficiency Iron deficiency Iron deficiency Unspecified protein-calorie malnutrition (CMS/HCC) Malnutrition Past Surgical History: Past Surgical History: Procedure Laterality Date CHOLECYSTECTOMY N/A Cholecystectomy from [facility] OTHER SURGICAL HISTORY N/A Esophagogastroduodenoscopy from [facility] OTHER SURGICAL HISTORY N/A Exploratory Laparotomy from [facility] TUBAL LIGATION N/A Tubal Ligation from [facility] Family History: family history includes Conversions - Other in her mother; FRANKY disease in her brother; Heart disease in her mother; Hypertension in her brother; Kidney cancer in her father; Stroke inher brother; Thyroid cancer in her sister. Reviewed and found to be non contributory to HPI/CC. Family or Personal History of DVT/PE?: Denies Allergies: Allergies Allergen Reactions Tetracycline Hives Metal Allergy: No Social History: Tobacco: Current everyday smoker 0.5-0.75 PPD Alcohol: Denies Illicit substance use: Denies Lives with in [place], [place]. Employment: ROS: A 14 point review of systems was conducted and was negative except aforementioned in the HPI, and if present the following systems listed below: Physical Exam: General:NAD Vitals: Visit Vitals BP (!) 166/80 Pulse (!) 115 Temp 37.1 ??C (98.7 ??F) (Oral) SpO2 97% Psych: AOx3, Appropriate mood and affect Eyes: EOMI, PERRLA, Sclera Anicteric HENMT: NCAT, mmm, good dentition GI: Soft, NT, No organomegaly Resp: Good effort, symmetrical chest rise CV: No evidence of lymphedema, Pulses as below. Skin: No palpable masses, No rashes or lesions, except specificaly mentioned below on each extremity Musculoskeletal Exam: Neck: Neck non tender to palpation, no step-off Chest: Clavicles non tender to palpation Spine: Cervical spine non tender to palpation, no step-off, Thoracic spine non tender to palpation, no step-off Lumbar spine non tender to palpation, no step-off Pelvis: stable to AP/Lat compression RUE: skin intact, no deformity, soft compartments, no pain with passive stretch, non tender to palpation ROM: Full/painless/stable at shoulder, elbow, and wrist Motor: 5/5 ER/IR, 5/5 Delt, 5/5 Bic, 5/5 Tri, 5/5 WF, 5/5 WE, 5/5 FF, 5/5 FE, 5/5 Fabd, 5/5 EPL, 5/5 FPL Sensory: Sensation intact to light touch axillary, radial, median, ulnar nn. Vascular: 2+ radial pulse, cap refill <2 sec LUE: skin intact, no deformity, soft compartments, no pain with passive stretch, non tender to palpation ROM: Full/painless/stable at shoulder, elbow, and wrist Motor: 5/5 ER/IR, /5 Delt, 5/5 Bic, 5/5 Tri, /5 WF, /5 WE, 5/5 FF, 5/5 FE, 5/5 Fabd, 5/5 EPL, 5/5 FPL Sensory: Sensation intact to light touch axillary, radial, median, ulnar nn. Vascular: 2+ radial pulse, cap refill <2 sec RLE: skin intact, deformity of thigh, soft compartments, no pain with passive stretch, TTP of thigh ROM: Full/painless/stable at ankle, knee and hip deferred due to pain Motor: Fires TA, GSC, EHL, FHL, Ever Sensory: Sensation intact to light touch deep peroneal, superficial peroneal, tibial, sural, saphenous nn. Vascular:2+ dorsalis pedis and posterior tibial pulse, cap refill <2 sec LLE: skin intact, no deformity, soft compartments, no pain with passive stretch, non tender to palpation ROM: Full/painless/stable at hip, knee, and ankle Motor: 5/5 HAbd, 5/5 HF, 5/5 KE, 5/5 KF, 5/5 TA, 5/5 GSC, 5/5 EHL, /5 FHL, 5/5 Ever Sensory: Sensation intact to light touch deep peroneal, superficial peroneal, tibial, sural, saphenous nn. Vascular: 2+ dorsalis pedis and posterior tibial pulse, cap refill <2 sec Labs: Labs in last 18 hours CBC WBC 8.00 Hb 10.1 (L) Plt 222 Hct 33.9 (L) ANC ?? INR ??, PTT ??, Anti-Xa ?? BMP Na 138 Cl 103 BUN 18 Glu 132 (H) K 3.9 Co2 26 Cr 0.62 Ca 8.7 (L) iCa ?? Mg ??, Phos ?? Lactate ?? LFT AST ?? AlkPhos ?? T Prot ?? ALK ?? Bili ?? Alb ?? D.Bili ?? Imaging: Xrays of the following, reviewed and requested by me demonstrate the followin views left femur with periprosthetic femur fracture Assessment: Richa Ohara is a 66 y.o. female with a right periprosthetic femur fx. Plan: -NWB RLE -Placed into proximal tibial traction -Will require operative intervention -NPO at midnight -Marked and consented -Pain Control -Bowel Regimen Roberto Graves PA-C Department of Orthopaedic Surgery and Sports Medicine Consult Pager: [phone] Service Pager:[phone] Cosigned by Arash Fields MD at 05/09/2022 11:36 AM EST Associated attestation - Arash Fields MD - 05/09/2022 11:36 AM EST Signature Only * ED Provider Notes - Luis Jovel MD - 05/07/2022 3:15 PM EST Chief Complaint: Fall HPI: Richa Ohara is a 66 y.o. female with a history of multiple sclerosis on steroids, chorea,presenting for evaluation of Fall. Patient states that today she was walking down her stairs at home when she misstepped, causing her to land in a squatting position approximately 3 stairs below. Shehad immediate pain and a pop in her right thigh with significant pain. She was unable to ambulate afterward due to the pain. She was seen at [facility] where she underwent procedural sedation and reduction of a midshaft femur fracture and was sent here for further evaluation by the orthopedic team. She denies any other injuries, head trauma, loss of consciousness, blood thinner use. She has had a hip replacement on the right. Her last meal was approximately 7:00 a.m. She is on steroids for her MS. She received ketamine and fentanyl prior to arrival as well as 1 mg of Ativan. Past Medical History: Past medical history was reviewed. 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 Anemia Chronic or unspecified gastric ulcer with perforation (CMS/HCC) Gastric ulcer with perforation Conversions - Other Acute Peptic Ulcer With Perforation Conversions - Other Cerumen Impaction Conversions - Other Constipation Conversions - Other Dehydration (Na, H2O) Conversions - Other Duodenal Ulcer Conversions - Other Hypokalemia Deficiency of other specified B group vitamins Vitamin B 12 deficiency Depression Heart failure (CMS/HCC) Iron deficiency Iron deficiency Peptic ulcer Unspecified protein-calorie malnutrition (CMS/HCC) Malnutrition Vitamin D deficiency Social History: Social History was reviewed. Tobacco Use Smoking status: Every Day Packs/day: 0.25 Types: Cigarettes Smokeless tobacco: Never Substance Use Topics Alcohol use: No Comment: Alcoholic Drinks/day: Never Drank Alcohol Drug use: Never ROS: Review of Systems All other systems reviewed and are negative. ED Triage Vitals: ED Triage Vitals [05/07/22 1517] Temp Heart Rate Resp BP 37.1 ??C (98.7 ??F) (!) 122 15 (!) 176/97 SpO2 Temp Source Heart Rate Source Patient Position 100 % Oral Monitor Lying BP Location FiO2 (%) Right arm -- Physical Exam: Physical Exam Vitals and nursing note reviewed. Constitutional: General: She is not in acute distress. Appearance: She is well-developed. HENT: Head: Normocephalic and atraumatic. Right Ear: External ear normal. Left Ear: External ear normal. Nose: Nose normal. Mouth/Throat: Mouth: Mucous membranes are moist. Eyes: Conjunctiva/sclera: Conjunctivae normal. Cardiovascular: Rate and Rhythm: Normal rate and regular rhythm. Pulses: Normal pulses. Heart sounds: Normal heart sounds. No murmur heard. No friction rub. No gallop. Pulmonary: Effort: Pulmonary effort is normal. No respiratory distress. Breath sounds: Normal breath sounds. No wheezing, rhonchi or rales. Abdominal: Palpations: Abdomen is soft. Tenderness: There is no abdominal tenderness. There is no guarding or rebound. Musculoskeletal: General: Deformity (right thigh deformity) present. No swelling. Cervical back: Neck supple. Comments: RLE: traction splint in place. Obvious deformity to mid thigh. Sensation intact throughout right lower extremity. Motor function intact at the ankle and toes. Unable to assess motor function at the knee and hip secondary to pain. 2+ DP and PT pulses. Less than 2nd capillary refill. No tenderness, deformities, abrasions, lesions appreciated to the other extremities, chest wall, abdomen. She is nontender throughout her neck and spine. No other signs of trauma Skin: General: Skin is warm and dry. Capillary Refill: Capillary refill takes less than 2 seconds. Neurological: Mental Status: She is alert. Psychiatric: Mood and Affect: Mood normal. MDM: Patient is a 66 y.o. female with history and exam per above presenting for evaluation of Fall and was diagnosed with a femur fracture at outside hospital. Patient is hemodynamically stable upon arrival. She is hypertensive and tachycardic, however she isbreathing comfortably on room air in no acute respiratory distress. Afebrile. Physical exam was significant for deformity of the right thigh, however she was neurovascularly intact distally. No other injuries were appreciated. Her tachycardia is likely secondary to pain. Patient's workup included x-ray imaging of the pelvis, right hip, femur, right knee. These were reviewed by me personally and demonstrated a displaced diaphyseal fracture of the proximal femur. There is hardware in place to the right hip. Given the patient was diagnosed with the femur fracture and status post reduction from outside hospital with continued displacement, I spoke with orthopedic surgery about the patient. Theyagreed to come evaluate her. They then placed a traction splint in her leg here in the ED and then admitted her to their service as she will likely need operative intervention. She remained hemodynamically stable and was appropriate for admission at this time. The following orders were placed this encounter: Orders Placed This Encounter Procedures SARS CoV-2/COVID-19 by PCR Multi Drug Resistance Test Nasopharyngeal Respiratory Panel XR Femur Right 2+ Views XR Knee Right 3 + Views XR Chest 1 View XR Femur Left 2+ Views XR Tibia Fibula Right 2+ Views XR Hips Bilateral W or WO Pelvis 3-4 Views Basic metabolic panel CBC W/O Differential CBC W/O Differential Prothrombin Time/INR Type and Screen Lactate, venous Hemoglobin A1c Extra Tubes Light Blue Top Light Green Top Gold Top Gold Top Comprehensive metabolic panel Magnesium Phosphorus Vitamin D 25 Hydroxy NPO diet NPO except: Sips with meds Vital signs for transfusion Notify Provider Nursing communication Nursing communication Mobility Orders Notify physician (specify parameters) Vital Signs Neurovascular checks Intake and output Incentive spirometry Adult Post Younger Removal Protocol Instructions Pin site dressing Traction Mason Apply sequential compression device Do Not Give Nicotine Replacement Vital signs for transfusion Chlorhexidine Wipes Continuous Pulse Oximetry Full code Consult to Orthopaedics Surgery Consult to [facility] ECG Adult Prepare Leukocyte Reduced RBC: 2 Units Prepare Leukocyte Reduced RBC: 2 Units, Leukoreduced Insert peripheral IV Saline lock IV Admit to inpatient ED to floor bed request Imaging was independently visualized and reviewed by me, with findings of displaced proximal diaphyseal fracture of the right femur. Medications: 4mg Morphine I discussed management with the following services regarding the patient's case and recommendationsfor disposition: IP CONSULT TO ORTHOPAEDICS IP CONSULT TO [facility] Patient was admitted by Gagan Osuna MD with admitting diagnosis of Oth fracture of shaft of right femur, init for clos fx (CMS/[facility]) [S72.391A]. The following providers were documented as being assigned to this patient during this visit: Sincerely, MD Gagan Palmer MD Joshua M Karsner, MD Joshua M Karsner, MD Resident 05/08/22 0158 Cosigned by Bruce Murphy MD at 05/11/2022 9:08 PM EST Associated attestation - Bruce Murphy MD - 05/11/2022 9:08 PM EST I saw and evaluated the patient with the resident/fellow. I discussed the case with the resident/fellow and agree with the findings and plan as documented. * ED Triage Notes - Alina Shepherd RN - 05/07/2022 3:15 PM EST Pt arrives from OSH with suspected right sided femur fx after falling down approx 3 stairs this AM.Pt was sedated at OSH and placed in traction. OSH dx pt with right mid-shaft femur fx. Obvious deformity to RLE noted. +PMS. Pt also received pain medication in route requiring nonrebreather on arrival to [facility]. documented in this encounter Plan of Treatment Pending Results Name Type Priority Associated Diagnoses Date /Time Prepare Leukocyte Reduced RBC: 2 Units Blood Bank STAT 05/07/2022 5:11 PM EST Prepare Leukocyte Reduced RBC: 2 Units, Leukoreduced Blood Bank Routine 05/07/2022 8:36 PM EST documented as of this encounter Procedures Procedure Name Priority Date/Time Associated Diagnosis Comments SARS COV-2/COVID-19 BY PCR - RAPID STAT 05/14/2022 10:05 AM EST CBC W/O DIFFERENTIAL Routine 05/11/2022 11:53 AM EST BLOOD CULTURE (AEROBIC/ANAEROBIC SET) STAT 05/09/2022 9:59 PM EST BLOOD CULTURE (AEROBIC/ANAEROBIC SET) STAT 05/09/2022 9:59 PM EST BLOOD GAS PANEL, VENOUS Routine 05/09/19 9:59 PM EST XR CHEST 1 VIEW STAT 05/09/2022 9:51 PM EST BASIC METABOLIC PANEL, PLASMA Routine 05/09/2022 5:36 AM EST CBC W/O DIFFERENTIAL Routine 05/09/2022 5:12 AM EST XR FEMUR RIGHT 2+ VIEWS Routine 05/08/19 11:16 AM EST FL LESS THAN 1 HOUR (NON-REPORTABLE) Routine 05/08/2022 9:58 AM EST INSERTION, INTRAMEDULLARY SUZAN, FEMUR 05/08/2022 7:25 AM EST Closed displaced transverse fracture of shaft of right femur, initial encounter (CMS/HCC) LACTATE, VENOUS Timed 05/08/2022 4:04 AM EST LACTATE, VENOUS Timed 05/08/2022 12:27 AM EST VITAMIN D 25 HYDROXY Routine 05/08/2022 12:27 AM EST PROTHROMBIN TIME(PT) / INR STAT 05/08/2022 12:27 AM EST CBC W/O DIFFERENTIAL STAT 05/08/2022 12:27 AM EST COMPREHENSIVE METABOLIC PANEL, PLASMA STAT 05/08/2022 12:27 AM EST MULTI DRUG RESISTANCE TEST Routine 05/07/2022 10:21 PM EST PREPARE RBC Routine 05/07/2022 8:36 PM EST HEMOGLOBIN A1C STAT 05/07/2022 6:06 PM EST XR HIPS BILATERAL W OR WO PELVIS 3-4 VIEWS STAT 05/07/2022 5:55 PM EST XR CHEST 1 VIEW Routine 05/07/2022 5:55 PM EST XR TIBIA FIBULA RIGHT 2+ VIEWS STAT 05/07/2022 5:55 PM EST XR KNEE RIGHT 3 VIEWS STAT 05/07/2022 5:55 PM EST XR FEMUR RIGHT 2+ VIEWS STAT 05/07/19 5:55 PM EST XR FEMUR LEFT 2+ VIEWS STAT 5:55 PM EST EXTRA TUBE GOLD TOP Routine 05/07/2022 5 :15 PM EST EXTRA TUBE GOLD TOP Routine 05/07/2022 5 :15 PM EST SARS COV-2/COVID-19 BY PCR Routine 05/07/2022 5:15 PM EST EXTRA TUBE LIGHT GREEN TOP Routine 05/07/2022 5:15 PM EST EXTRA TUBE LIGHT BLUE TOP Routine 05/07/2022 5:15 PM EST LACTATE, VENOUS Timed 05/07/2022 5:15 PM EST EXTRA TUBES Routine 05/07/2022 5:15 PM EST NASOPHARYNGEAL RESPIRATORY PANEL Add-On 05/07/2022 5:15 PM EST TYPE AND SCREEN Routine 05/07/2022 5:15 PM EST CBC W/O DIFFERENTIAL Routine 05/07/2022 5:14 PM EST PHOSPHORUS, PLASMA Add-On 05/07/2022 5: 14 PM EST MAGNESIUM, PLASMA Add-On 05/07/2022 5:1 4 PM EST BASIC METABOLIC PANEL, PLASMA Routine 05/07/2022 5:14 PM EST PREPARE RBC STAT 05/07/2022 5:11 PM EST ECG ADULT Routine 05/07/2022 5:01 PM EST documented in this encounter Results * SARS CoV-2/COVID-19 by PCR - Rapid (05/14/2022 10:05 AM EST) SARS CoV-2/COVID-1 9 RNA PCR Result Not Detected Not Detected 05/14/2022 11:04 AM EST [facility] Swab Nasopharyngeal structure / Unknown Non-blood Collection / Unknown 05/14/2022 10:05 AM EST 05/14/2022 10:09 AM EST Narrative [facility] - 05/14/2022 11:04 AM EST This assay is for in vitro diagnostic use under FDA emergency use authorization only. Negative results do not preclude infection with the SARS CoV-2 virus and should not be the sole basis of a patient treatment/management or public health decision. Follow up testing should be performed according to the current CDC recommendations. This test was performed on the Xpert Xpress SARS CoV-2 test, a PCR-based method. Negative results should be considered presumptive and do not preclude current or future infection obtained through community transmission or other exposures. Negative results must be considered in the context of an individual's recent exposures, history, presence of clinical signs and symptoms consistent with COVID-19. Gagan Osuna MD LAB MICROBIOLOGY - GENERAL O RDERABLES Final Result [facility] [address] [place] [address] * (ABNORMAL) CBC W/O Differential (05/11/2022 11:53 AM EST) WBC Count 6.53 3.70 - 10.30 10*3/uL LAB HEMATOLOGY METHOD 05/11/2022 12:20 PM EST [facility] RBC Count 3.80(L) 3.90 - 5.20 10*6/uL LAB HEMATOLOGY METHOD 05/11/2022 12:20 PM EST [facility] HGB 9.0(L) 11.2 - 15.7 g/dL LAB HEMATOLOGY METHOD 05/11/2022 12:20 PM EST [facility] HCT 31.4(L) 34.0 - 45.0 % LAB HEMATOLOGY METHOD 05/11/2022 12:20 PM EST [facility] Platelet Count 221 155 - 369 10*3/uL LAB HEMATOLOGY METHOD 05/11/2022 12:20 PM EST [facility] MCV 83 79 - 98 fL LAB HEMATOLOGY METHOD 05/11/2022 12:20 PM EST [facility] MCH 23.7(L) 26.0 - 32.0 pg LAB HEMATOLOGY METHOD 05/11/2022 12:20 PM EST [facility] MCHC 28.7(L) 30.7 - 35.5 g/dL LAB HEMATOLOGY METHOD 05/11/2022 12:20 PM EST [facility] RDW 18.4(H) 11.5 - 14.5 % LAB HEMATOLOGY METHOD 05/11/2022 12:20 PM EST [facility] MPV 10.9 8.8 - 12.5 fL LAB HEMATOLOGY METHOD 05/11/2022 12:20 PM EST [facility] nRBC 0.0 <=0.0 per 100 WBCs LAB HEMATOLOGY METHOD 05/11/2022 12:20 PM EST [facility] Blood Venous blood specimen / Unknown Venipuncture / Unknown 05/11/2022 11:53 AM EST 05/11/2022 12:03 PM EST us Gagan Osuna MD LAB BLOOD ORDERABLES Final R esult Performing Organization Address City/[facility] Co de Phone Number [facility] [address] [place] [address] * Blood Culture (Aerobic/Anaerobet Set) (05/09/2022 9:59 PM EST) Culture No growth at day 5 GILBERTO 05/15/2022 1:04 AM EST [facility] Blood Structure of right forearm / Unknown Venipuncture / Unknown 05/09/2022 9:59 PM EST 05/10/2022 12:22 AM EST us Gagan Osuna MD LAB MICROBIOLOGY - GENERAL O RDERABLES Final Result Performing Organization Address City/[facility] Co de Phone Number [facility] [address] [place] [address] * Blood Culture (Aerobic/Anaerobet Set) (05/09/2022 9:59 PM EST) Culture No growth at day 5 GILBERTO 05/15/2022 1:04 AM EST [facility] Blood Structure of antecubital vein / Unknown Venipuncture / Unknown 05/09/2022 9:59 PM EST 05/10/2022 12:22 AM EST us Gagan Osuna MD LAB MICROBIOLOGY - GENERAL O RDERABLES Final Result Performing Organization Address City/[facility] Co de Phone Number [facility] [address] [place] [address] * (ABNORMAL) Blood gas panel, venous (05/09/2022 9:59 PM EST) [facility] pH, Venous 7.42 7.32 - 7.43 LAB HEMATOLOGY METHOD 05/09/2022 10:19 PM [facility] pCO2, Venous 46 37 - 52 mmHg LAB HEMATOLOGY METHOD 05/09/2022 10:19 PM [facility] pO2, Venous 69(H) 25 - 40 mmHg LAB HEMATOLOGY METHOD 05/09/2022 10:19 PM [facility] SO2, Measured, Venous 93.0(H) 65 - 80 % LAB HEMATOLOGY METHOD 05/09/2022 10:19 PM [facility] Base Excess, Venous 4.7(H) -2.0 - 3.0 mmol/L LAB HEMATOLOGY METHOD 05/09/2022 10:19 PM [facility] Bicarbonate, Calculated, Venous 30(H) 22 - 26 mmol/L LAB HEMATOLOGY METHOD 05/09/2022 10:19 PM [facility] Hematocrit, Whole Blood 26.7(L) 34.0 - 45.0 % LAB HEMATOLOGY METHOD 05/09/2022 10:19 PM [facility] Sodium, Whole Blood 140 136 - 145 mmol/L LAB HEMATOLOGY METHOD 05/09/2022 10:19 PM [facility] Potassium, Whole Blood 4.1 3.6 - 4.9 mmol/L LAB HEMATOLOGY METHOD 05/09/2022 10:19 PM [facility] Chloride, Whole Blood 101 97 - 107 mmol/L LAB HEMATOLOGY METHOD 05/09/2022 10:19 PM [facility] Glucose, Whole Blood 105(H) 74 - 99 mg/dL LAB HEMATOLOGY METHOD 05/09/2022 10:19 PM [facility] Lactate, Venous, Whole Blood 0.8 0.5 - 2.2 mmol/L LAB HEMATOLOGY METHOD 05/09/2022 10:19 PM [facility] Ionized Calcium, Whole Blood 4.5(L) 4.6 - 5.1 mg/dL LAB HEMATOLOGY METHOD 05/09/2022 10:19 PM [facility] Blood Venous blood specimen / Unknown Venipuncture / Unknown 05/09/2022 9:59 PM EST 05/09/2022 10:17 PM EST Gagan Osuna MD LAB BLOOD ORDERABLES Final R esult [facility] [address] [place] [address] * XR Chest 1 View (05/09/2022 9:51 PM EST) Anatomical Region Laterality Modality Chest Digital Radiogra phy Impressions 05/09/2022 10:14 PM EST No new focal consolidation or effusion. CRITICAL RESULT: ?? No COMMUNICATION: Per this written report. Dictated by Evin Lujan MD on 05/09/2022 10:14 PM Signed by Evin Lujan MD on 05/09/2022 10:14 PM Narrative 05/09/2022 10:14 PM EST Exam/Procedure: XR CHEST 1 VIEW ordered by GAGAN OSUNA [id number] CLINICAL INDICATION: SOA, sputum production TECHNIQUE: XR CHEST 1 VIEW COMPARISON: 05/07/2022 FINDINGS: The cardiomediastinal silhouette is stable. No new focal consolidation or pleural effusion. No pneumothorax. The visualized osseous structures are intact. Procedure Note Evin Lujan MD - 05/09/2022 Exam/Procedure: XR CHEST 1 VIEW ordered by GAGAN OSUNA [id number] CLINICAL INDICATION: SOA, sputum production TECHNIQUE: XR CHEST 1 VIEW COMPARISON: 05/07/2022 FINDINGS: The cardiomediastinal silhouette is stable. No new focal consolidation orpleural effusion. No pneumothorax. The visualized osseous structures areintact. IMPRESSION: No new focal consolidation or effusion. CRITICAL RESULT: No COMMUNICATION: Per this written report. Dictated by Evin Lujan MD on 05/09/2022 10:14 PM Signed by Evin Lujan MD on 05/09/2022 10:14 PM us Gagan Osuna MD IMG XR PROCEDURES Final Resu lt * (ABNORMAL) Basic metabolic panel (05/09/2022 5:36 AM EST) Glucose, Plasma 116(H) 74 - 99 mg/dL 05/09/2022 5:36 AM EST [email or web address] BUN, Plasma 19 8 - 23 mg/dL 05/09/2022 5:36 AM EST [email or web address] Creatinine, Plasma 0.81 0.60 - 1.10 mg/dL 05/09/2022 5:36 AM EST [facility] BUN/Creatinine Ratio 23 05/09/2022 5:36 AM EST [facility] Sodium, Plasma 141 136 - 145 mmol/L 05/09/2022 5:36 AM EST [facility] Potassium, Plasma 4.7 3.7 - 4.8 mmol/L 05/09/2022 5:36 AM EST [facility] Comment:Reference range for Serum potassium is 0.2 to 0.5 mmol/L higher than Plasma range. Chloride, Plasma 106 97 - 107 mmol/L 05/09/2022 5:36 AM EST [facility] CO2, Plasma 30(H) 22 - 29 mmol/L 05/09/2022 5:36 AM EST [facility] Anion Gap 5(L) 6 - 16 mmol/L 05/09/2022 5:36 AM EST [facility] Total Calcium, Plasma 8.7(L) 8.9 - 10.2 mg/dL 05/09/2022 5:36 AM EST [facility] eGFRcr 81.2 mL/min/1.7 3m*2 05/09/2022 5:36 AM EST [facility] Comment: Reported eGFRcr in mL/min/1.73m2 is based the CKD-EPI 2020 equation that does not use a race coefficient. Effective 10/28/21 our laboratory changed the eGFR calculation to the CKD-EPI 2020 equation from the previously reported eGFR, based on the MDRD equation. ??For comparisons between the two equations, please see laboratory website: ??[email or web address] Blood Venous blood specimen / Unknown 05/09/2022 5:03 AM EST us Gio Moran MD LAB BLOOD ORDERABLES Final Resul t [facility] [address] [place] [address] * (ABNORMAL) CBC W/O Differential (05/09/2022 5:12 AM EST) WBC Count 6.14 3.70 - 10.30 10*3/uL LAB HEMATOLOGY METHOD 05/09/2022 5:12 AM EST [facility] RBC Count 3.67(L) 3.90 - 5.20 10*6/uL LAB HEMATOLOGY METHOD 05/09/2022 5:12 AM EST [facility] HGB 8.6(L) 11.2 - 15.7 g/dL LAB HEMATOLOGY METHOD 05/09/2022 5:12 AM EST [facility] HCT 31.0(L) 34.0 - 45.0 % LAB HEMATOLOGY METHOD 05/09/2022 5:12 AM EST [facility] Platelet Count 189 155 - 369 10*3/uL LAB HEMATOLOGY METHOD 05/09/2022 5:12 AM EST [facility] MCV 85 79 - 98 fL LAB HEMATOLOGY METHOD 05/09/2022 5:12 AM EST [facility] MCH 23.4(L) 26.0 - 32.0 pg LAB HEMATOLOGY METHOD 05/09/2022 5:12 AM EST [facility] MCHC 27.7(L) 30.7 - 35.5 g/dL LAB HEMATOLOGY METHOD 05/09/2022 5:12 AM EST [facility] RDW 18.4(H) 11.5 - 14.5 % LAB HEMATOLOGY METHOD 05/09/2022 5:12 AM EST [facility] MPV 11.0 8.8 - 12.5 fL LAB HEMATOLOGY METHOD 05/09/2022 5:12 AM EST [facility] nRBC 0.0 <=0.0 per 100 WBCs LAB HEMATOLOGY METHOD 05/09/2022 5:12 AM EST [facility] Blood Venous blood specimen / Unknown 05/09/2022 5:03 AM EST us Gagan Osuna MD LAB BLOOD ORDERABLES Final R esult [facility] [address] [place] [id number] * XR Femur Right 2+ Views (05/08/2022 11:16 AM EST) Anatomical Region Laterality Modality Lower Extremities, Femur Right Digital Radiography Impressions 05/08/2022 11:06 AM EST Postoperative appearance of the right femur. CRITICAL RESULT: ?? No. COMMUNICATION: Per this written report. Dictated by Adin Romero MD on 05/08/2022 11:05 AM Signed by Adin Romero MD on 05/08/2022 11:06 AM Narrative 05/08/2022 11:06 AM EST Exam/Procedure: Right femur CLINICAL INDICATION: Postoperative TECHNIQUE: Right femur 4 views COMPARISON: 05/07/2022 FINDINGS: Placement of an intramedullary nail with screw fixation spanning the right femur fracture with improved osseous alignment compared to the prior study. Removal of the prior hardware. Improved osseous alignment. No new fracture is noted relative to the prior exam. Skin dedra and soft tissue emphysema are consistent with postoperative status. Procedure Note Adin Romero MD - 05/08/2022 Exam/Procedure: Right femur CLINICAL INDICATION: Postoperative TECHNIQUE: Right femur 4 views COMPARISON: 05/07/2022 FINDINGS: Placement of an intramedullary nail with screw fixation spanning the rightfemur fracture with improved osseous alignment compared to the priorstudy. Removal of the prior hardware. Improved osseous alignment. No newfracture is noted relative to the prior exam. Skin dedra and soft tissueemphysema are consistent with postoperative status. IMPRESSION: Postoperative appearance of the right femur. CRITICAL RESULT: No. COMMUNICATION: Per this written report. Dictated by Adin Romero MD on 05/08/2022 11:05 AM Signed by Adin Romero MD on 05/08/2022 11:06 AM Gagan Osuna MD IMG XR PROCEDURES Final Resu lt * FL Less than 1 Hour Intraoperative (05/08/2022 9:58 AM EST) Narrative IMAGING - 05/08/2022 9:58 AM EST Images were obtained for surgical purposes. ??See Eleuterio Rod's surgical note in the patient's chart for the findings. Eleuterio Rod MD IMG FLUOROSCOPY PROCEDURES F inal Result IMAGING * Lactate, venous (05/08/2022 4:04 AM EST) Lactate, Venous, Whole Blood 0.7 0.5 - 2.2 mmol/L LAB HEMATOLOGY METHOD 05/08/2022 4:17 AM EST [email or web address] Blood Venous blood specimen / Unknown Venipuncture / Unknown 05/08/2022 4:04 AM EST 05/08/2022 4:14 AM EST Bruce Murphy MD LAB BLOOD ORDERABLES Final Result Performing Organization Address [facility] Phone Number [facility] [address] [place] [address] * (ABNORMAL) Vitamin D 25 Hydroxy (05/08/2022 12:27 AM EST) Vitamin D 25 Hydroxy 16.5(L) 20.0 - 80.0 ng/mL 05/08/2022 6:00 AM EST [facility] Comment: Vitamin D, 25-Hydroxy reference range, age 18 years and up: Deficiency: ? <12 ng/mL Insufficiency: ?12 to 19 ng/mL Sufficiency: ?20 to 80 ng/mL Possible toxicity: ??>100 ng/mL Blood Venous blood specimen / Unknown Venipuncture / Unknown 05/08/2022 12:27 AM EST 05/08/2022 12:34 AM EST Nely Wallace APRN LAB BLOOD ORDERABLES Final Result Performing Organization Address [facility] de Phone Number [facility] [address] [place] [address] * (ABNORMAL) Comprehensive metabolic panel (05/08/2022 12:27 AM EST) Glucose, Plasma 178(H) 74 - 99 mg/dL 05/08/2022 1:02 AM EST [facility] BUN, Plasma 16 8 - 23 mg/dL 05/08/2022 1:02 AM EST [facility] Creatinine, Plasma 0.60 0.60 - 1.10 mg/dL 05/08/2022 1:02 AM EST [facility] BUN/Creatinine Ratio 05/08/2022 1:02 AM EST [facility] Sodium, Plasma 138 136 - 145 mmol/L 05/08/2022 1:02 AM EST [facility] Potassium, Plasma 3.6(L) 3.7 - 4.8 mmol/L 05/08/2022 1:02 AM EST [facility] Comment:Reference range for Serum potassium is 0.2 to 0.5 mmol/L higher than Plasma range. Chloride, Plasma 102 97 - 107 mmol/L 05/08/2022 1:02 AM EST [facility] CO2, Plasma 27 22 - 29 mmol/L 05/08/2022 1:02 AM EST [facility] Anion Gap 9 6 - 16 mmol/L 05/08/2022 1:02 AM EST [facility] Total Calcium, Plasma 8.8(L) 8.9 - 10.2 mg/dL 05/08/2022 1:02 AM EST [facility] Total Protein 5.8(L) 6.3 - 7.9 g/dL 05/08/2022 1:02 AM EST [facility] Albumin, Plasma 3.6 3.5 - 5.2 g/dL 05/08/2022 1:02 AM [facility] AST, Plasma 33 9 - 36 U/L 05/08/2022 1:02 AM [facility] ALT, Plasma 21 8 - 33 U/L 05/08/2022 1:02 AM [facility] Alkaline Phosphatase, Plasma 159(H) 46 - 142 U/L 05/08/2022 1:02 AM [facility] Total Bilirubin, Plasma <0.2(L) 0.2 - 1.1 mg/dL 05/08/2022 1:02 AM EST [facility] eGFRcr 100.4 mL/min/1.7 3m*2 05/08/2022 1:02 AM EST [facility] Comment: Reported eGFRcr in mL/min/1.73m2 is based the CKD-EPI 2021 equation that does not use a race coefficient. Effective 10/28/21 our laboratory changed the eGFR calculation to the CKD-EPI 2021 equation from the previously reported eGFR, based on the MDRD equation. ??For comparisons between the two equations, please see laboratory website: ??[email or web address] Blood Venous blood specimen / Unknown Venipuncture / Unknown 05/08/2022 12:27 AM EST 05/08/2022 12:32 AM EST Nely Wallace APRN LAB BLOOD ORDERABLES Final Result [facility] [address] [place] [address] * Lactate, venous (05/08/2022 12:27 AM EST) Lactate, Venous, Whole Blood 1.6 0.5 - 2.2 mmol/L LAB HEMATOLOGY METHOD 05/08/2022 12:33 AM EST [facility] Blood Venous blood specimen / Unknown Venipuncture / Unknown 05/08/2022 12:27 AM EST 05/08/2022 12:32 AM EST Bruce Murphy MD LAB BLOOD ORDERABLES Final Result Performing Organization Address [facility] Co de Phone Number [facility] [address] [place] [address] * Prothrombin Time/INR (05/08/2022 12:27 AM EST) Pathologist [facility] Prothrombin Time 12.7 12.0 - 14.3 sec LAB COAGULATION METHOD 05/08/2022 1:06 AM EST [facility] INR 0.9 0.9 - 1.1 LAB COAGULATION METHOD 05/08/2022 1:06 AM EST [facility] Blood Venous blood specimen / Unknown Venipuncture / Unknown 05/08/2022 12:27 AM EST 05/08/2022 12:32 AM EST Narrative [facility] - 05/08/2022 1:06 AM EST OPTIMAL INR RANGES FOR PATIENT ON ORAL ANTICOAGULANT THERAPY Prevention of venous thromboembolism ?INR 2.0 to 3.0 In patients with heart disease: Atrial fibrillation ?INR 2.0 to 3.0 Valvular heart disease ? INR 2.0 to 3.0 Tissue heart valves ?INR 2.0 to 3.0 Mechanical prosthetic valves ? INR 2.5 to 3.5 Prevention of recurrent MA ? INR 2.5 to 3.5 us Bruce Murphy MD LAB BLOOD ORDERABLES Final Result [facility] [address] [place] [address] * (ABNORMAL) CBC W/O Differential (05/08/2022 12:27 AM EST) WBC Count 6.90 3.70 - 10.30 10*3/uL LAB HEMATOLOGY METHOD 05/08/2022 12:42 AM EST [facility] RBC Count 3.89(L) 3.90 - 5.20 10*6/uL LAB HEMATOLOGY METHOD 05/08/2022 12:42 AM EST [facility] HGB 9.2(L) 11.2 - 15.7 g/dL LAB HEMATOLOGY METHOD 05/08/2022 12:42 AM EST [facility] HCT 31.9(L) 34.0 - 45.0 % LAB HEMATOLOGY METHOD 05/08/2022 12:42 AM EST [facility] Platelet Count 228 155 - 369 10*3/uL LAB HEMATOLOGY METHOD 05/08/2022 12:42 AM EST [facility] MCV 82 79 - 98 fL LAB HEMATOLOGY METHOD 05/08/2022 12:42 AM EST [facility] MCH 23.7(L) 26.0 - 32.0 pg LAB HEMATOLOGY METHOD 05/08/2022 12:42 AM EST [facility] MCHC 28.8(L) 30.7 - 35.5 g/dL LAB HEMATOLOGY METHOD 05/08/2022 12:42 AM EST [facility] RDW 18.3(H) 11.5 - 14.5 % LAB HEMATOLOGY METHOD 05/08/2022 12:42 AM EST [facility] MPV 11.3 8.8 - 12.5 fL LAB HEMATOLOGY METHOD 05/08/2022 12:42 AM EST [facility] nRBC 0.0 <=0.0 per 100 WBCs LAB HEMATOLOGY METHOD 05/08/2022 12:42 AM EST [facility] Blood Venous blood specimen / Unknown Venipuncture / Unknown 05/08/2022 12:27 AM EST 05/08/2022 12:32 AM EST Bruce Murphy MD LAB BLOOD ORDERABLES Final Result [facility] [address] [place] [address] * Multi Drug Resistance Test (05/07/2022 10:21 PM EST) Culture No growth at day 2 05/09/2022 11:03 AM EST [facility] Swab (Nares and Kerry Rectal) Non-blood Collection / Unknown 05/07/2022 10:21 PM EST 05/07/2022 10:41 PM EST us Gagan Osuna MD LAB MICROBIOLOGY - GENERAL O RDERABLES Final Result Performing Organization Address City/[facility]/ZIP Co de Phone Number [facility] [address] [place] [address] * Hemoglobin A1c (05/07/2022 6:06 PM EST) Hemoglobin A1c 5.2 <5.7 % 05/07/2022 7:44 PM EST [facility] Blood Venous blood specimen / Unknown Venipuncture / Unknown 05/07/2022 6:06 PM EST 05/07/2022 6:33 PM EST Narrative [facility] - 05/07/2022 7:44 PM EST HA1C Interpretive Data: Diagnosis of Diabetes: Diabetic > or = 6.5% Pre-diabetic 5.7 to 6.4% Non-diabetic < or = 5.6% Glycemic Targets for Type I and Type II Diabetics: Non- Adults <7.0% Adults <6.0% Children and Adolescents <7.5% Source: ??[place] [employer]. Standards of medical care in diabetes,2017. Diabetes Care.2017:40 (suppl 1):S1-S135. HbA1c assay performed by an ion-exchange chromatography method that is certified traceable to the DCCT. us Bruce Murphy MD LAB BLOOD ORDERABLES Final Result Performing Organization Address City/[facility]/ZIP Co de Phone Number [facility] [address] [place] [address] * XR Hips Bilateral W or WO Pelvis 3-4 Views (05/07/2022 5:55 PM EST) Anatomical Region Laterality Modality Hip, Pelvis Bilateral Digital Radiogra phy Addenda Addendum by Paul Garcia MD on 05/14/2022 2:14 PM EST Addendum: ADDENDUM: Right knee and tibia-fibula anatomically aligned, and intact. Dictated by Paul Garcia MD on 05/14/2022 2:12 PM Signed by Paul Garcia MD on 05/14/2022 2:14 PM Impressions 05/07/2022 6:05 PM EST Displaced diaphyseal fracture of the proximal right femur just caudal to the previously placed hardware, with cranial migration of the distal fracture segment, and posterior apex angulation. No other acute osseous findings. CRITICAL RESULT: ?? No. COMMUNICATION: Per this written report. Dictated by Paul Garcia MD on 05/07/2022 6:01 PM Signed by Paul Garcia MD on 05/07/2022 6:05 PM Narrative 05/07/2022 6:05 PM EST Exam/Procedure: XR TIBIA FIBULA RIGHT 2+ VIEWS, XR HIPS BILATERAL W OR WO PELVIS 3-4 VIEWS, XR FEMUR RIGHT 2+ VIEWS, XR KNEE RIGHT 3 VIEWS, XR FEMUR LEFT 2+ VIEWS ordered by ROBERTO GRAVES, [id number] CLINICAL INDICATION: Femur fx TECHNIQUE: XR TIBIA FIBULA RIGHT 2+ VIEWS, XR HIPS BILATERAL W OR WO PELVIS 3-4 VIEWS, XR FEMUR RIGHT 2+ VIEWS, XR KNEE RIGHT 3 VIEWS, XR FEMUR LEFT 2+ VIEWS COMPARISON: None. FINDINGS: No widening of the SI joints or the symphysis. Osteopenia. The pelvic ring appears intact. Hips anatomically aligned. Proximal left femur [...] effusion is appreciated at the right knee. Procedure Note Paul Garcia MD - 05/07/2022 Exam/Procedure: XR TIBIA FIBULA RIGHT 2+ VIEWS, XR HIPS BILATERAL W OR WOPELVIS 3-4 VIEWS, XR FEMUR RIGHT 2+ VIEWS, XR KNEE RIGHT 3 VIEWS, XR FEMURLEFT 2+ VIEWS ordered by ROBERTO GRAVES, [id number] CLINICAL INDICATION: Femur fx TECHNIQUE: XR TIBIA FIBULA RIGHT 2+ VIEWS, XR HIPS BILATERAL W OR WO PELVIS 3-4VIEWS, XR FEMUR RIGHT 2+ VIEWS, XR KNEE RIGHT 3 VIEWS, XR FEMUR LEFT 2+VIEWS COMPARISON: None. FINDINGS: No widening of the SI joints or the symphysis. Osteopenia. The pelvic ringappears intact. Hips anatomically aligned. Proximal left femur appearsintact. Intact proximal right femoral hardware, likely from ORIF of priorintertrochanteric fracture. Displaced diaphyseal fracture of the proximalright femur just caudal to the intramedullary portion of the hardware,with cranial migration of the distal fracture segment, and posterior apexangulation of the fracture. The distal right femur appears intact andanatomically aligned, no fracture or or effusion is appreciated at theright knee. IMPRESSION: Displaced diaphyseal fracture of the proximal right femur just caudal tothe previously placed hardware, with cranial migration of the distalfracture segment, and posterior apex angulation. No other acute osseous findings. CRITICAL RESULT: No. COMMUNICATION: Per this written report. Dictated by Paul Garcia MD on 05/07/2022 6:01 PM Signed by Paul Garcia MD on 05/07/2022 6:05 PM us Bruce Murphy MD IMG XR PROCEDURES Edited Re sult - Final * XR Tibia Fibula Right 2+ Views (05/07/2022 5:55 PM EST) Anatomical Region Laterality Modality Lower Extremities, Lower Leg Right Dig ital Radiography Addenda Addendum by Paul Garcia MD on 05/14/2022 2:14 PM EST Addendum: ADDENDUM: Right knee and tibia-fibula anatomically aligned, and intact. Dictated by Paul Garcia MD on 05/14/2022 2:12 PM Signed by Paul Garcia MD on 05/14/2022 2:14 PM Impressions 05/07/2022 6:05 PM EST Displaced diaphyseal fracture of the proximal right femur just caudal to the previously placed hardware, with cranial migration of the distal fracture segment, and posterior apex angulation. No other acute osseous findings. CRITICAL RESULT: ?? No. COMMUNICATION: Per this written report. Dictated by Paul Garcia MD on 05/07/2022 6:01 PM Signed by Paul Garcia MD on 05/07/2022 6:05 PM Narrative 05/07/2022 6:05 PM EST Exam/Procedure: XR TIBIA FIBULA RIGHT 2+ VIEWS, XR HIPS BILATERAL W OR WO PELVIS 3-4 VIEWS, XR FEMUR RIGHT 2+ VIEWS, XR KNEE RIGHT 3 VIEWS, XR FEMUR LEFT 2+ VIEWS ordered by ROBERTO GRAVES, [id number] CLINICAL INDICATION: Femur fx TECHNIQUE: XR TIBIA FIBULA RIGHT 2+ VIEWS, XR HIPS BILATERAL W OR WO PELVIS 3-4 VIEWS, XR FEMUR RIGHT 2+ VIEWS, XR KNEE RIGHT 3 VIEWS, XR FEMUR LEFT 2+ VIEWS COMPARISON: None. FINDINGS: No widening of the SI joints or the symphysis. Osteopenia. The pelvic ring appears intact. Hips anatomically aligned. Proximal left femur [...] effusion is appreciated at the right knee. Procedure Note Paul Garcia MD - 05/07/2022 Exam/Procedure: XR TIBIA FIBULA RIGHT 2+ VIEWS, XR HIPS BILATERAL W OR WOPELVIS 3-4 VIEWS, XR FEMUR RIGHT 2+ VIEWS, XR KNEE RIGHT 3 VIEWS, XR FEMURLEFT 2+ VIEWS ordered by ROBERTO GRAVES, [id number] CLINICAL INDICATION: Femur fx TECHNIQUE: XR TIBIA FIBULA RIGHT 2+ VIEWS, XR HIPS BILATERAL W OR WO PELVIS 3-4VIEWS, XR FEMUR RIGHT 2+ VIEWS, XR KNEE RIGHT 3 VIEWS, XR FEMUR LEFT 2+VIEWS COMPARISON: None. FINDINGS: No widening of the SI joints or the symphysis. Osteopenia. The pelvic ringappears intact. Hips anatomically aligned. Proximal left femur appearsintact. Intact proximal right femoral hardware, likely from ORIF of priorintertrochanteric fracture. Displaced diaphyseal fracture of the proximalright femur just caudal to the intramedullary portion of the hardware,with cranial migration of the distal fracture segment, and posterior apexangulation of the fracture. The distal right femur appears intact andanatomically aligned, no fracture or or effusion is appreciated at theright knee. IMPRESSION: Displaced diaphyseal fracture of the proximal right femur just caudal tothe previously placed hardware, with cranial migration of the distalfracture segment, and posterior apex angulation. No other acute osseous findings. CRITICAL RESULT: No. COMMUNICATION: Per this written report. Dictated by Paul Garcia MD on 05/07/2022 6:01 PM Signed by Paul Garcia MD on 05/07/2022 6:05 PM us Roberto CABRALES IMG XR PROCEDURES Edited Resu lt - Final * XR Femur Left 2+ Views (05/07/2022 5:55 PM EST) Anatomical Region Laterality Modality Lower Extremities, Femur Left Digital Radiography Addenda Addendum by Paul Garcia MD on 05/14/2022 2:14 PM EST Addendum: ADDENDUM: Right knee and tibia-fibula anatomically aligned, and intact. Dictated by Paul Garcia MD on 05/14/2022 2:12 PM Signed by Paul Garcia MD on 05/14/2022 2:14 PM Impressions 05/07/2022 6:05 PM EST Displaced diaphyseal fracture of the proximal right femur just caudal to the previously placed hardware, with cranial migration of the distal fracture segment, and posterior apex angulation. No other acute osseous findings. CRITICAL RESULT: ?? No. COMMUNICATION: Per this written report. Dictated by Paul Garcia MD on 05/07/2022 6:01 PM Signed by Paul Garcia MD on 05/07/2022 6:05 PM Narrative 05/07/2022 6:05 PM EST Exam/Procedure: XR TIBIA FIBULA RIGHT 2+ VIEWS, XR HIPS BILATERAL W OR WO PELVIS 3-4 VIEWS, XR FEMUR RIGHT 2+ VIEWS, XR KNEE RIGHT 3 VIEWS, XR FEMUR LEFT 2+ VIEWS ordered by ROBERTO GRAVES, [id number] CLINICAL INDICATION: Femur fx TECHNIQUE: XR TIBIA FIBULA RIGHT 2+ VIEWS, XR HIPS BILATERAL W OR WO PELVIS 3-4 VIEWS, XR FEMUR RIGHT 2+ VIEWS, XR KNEE RIGHT 3 VIEWS, XR FEMUR LEFT 2+ VIEWS COMPARISON: None. FINDINGS: No widening of the SI joints or the symphysis. Osteopenia. The pelvic ring appears intact. Hips anatomically aligned. Proximal left femur [...] effusion is appreciated at the right knee. Procedure Note Paul Garcia MD - 05/07/2022 Exam/Procedure: XR TIBIA FIBULA RIGHT 2+ VIEWS, XR HIPS BILATERAL W OR WOPELVIS 3-4 VIEWS, XR FEMUR RIGHT 2+ VIEWS, XR KNEE RIGHT 3 VIEWS, XR FEMURLEFT 2+ VIEWS ordered by ROBERTO GRAVES, [id number] CLINICAL INDICATION: Femur fx TECHNIQUE: XR TIBIA FIBULA RIGHT 2+ VIEWS, XR HIPS BILATERAL W OR WO PELVIS 3-4VIEWS, XR FEMUR RIGHT 2+ VIEWS, XR KNEE RIGHT 3 VIEWS, XR FEMUR LEFT 2+VIEWS COMPARISON: None. FINDINGS: No widening of the SI joints or the symphysis. Osteopenia. The pelvic ringappears intact. Hips anatomically aligned. Proximal left femur appearsintact. Intact proximal right femoral hardware, likely from ORIF of priorintertrochanteric fracture. Displaced diaphyseal fracture of the proximalright femur just caudal to the intramedullary portion of the hardware,with cranial migration of the distal fracture segment, and posterior apexangulation of the fracture. The distal right femur appears intact andanatomically aligned, no fracture or or effusion is appreciated at theright knee. IMPRESSION: Displaced diaphyseal fracture of the proximal right femur just caudal tothe previously placed hardware, with cranial migration of the distalfracture segment, and posterior apex angulation. No other acute osseous findings. CRITICAL RESULT: No. COMMUNICATION: Per this written report. Dictated by Paul Garcia MD on 05/07/2022 6:01 PM Signed by Paul Garcia MD on 05/07/2022 6:05 PM us Bruce Murphy MD IMG XR PROCEDURES Edited Re sult - Final * XR Chest 1 View (05/07/2022 5:55 PM EST) Anatomical Region Laterality Modality Chest Digital Radiogra phy Impressions 05/07/2022 5:54 PM EST No acute thoracic findings. CRITICAL RESULT: ?? No. COMMUNICATION: Per this written report. Dictated by Paul Garcia MD on 05/07/2022 5:53 PM Signed by Paul Garcia MD on 05/07/2022 5:54 PM Narrative 05/07/2022 5:54 PM EST CLINICAL INDICATION: Preop. TECHNIQUE: Frontal chest. COMPARISON: None. FINDINGS: No consolidation, effusion, or pneumothorax. Scarring versus small focus of atelectasis lateral left lung base. Cardiac size is within limits of technique, with unremarkable cardiac and mediastinal contours. Mild tortuosity thoracic aorta. Trachea patent. No free subdiaphragmatic gas. No acute osseous findings. Procedure Note Paul Garcia MD - 05/07/2022 CLINICAL INDICATION: Preop. TECHNIQUE: Frontal chest. COMPARISON: None. FINDINGS: No consolidation, effusion, or pneumothorax. Scarring versus small focusof atelectasis lateral left lung base. Cardiac size is within limits oftechnique, with unremarkable cardiac and mediastinal contours. Mildtortuosity thoracic aorta. Trachea patent. No free subdiaphragmatic gas.No acute osseous findings. IMPRESSION: No acute thoracic findings. CRITICAL RESULT: No. COMMUNICATION: Per this written report. Dictated by Paul Garcia MD on 05/07/2022 5:53 PM Signed by Paul Garcia MD on 05/07/2022 5:54 PM us Roberto CABRALES IMG XR PROCEDURES Final Resul t * XR Knee Right 3 + Views (05/07/2022 5:55 PM EST) Anatomical Region Laterality Modality Lower Extremities, Knee Right Digital Radiography Addenda Addendum by Paul Garcia MD on 05/14/2022 2:14 PM EST Addendum: ADDENDUM: Right knee and tibia-fibula anatomically aligned, and intact. Dictated by Paul Garcia MD on 05/14/2022 2:12 PM Signed by Paul Garcia MD on 05/14/2022 2:14 PM Impressions 05/07/2022 6:05 PM EST Displaced diaphyseal fracture of the proximal right femur just caudal to the previously placed hardware, with cranial migration of the distal fracture segment, and posterior apex angulation. No other acute osseous findings. CRITICAL RESULT: ?? No. COMMUNICATION: Per this written report. Dictated by Paul Garcia MD on 05/07/2022 6:01 PM Signed by Paul Garcia MD on 05/07/2022 6:05 PM Narrative 05/07/2022 6:05 PM EST Exam/Procedure: XR TIBIA FIBULA RIGHT 2+ VIEWS, XR HIPS BILATERAL W OR WO PELVIS 3-4 VIEWS, XR FEMUR RIGHT 2+ VIEWS, XR KNEE RIGHT 3 VIEWS, XR FEMUR LEFT 2+ VIEWS ordered by ROBERTO GRAVES, [id number] CLINICAL INDICATION: Femur fx TECHNIQUE: XR TIBIA FIBULA RIGHT 2+ VIEWS, XR HIPS BILATERAL W OR WO PELVIS 3-4 VIEWS, XR FEMUR RIGHT 2+ VIEWS, XR KNEE RIGHT 3 VIEWS, XR FEMUR LEFT 2+ VIEWS COMPARISON: None. FINDINGS: No widening of the SI joints or the symphysis. Osteopenia. The pelvic ring appears intact. Hips anatomically aligned. Proximal left femur [...] effusion is appreciated at the right knee. Procedure Note Paul Garcia MD - 05/07/2022 Exam/Procedure: XR TIBIA FIBULA RIGHT 2+ VIEWS, XR HIPS BILATERAL W OR WOPELVIS 3-4 VIEWS, XR FEMUR RIGHT 2+ VIEWS, XR KNEE RIGHT 3 VIEWS, XR FEMURLEFT 2+ VIEWS ordered by ROBERTO GRAVES, [id number] CLINICAL INDICATION: Femur fx TECHNIQUE: XR TIBIA FIBULA RIGHT 2+ VIEWS, XR HIPS BILATERAL W OR WO PELVIS 3-4VIEWS, XR FEMUR RIGHT 2+ VIEWS, XR KNEE RIGHT 3 VIEWS, XR FEMUR LEFT 2+VIEWS COMPARISON: None. FINDINGS: No widening of the SI joints or the symphysis. Osteopenia. The pelvic ringappears intact. Hips anatomically aligned. Proximal left femur appearsintact. Intact proximal right femoral hardware, likely from ORIF of priorintertrochanteric fracture. Displaced diaphyseal fracture of the proximalright femur just caudal to the intramedullary portion of the hardware,with cranial migration of the distal fracture segment, and posterior apexangulation of the fracture. The distal right femur appears intact andanatomically aligned, no fracture or or effusion is appreciated at theright knee. IMPRESSION: Displaced diaphyseal fracture of the proximal right femur just caudal tothe previously placed hardware, with cranial migration of the distalfracture segment, and posterior apex angulation. No other acute osseous findings. CRITICAL RESULT: No. COMMUNICATION: Per this written report. Dictated by Paul Garcia MD on 05/07/2022 6:01 PM Signed by Paul Garcia MD on 05/07/2022 6:05 PM us Bruce Murphy MD IMG XR PROCEDURES Edited Re sult - Final * XR Femur Right 2+ Views (05/07/2022 5:55 PM EST) Anatomical Region Laterality Modality Lower Extremities, Femur Right Digital Radiography Addenda Addendum by Paul Garcia MD on 05/14/2022 2:14 PM EST Addendum: ADDENDUM: Right knee and tibia-fibula anatomically aligned, and intact. Dictated by Paul Garcia MD on 05/14/2022 2:12 PM Signed by Paul Garcia MD on 05/14/2022 2:14 PM Impressions 05/07/2022 6:05 PM EST Displaced diaphyseal fracture of the proximal right femur just caudal to the previously placed hardware, with cranial migration of the distal fracture segment, and posterior apex angulation. No other acute osseous findings. CRITICAL RESULT: ?? No. COMMUNICATION: Per this written report. Dictated by Paul Garcia MD on 05/07/2022 6:01 PM Signed by Paul Garcia MD on 05/07/2022 6:05 PM Narrative 05/07/2022 6:05 PM EST Exam/Procedure: XR TIBIA FIBULA RIGHT 2+ VIEWS, XR HIPS BILATERAL W OR WO PELVIS 3-4 VIEWS, XR FEMUR RIGHT 2+ VIEWS, XR KNEE RIGHT 3 VIEWS, XR FEMUR LEFT 2+ VIEWS ordered by ROBERTO GRAVES, [id number] CLINICAL INDICATION: Femur fx TECHNIQUE: XR TIBIA FIBULA RIGHT 2+ VIEWS, XR HIPS BILATERAL W OR WO PELVIS 3-4 VIEWS, XR FEMUR RIGHT 2+ VIEWS, XR KNEE RIGHT 3 VIEWS, XR FEMUR LEFT 2+ VIEWS COMPARISON: None. FINDINGS: No widening of the SI joints or the symphysis. Osteopenia. The pelvic ring appears intact. Hips anatomically aligned. Proximal left femur [...] effusion is appreciated at the right knee. Procedure Note Paul Garcia MD - 05/07/2022 Exam/Procedure: XR TIBIA FIBULA RIGHT 2+ VIEWS, XR HIPS BILATERAL W OR WOPELVIS 3-4 VIEWS, XR FEMUR RIGHT 2+ VIEWS, XR KNEE RIGHT 3 VIEWS, XR FEMURLEFT 2+ VIEWS ordered by ROBERTO GRAVES, [id number] CLINICAL INDICATION: Femur fx TECHNIQUE: XR TIBIA FIBULA RIGHT 2+ VIEWS, XR HIPS BILATERAL W OR WO PELVIS 3-4VIEWS, XR FEMUR RIGHT 2+ VIEWS, XR KNEE RIGHT 3 VIEWS, XR FEMUR LEFT 2+VIEWS COMPARISON: None. FINDINGS: No widening of the SI joints or the symphysis. Osteopenia. The pelvic ringappears intact. Hips anatomically aligned. Proximal left femur appearsintact. Intact proximal right femoral hardware, likely from ORIF of priorintertrochanteric fracture. Displaced diaphyseal fracture of the proximalright femur just caudal to the intramedullary portion of the hardware,with cranial migration of the distal fracture segment, and posterior apexangulation of the fracture. The distal right femur appears intact andanatomically aligned, no fracture or or effusion is appreciated at theright knee. IMPRESSION: Displaced diaphyseal fracture of the proximal right femur just caudal tothe previously placed hardware, with cranial migration of the distalfracture segment, and posterior apex angulation. No other acute osseous findings. CRITICAL RESULT: No. COMMUNICATION: Per this written report. Dictated by Paul Garcia MD on 05/07/2022 6:01 PM Signed by Paul Garcia MD on 05/07/2022 6:05 PM us Bruce Murphy MD IMG XR PROCEDURES Edited Re sult - Final * Nasopharyngeal Respiratory Panel (05/07/2022 5:15 PM EST) Nasopharyngeal Respiratory PCR Interpretation Not Detected for all analytes Not Detected for all analytes 05/08/2022 9:09 AM EST [facility] Swab Nasopharyngeal structure / Unknown Non-blood Collection / Unknown 05/07/2022 5:15 PM EST 05/07/2022 5:29 PM EST Narrative [facility] - 05/08/2022 9:09 AM EST This assay can detect Adenovirus, Coronavirus, Human Metapneumovirus, Human Rhino/Enterovirus, Influenza A, Influenza A H1, Influenza A H1 2009, Influenza A H3, Influenza B, Parainfluenza Virus 1, Parainfluenza Virus 2, Parainfluenza Virus 3, Parainfluenza Virus 4, Respiratory Syncytial Virus A, Respiratory Syncytial Virus B, Chlamydia pneumoniae, and Mycoplasma pneumoniae. Note: This assay does NOT detect SARS/CoV, novel Coronavirus 2019-nCoV, Bordetella pertussis or Bordetella parapertussis. Nasopharyngeal Respiratory PCR Panel is performed using the [employer] ePlex instrument. This assay is for in vitro diagnostic use under the FDA Emergency Use Authorization (EUA) only. The [facility] Clinical Microbiology Laboratory is certified under the Clinical Laboratory Improvement Amendments of 1988 (CLIA-88) as qualified to perform high complexity clinical laboratory testing. Nely Wallace APRN LAB MICROBIOLOGY - GENERAL ORDERABLES Final Result [facility] [address] [place], [place] [id number] * [facility] (05/07/2022 5:15 PM EST) Extra Hold for add-ons. 05/07/2022 8:01 PM EST [facility] Comment:Auto resulted. Blood Venous blood specimen / Unknown 05/07/2022 5:15 PM EST 05/07/2022 5:20 PM EST Bruce Murphy MD LAB BLOOD ORDERABLES Final Result [facility] [address] [place] [address] * Gold Top (05/07/2022 5:15 PM EST) Extra Hold for add-ons. 05/07/2022 8:01 PM EST [facility] Comment:Auto resulted. Blood Venous blood specimen / Unknown 05/07/2022 5:15 PM EST 05/07/2022 5:20 PM EST Bruce Murphy MD LAB BLOOD ORDERABLES Final Result Performing Organization Address City/[facility]/ZIP Co de Phone Number [facility] [address] [place] [address] * Light Green Top (05/07/2022 5:15 PM EST) Extra Hold for add-ons. 05/07/2022 8:01 PM EST [facility] Comment:Auto resulted. Blood Venous blood specimen / Unknown 05/07/2022 5:15 PM EST 05/07/2022 5:20 PM EST us Bruce Murphy MD LAB BLOOD ORDERABLES Final Result Performing Organization Address City/[facility]/ZIP Co de Phone Number [facility] [address] [place] [address] * Light Blue Top (05/07/2022 5:15 PM EST) Extra Hold for add-ons. 05/07/2022 8:01 PM EST [facility] Comment:Auto resulted. Blood Venous blood specimen / Unknown 05/07/2022 5:15 PM EST 05/07/2022 5:20 PM EST us Bruce Murphy MD LAB BLOOD ORDERABLES Final Result Performing Organization Address City/[facility]/ZIP Co de Phone Number [facility] [address] [place] [address] * Lactate, venous (05/07/2022 5:15 PM EST) Lactate, Venous, Whole Blood 0.7 0.5 - 2.2 mmol/L LAB HEMATOLOGY METHOD 05/07/2022 5:19 PM EST [facility] Blood Venous blood specimen / Unknown Venipuncture / Unknown 05/07/2022 5:15 PM EST 05/07/2022 5:17 PM EST Bruce Murphy MD LAB BLOOD ORDERABLES Final Result Performing Organization Address [facility]/ZIP Co de Phone Number [facility] [address] [place] [address] * Type and Screen (05/07/2022 5:15 PM EST) ABO/Rh O Positive 05/07/2022 5:11 PM EST [facility] Antibody Screen Negative 05/07/2022 5:11 PM EST BLOOD BANK Specimen Expiration 05/10/2022 23:59 05/07/2022 5:11 PM EST BLOOD BANK Blood Venous blood specimen / Unknown Venipuncture / Unknown 05/07/2022 5:15 PM EST 05/07/2022 5:22 PM EST Bruce Murphy MD LAB BLOOD BANK TEST ORDERAB LES Final Result Performing Organization Address [facility] de Phone Number BLOOD BANK [address] [place] [address] * SARS CoV-2/COVID-19 by PCR (05/07/2022 5:15 PM EST) SARS CoV-2/COVID-1 9 RNA PCR Result Not Detected Not Detected 05/07/2022 9:35 PM EST [facility] Swab Nasopharyngeal structure / Unknown Non-blood Collection / Unknown 05/07/2022 5:15 PM EST 05/07/2022 5:29 PM EST Narrative [facility] - 05/07/2022 9:35 PM EST This assay is for in vitro diagnostic use under FDA emergency use authorization only. Negative results do not preclude infection with the SARS CoV-2 virus and should not be the sole basis of a patient treatment/management or public health decision. Follow up testing should be performed according to the current CDC recommendations. This test was performed using the Vizsafe SARS CoV-2 assay, a PCR-based method. The limit of detection (LoD) for this assay is 40 genome equivalents/mL. Negative results should be considered presumptive and do not preclude current or future infection obtained through community transmission or other exposures. Negative results must be considered in the context of an individual's recent exposures, history, presence of clinical signs and symptoms consistent with COVID-19. Roberto CABRALES LAB MICROBIOLOGY - GENERAL OR DERABLES Final Result Performing Organization Address City/[facility] Co de Phone Number [facility] [address] [place] [address] * Phosphorus (05/07/2022 5:14 PM EST) Phosphorus, Plasma 4.2 2.5 - 4.5 mg/dL 05/07/2022 9:22 PM EST [facility] Blood Venous blood specimen / Unknown Venipuncture / Unknown 05/07/2022 5:14 PM EST 05/07/2022 5:19 PM EST Nely Wallace APRN LAB BLOOD ORDERABLES Final Result Performing Organization Address [facility] de Phone Number [facility] [address] [place] [address] * Magnesium (05/07/2022 5:14 PM EST) Magnesium, Plasma 1.9 1.9 - 2.4 mg/dL 05/07/2022 9:22 PM EST [facility] Blood Venous blood specimen / Unknown Venipuncture / Unknown 05/07/2022 5:14 PM EST 05/07/2022 5:19 PM EST Nely Wallace APRN LAB BLOOD ORDERABLES Final Result Performing Organization Address [facility] de Phone Number [facility] [address] [place] [address] * (ABNORMAL) CBC W/O Differential (05/07/2022 5:14 PM EST) WBC Count 8.00 3.70 - 10.30 10*3/uL LAB HEMATOLOGY METHOD 05/07/2022 5:21 PM EST [facility] RBC Count 4.19 3.90 - 5.20 10*6/uL LAB HEMATOLOGY METHOD 05/07/2022 5:21 PM EST [facility] HGB 10.1(L) 11.2 - 15.7 g/dL LAB HEMATOLOGY METHOD 05/07/2022 5:21 PM EST [facility] HCT 33.9(L) 34.0 - 45.0 % LAB HEMATOLOGY METHOD 05/07/2022 5:21 PM EST [facility] Platelet Count 222 155 - 369 10*3/uL LAB HEMATOLOGY METHOD 05/07/2022 5:21 PM EST [facility] MCV 81 79 - 98 fL LAB HEMATOLOGY METHOD 05/07/2022 5:21 PM EST [facility] MCH 24.1(L) 26.0 - 32.0 pg LAB HEMATOLOGY METHOD 05/07/2022 5:21 PM EST [facility] MCHC 29.8(L) 30.7 - 35.5 g/dL LAB HEMATOLOGY METHOD 05/07/2022 5:21 PM EST [facility] RDW 18.4(H) 11.5 - 14.5 % LAB HEMATOLOGY METHOD 05/07/2022 5:21 PM EST [facility] MPV 11.1 8.8 - 12.5 fL LAB HEMATOLOGY METHOD 05/07/2022 5:21 PM EST [facility] nRBC 0.0 <=0.0 per 100 WBCs LAB HEMATOLOGY METHOD 05/07/2022 5:21 PM EST [facility] Blood Venous blood specimen / Unknown Venipuncture / Unknown 05/07/2022 5:14 PM EST 05/07/2022 5:19 PM EST us Roberto CABRALES LAB BLOOD ORDERABLES Final Re sult [facility] [address] [place] [address] * (ABNORMAL) Basic metabolic panel (05/07/2022 5:14 PM EST) Glucose, Plasma 132(H) 74 - 99 mg/dL 05/07/2022 5:37 PM EST [facility] BUN, Plasma 18 8 - 23 mg/dL 05/07/2022 5:37 PM EST [facility] Creatinine, Plasma 0.62 0.60 - 1.10 mg/dL 05/07/2022 5:37 PM EST [facility] BUN/Creatinine Ratio 29 05/07/2022 5:37 PM EST [facility] Sodium, Plasma 138 136 - 145 mmol/L 05/07/2022 5:37 PM EST [facility] Potassium, Plasma 3.9 3.7 - 4.8 mmol/L 05/07/2022 5:37 PM EST [facility] Comment:Reference range for Serum potassium is 0.2 to 0.5 mmol/L higher than Plasma range. Chloride, Plasma 103 97 - 107 mmol/L 05/07/2022 5:37 PM EST [facility] CO2, Plasma 26 22 - 29 mmol/L 05/07/2022 5:37 PM EST [facility] Anion Gap 9 6 - 16 mmol/L 05/07/2022 5:37 PM EST [facility] Total Calcium, Plasma 8.7(L) 8.9 - 10.2 mg/dL 05/07/2022 5:37 PM EST [facility] eGFRcr 99.6 mL/min/1.7 3m*2 05/07/2022 5:37 PM EST [facility] Comment: Reported eGFRcr in mL/min/1.73m2 is based the CKD-EPI 2021 equation that does not use a race coefficient. Effective 10/28/21 our laboratory changed the eGFR calculation to the CKD-EPI 2021 equation from the previously reported eGFR, based on the MDRD equation. ??For comparisons between the two equations, please see laboratory website: ??[email or web address] Blood Venous blood specimen / Unknown Venipuncture / Unknown 05/07/2022 5:14 PM EST 05/07/2022 5:19 PM EST us Roberto CABRALES LAB BLOOD ORDERABLES Final Re sult [facility] [address] [place] [address] * ECG Adult (05/07/2022 5:01 PM EST) EKG DIAGNOSIS CLASS Borderline Abnormal MUSE ECG Ventricular Rate 112 BPM MUSE ECG Atrial Rate 112 BPM MUSE ECG OR Interval 134 ms MUSE ECG QRSD Interval 90 ms MUSE ECG QT Interval 328 ms MUSE ECG QTC Interval 447 ms MUSE ECG P [place] 67 degrees MUSE ECG R [place] 55 degrees MUSE ECG T Wave [place] 74 degrees MUSE ECG Diagnosis Sinus tachycardia MUSE ECG Diagnosis Otherwise normal ECG MUSE ECG Diagnosis Confirmed by Ky Boyle ([id number]) on 05/08/2022 2:16:25 PM MUSE ECG 05/07/2022 5:01 PM EST 05/08/2022 2:16 PM EST us Roberto CABRALES ECG ORDERABLES Final Result MUSE ECG documented in this encounter Visit Diagnoses Diagnosis Closed displaced transverse fracture of shaft of right femur (CMS/HCC)- Primary Closed displaced transverse fracture of shaft of right femur, initial encounter (CMS/HCC) Primary hypertension Unspecified essential hypertension Multiple sclerosis (CMS/HCC) Multiple sclerosis documented in this encounter Admitting Diagnoses Diagnosis Oth fracture of shaft of right femur, init for clos fx (CMS/HCC) documented in this encounter Administered Medications Inactive Administered Medications - up to 3 most recent administrations Medication Order MAR Action Action Date Dose Rate Site acetaminophen (Tylenol) tablet 1,000 mg 1,000 mg, Oral, Every 6 hours scheduled, First dose (after last modification) on Tue05/11/22 at 1200, Until Discontinued, Routine, Sign Given 05/14/2022 12:19 PM EST 1,000 mg Given 05/14/2022 7:13 AM EST 1,000 mg Given 05/13/2022 8:20 PM EST 1,000 mg acetaminophen (Tylenol) tablet 650 mg 650 mg, Oral, Every 6 hours PRN, Starting on Tue05/07/22 at 2039, Until Tue05/11/22 at 0904, Routine, Sign, mild pain Given 05/09/2022 5:51 PM EST 650 mg Given 05/09/2022 11:29 AM EST 650 mg Given 05/08/2022 8:37 PM EST 650 mg amantadine (Symmetrel) capsule 200 mg 200 mg, Oral, 2 times daily (0800 & 1200), First dose on Tue05/08/22 at 0800, Until Discontinued, Routine Given 05/14/2022 12:19 PM EST 200 mg Given 05/14/2022 9:00 AM EST 200 mg Given 05/13/2022 1:05 PM EST 200 mg bisacodyl (Dulcolax) suppository 10 mg 10 mg, Rectal, Daily PRN, Starting on Tue05/07/22 at 2026, Until Tue05/14/22 at 1556, Routine, constipation, if no bowel movement for 72 hours and no response to magnesium hydroxide ceFAZolin (Ancef) injection 2 g 2 g, Intravenous, Every 8 hours, 3 doses, First dose on 05/08/22 at 1600, Last dose on 05/09/22 at 0800, Routine, Recovery(Phase II-Outpatient)/On Unit(Inpatient) Given 05/09/2022 8:43 AM EST 2 g Given 05/09/2022 12:19 AM EST 2 g L eft Forearm Given 05/08/2022 4:17 PM EST 2 g DULoxetine (Cymbalta) DR capsule 60 mg 60 mg, Oral, 2 times daily, First dose on Tue05/07/22 at 2230, Until Discontinued, Routine Given 05/14/2022 9:14 AM EST 60 mg Given 05/13/2022 8:19 PM EST 60 mg Given 05/13/2022 8:25 AM EST 60 mg enoxaparin (Lovenox) syringe 30 mg 30 mg, Subcutaneous, Every 12 hours, First dose on Tue05/09/22 at 0830, Until Discontinued, Routine Given 05/14/2022 9:13 AM EST 30 mg Left Lower Abdomen Given 05/13/2022 8:18 PM EST 30 mg Le ft Upper Abdomen Given 05/13/2022 8:24 AM EST 30 mg Ri ght Lower Abdomen ergocalciferol (Vitamin D-2) capsule 50,000 Units 50,000 Units, Oral, Weekly, First dose on Tue05/10/22 at 0900, Until Discontinued, Routine Given 05/10/2022 8:57 AM EST 50,000 Units famotidine (Pepcid) tablet 20 mg 20 mg, Oral, 2 times daily, First dose on Tue05/07/22 at 2230, Until Discontinued, Routine Given 05/14/2022 9:15 AM EST 20 mg Given 05/13/2022 9:05 PM EST 20 mg Given 05/13/2022 8:24 AM EST 20 mg gabapentin (Neurontin) capsule 100 mg 100 mg, Oral, 3 times daily, First dose on Tue05/07/22 at 2100, Until Discontinued, Routine, Sign Given 05/09/2022 8:27 PM EST 100 mg Given 05/09/2022 5:51 PM EST 100 mg Given 05/09/2022 8:43 AM EST 100 mg gabapentin (Neurontin) capsule 300 mg 300 mg, Oral, 3 times daily, First dose (after last modification) on Tue05/10/22 at 0900, Until Discontinued, Routine, Sign Given 05/14/2022 9:15 AM EST 300 mg Given 05/13/2022 8:20 PM EST 300 mg Given 05/13/2022 3:49 PM EST 300 mg HYDROmorphone (Dilaudid) injection 0.5 mg 0.5 mg, Intravenous, Every 4 hours PRN, Starting on Tue05/08/22 at 2051, Until Tue05/10/22 at 0840, Routine, Sign, severe pain Given 05/09/2022 7:50 PM EST 0 .5 mg Given 05/09/2022 8:24 AM EST 0.5 mg Given 05/08/2022 9:05 PM EST 0.5 mg ipratropium-albuterol (Duo-Neb) 0.5-2.5 mg/3 mL nebulizer solution 3 mL 3 mL, Nebulization, Every 6 hours PRN, Starting on Tue05/07/22 at 2258, Until Tue05/14/22 at 1556, Routine, wheezing, shortness of breath Given 05/09/2022 11:23 PM EST 3 mL ketamine (Ketalar) 10 MG/ML injection - Pyxis Override Pull 1 dose, Starting on Tue05/07/22 at 1835, Until Tue05/07/22 at 1850 ketamine (Ketalar) injection 17.5 mg 17.5 mg (rounded from 17.01 mg = 0.3 mg/kg ? 56.7 kg), Intravenous, Once, 1 dose, On Tue05/07/22 at 1835, Administer over 1 Minutes, Routine Given 05/07/2022 6:49 PM EST 17.5 mg lactated Ringer's infusion 20 mL/hr, Intravenous, Once, 1 dose, On 05/08/22 at 1045, Routine New Bag 05/08/2022 10:43 AM EST 20 mL/hr 20 mL/hr magnesium hydroxide (Milk of Magnesia) 2400 MG/10ML suspension 10 mL 10 mL, Oral, Daily PRN, Starting on Tue05/07/22 at 2026, Until Tue05/14/22 at 1556, Routine, constipation, if no bowel movement for 48 hours methocarbamol (Robaxin) tablet 500 mg 500 mg, Oral, 4 times daily, First dose on Tue05/07/22 at 2200, Until Discontinued, Routine, Sign Given 05/14/2022 9:15 AM EST 500 mg Given 05/13/2022 8:20 PM EST 500 mg Given 05/13/2022 1:05 PM EST 500 mg morphine PF 4 MG/ML - Pyxis Override Pull 1 dose, Starting on Tue05/07/22 at 1733, Until Tue05/07/22 at 1737 morphine PF 4 mg 4 mg, Intravenous, Once, 1 dose, On Tue05/07/22 at 1615, STAT Given 05/07/2022 5:37 PM EST 4 mg oxyCODONE (Roxicodone) immediate release tablet 10 mg 10 mg, Oral, Every 6 hours PRN, Starting on Tue05/07/22 at 203, Until Tue05/11/22 at 0904, Routine, Sign, severe pain Given 05/11/2022 8:28 AM EST 10 mg Given 05/10/2022 9:25 PM EST 10 mg Given 05/10/2022 12:13 PM EST 10 mg oxyCODONE (Roxicodone) immediate release tablet 5 mg 5 mg, Oral, Every 6 hours PRN, Starting on Tue05/07/22 at 2038, Until Tue05/14/22 at 1556, Routine, Sign, moderate pain Given 05/13/2022 8:19 PM EST 5 mg Given 05/12/2022 8:43 PM EST 5 mg Given 05/12/2022 8:55 AM EST 5 mg polyethylene glycol (Miralax) packet 17 g 17 g, Oral, Daily, First dose on Tue05/07/22 at 2035, Until Discontinued, Routine Given 05/13/2022 8:25 AM EST 17 g Given 05/12/2022 8:56 AM EST 17 g Given 05/11/2022 8:28 AM EST 17 g potassium chloride CR (Klor-Con) ER tablet 20 mEq 20 mEq, Oral, Once, 1 dose, On 05/08/22 at 0130, Routine Given 05/08/2022 3:53 AM EST 20 mEq potassium chloride CR (Klor-Con) ER tablet 40 mEq 40 mEq, Oral, Once, 1 dose, On 05/08/22 at 1445, Routine Given 05/08/2022 4:17 PM EST 40 mEq Povidone-Iodine 5 % swab solution 1 application Nasal, Once, 1 dose, On 05/08/22 at 0745, Routine Given 05/08/2022 7:46 AM EST 1 application. Povidone-Iodine 5 % swab solution 1 Swab Nasal, Daily, 5 doses, First dose on Tue05/07/22 at 2215, Last dose on Tue05/11/22 at 0900, Routine Given 05/11/2022 8:33 AM EST 1 Swab. Given 05/10/2022 9:02 AM EST 1 Swab. Given 05/09/2022 9:00 AM EST 1 Swab. propranolol (Inderal) tablet 40 mg 40 mg, Oral, 2 times daily, First dose on Tue05/07/22 at 2230, Until Discontinued, Routine Given 05/09/2022 11:29 AM EST 40 mg Given 05/08/2022 8:36 PM EST 40 mg Given 05/07/2022 10:54 PM EST 40 mg senna-docusate (Kerry-Colace) 8.6-50 MG per tablet 1 tablet 1 tablet, Oral, 2 times daily, First dose on Tue05/07/22 at 2100, Until Discontinued, Routine Given 05/13/2022 8:25 AM EST 1 tablet Given 05/12/2022 8:43 PM EST 1 tablet Given 05/12/2022 8:55 AM EST 1 tablet sodium chloride 0.9 % flush 10 mL 10 mL, Intravenous, Every 12 hours PRN, Starting on Tue05/07/22 at 2026, Until Tue05/14/22 at 1556, Routine, line care sodium chloride 0.9 % flush 10 mL 10 mL, Intravenous, As needed, Starting on Tue05/07/22 at 202, Until Tue05/14/22 at 1556, Routine, line care, Before and after each medication infusion sodium chloride 0.9 % flush 10 mL 10 mL, Intravenous, Every 12 hours, First dose on Tue05/08/22 at 0745, Until Discontinued, Routine, Holding - Preprocedure Given 05/08/2022 7:45 AM EST 10 mL documented in this encounter Active and Recently Administered Medications Times are shown in EST. Scheduled Medication Order 05/12/2022 05/13/2022 05/14/2022 acetaminophen (Tylenol) tablet 1,000 mg 1,000 mg, Oral, Every 6 hours scheduled, First dose (after last modification) on Tue05/11/22 at 1200, Until Discontinued, Routine, Sign 0506 (Given - Provider: Mina Garcia RN)1142 (Given - Provider: Rolo Rodriguez RN)1713 (Given - Provider: Rolo Rodriguez RN)2318 (Given - Provider: Mina Garcia RN) 0639 (Given - Provider: Mina Garcia RN)1305 (Given - Provider: Rolo Rodriguez RN)2020 (Given - Provider: Zuleika Miles, LDUY) 0037 (Not Given - Provider: Zuleika Miles RN - Reason: Hold for condition: must add comment - Comment: too close to last dose)0713 (Given - Provider: Harmony Peace RN)1219 (Given - Provider: Harmony Peace, RN) amantadine (Symmetrel) capsule 200 mg 200 mg, Oral, 2 times daily (0800 & 1200), First dose on Tue05/08/22 at 0800, Until Discontinued, Routine 0856 (Given - Provider: Rolo Rodriguez RN)1142 (Given - Provider: Rolo Rodriguez, LUDY) 0824 (Given - Provider: Rolo Rodriguez, LUDY)1305 (Given - Provider: Rolo Rodriguez, RN) 0900 (Given - Provider: Harmony Peace, RN)1219 (Given - Provider: Harmony Peace, RN) DULoxetine (Cymbalta) DR capsule 60 mg 60 mg, Oral, 2 times daily, First dose on Tue05/07/22 at 2230, Until Discontinued, Routine 0855 (Given - Provider: Rolo Rodriguez RN)2041 (Given - Provider: Mina Garcia, LUDY) 0825 (Given - Provider: Rolo Rodriguez RN)2018 (Given - Provider: Zuleika Miles, LUDY) 0914 (Given - Provider: Harmony Peace RN) enoxaparin (Lovenox) syringe 30 mg 30 mg, Subcutaneous, Every 12 hours, First dose on Tue05/09/22 at 0830, Until Discontinued, Routine 0856 (Given - Provider: Rolo Rodriguez RN)2042 (Given - Provider: Mina Garcia RN) 0824 (Given - Provider: Rolo Rodriguez RN)2017 (Given - Provider: Zuleika Miles, LUDY) 09 (Given - Provider: Harmony Peace RN) ergocalciferol (Vitamin D-2) capsule 50,000 Units 50,000 Units, Oral, Weekly, First dose on Tue05/10/22 at 0900, Until Discontinued, Routine famotidine (Pepcid) tablet 20 mg 20 mg, Oral, 2 times daily, First dose on Tue05/07/22 at 2230, Until Discontinued, Routine 0856 (Given - Provider: oRlo Rodriguez RN)2042 (Given - Provider: Mina Garcia RN) 0824 (Given - Provider: Rolo Rodriguez RN)2104 (Given - Provider: Zuleika Miles, LUDY) 0915 (Given - Provider: Harmony Peace, LUDY) gabapentin (Neurontin) capsule 300 mg 300 mg, Oral, 3 times daily, First dose (after last modification) on Tue05/10/22 at 0900, Until Discontinued, Routine, Sign 0855 (Given - Provider: Rolo Rodriguez RN)1650 (Given - Provider: Rolo Rodriguez RN)2042 (Given - Provider: Mina Garcia RN) 0824 (Given - Provider: Rolo Rodriguez RN)154 (Given - Provider: Rolo Rodriguez RN)2019 (Given - Provider: Zuleika Miles RN) 0915 (Given - Provider: Harmony Peace RN) methocarbamol (Robaxin) tablet 500 mg 500 mg, Oral, 4 times daily, First dose on Tue05/07/22 at 2200, Until Discontinued, Routine, Sign 0856 (Given - Provider: Rolo Rodriguez RN)1400 (Not Given - Provider: Rolo Rodriguez RN - Reason: Patient/family refused)1710 (Given - Provider: Rolo Rodriguez RN)2318 (Given - Provider: Mina Garcia, LUDY) 0824 (Given - Provider: Rolo Rodriguez RN)1305 (Given - Provider: Rolo Rodriguez RN)2020 (Given - Provider: Zuleika Miles, LUDY)231 (Not Given - Provider: Zuleika Miles RN - Reason: Hold for condition: must add comment - Comment: too close to last dose) 0915 (Given - Provider: Harmony Peace RN)1400 (Canceled Entry - Provider: Automatic Discharge Provider - Comment: Automatically canceled at discontinue of medication order) polyethylene glycol (Miralax) packet 17 g 17 g, Oral, Daily, First dose on Tue05/07/22 at 2035, Until Discontinued, Routine 0856 (Given - Provider: Rolo Rodriguez RN) 0825 (Given - Provider: Rolo Rodriguez RN) 0916 (Not Given - Provider: Harmony Peace RN - Reason: Patient/family refused) senna-docusate (Kerry-Colace) 8.6-50 MG per tablet 1 tablet 1 tablet, Oral, 2 times daily, First dose on Tue05/07/22 at 2100, Until Discontinued, Routine 0855 (Given - Provider: Rolo Rodriguez RN)2043 (Given - Provider: Mina Garcia, LUDY) 0825 (Given - Provider: Rolo Rodriguez RN)2106 (Not Given - Provider: Zuleika Miles RN - Reason: Patient/family refused) 0917 (Not Given - Provider: Harmony Peace RN - Reason: Patient/family refused) PRN Medication Order 05/12/2022 05/13/2022 05/14/2022 bisacodyl (Dulcolax) suppository 10 mg 10 mg, Rectal, Daily PRN, Starting on Tue05/07/22 at 2026, Until Tue05/14/22 at 1556, Routine, constipation, if no bowel movement for 72 hours and no response to magnesium hydroxide ipratropium-albuterol (Duo-Neb) 0.5-2.5 mg/3 mL nebulizer solution 3 mL 3 mL, Nebulization, Every 6 hours PRN, Starting on Tue05/07/22 at 2258, Until Tue05/14/22 at 1556, Routine, wheezing, shortness of breath magnesium hydroxide (Milk of Magnesia) 2400 MG/10ML suspension 10 mL 10 mL, Oral, Daily PRN, Starting on Tue05/07/22 at 2025, Until Tue05/14/22 at 1556, Routine, constipation, if no bowel movement for 48 hours oxyCODONE (Roxicodone) immediate release tablet 5 mg(Linked Group 1) 5 mg, Oral, Every 6 hours PRN, Starting on Tue05/07/22 at 2037, Until Tue05/14/22 at 1556, Routine, Sign, moderate pain 0855 (Given - Provider: Rolo Rodriguez RN)2042 (Given - Provider: Mina Garcia RN) 2018 (Given - Provider: Zuleika Miles RN) sodium chloride 0.9 % flush 10 mL(Linked Group 2) 10 mL, Intravenous, Every 12 hours PRN, Starting on Tue05/07/22 at 2025, Until Tue05/14/22 at 1556, Routine, line care sodium chloride 0.9 % flush 10 mL(Linked Group 2) 10 mL, Intravenous, As needed, Starting on Tue05/07/22 at 2025, Until Tue05/14/22 at 1556, Routine, line care, Before and after each medication infusion Linked Groups Order Group 1: oxyCODONE (Roxicodone) immediate release tablet 5 mgJump to med 5 mg, Oral, Every 6 hours PRN, Starting on Tue05/07/22 at 2037, Until Tue05/14/22 at 1556, Routine, Sign, moderate pain Or oxyCODONE (Roxicodone) immediate release tablet 10 mg (CANCELED) 10 mg, Oral, Every 6 hours PRN, Starting on Tue05/07/22 at 2037, Until Tue05/11/22 at 0904, Routine, Sign, severe pain Group 2: Insert peripheral IV (CANCELED) Once, On Tue05/07/22 at 2026, For 1 occurrence And Saline lock IV (CANCELED) Once, On Tue05/07/22 at 2026, For 1 occurrence And sodium chloride 0.9 % flush 10 mLJump to med 10 mL, Intravenous, Every 12 hours PRN, Starting on Tue05/07/22 at 2025, Until Tue05/14/22 at 1556, Routine, line care And sodium chloride 0.9 % flush 10 mLJump to med 10 mL, Intravenous, As needed, Starting on Tue05/07/22 at 2025, Until Tue05/14/22 at 1556, Routine, line care, Before and after each medication infusion documented in this encounter Additional Health Concerns Infection Onset Date Last Indicated Resolved Time Respiratory Rule-Out 05/08/2022 05/07/2022 023 9:09 AM EST documented as of this encounter Care Teams Field Logistics Coordinator Relationship Specialty Start Date End Date Gagan Solomon MD [address] [place] [id number] PCP - General 08/15/20 documented as of this encounter
--- OUTSIDE RECORDS SUMMARY | 2024-02-20 10:30 | XMS_ITS | Encounter Summary ---
Author Organization [facility] Address [address] [place], [place] [id number] Care Team Providers Care Purchasing Buyer Name Role Phone Unavailable Primary Care Provider Unavailabl e Encounter Details Date Type Department Care Team (Late st Contact Info) Description 06/06/2012 Legacy AEHR Vitals Encounter [facility] OUTPATIENT CONVERSIONS [address] [place] [address] ProviderAwa MD [address] [place] [id number] Social History Tobacco Use Types Packs/Day [...] - Inhaled Oxygen Concentration - - Weight 57.6 kg (127 lb 0.1 oz) 06/06/2012 7:52 A M EST Height 165.1 cm (5' 5 ) 06/06/2012 7:52 AM EST Body Mass Index 21.14 06/06/2012 7:52 AM EST documented in this encounter Plan of Treatment Not on file documented as of this encounter Visit Diagnoses Not on filedocumented in this encounter
--- OUTSIDE RECORDS SUMMARY | 2024-02-20 10:30 | XMS_ITS | Encounter Summary ---
Author Organization [facility] Address [address] [place], [place] [id number] Care Team Providers Care Scalder Name Role Phone Unavailable Primary Care Provider Unavailabl e Encounter Details Date Type Department Care Team (Late st Contact Info) Description 02/01/2012 Legacy AEHR Vitals Encounter [facility] OUTPATIENT CONVERSIONS [address] [place] [address] ProviderAwa MD [address] [place] [id number] Social History Tobacco Use Types Packs/Day [...] - Inhaled Oxygen Concentration - - Weight 53.5 kg (117 lb 15.8 oz) 02/01/2012 9:22 AM EDT Height - - Body Mass Index - - documented in this encounter Plan of Treatment Not on file documented as of this encounter Visit Diagnoses Not on filedocumented in this encounter
--- OUTSIDE RECORDS SUMMARY | 2024-02-20 10:30 | XMS_ITS | Encounter Summary ---
Author Organization [facility] Address [address] [place], [place] [id number] Care Team Providers Care Bolt Machine Operator Name Role Phone Unavailable Primary Care Provider Unavailabl e Encounter Details Date Type Department Care Team (Late st Contact Info) Description 03/22/2013 Legacy AEHR Vitals Encounter [facility] OUTPATIENT CONVERSIONS [address] [place] [address] ProviderAwa MD [address] [place] [id number] Social History Tobacco Use Types Packs/Day [...] Oxygen Concentration - - Weight 57.2 kg (126 lb 2 oz) 03/22/2013 7:44 AM EST Height 165.1 cm (5' 5 ) 03/22/2013 7:44 AM EST Body Mass Index 20.99 03/22/2013 7:44 AM EST documented in this encounter Plan of Treatment Not on file documented as of this encounter Visit Diagnoses Not on filedocumented in this encounter
--- OUTSIDE RECORDS SUMMARY | 2024-02-20 10:30 | XMS_ITS | Encounter Summary ---
Author Organization [facility] Address [address] [place] [address] Care Team Providers Care Power House Engineer Name Role Phone Gagan Solomon MD Primary Care Provider [phone] Encounter Details Date Type Department Care Team (Latest Contact Info) Description 05/07/2022 Travel Social History Tobacco Use Types Packs/Day [...] PM EST documented as of this encounter Plan of Treatment Not on file documented as of this encounter Visit Diagnoses Not on filedocumented in this encounter Care Teams Power House Engineer Relationship Specialty Start Date End Date Gagan Solomon MD [address] [place] [phone] PCP - General 08/15/20 documented as of this encounter
--- OUTSIDE RECORDS SUMMARY | 2024-02-20 10:30 | XMS_ITS | Encounter Summary ---
Author Organization [facility] Address [address] [id number] Care Team Providers Care Child Caregiver Name Role Phone Gagan Solomon MD Primary Care Provider [phone] Reason for Visit * Reason Comments Fall * Auth/Cert (Routine) Specialty Diagnoses / Procedures Referred By Best luna Referred To Contact Diagnoses Oth fracture of shaft of right femur, init for clos fx (CMS/HCC) Mechanical fall; periprosthetic fx with >90 degree; in traction splint Gagan Osuna MD [address] [facility] [address] [place] [address] Phone: tel: fax: [facility] Emergency Department [address] [place] [address] Phone: tel: Referral ID Status Reason Start Date Expiration Date Visits Re quested Visits Authorized [id number] 1 1 Encounter Details Date Type Department Care Team (Late st Contact Info) Description 05/08/2022 7:30 AM EST - 05/08/2022 10:25 AM EST Surgery [facility] OPERATING ROOM [address] [place] [address] Eleuterio Rod MD [address] [facility] [address] [place] [address] Right femur removal of IMN and insertion of IMN Surgery Details Date/Time Status Location OR Service Patient Class Case Class Case Type Trauma Case? 05/08/2022 7:30 AM Posted DAVE OR PAVA OR 01 Orthopedic Surgery Inpatient E-Electi ve Panel 1 Procedure LRB Anes Op Region Wound Class Comments Right femur removal of IMN and insertion of IMN Right General Leg Upper Supine, clare, ortho soft tissue, synthes TFNA, sterile traction, c-arm Surgeon Surgeon Role Service Panel Eleuterio Rod MD Primary Orthopedic Surgery 1 Doug Hdez MD Resident - Assisting [facility] 1 documented in this encounter Social History Tobacco [...] PM EST documented as of this encounter Last Filed Vital Signs Vital Sign Reading Time Taken Comments Blood Pressure 146/69 05/08/2022 10:25 AM EST Pulse 83 05/08/2022 10:25 AM EST Temperature 36.7 ??C (98.1 ??F) 05/08/2022 10:[address] Respiratory Rate 15 05/08/2022 10:25 AM EST Oxygen Saturation 96% 05/08/2022 10:25 AM EST Inhaled Oxygen Concentration - - Weight 56.7 kg (125 lb) 05/07/2022 6:32 PM EST Height - - Body Mass Index 20.8 05/11/2022 11:00 AM [...] ESTEncounter addended by: Shamika Betancur RN on: 05/21/2022 6:07 PM Actions taken: Utilization Review saved * Addendum Note - Shamika Betancur RN - 05/14/2022 1:55 PM ESTEncounter addended by: Shamika Betancur RN on: 05/24/2022 2:25 PM Actions taken: Flowsheet accepted * Progress Notes - Sadi Perez MD - 05/14/2022 11:23 AM EST E DAILY PROGRESS NOTE 05/14/22 Subjective Subjective: Ambulance [...] follow. Sadi Perez, PGY-2 Internal Medicine Pager: [phone] Signed: 05/14/2022 - 11:23 AM Cosigned by [...] Note General: Spoke with: Patient and Bedside salt grinder and Interventions: Assessed: Dressing Dressing Interventions: CDI Wound 05/08/22 Incision Leg Anterior;Proximal;Right;Upper (Active) Wound Assessment Unable to assess 05/10/22 0800 Margins Unable to assess 05/10/22 0800 Kerry-Wound Assessment Unable to assess 05/10/22 08 [...] please contact the Orthopedic Transition Nurse at [phone] Tuesday through Tuesday 8:00 am to 2:30 pm. If you feel your concern is a medical emergency please call 911 immediately. * Progress Notes - Janeth Gallagher - 05/14/2022 10:58 AM EST Case Management Discharge Note Richa Ohara 66 y.o. female CSN: [id number] Admission: 05/07/2022 3:15 PM Primary Problem: Closed displaced transverse fracture of shaft of right femur (CMS/HCC) Primary Jack Setter: Primary Caregiver: (Self) Assistance Available at Discharge: Current Outpatient/Agency/Support Group: DME Availability of Care Givers (#Hours): 24 hours Family/Jack Setter(s) Willingness Assessed to care for patient at home: Yes Family/Jack Setter(s) Readiness Assessed to care for patient at home: Yes Housing Circumstances-Z Codes: Patient Referred to Financial or Community Resources: Discharge Facility/Level of Care Needs: Discharge Facility/Level of Care Needs: rehabilitation facility Patient's Choice of Community Agency(s): Patient's Choice of Community Agency(s): [facility] Patient/Family Anticipated Services at Transition: Patient/Family [...] not completed. Pt has been accepted to [facility] and has a bed on SRU this day. Pt insurance precert completed and approved for inpt subacute rehab. Transportation scheduled with [facility] van for pickup at 14:00. RN to call report to [phone]. SW will fax discharge summary & MAR to [phone]. Janeth Gallagher * Discharge Summary - Laura Menendez MD - 05/14/2022 10:49 AM EST Hospitalization Admit Date/Time: 05/07/2022 3:15 PM Admitting Attending: Gagan Osuna Discharge Date: 05/14/22 Discharge Attending Physician: Gagan Osuna Md PCP name and Address: Gagan Solomon MD [address] [facility] [address] [facility] [place] [address] Referring provider name and address: Hossein Hodge MD [address] [place] [address] Chief Concern, Brief History of Present Illness, and Hospital Course Richa Ohara is a 66 y.o. female with PMH significant for multiple sclerosis on steroids, chorea,and HTN who presented on 05/07 to [facility] ED as a transfer from [facility] with a right periprosthetic femur fracture. She [...] patient was deemd appropriate for discharge to [facility]. The patient was discharged 05/14/22. Surgeries and [...] Your Medications These medications were sent to [facility] [place], [place] - [address], [facility] [address] naloxone 4 mg/0.1 mL nasal spray Information [...] Department Center 05/24/2022 8:50 AM JANA Zimmerman [facility] Test Results Pending At Discharge Pending Labs [...] no suspicion for hematoma Discharge Disposition/Condition Disposition: [facility] Condition: Stable (s/sx potential problems absent or [...] chorea,and HTN who presented on 05/07 to [facility] ED as a transfer from [facility] with a right periprosthetic femur fracture. She [...] patient was deemd appropriate for discharge to [facility]. The patient was discharged 05/14/22. * Progress [...] Laura Menendez MD Orthopaedic Trauma Service Pager: [phone] Orthopaedic Recon/Spine/Foot and Ankle Service Pager: [phone] Cosigned by Eleuterio Rod MD at 05/14/2022 [...] Note General: Spoke with: Patient and Bedside salt grinder and Interventions: Assessed: Dressing Dressing Interventions: CDI [...] please contact the Orthopedic Transition Nurse at [phone] Tuesday through Tuesday 8:00 am to 2:30 [...] No Family/Caregiver: (Adult male and female visitors) Consulting Psychologist: Not Applicable Presentation Oxygen Therapy: None (Room air) O2 Delivery Method: Nasal cannula O2 Flow Rate (L/min): 1.5 L/min Pre-Session: Head of bed elevated Pre-Session Comments: RN agreed to therapy session at si time Post-Session: Sitting in chair, Call light in reach, RN notified Post-Session Comments: All needs met Precautions Right Lower Extremity Weight Bearing Status: Weight Bearing as Tolerated Medical Precautions: Fall precautions Objective Pain 4/10 pain in right LE Delirium Screening Mdaden Agitation Sedation Scale (RASS): Alert and calm [...] Mobility Bed Mobility Exam: Scooting/Bridging Level of [place]: Stand-by assist (to scoot to edge of bed in sitting) Physical/Nonphysical Assist: Verbal Cues Assistive Device: Bed rails Bed Mobility Exam: Supine to Sit Level of [place]: Stand-by assist Physical/Nonphysical Assist: HOB elevated Assistive Device: Bed rails Transfers Transfer Exam: Sit to stand Level of [place]: Stand-by assist Physical/Nonphysical Assist: Set-up required Assistive Device: Walker, rolling Transfer Exam: Stand to Sit Level of [place]: Stand-by assist Physical/Nonphysical Assist: Set-up required Assistive Device: Walker, rolling Transfer Exam: Bed to Chair/Chair to Bed Level of [place]: Stand-by assist Physical/Nonphysical Assist: Verbal Cues, Set-up [...] Laura Menendez MD Orthopaedic Trauma Service Pager: [phone] Orthopaedic Recon/Spine/Foot and Ankle Service Pager: [phone] Cosigned by Eleuterio Rod MD at 05/14/2022 [...] Note Richa Ohara 66 y.o. female CSN: [id number] Admission: 05/07/2022 3:15 PM Primary Problem: Closed [...] Note Richa Ohara 66 y.o. female CSN: [id number] Room/Bed 764/764A Nutrition evaluation type: assessment Reason [...] Procedure Laterality Date CHOLECYSTECTOMY N/A Cholecystectomy from [facility] OTHER SURGICAL HISTORY N/A Esophagogastroduodenoscopy from [facility] OTHER SURGICAL HISTORY N/A Exploratory Laparotomy from [facility] TUBAL LIGATION N/A Tubal Ligation from [facility] Social history: Additional comments: Tolerating PO diet, intakes ranging from 25-100%. No nausea, vomiting or diarrhea. Last BM 05/09. Vitals and Basic Assessment: BP: 139/72 Temp: 36.7 ??C (98.1 ??F) Oxygen Therapy: Supplemental oxygen O2 Delivery Method: Nasal cannula [place]line Coma Scale Score: 15 Sav Scale Score: [...] (Calculated): 20.8 Weight Evaluation: Normal (BMI 18.5-24.9) [place] Body Weight (kg): 56.8 Percent [place] Body Weight: 100 Wt Readings from Last [...] Note General: Spoke with: Patient and Bedside salt grinder and Interventions: Assessed: Dressing Dressing Interventions: CDI Wound 05/08/22 Incision Leg Anterior;Proximal;Right;Upper (Active) Wound Assessment Unable to assess 05/10/22 08 Margins Unable to assess 05/10/22799 Kerry-Wound Assessment Unable to assess 05/10/22799 Closure Unable to assess 05/10/22799 Dressing Other (Comment) 05/10/22799 Dressing Changed New 05/08/22 1025 Dressing Status Clean;Dry;Intact 05/10/22799 Education: Education provided on: Dressing, Signs and symptoms of infection, Weight bearing mobility, Pain protocol/management, Lovenox teaching/importance, and Ortho trauma booklet given Plan of Care: Follow up with Angelhalima Phillips on 05/24/2022 at 0850. Op-Plan: Completed [...] please contact the Orthopedic Transition Nurse at [phone] Tuesday through Tuesday 8:00 am to 2:30 [...] Moran. Sadi Perez, PGY-2 Internal Medicine Pager: [phone] Signed: 05/12/2022 - 11:57 AM Cosigned by [...] Rod, Orthopaedic Trauma Surgery on 05/26/2022 at [facility], Orthopaedic Surgery [address], [facility], Wing C DISPO: Patient is awaiting acute rehab placement at this time Sg Obando PGY-2 Orthopaedic Surgery [facility] Orthopaedic Trauma Service Pager: [phone] Orthopaedic Recon/Spine/Foot and Ankle Service Pager: [phone] Cosigned by Eleuterio Rod MD at 05/12/2022 [...] Note General: Spoke with: Patient and Bedside salt grinder and Interventions: Assessed: Dressing Dressing Interventions: CDI and RLE JLUIS wrap and old traction pin site gauze removed Wound 05/08/22 Incision Leg Anterior;Proximal;Right;Upper (Active) Wound Assessment Unable to assess 05/10/22 0800 Margins Unable to assess 05/10/22 0800 Kerry-Wound Assessment Unable to assess 05/10/22 0800 Closure Unable to assess 05/10/22 0800 Dressing Other (Comment) 05/10/22 0800 Dressing Changed New 05/08/22 1025 Dressing Status [...] please contact the Orthopedic Transition Nurse at [phone] Tuesday through Tuesday 8:00 am to 2:30 [...] No Family/Caregiver: (Adult male and female visitors) Consulting Psychologist: Not Applicable Presentation Oxygen Therapy: Supplemental oxygen [...] Mobility Bed Mobility Exam: Scooting/Bridging Level of [place]: Contact guard (to scoot to edge of bed in sitting) Physical/Nonphysical Assist: Verbal Cues Assistive Device: Bed rails Bed Mobility Exam: Supine to Sit Level of [place]: Minimum assist (75% patient's effort) Physical/Nonphysical Assist: Verbal Cues, Set-up required Assistive Device: Bed rails Transfers Transfer Exam: Sit to stand Level of [place]: Contact guard Physical/Nonphysical Assist: Verbal Cues, Set-up required Assistive Device: Walker, rolling Transfer Exam: Stand to Sit Level of [place]: Contact guard Physical/Nonphysical Assist: Verbal Cues, Set-up required Assistive Device: Walker, rolling Transfer Exam: Bed to Chair/Chair to Bed Level of [place]: Contact guard Physical/Nonphysical Assist: Verbal Cues, Set-up [...] complete functional mobility to bed, chair, toilet [facility] supervision, necessary AEupon discharge 05/09/22 2 weeks [...] Rod, Orthopaedic Trauma Surgery on 05/26/2022 at [facility], Orthopaedic Surgery [address], [address], Wing C Sg Obando PGY-2 Orthopaedic Surgery [facility] Orthopaedic Trauma Service Pager: [phone] Orthopaedic Recon/Spine/Foot and Ankle Service Pager: [phone] Cosigned by Eleuterio Rod MD at 05/11/2022 3:09 PM EST * Progress Notes - IndianaFawad - 05/10/2022 1:31 PM EST Case Management Adult Initial Progress Note Estivenmelissa Ohara 66 y.o. female CSN: [id number] Admission: 05/07/2022 3:15 PM Primary Problem: Closed displaced transverse fracture of shaft of right femur (CMS/HCC) Timber Bucker reviewed chart and spoke with patient to complete this Initial Case Management Assessment. PCP: Gagan Solomon MD Emergency Contact: Extended Emergency Contact Information Primary Emergency Contact: Ohara,Emma Mobile Relation: Spouse Preferred language: Turkmen Consulting Psychologist needed? No Insurance: Primary Visit Coverage Payer Plan Sponsor Code Group Number Group Name MEDICARE MEDICARE A & B Primary Visit Coverage Subscriber Subscriber ID Subscriber Name Subscriber N Subscriber Address [id number] OHARARICHA Meeta [id number] [place] [address] Secondary Visit Coverage Payer Plan Sponsor Code Group Number Group Name [facility] [id number] Secondary Visit Coverage Subscriber Subscriber ID Subscriber Name Subscriber SSN Subscriber Address [id number] NINI OHARAMY [address] [facility] Patient information: Primary Caregiver: (Self) Daily Living Activities: Functional Status: Independent Living Arrangements: Spouse/Significant other Type of Residence: Private residence, Multi Level [address] [place] [address] Smoker in the Home?: No Current DME: [...] Services: None reported. Living Will/Advance Directive/Power of Shape Hand /Guardian: Living Will: None Medical/Financial POA: None Guardian: None Additional Comments: Pt was admitted a closed displaced transverse fracture of shaft of right femur. SW student spoke topt and explained role. Pt confirmed demographic information. Pt lives with her in a multi level home in [place], [place]. Pt was functionally independent before this admission. Pt's anticipated d\c plan is acute rehab per PT\OT. Pt is agreeable to inpatient rehab and SW will make referral to [facility]. Pt's anticipated d\c date is TBD due to finalizing d\c plans. Pt's will provide transportation at d\c, assistance post d\c, and transportation to follow up appts. SW will follow up and assist as needed. Fawad Be [facility] Case Management Social Work Student 05/10/22 Cosigned by Janeth Gallagher at 05/10/2022 2:37 PM EST * Nursing Note - Triston Simpson, RN - 05/10/2022 11:45 AM EST Orthopedic Transition Nurse Note General: Spoke with: Patient and Bedside salt grinder and Interventions: Assessed: Dressing Dressing Interventions: CDI Wound 05/08/22 Incision Leg Anterior;Proximal;Right;Upper (Active) Wound Assessment Unable to assess 05/10/22 0800 Margins Unable to assess 05/10/22 0800 Kerry-Wound Assessment Unable to assess 05/10/22799 Closure Unable to assess 05/10/22799 Dressing Other (Comment) 05/10/22799 Dressing Changed New 05/08/22 1025 Dressing Status Clean;Dry;Intact 05/10/22 08 Education: Education provided on: Dressing, Signs and [...] please contact the Orthopedic Transition Nurse at [phone] Tuesday through Tuesday 8:00 am to 2:30 [...] Yes Family/Caregiver: (Adult male and female visitors) Consulting Psychologist: Not Applicable Presentation Oxygen Therapy: Supplemental oxygen [...] your wound. Based upon recent changes to [place] law related to prescribing opioid pain medications, [...] Instr - AVS First Page - Triston Simpson, RN - 05/10/2022 8:17 AM EST Reasons [...] please contact the Orthopedic Transition Nurse at [phone] Tuesday through Tuesday 8:00 am to 2:30 pm. If you feel your concern is a medical emergency please call 911 immediately. * Progress Notes - Villarreal??, Nancy Bradshaw MD - 05/10/2022 7:31 AM [...] Rod, Orthopaedic Trauma Surgery on 05/26/2022 at [facility], Orthopaedic Surgery [address], [facility], Wing C Nancy Tinajero MD Orthopedic Surgery PGY-1 [facility] Personal Pager: [phone] Orthopaedic Trauma Service Pager: [phone] Orthopaedic Recon/Spine/Foot and Ankle Service Pager: [phone] Cosigned by Eleuterio Rod MD at 05/10/2022 12:27 PM EST * Progress Notes - Yoon Dunham - 05/09/2022 9:23 AM EST Occupational Therapy Evaluation Patient Name: Richa Ohara Today's Date: 05/09/2022 OT Discharge Recommendations: Acute rehab Equipment Recommended: Defer to facility History Richa Ohara is 66 y.o. female admitted 05/07/2022 for work-up of Closed displaced transverse fracture of shaft of right femur ([facility]/HCC). 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 to assist Prior Level of Function Receives Help From: No assist required prior to admission Level of Mobility: Ambulatory- community Mobility [place]: Independent gait without device History of Falls: [...] Mobility Bed Mobility Exam: Scooting/Bridging Level of [place]: Contact guard Physical/Nonphysical Assist: Verbal Cues, Supervision Assistive Device: Bed rails Bed Mobility Exam: Supine to Sit Level of [place]: Contact guard Physical/Nonphysical Assist: Verbal Cues, Set-up required, HOB elevated Transfers Transfer Exam: Sit to stand Level of [place]: Minimum assist (75% patient's effort) Physical/Nonphysical Assist: Verbal Cues, Nonverbal cues (demo/gestures) Assistive Device: Walker, rolling Transfer Exam: Stand to Sit Level of [place]: Contact guard Physical/Nonphysical Assist: Verbal Cues, Nonverbal cues (demo/gestures) Assistive Device: Walker, rolling Transfer Exam: Bed to Chair/Chair to Bed Level of [place]: Minimum assist (75% patient's effort) Physical/Nonphysical Assist: [...] a helper. 5 Set-up or Clean-up Assistance [place] sets up or cleans up; patient completes activity. [place] assists only prior to or following the activity. 4 Supervision or touching assistance [place] provides verbal cues and/or touching/steadying and/or contact guard assistance as patient completes activity. Assistance may be provided throughout the activity or intermittently. 3 Partial/Moderate Assistance [place] does LESS THAN HALF the effort. [place] lifts, holds or supports trunk or limbs, but provides less than half the effort. 2 Substantial/Maximal Assistance [place] does MORE THAN HALF the effort. [place] lifts or holds trunkor limbs and provides more than half the effort. 1 Dependent [place] does ALL of the effort. Patient does [...] medical condition or safety concerns Standardized Assessments [facility] 6-Click Daily Activities Help from Other: Don/Doff Regular Lower Body Clothings: Little Help From Other: Bathing: Little Help From Other: Toileting: Little Help From Other: Don/Doff Upper Body Clothings: Little Help From Other: Grooming: Little Help From Other: Eating Meals: None [facility] 6 Click - Daily Activities Score: 19 [...] fall khadijah-admission risk. Pt's works night shifts and can provide limited assistance. Pt tends [...] transverse fracture of shaft of right femur ([facility]). Problem List Active Hospital Problems Diagnosis Date Noted Closed displaced transverse fracture of shaft of right femur ([facility]) 05/07/2022 Primary hypertension 05/07/2022 Multiple sclerosis ([facility]) 05/07/2022 Procedures 05/08/2022 Procedure(s): Right femur removal of IMN and insertion of IMN Past Medical History Patient has a past medical history of Acquired absence of stomach (part of), Anemia, Chronic or unspecified gastric ulcer with perforation ([facility]), Conversions - Other, Conversions - Other, Conversions - Other, Conversions - Other, Conversions - Other, Conversions - Other, Deficiency of other specified B group vitamins, Depression, Heart failure ([facility]), Iron deficiency, Peptic ulcer, Unspecified protein-calorie malnutrition ([facility]), and Vitamin D deficiency. Past Surgical History Patient has a past surgical history that includes Cholecystectomy (N/A); Tubal ligation (N/A); Other surgical history (N/A); and Other surgical history (N/A). Precautions Right Lower Extremity Weight Bearing Status: Weight Bearing as Tolerated Medical Precautions: Fall precautions Subjective Pt states this fracture hurts more than my other one did. 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 to assist Prior Level of Function Receives Help From: No assist required prior to admission Level of Mobility: Ambulatory- community Mobility [place]: Independent gait without device History of Falls: [...] Mobility Bed Mobility Exam: Scooting/Bridging Level of [place]: Contact guard Physical/Nonphysical Assist: Verbal Cues, Supervision Bed Mobility Exam: Supine to Sit Level of [place]: Contact guard Physical/Nonphysical Assist: Verbal Cues, Set-up required, HOB elevated Transfers Transfer Exam: Sit to stand Level of [place]: Minimum assist (75% patient's effort) Physical/Nonphysical Assist: Verbal Cues, Nonverbal cues (demo/gestures) Assistive Device: Walker, rolling Transfer Exam: Stand to Sit Level of [place]: Contact guard Physical/Nonphysical Assist: Verbal Cues, Nonverbal cues (demo/gestures) Assistive Device: Walker, rolling Transfer Exam: Bed to Chair/Chair to Bed Level of [place]: Minimum assist (75% patient's effort) Physical/Nonphysical Assist: [...] exercises. Standardized Assessments Standardized Assessments Standardized Assessments: AMPAC 6-Clicks Mobility Assessment AMPA 6-Clicks Mobility Assessment [...] climbing 3-5 steps with a railing?: Unable [facility] 6-Clicks Mobility Assessment Total : 16 Assessment [...] at 1:06 PM. * Progress Notes - Christiano, David T, MD - 05/09/2022 6:34 AM EST Orthopaedic [...] Rod, Orthopaedic Trauma Surgery on 05/26/2022 at [facility], Orthopaedic Surgery [address], [address], [address] C David Alvarado MD [facility] Department of Orthopaedic Surgery, PGY5 Cosigned by [...] -prior admission in 2016 with hx of LEIZABETH and B12 deficiency causing underlying anemia -currently [...] AM EST Operative Note Date: 05/08/22 Location: [place] OR Name: Richa Ohara, : 1955, Diagnoses: Pre-op Diagnosis Closed displaced transverse fracture of shaft of right femur, initial encounter ([facility]) Post-op Diagnosis Closed displaced transverse fracture of shaft of right femur, initial encounter ([facility]) Procedure(s): Removal of deep implant right hip Open treatment right femoral shaft fracture with medullary implant Attending Surgeon(s): * Eleuterio Rod - Primary Firer Portable Boiler(s): * Doug Hdez MD - Resident - [...] SCREW LAG GAMMA3 10.5MM TI 90MM - [id number] Implanted NAIL LONG 2MM RAD [id number] RT - [id number] Implanted SCREW 5.0MM T2 LOCK FULL THRD 45MM - [id number] Implanted SCREW 5.0MM TI T2 LOCK FULL THRD 40MM - [id number] Implanted Specimen: Findings: Displaced transverse kerry implant femoral shaft fracture Indications: Richa Ohara is an 66 y.o. female who is having surgery for Closed displaced transverse fracture of shaft of right femur, initial encounter ([facility]). Narrative: The patient was identified marked [...] Reamer through the shaft. We selected a [place] gamma nail size 13 x 380. The [...] Sports Medicine Orthopedic Reconstructiion (HOSKINS) Service Pager: [phone] Orthopedic Trauma (ORF) Service Pager: [phone] Cosigned by Eleuterio Rod MD at 05/08/2022 10:49 AM EST * Consults - Nely Wallace APRN - 05/07/2022 9:32 PM ESTAssociated Order(s): Consult to [facility] Consult to [facility] Consult performed by: Nely Wallace APRN Consult [...] fall status post ORIF in March, at [facility]. Postoperatively patient developed viral pneumonitis, she was [...] leg was broken. Patient initially went to [facility] x-ray showed periprosthetic femur fracture. Patient was [...] mg 10 mg Rectal Daily PRN Kendy Madison MD DULoxetine (Cymbalta) DR capsule 60 mg [...] tablet 40 mg 40 mg Oral BID MaryTamelalavon Wallace APRN 40 mg at 05/07/222253 senna-docusate [...] D.Bili ?? XR Femur Right 2+ Views [[id number]] Resulted: 05/07/221804 Order Status: Completed Updated: 05/07/221805 Narrative: Exam/Procedure: XR TIBIA FIBULA RIGHT 2+ VIEWS, XR HIPS BILATERAL W OR WO PELVIS 3-4 VIEWS, XR FEMUR RIGHT 2+ VIEWS, XR KNEE RIGHT 3 VIEWS, XR FEMUR LEFT 2+ VIEWS ordered by ROBERTO GRAVES, [id number] CLINICAL INDICATION: Femur fx TECHNIQUE: XR TIBIA [...] PM XR Knee Right 3 + Views [[id number]] Resulted: 05/07/22 180 Order Status: Completed Updated: 05/07/221805 Narrative: Exam/Procedure: XR TIBIA FIBULA RIGHT 2+ VIEWS, XR HIPS BILATERAL W OR WO PELVIS 3-4 VIEWS, XR FEMUR RIGHT 2+ VIEWS, XR KNEE RIGHT 3 VIEWS, XR FEMUR LEFT 2+ VIEWS ordered by ROBERTO GRAVES, [id number] CLINICAL INDICATION: Femur fx TECHNIQUE: XR TIBIA [...] 05/07/2022 6:05 PM XR Chest 1 View [[id number]] Resulted: 05/07/22 1751 Order Status: Completed Updated: 05/07/221754 Narrative: CLINICAL [...] 5:54 PM XR Femur Left 2+ Views [[id number]] Resulted: 05/07/221804 Order Status: Completed Updated: 05/07/221805 Narrative: Exam/Procedure: XR TIBIA FIBULA RIGHT 2+ VIEWS, XR HIPS BILATERAL W OR WO PELVIS 3-4 VIEWS, XR FEMUR RIGHT 2+ VIEWS, XR KNEE RIGHT 3 VIEWS, XR FEMUR LEFT 2+ VIEWS ordered by ROBERTO GRAVES, [id number] CLINICAL INDICATION: Femur fx TECHNIQUE: XR TIBIA [...] PM XR Tibia Fibula Right 2+ Views [[id number]] Resulted: 05/07/221804 Order Status: Completed Updated: 05/07/221805 Narrative: Exam/Procedure: XR TIBIA FIBULA RIGHT 2+ VIEWS, XR HIPS BILATERAL W OR WO PELVIS 3-4 VIEWS, XR FEMUR RIGHT 2+ VIEWS, XR KNEE RIGHT 3 VIEWS, XR FEMUR LEFT 2+ VIEWS ordered by ROBERTO GRAVES, [id number] CLINICAL INDICATION: Femur fx TECHNIQUE: XR TIBIA [...] Bilateral W or WO Pelvis 3-4 Views [[id number]] Resulted: 05/07/221804 Order Status: Completed Updated: 05/07/221805 Narrative: Exam/Procedure: XR TIBIA FIBULA RIGHT 2+ VIEWS, XR HIPS BILATERAL W OR WO PELVIS 3-4 VIEWS, XR FEMUR RIGHT 2+ VIEWS, XR KNEE RIGHT 3 VIEWS, XR FEMUR LEFT 2+ VIEWS ordered by ROBERTO GRAVES, [id number] CLINICAL INDICATION: Femur fx TECHNIQUE: XR TIBIA [...] of right femur, init for clos fx ([facility]) # Right periprosthetic femur fracture Preoperative [...] sat was 93% on room air at [facility]. Currently on 2 L per nasal cannula [...] steroids, chorea, and HTN who presents to [facility] ED as a transfer from OSH with a right periprosthetic femur fracture. Patient states that she was walking down 2 steps on her front porch and mis-stepped and fell. Patient was unable to ambulate after the fall. She was taken to [facility] where imaging revealed a right periprosthetic femur fracture. She was placed into at the OSH and transferred to for further management of this fracture. Patient states that she had a hip fracture on 03/22 that was repaired by Dr. Quintana from [facility] in [place], [place]. She developed pneumoniapost-op and was discharged [...] Procedure Laterality Date CHOLECYSTECTOMY N/A Cholecystectomy from [facility] OTHER SURGICAL HISTORY N/A Esophagogastroduodenoscopy from [facility] OTHER SURGICAL HISTORY N/A Exploratory Laparotomy from [facility] TUBAL LIGATION N/A Tubal Ligation from [facility] Family History: family history includes Conversions - [...] Illicit substance use: Denies Lives with in [place], [place]. Employment: ROS: A 14 point review [...] ER/IR, /5 Delt, 5/5 Bic, 5/5 Tri, 5/5 WF, 5/5 WE, 5/5 FF, 5/5 FE, 5/5 Fabd, /5 EPL, /5 FPL Sensory: Sensation intact to light touch axillary, radial, median, ulnar nn. Vascular: 2+ radial pulse, cap refill <2 sec LUE: skin intact, no deformity, soft compartments, no pain with passive stretch, non tender to palpation ROM: Full/painless/stable at shoulder, elbow, and wrist Motor: 5/5 ER/IR, /5 Delt, 5/5 Bic, /5 Tri, 5 WF, 5 WE, 5 FF, 55 FE, 55 Fabd, /5 EPL, 5 FPL Sensory: Sensation intact to light touch [...] Motor: 5/5 HAbd, 5/5 HF, 5/5 KE, /5 KF, 5/5 TA, 5/5 GSC, /5 EHL, /5 FHL, 5 Ever Sensory: Sensation intact to light touch [...] Orthopaedic Surgery and Sports Medicine Consult Pager: [phone] Service Pager:[phone] Cosigned by Arash Fields MD at 05/09/2022 [...] to the pain. She was seen at [facility] where she underwent procedural sedation and reduction [...] Removal Protocol Instructions Pin site dressing Traction Doyle Apply sequential compression device Do Not Give Nicotine Replacement Vital signs for transfusion Chlorhexidine Wipes Continuous Pulse Oximetry Full code Consult to Orthopaedics Surgery Consult to [facility] ECG Adult Prepare Leukocyte Reduced RBC: 2 [...] IP CONSULT TO ORTHOPAEDICS IP CONSULT TO [facility] Patient was admitted by Gagan Osuna MD with admitting diagnosis of Oth fracture of shaft of right femur, init for clos fx ([facility]) [S72.391A]. The following providers were documented [...] in route requiring nonrebreather on arrival to [facility]. documented in this encounter Plan of Treatment [...] of shaft of right femur, initial encounter ([facility]) LACTATE, VENOUS Timed 05/08/2022 4:04 AM EST [...] Detected Not Detected 05/14/2022 11:04 AM EST [facility] Swab Nasopharyngeal structure / Unknown Non-blood Collection / Unknown 05/14/2022 10:05 AM EST 05/14/2022 10:09 AM EST Narrative [facility] - 05/14/2022 11:04 AM EST This [...] MICROBIOLOGY - GENERAL O RDERABLES Final Result [facility] [address] [place] [id number] * (ABNORMAL) CBC W/O Differential (05/11/2022 11:53 AM EST) WBC Count 6.53 3.70 - 10.30 10*3/uL LAB HEMATOLOGY METHOD 05/11/2022 12:20 PM EST [facility] RBC Count 3.80(L) 3.90 - 5.20 10*6/uL LAB HEMATOLOGY METHOD 05/11/2022 12:20 PM EST [facility] HGB 9.0(L) 11.2 - 15.7 g/dL LAB HEMATOLOGY METHOD 05/11/2022 12:20 PM EST [facility] HCT 31.4(L) 34.0 - 45.0 % LAB HEMATOLOGY METHOD 05/11/2022 12:20 PM EST [facility] Platelet Count 221 155 - 369 10*3/uL LAB HEMATOLOGY METHOD 05/11/2022 12:20 PM EST [facility] MCV 83 79 - 98 fL LAB HEMATOLOGY METHOD 05/11/2022 12:20 PM EST [facility] MCH 23.7(L) 26.0 - 32.0 pg LAB HEMATOLOGY METHOD 05/11/2022 12:20 PM EST [facility] MCHC 28.7(L) 30.7 - 35.5 g/dL LAB HEMATOLOGY METHOD 05/11/2022 12:20 PM EST [facility] RDW 18.4(H) 11.5 - 14.5 % LAB HEMATOLOGY METHOD 05/11/2022 12:20 PM EST [facility] MPV 10.9 8.8 - 12.5 fL LAB HEMATOLOGY METHOD 05/11/2022 12:20 PM EST [facility] nRBC 0.0 <=0.0 per 100 WBCs LAB HEMATOLOGY METHOD 05/11/2022 12:20 PM EST [facility] Blood Venous blood specimen / Unknown Venipuncture / Unknown 05/11/2022 11:53 AM EST 05/11/2022 12:03 PM EST us Gagan Osuna MD LAB BLOOD ORDERABLES Final R esult Performing Organization Address City/[facility] Co de Phone Number [facility] [address] [place] [address] * Blood Culture (Aerobic/Anaerobet Set) (05/09/2022 9:59 PM EST) Culture No growth at day 5 GILBERTO 05/15/2022 1:04 AM EST [facility] Blood Structure of right forearm / Unknown Venipuncture / Unknown 05/09/2022 9:59 PM EST 05/10/2022 12:22 AM EST us Gagan Osuna MD LAB MICROBIOLOGY - GENERAL O RDERABLES Final Result Performing Organization Address City/[facility] Co de Phone Number [facility] [address] [place] [address] * Blood Culture (Aerobic/Anaerobet Set) (05/09/2022 9:59 PM EST) Culture No growth at day 5 GILBERTO 05/15/2022 1:04 AM EST [facility] Blood Structure of antecubital vein / Unknown Venipuncture / Unknown 05/09/2022 9:59 PM EST 05/10/2022 12:22 AM EST us Gagan Osuna MD LAB MICROBIOLOGY - GENERAL O RDERABLES Final Result Performing Organization Address City/[facility] Co de Phone Number [facility] [address] [place] [address] * (ABNORMAL) Blood gas panel, venous (05/09/2022 9:59 PM EST) pH, Venous 7.42 7.32 - 7.43 LAB HEMATOLOGY METHOD 05/09/2022 10:19 PM [facility] pCO2, Venous 46 37 - 52 mmHg LAB HEMATOLOGY METHOD 05/09/2022 10:19 PM [facility] pO2, Venous 69(H) 25 - 40 mmHg LAB HEMATOLOGY METHOD 05/09/2022 10:19 PM [facility] SO2, Measured, Venous 93.0(H) 65 - 80 % LAB HEMATOLOGY METHOD 05/09/2022 10:19 PM [facility] Base Excess, Venous 4.7(H) -2.0 - 3.0 mmol/L LAB HEMATOLOGY METHOD 05/09/2022 10:19 PM [facility] Bicarbonate, Calculated, Venous 30(H) 22 - 26 mmol/L LAB HEMATOLOGY METHOD 05/09/2022 10:19 PM [facility] Hematocrit, Whole Blood 26.7(L) 34.0 - 45.0 % LAB HEMATOLOGY METHOD 05/09/2022 10:19 PM [facility] Sodium, Whole Blood 140 136 - 145 mmol/L LAB HEMATOLOGY METHOD 05/09/2022 10:19 PM [facility] Potassium, Whole Blood 4.1 3.6 - 4.9 mmol/L LAB HEMATOLOGY METHOD 05/09/2022 10:19 PM [facility] Chloride, Whole Blood 101 97 - 107 mmol/L LAB HEMATOLOGY METHOD 05/09/2022 10:19 PM [facility] Glucose, Whole Blood 105(H) 74 - 99 mg/dL LAB HEMATOLOGY METHOD 05/09/2022 10:19 PM [facility] Lactate, Venous, Whole Blood 0.8 0.5 - 2.2 mmol/L LAB HEMATOLOGY METHOD 05/09/2022 10:19 PM [facility] Ionized Calcium, Whole Blood 4.5(L) 4.6 - 5.1 mg/dL LAB HEMATOLOGY METHOD 05/09/2022 10:19 PM [facility] Blood Venous blood specimen / Unknown Venipuncture / Unknown 05/09/2022 9:59 PM EST 05/09/2022 10:17 PM EST Gagan Osuna MD LAB BLOOD ORDERABLES Final R esult [facility] [address] [place] [address] * XR Chest 1 View (05/09/2022 9:51 [...] CHEST 1 VIEW ordered by GAGAN OSUNA [id number] CLINICAL INDICATION: SOA, sputum production TECHNIQUE: XR CHEST 1 VIEW COMPARISON: 05/07/2022 FINDINGS: The cardiomediastinal silhouette is stable. No new focal consolidation or pleural effusion. No pneumothorax. The visualized osseous structures are intact. Procedure Note Evin Lujan MD - 05/09/2022 Exam/Procedure: XR CHEST 1 VIEW ordered by GAGAN OSUNA [id number] CLINICAL INDICATION: SOA, sputum production TECHNIQUE: XR [...] Evin Lujan MD on 05/09/2022 10:14 PM Gagan Osuna MD IMG XR PROCEDURES Final Resu lt * (ABNORMAL) Basic metabolic panel (05/09/2022 5:36 AM EST) Glucose, Plasma 116(H) 74 - 99 mg/dL 05/09/2022 5:36 AM EST [facility] BUN, Plasma 19 8 - 23 mg/dL 05/09/2022 5:36 AM EST [facility] Creatinine, Plasma 0.81 0.60 - 1.10 mg/dL 05/09/2022 5:36 AM EST [facility] BUN/Creatinine Ratio 23 05/09/2022 5:36 AM EST [facility] Sodium, Plasma 141 136 - 145 mmol/L 05/09/2022 5:36 AM EST [facility] Potassium, Plasma 4.7 3.7 - 4.8 mmol/L 05/09/2022 5:36 AM EST [facility] Comment:Reference range for Serum potassium is 0.2 to 0.5 mmol/L higher than Plasma range. Chloride, Plasma 106 97 - 107 mmol/L 05/09/2022 5:36 AM EST [facility] CO2, Plasma 30(H) 22 - 29 mmol/L 05/09/2022 5:36 AM EST [facility] Anion Gap 5(L) 6 - 16 mmol/L 05/09/2022 5:36 AM EST [facility] Total Calcium, Plasma 8.7(L) 8.9 - 10.2 mg/dL 05/09/2022 5:36 AM EST [facility] eGFRcr 81.2 mL/min/1.7 3m*2 05/09/2022 5:36 AM EST [facility] Comment: Reported eGFRcr in mL/min/1.73m2 is based the CKD-EPI 2021 equation that does not use a race coefficient. Effective 10/28/21 our laboratory changed the eGFR calculation to the CKD-EPI 2021 equation from the previously reported eGFR, based on the MDRD equation. ??For comparisons between the two equations, please see laboratory website: ??[email or web address] Blood Venous blood specimen / Unknown 05/09/2022 5:03 AM EST us Gio Moran MD LAB BLOOD ORDERABLES Final Resul t [facility] [address] [place] [address] * (ABNORMAL) CBC W/O Differential (05/09/2022 5:12 AM EST) WBC Count 6.14 3.70 - 10.30 10*3/uL LAB HEMATOLOGY METHOD 05/09/2022 5:12 AM EST [facility] RBC Count 3.67(L) 3.90 - 5.20 10*6/uL LAB HEMATOLOGY METHOD 05/09/2022 5:12 AM EST [facility] HGB 8.6(L) 11.2 - 15.7 g/dL LAB HEMATOLOGY METHOD 05/09/2022 5:12 AM EST [facility] HCT 31.0(L) 34.0 - 45.0 % LAB HEMATOLOGY METHOD 05/09/2022 5:12 AM EST [facility] Platelet Count 189 155 - 369 10*3/uL LAB HEMATOLOGY METHOD 05/09/2022 5:12 AM EST [facility] MCV 85 79 - 98 fL LAB HEMATOLOGY METHOD 05/09/2022 5:12 AM EST [facility] MCH 23.4(L) 26.0 - 32.0 pg LAB HEMATOLOGY METHOD 05/09/2022 5:12 AM EST [facility] MCHC 27.7(L) 30.7 - 35.5 g/dL LAB HEMATOLOGY METHOD 05/09/2022 5:12 AM EST [facility] RDW 18.4(H) 11.5 - 14.5 % LAB HEMATOLOGY METHOD 05/09/2022 5:12 AM EST [facility] MPV 11.0 8.8 - 12.5 fL LAB HEMATOLOGY METHOD 05/09/2022 5:12 AM EST [facility] nRBC 0.0 <=0.0 per 100 WBCs LAB HEMATOLOGY METHOD 05/09/2022 5:12 AM EST [facility] Blood Venous blood specimen / Unknown 05/09/2022 5:03 AM EST us Gagan Osuna MD LAB BLOOD ORDERABLES Final R esult [facility] [address] [place] [address] * XR Femur Right 2+ Views (05/08/2022 11:16 AM EST) Anatomical Region Laterality Modality Lower Extremities, Femur Right Digital Radiography Impressions 05/08/2022 11:06 AM EST Postoperative appearance of the right femur. CRITICAL RESULT: ?? No. COMMUNICATION: Per this written report. Dictated by Adin Romero MD on 05/08/2022 11:05 AM Signed by Adin oRmero MD on 05/08/2022 11:06 AM Narrative 05/08/2022 [...] LAB HEMATOLOGY METHOD 05/08/2022 4:17 AM EST [facility] Blood Venous blood specimen / Unknown Venipuncture / Unknown 05/08/2022 4:04 AM EST 05/08/2022 4:14 AM EST Bruce Murphy MD LAB BLOOD ORDERABLES Final Result Performing Organization Address [facility] de Phone Number [facility] [address] [place] [address] * (ABNORMAL) Vitamin D 25 Hydroxy (05/08/2022 12:27 AM EST) Vitamin D 25 Hydroxy 16.5(L) 20.0 - 80.0 ng/mL 05/08/2022 6:00 AM EST [facility] Comment: Vitamin D, 25-Hydroxy reference range, age 18 years and up: Deficiency: ? <12 ng/mL Insufficiency: ?12 to 19 ng/mL Sufficiency: ?20 to 80 ng/mL Possible toxicity: ??>100 ng/mL Blood Venous blood specimen / Unknown Venipuncture / Unknown 05/08/2022 12:27 AM EST 05/08/2022 12:34 AM EST Nely Wallace APRN LAB BLOOD ORDERABLES Final Result Performing Organization Address [facility] de Phone Number [facility] [address] [place] [address] * (ABNORMAL) Comprehensive metabolic panel (05/08/2022 12:27 AM EST) Glucose, Plasma 178(H) 74 - 99 mg/dL 05/08/2022 1:02 AM EST [facility] BUN, Plasma 16 8 - 23 mg/dL 05/08/2022 1:02 AM EST [facility] Creatinine, Plasma 0.60 0.60 - 1.10 mg/dL 05/08/2022 1:02 AM EST [facility] BUN/Creatinine Ratio 27 05/08/2022 1:02 AM EST [facility] Sodium, Plasma 138 136 - 145 mmol/L 05/08/2022 1:02 AM EST [facility] Potassium, Plasma 3.6(L) 3.7 - 4.8 mmol/L 05/08/2022 1:02 AM EST [facility] Comment:Reference range for Serum potassium is 0.2 to 0.5 mmol/L higher than Plasma range. Chloride, Plasma 102 97 - 107 mmol/L 05/08/2022 1:02 AM EST [facility] CO2, Plasma 27 22 - 29 mmol/L 05/08/2022 1:02 AM EST [facility] Anion Gap 9 6 - 16 mmol/L 05/08/2022 1:02 AM [facility] Total Calcium, Plasma 8.8(L) 8.9 - 10.2 mg/dL 05/08/2022 1:02 AM EST [facility] Total Protein 5.8(L) 6.3 - 7.9 g/dL 05/08/2022 1:02 AM [facility] Albumin, Plasma 3.6 3.5 - 5.2 g/dL 05/08/2022 1:02 AM EST [facility] AST, Plasma 33 9 - 36 U/L 05/08/2022 1:02 AM [facility] ALT, Plasma 21 8 - 33 U/L 05/08/2022 1:02 AM [facility] Alkaline Phosphatase, Plasma 159(H) 46 - 142 U/L 05/08/2022 1:02 AM [facility] Total Bilirubin, Plasma <0.2(L) 0.2 - 1.1 mg/dL 05/08/2022 1:02 AM [facility] eGFRcr 100.4 mL/min/1.7 3m*2 05/08/2022 1:02 AM EST [facility] Comment: Reported eGFRcr in mL/min/1.73m2 is based the CKD-EPI 2021 equation that does not use a race coefficient. Effective 10/28/21 our laboratory changed the eGFR calculation to the CKD-EPI 2021 equation from the previously reported eGFR, based on the MDRD equation. ??For comparisons between the two equations, please see laboratory website: ??[email or web address] Blood Venous blood specimen / Unknown Venipuncture / Unknown 05/08/2022 12:27 AM EST 05/08/2022 12:32 AM EST Nely Wallace APRN LAB BLOOD ORDERABLES Final Result Performing Organization Address City/[facility]/ZIP Co de Phone Number [facility] [address] [place] [address] * Lactate, venous (05/08/2022 12:27 AM EST) Lactate, Venous, Whole Blood 1.6 0.5 - 2.2 mmol/L LAB HEMATOLOGY METHOD 05/08/2022 12:33 AM EST [facility] Blood Venous blood specimen / Unknown Venipuncture / Unknown 05/08/2022 12:27 AM EST 05/08/2022 12:32 AM EST Bruce Murphy MD LAB BLOOD ORDERABLES Final Result Performing Organization Address [facility] Co de Phone Number [facility] [address] [place] [address] * Prothrombin Time/INR (05/08/2022 12:27 AM EST) Pathologist [facility] Prothrombin Time 12.7 12.0 - 14.3 sec LAB COAGULATION METHOD 05/08/2022 1:06 AM EST [facility] INR 0.9 0.9 - 1.1 LAB COAGULATION METHOD 05/08/2022 1:06 AM EST [facility] Blood Venous blood specimen / Unknown [...] INR 2.5 to 3.5 Prevention of recurrent VT ? INR 2.5 to 3.5 us Bruce Murphy MD LAB BLOOD ORDERABLES Final Result Performing Organization Address City/State/[facility] Phone Number [facility] [address] [place] [address] * (ABNORMAL) CBC W/O Differential (05/08/2022 12:27 AM EST) WBC Count 6.90 3.70 - 10.30 10*3/uL LAB HEMATOLOGY METHOD 05/08/2022 12:42 AM EST [facility] RBC Count 3.89(L) 3.90 - 5.20 10*6/uL LAB HEMATOLOGY METHOD 05/08/2022 12:42 AM EST [facility] HGB 9.2(L) 11.2 - 15.7 g/dL LAB HEMATOLOGY METHOD 05/08/2022 12:42 AM EST [facility] HCT 31.9(L) 34.0 - 45.0 % LAB HEMATOLOGY METHOD 05/08/2022 12:42 AM EST [facility] Platelet Count 228 155 - 369 10*3/uL LAB HEMATOLOGY METHOD 05/08/2022 12:42 AM EST [facility] MCV 82 79 - 98 fL LAB HEMATOLOGY METHOD 05/08/2022 12:42 AM EST [facility] MCH 23.7(L) 26.0 - 32.0 pg LAB HEMATOLOGY METHOD 05/08/2022 12:42 AM EST [facility] MCHC 28.8(L) 30.7 - 35.5 g/dL LAB HEMATOLOGY METHOD 05/08/2022 12:42 AM EST [facility] RDW 18.3(H) 11.5 - 14.5 % LAB HEMATOLOGY METHOD 05/08/2022 12:42 AM EST [facility] MPV 11.3 8.8 - 12.5 fL LAB HEMATOLOGY METHOD 05/08/2022 12:42 AM EST [facility] nRBC 0.0 <=0.0 per 100 WBCs LAB HEMATOLOGY METHOD 05/08/2022 12:42 AM EST [facility] Blood Venous blood specimen / Unknown Venipuncture / Unknown 05/08/2022 12:27 AM EST 05/08/2022 12:32 AM EST Bruce Murphy MD LAB BLOOD ORDERABLES Final Result [facility] [address] [place] [address] * Multi Drug Resistance Test (05/07/2022 10:21 PM EST) Culture No growth at day 2 05/09/2022 11:03 AM EST [facility] Swab (Nares and Kerry Rectal) Non-blood Collection / Unknown 05/07/2022 10:21 PM EST 05/07/2022 10:41 PM EST us Gagan Osuna MD LAB MICROBIOLOGY - GENERAL O RDERABLES Final Result Performing Organization Address [facility] Co de Phone Number [facility] [address] [place] [address] * Hemoglobin A1c (05/07/2022 6:06 PM EST) Hemoglobin A1c 5.2 <5.7 % 05/07/2022 7:44 PM EST [facility] Blood Venous blood specimen / Unknown [...] Adults <6.0% Children and Adolescents <7.5% Source: ??[place]izen [place] Diabetes Association. Standards of medical care in diabetes,2017. Diabetes Care.2017:40 (suppl 1):S1-S135. HbA1c assay performed by an ion-exchange chromatography method that is certified traceable to the DCCT. us Bruce Murphy MD LAB BLOOD ORDERABLES Final Result Performing Organization Address [facility] Co de Phone Number [facility] [address] [place] [address] * XR Hips Bilateral W or WO [...] LEFT 2+ VIEWS ordered by ROBERTO GRAVES, [id number] CLINICAL INDICATION: Femur fx TECHNIQUE: XR TIBIA [...] FEMURLEFT 2+ VIEWS ordered by ROBERTO GRAVES, [id number] CLINICAL INDICATION: Femur fx TECHNIQUE: XR TIBIA [...] LEFT 2+ VIEWS ordered by ROBERTO GRAVES, [id number] CLINICAL INDICATION: Femur fx TECHNIQUE: XR TIBIA [...] FEMURLEFT 2+ VIEWS ordered by ROBERTO GRAVES, [id number] CLINICAL INDICATION: Femur fx TECHNIQUE: XR TIBIA [...] LEFT 2+ VIEWS ordered by ROBERTO GRAVES, [id number] CLINICAL INDICATION: Femur fx TECHNIQUE: XR TIBIA [...] FEMURLEFT 2+ VIEWS ordered by ROBERTO GRAVES, [id number] CLINICAL INDICATION: Femur fx TECHNIQUE: XR TIBIA [...] LEFT 2+ VIEWS ordered by ROBERTO GRAVES, [id number] CLINICAL INDICATION: Femur fx TECHNIQUE: XR TIBIA [...] FEMURLEFT 2+ VIEWS ordered by ROBERTO GRAVES, [id number] CLINICAL INDICATION: Femur fx TECHNIQUE: XR TIBIA [...] LEFT 2+ VIEWS ordered by ROBERTO GRAVES, [id number] CLINICAL INDICATION: Femur fx TECHNIQUE: XR TIBIA [...] FEMURLEFT 2+ VIEWS ordered by ROBERTO GRAVES, [id number] CLINICAL INDICATION: Femur fx TECHNIQUE: XR TIBIA [...] Paul Garcia MD on 05/07/2022 6:05 PM Bruce Murphy MD IMG XR PROCEDURES Edited Re sult - Final * Nasopharyngeal Respiratory Panel (05/07/2022 5:15 PM EST) Pathologist [facility], [place] Nasopharyngeal Respiratory PCR Interpretation Not Detected for all analytes Not Detected for all analytes 05/08/2022 9:09 AM EST [facility] Swab Nasopharyngeal structure [...] Respiratory PCR Panel is performed using the Ini3 Digital ePlex instrument. This assay is for in vitro diagnostic use under the FDA Emergency Use Authorization (EUA) only. The [facility] Clinical Microbiology Laboratory is certified under the Clinical Laboratory Improvement Amendments of 1988 (CLIA-88) as qualified to perform high complexity clinical laboratory testing. Nely Wallace HARDWARE INSTALLER LAB MICROBIOLOGY - GENERAL ORDERABLES Final Result [facility] [address] [place] [address] * Gold Top (05/07/2022 5:15 PM EST) Pathologist [facility] [place] Extra Hold for add-ons. 05/07/2022 8:01 PM EST [facility] Comment:Auto resulted. Blood Venous blood specimen / Unknown 05/07/2022 5:15 PM EST 05/07/2022 5:20 PM EST Bruce Murphy MD LAB BLOOD ORDERABLES Final Result [facility] [address] [place] [address] * Gold Top (05/07/2022 5:15 PM EST) Extra Hold for add-ons. 05/07/2022 8:01 PM EST [facility] Comment:Auto resulted. Blood Venous blood specimen / Unknown 05/07/2022 5:15 PM EST 05/07/2022 5:20 PM EST Bruce Murphy MD LAB BLOOD ORDERABLES Final Result Performing Organization Address City/[facility]/ZIP Co de Phone Number [facility] [address] [place] [address] * Light Green Top (05/07/2022 5:15 PM EST) Extra Hold for add-ons. 05/07/2022 8:01 PM EST [facility] Comment:Auto resulted. Blood Venous blood specimen / Unknown 05/07/2022 5:15 PM EST 05/07/2022 5:20 PM EST Bruce Murphy MD LAB BLOOD ORDERABLES Final Result Performing Organization Address City/[facility]/ZIP Co de Phone Number [facility] [address] [place] [address] * Light Blue Top (05/07/2022 5:15 PM EST) Extra Hold for add-ons. 05/07/2022 8:01 PM EST [facility] Comment:Auto resulted. Blood Venous blood specimen / Unknown 05/07/2022 5:15 PM EST 05/07/2022 5:20 PM EST Bruce Murphy MD LAB BLOOD ORDERABLES Final Result [facility] [address] [place] [address] * Lactate, venous (05/07/2022 5:15 PM EST) Lactate, Venous, Whole Blood 0.7 0.5 - 2.2 mmol/L LAB HEMATOLOGY METHOD 05/07/2022 5:19 PM EST [facility] Blood Venous blood specimen / Unknown Venipuncture / Unknown 05/07/2022 5:15 PM EST 05/07/2022 5:17 PM EST Bruce Murphy MD LAB BLOOD ORDERABLES Final Result Performing Organization Address [facility] Co de Phone Number [facility] [address] [place] [address] * Type and Screen (05/07/2022 5:15 PM [...] ORDERAB LES Final Result Performing Organization Address [facility] Phone Number BLOOD BANK [address] [place] [address] * SARS CoV-2/COVID-19 by PCR (05/07/2022 5:15 PM EST) SARS CoV-2/COVID-1 9 RNA PCR Result Not Detected Not Detected 05/07/2022 9:35 PM EST [facility] Swab Nasopharyngeal structure / Unknown Non-blood Collection / Unknown 05/07/2022 5:15 PM EST 05/07/2022 5:29 PM EST Narrative [facility]ARE [facility] - 05/07/2022 9:35 PM EST [...] recommendations. This test was performed using the [employer] it SARS CoV-2 assay, a PCR-based method. The [...] OR DERABLES Final Result Performing Organization Address [facility] Co de Phone Number [facility] [address] [place] [address] * Phosphorus (05/07/2022 5:14 PM EST) Phosphorus, Plasma 4.2 2.5 - 4.5 mg/dL 05/07/2022 9:22 PM EST [facility] Blood Venous blood specimen / Unknown Venipuncture / Unknown 05/07/2022 5:14 PM EST 05/07/2022 5:19 PM EST Nely Wallace APRN LAB BLOOD ORDERABLES Final Result Performing Organization Address [facility] Phone Number [facility] [address] [place] [address] * Magnesium (05/07/2022 5:14 PM EST) Magnesium, Plasma 1.9 1.9 - 2.4 mg/dL 05/07/2022 9:22 PM EST [facility] Blood Venous blood specimen / Unknown Venipuncture / Unknown 05/07/2022 5:14 PM EST 05/07/2022 5:19 PM EST Nely Wallace APRN LAB BLOOD ORDERABLES Final Result Performing Organization Address [facility] Phone Number [facility] [address] [place] [address] * (ABNORMAL) CBC W/O Differential (05/07/2022 5:14 PM EST) WBC Count 8.00 3.70 - 10.30 10*3/uL LAB HEMATOLOGY METHOD 05/07/2022 5:21 PM EST [facility] RBC Count 4.19 3.90 - 5.20 10*6/uL LAB HEMATOLOGY METHOD 05/07/2022 5:21 PM EST [facility] HGB 10.1(L) 11.2 - 15.7 g/dL LAB HEMATOLOGY METHOD 05/07/2022 5:21 PM EST [facility] HCT 33.9(L) 34.0 - 45.0 % LAB HEMATOLOGY METHOD 05/07/2022 5:21 PM EST [facility] Platelet Count 222 155 - 369 10*3/uL LAB HEMATOLOGY METHOD 05/07/2022 5:21 PM EST [facility] MCV 81 79 - 98 fL LAB HEMATOLOGY METHOD 05/07/2022 5:21 PM EST [facility] MCH 24.1(L) 26.0 - 32.0 pg LAB HEMATOLOGY METHOD 05/07/2022 5:21 PM EST [facility] MCHC 29.8(L) 30.7 - 35.5 g/dL LAB HEMATOLOGY METHOD 05/07/2022 5:21 PM EST [facility] RDW 18.4(H) 11.5 - 14.5 % LAB HEMATOLOGY METHOD 05/07/2022 5:21 PM EST [facility] MPV 11.1 8.8 - 12.5 fL LAB HEMATOLOGY METHOD 05/07/2022 5:21 PM EST [facility] nRBC 0.0 <=0.0 per 100 WBCs LAB HEMATOLOGY METHOD 05/07/2022 5:21 PM EST [facility] Blood Venous blood specimen / Unknown Venipuncture / Unknown 05/07/2022 5:14 PM EST 05/07/2022 5:19 PM EST us Roberto CABRALES LAB BLOOD ORDERABLES Final Re sult [facility] [address] [place] [address] * (ABNORMAL) Basic metabolic panel (05/07/2022 5:14 PM EST) [facility] Glucose, Plasma 132(H) 74 - 99 mg/dL 05/07/2022 5:37 PM EST [facility] BUN, Plasma 18 8 - 23 mg/dL 05/07/2022 5:37 PM EST [facility] Creatinine, Plasma 0.62 0.60 - 1.10 mg/dL 05/07/2022 5:37 PM EST [facility] BUN/Creatinine Ratio 29 05/07/2022 5:37 PM EST [facility] Sodium, Plasma 138 136 - 145 mmol/L 05/07/2022 5:37 PM EST [facility] Potassium, Plasma 3.9 3.7 - 4.8 mmol/L 05/07/2022 5:37 PM EST [facility] Comment:Reference range for Serum potassium is 0.2 to 0.5 mmol/L higher than Plasma range. Chloride, Plasma 103 97 - 107 mmol/L 05/07/2022 5:37 PM EST [facility] CO2, Plasma 26 22 - 29 mmol/L 05/07/2022 5:37 PM EST [facility] Anion Gap 9 6 - 16 mmol/L 05/07/2022 5:37 PM EST [facility] Total Calcium, Plasma 8.7(L) 8.9 - 10.2 mg/dL 05/07/2022 5:37 PM EST [facility] eGFRcr 99.6 mL/min/1.7 3m*2 05/07/2022 5:37 PM EST [facility] Comment: Reported eGFRcr in mL/min/1.73m2 is based the CKD-EPI 202 equation that does not use a race coefficient. Effective 10/28/21 our laboratory changed the eGFR calculation to the CKD-EPI 2021 equation from the previously reported eGFR, based on the MDRD equation. ??For comparisons between the two equations, please see laboratory website: ??[email or web address] Blood Venous blood specimen / Unknown Venipuncture / Unknown 05/07/2022 5:14 PM EST 05/07/2022 5:19 PM EST us Roberto CABRALES LAB BLOOD ORDERABLES Final Re sult [facility] [address] [place] [address] * ECG Adult (05/07/2022 5:01 PM EST) EKG DIAGNOSIS CLASS Borderline Abnormal MUSE ECG Ventricular Rate 112 BPM MUSE ECG Atrial Rate 112 BPM MUSE ECG IL Interval 134 ms MUSE ECG QRSD Interval 90 ms MUSE ECG QT Interval 328 ms MUSE ECG QTC Interval 447 ms MUSE ECG P [place] 67 degrees MUSE ECG R [place] 55 degrees MUSE ECG T Wave [place] 74 degrees MUSE ECG Diagnosis Sinus tachycardia MUSE ECG Diagnosis Otherwise normal ECG MUSE ECG Diagnosis Confirmed by Ky Boyle ([id number]) on 05/08/2022 2:16:25 PM MUSE ECG 05/07/2022 5:01 PM EST 05/08/2022 2:16 PM EST us Roberto CABRALES ECG ORDERABLES Final Result MUSE ECG documented in this encounter Visit Diagnoses Diagnosis Closed displaced transverse fracture of shaft of right femur, initial encounter ([facility]) Oth fracture of shaft of right femur, init for clos fx ([facility]) Primary hypertension Unspecified essential hypertension Multiple sclerosis ([facility]) Multiple sclerosis Closed displaced transverse fracture of shaft of right femur, initial encounter ([facility]) documented in this encounter Admitting Diagnoses Diagnosis Oth fracture of shaft of right femur, init for clos fx ([facility]) documented in this encounter Administered Medications Inactive [...] Given 05/13/2022 8:20 PM EST 1,000 mg amantadine (Symmetrel) capsule 200 mg 200 [...] hours and no response to magnesium hydroxide DULoxetine (Cymbalta) DR capsule 60 mg 60 [...] AM EST 20 mg gabapentin (Neurontin) capsule 300 mg 300 mg, Oral, 3 times daily, First dose (after last modification) on Tue05/10/22 at 0900, Until Discontinued, Routine, Sign Given 05/14/2022 9:15 AM EST 300 mg Given 05/13/2022 8:20 PM EST 300 mg Given 05/13/2022 3:49 PM EST 300 mg ipratropium-albuterol (Duo-Neb) 0.5-2.5 mg/3 mL nebulizer solution 3 mL 3 mL, Nebulization, Every 6 hours PRN, Starting on Tue05/07/22 at 2258, Until Tue05/14/22 at 1556, Routine, wheezing, shortness of breath Given 05/09/2022 11:23 PM EST 3 mL magnesium hydroxide (Milk of Magnesia) 2400 MG/10ML [...] Given 05/13/2022 1:05 PM EST 500 mg oxyCODONE (Roxicodone) immediate release tablet 5 [...] Given 05/11/2022 8:28 AM EST 17 g senna-docusate (Kerry-Colace) 8.6-50 MG per tablet 1 [...] Intravenous, As needed, Starting on Tue05/07/22 at 2026, Until Tue05/14/22 at 1556, Routine, line care, Before and after each medication infusion documented in this encounter Active and Recently [...] Rolo Rodriguez RN)2020 (Given - Provider: Zuleika Miles RN) 0037 (Not Given - Provider: Zuleika Miles RN - Reason: Hold for condition: must add comment - Comment: too close to last dose)0713 (Given - Provider: Harmony Peace RN)1219 (Given - Provider: Harmony Peace RN) amantadine (Symmetrel) capsule 200 mg 200 mg, Oral, 2 times daily (0800 & 1200), First dose on Tue05/08/22 at 0800, Until Discontinued, Routine 0856 (Given - Provider: Rolo Rodriguez RN)1142 (Given - Provider: Rolo Rodriguez RN) 0824 (Given - Provider: Rolo Rodriguez RN)1305 (Given - Provider: Rolo Rodriguez RN) 0900 (Given - Provider: Harmony Peace RN)1219 (Given - Provider: Harmony Peace RN) DULoxetine (Cymbalta) DR capsule 60 mg 60 mg, Oral, 2 times daily, First dose on Tue05/07/22 at 2230, Until Discontinued, Routine 0855 (Given - Provider: Rolo Rodriguez RN)204 (Given - Provider: Mina Garcia RN) 0825 (Given - Provider: Rolo Rodriguez RN)2019 (Given - Provider: Zuleika Miles RN) 0914 (Given - Provider: Harmony Peace RN) enoxaparin (Lovenox) syringe 30 mg 30 mg, Subcutaneous, Every 12 hours, First dose on Tue05/09/22 at 0830, Until Discontinued, Routine 0856 (Given - Provider: Rolo Rodriguez RN)2042 (Given - Provider: Mina Garcia RN) 0824 (Given - Provider: Rolo Rodriguez RN)2017 (Given - Provider: Zuleika Miles RN) 0913 (Given - Provider: Harmony Peace RN) ergocalciferol [...] RN) 0824 (Given - Provider: Rolo Rodriguez RN)210 (Given - Provider: Zuleika Miles RN) 0915 (Given - Provider: Harmony Peace RN) gabapentin (Neurontin) capsule 300 mg 300 mg, Oral, 3 times daily, First dose (after last modification) on Tue05/10/22 at 0900, Until Discontinued, Routine, Sign 0855 (Given - Provider: Rolo Rodriguez RN)1650 (Given - Provider: Rolo Rodriguez RN)2042 (Given - Provider: Mina Garcia RN) 0824 (Given - Provider: Rolo Rodriguez RN)154 (Given - Provider: Rolo Rodriguez RN)2020 (Given - Provider: Zuleika Miles RN) 0915 [...] RN)2318 (Given - Provider: Mina Garcia RN) 0824 (Given - Provider: Rolo Rodriguez RN)1305 (Given - Provider: Rolo Rodriguez RN)2019 (Given - Provider: Zlueika Miles, LUDY)231 (Not Given - Provider: Zuleika [...] Routine 0855 (Given - Provider: Rolo Rodriguez RN)204 (Given - Provider: Mina Garcia RN) 0825 (Given - Provider: Rolo Rodriguez RN)210 (Not Given - Provider: Zuleika Miles RN - Reason: Patient/family refused) 0917 (Not Given - Provider: Harmony Peace RN - Reason: Patient/family refused) PRN Medication Order 05/12/2022 05/13/2022 05/14/2022 bisacodyl (Dulcolax) suppository 10 mg 10 mg, Rectal, Daily PRN, Starting on Tue05/07/22 at 202, Until Tue05/14/22 at 1556, Routine, constipation, if [...] moderate pain 0855 (Given - Provider: Rolo Rodriguez, LUDY)2042 (Given - Provider: Mina Garcia, LUDY) 2018 (Given - Provider: Zuleika Miles RN) [...] documented as of this encounter Care Teams Child Caregiver Relationship Specialty Start Date End Date Gagan Solomon MD [address] [place] [address] PCP - General 08/15/20 documented as of this encounter
--- OUTSIDE RECORDS SUMMARY | 2024-02-20 10:30 | XMS_ITS | Encounter Summary ---
Author Organization [facility] Address [address] [place] [address] Care Team Providers Care Clip On Sunglasses Assembler Name Role Phone Gagan Solomon MD Primary Care Provider [phone] Encounter Details Date Type Department Care Team (Latest Contact Info) Description 05/07/2022 11:46 AM EST - 05/07/2022 3:14 PM EST Hospital Encounter [facility] [address] [place] [address] Examination Discharge Disposition: Home or Self Care Social [...] PM EST documented as of this encounter Medications at [...] for 14 days. 28 tablet 05/14/2022 3 acetaminophen (Tylenol) 500 MG tablet Take 500 mg by mouth 3 (three) times a day. 3 documented as of this encounter Plan of Treatment Not on file documented as of this encounter Procedures Procedure Name Priority Date/Time Associated Diagnosis Comments XR FEMUR RIGHT 2+ VIEWS Routine 05/07/2022 11:46 AM EST Examination documented in this encounter Results * XR Femur Right 2+ Views (05/07/2022 11:46 AM EST) Narrative IMAGING - 05/07/2022 11:46 AM EST This study was performed at an outside facility and has been loaded into the PACS system for reference only. ??This order has been auto-finalized and does not contain a result. us Imaging Upload Radiant IMG XR PROCEDURES Final R esult IMAGING documented in this encounter Visit Diagnoses Diagnosis Examination Unspecified examination documented in this encounter Care Teams Clip On Sunglasses Assembler Relationship Specialty Start Date End Date Gagan Solomon MD [address] [place] [address] PCP - General 08/15/20 documented as of this encounter
--- OUTSIDE RECORDS SUMMARY | 2024-02-20 10:30 | XMS_ITS | Encounter Summary ---
Author Organization [facility] Address [address] [place], [place] [id number] Care Team Providers Care Door Maker Name Role Phone Unavailable Primary Care Provider Unavailabl e Encounter Details Date Type Department Care Team (Late st Contact Info) Description 05/02/2012 [facility] Vitals Encounter [facility] [address] [place] [address] ProviderAwa MD [address] [place] [id number] Social History Tobacco Use Types Packs/Day [...] - Inhaled Oxygen Concentration - - Weight 56.5 kg (124 lb 7.9 oz) 05/02/2012 10:03 AM EST Height 165.1 cm (5' 5 ) 05/02/2012 10:03 AM EST Body Mass Index 20.72 05/02/2012 10:03 AM EST documented in this encounter Plan of Treatment Not on file documented as of this encounter Visit Diagnoses Not on filedocumented in this encounter
--- NOTE | 2024-02-20 10:35 | P.PNANES_ITS ---
[facility] Disclaimer: The information contained in this section may have been updated after the patient was seen, as this information can be updated by other users. Medical History Cholecystectomy planned Depression Anxiety HTN (hypertension) Stomach ulcer Multiple sclerosis Surgical History History of resection of stomach History of repair of right hip joint H/O tubal ligation Hx of appendectomy Family History Other CHF (congestive heart failure) Diabetes FH: kidney cancer Heart attack Social History Smoking Status: Current every day smoker alcohol intake: never substance use type: denies use current occupational status: unemployed Travel in the last 8 weeks: None household members: spouse housing: house current occupational exposures/hazards: No caffeine: Yes [facility] Anesthesia Checklist Patient Identification Patient Identification: Arm Band and Verbal (Name & ) Structural Data Admitted From: Home Planned Operative Procedure/s: EGD Consent for Planned Operative Procedure(s) Verified: Yes Verified Documents: Surgical Consent and History and Physical NPO Status Verified Time NPO: 00:00 Additional verifications Anesthesia Reactions: No Airway Assessment Mallampati Score:: Class I C-Spine Mobility Assessed: Yes TMJ Mobility Assessed: Yes Dentition: Dentures-poor fitting (Removed) Neurological Assessment Level of Consciousness: Awake Hx Seizures: No Numbness or tingling in extremities: No Anesthesia Plan Anesthesia Risk discussed: Yes Anesthesia Plan: Verified ASA Class: III Anesthesia Type: MAC
[2024-02-20 10:48] VITALS: BP 163/83; PULSE 74; RESP 18; TEMP 36.6; O2SAT 93
[2024-02-20] MEDS: LACTATED RINGERS 1000ML 1,000 ML 25 ML IV (10:55)
--- NOTE | 2024-02-20 10:59 | EXP.HP ---
History of Present Illness *Admission Date: 02/20/24 *History of present illness: Mrs. Ohara is a 68-year-old female who is here for diagnostic upper endoscopy secondary to periumbilical abdominal pain, nausea, early satiety and weight loss. The examination is deemed medically necessary for upper endoscopy. The patient has been seen, interviewed and examined prior to the procedure by both myself and the anesthesia provider. [facility] Disclaimer: The information contained in this section may have been updated after the patient was seen, as this information can be updated by other users. Medical History Cholecystectomy planned Depression Anxiety HTN (hypertension) Stomach ulcer Multiple sclerosis Surgical History History of resection of stomach History of repair of right hip joint H/O tubal ligation Hx of appendectomy Family History Other CHF (congestive heart failure) Diabetes FH: kidney cancer Heart attack Social History (Updated 02/20/24 @ 10:54 by Doris Conner RN) Smoking Status: Former smoker alcohol intake: never substance use type: denies use current occupational status: disabled Travel in the last 8 weeks: None household members: spouse housing: house current occupational exposures/hazards: No caffeine: Yes Other Medical History Have you received the Flu Vaccine for this season: No Have you received the Pneumonia Vaccine: Yes Review of Systems Review of Systems Review of systems (narrative): Negative *Cardiovascular Comments: Negative *Gastrointestinal Comments: Negative *Genitourinary Comments: Negative *Musculoskeletal Comments: Negative *Neurologic Comments: Negative Meds Home Medications and Allergies Home Medications ?Medication ?Instructions ?Recorded ?Confirmed ?Type amantadine HCl 100 mg capsule 200 mg PO BID Tremors 04/17/20 02/20/24 History duloxetine 60 mg capsule,delayed 60 mg PO BID Depression 04/17/20 02/20/24 History release ergocalciferol (vitamin D2) 1,250 1,250 mcg PO WEEKLY Supplement 04/17/20 02/20/24 History mcg (50,000 unit) capsule propranolol 40 mg tablet 40 mg PO BID High blood pressure 04/17/20 02/20/24 History cyanocobalamin (vitamin B-12) 1,000 mcg IM WEEKLY Supplement 03/23/22 02/20/24 History 1,000 mcg/mL injection solution famotidine 20 mg tablet 20 mg PO BID acid reflux 03/23/22 02/20/24 History New Prescriptions to Start Prescriptions: Allergies Allergy/AdvReac Type Severity Reaction Status Date / Time tetracycline (TETRACYCLINE) Allergy Unknown I-HIVES Verified 02/20/24 10:46 Exam Data for Last 24 hours Vital signs and Labs for Last 24 Hours: Temp Pulse Resp BP Pulse Ox O2 Del Method 97.8 F 74 18 163/83 H 93 L Room Air 02/20/24 10:48 02/20/24 10:48 02/20/24 10:48 02/20/24 10:48 02/20/24 10:48 02/20/24 10:48 I & O for Last 24 hours: Intake & Output 02/17/24 02/18/24 02/19/24 02/20/24 23:59 23:59 23:59 23:59 Weight 122 lb *Routine HEENT Exam Head: Present normocephalic Eye: Present EOMI and PERRL ENT: Present mucous membranes moist *Routine Neck Exam Neck: Present supple *Routine Respiratory Exam Respiratory: Present CTA bilaterally *Routine Cardiovascular Exam Cardiovascular: Present RRR *Routine Abdominal Exam Abdominal: Present soft and normoactive bowel sounds; Absent tenderness *Routine Rectal Exam Rectal:: deferred *Routine Genitalia Exam Genitalia:: deferred *Routine Extremities Exam Extremities: Absent cyanosis, clubbing or edema *Routine Skin Exam Skin: Present warm; Absent rash *Routine Neurological Exam Neurological: Present alert and oriented X3 Assessment and Plan *Assessment and plan (1) Chronic pancreatitis: Status: Acute Category: Medical Code(s): K86.1 - Other chronic pancreatitis (2) Early satiety: Status: Acute Category: Medical Code(s): R68.81 - Early satiety (3) Iron deficiency anemia: Status: Acute Category: Medical Code(s): D50.9 - Iron deficiency anemia, unspecified (4) Periumbilical abdominal pain: Status: Acute Category: Medical Code(s): R10.33 - Periumbilical pain (5) Abnormal weight loss: Status: Acute Category: Medical Code(s): R63.4 - Abnormal weight loss Plan A/P: 1. Periumbilical abdominal pain, fullness, early satiety and abnormal weight loss is the preprocedural diagnosis. The patient does have chronic pancreatitis with a dilated biliary tree. The patient will be anesthetized/sedated using MAC sedation. The patient has been seen and examined. Cardiac and lung assessment prior to the examination is stable. Proceed with planned EGD
[2024-02-20 11:08] VITALS: O2SAT 99
--- NOTE | 2024-02-20 11:25 | P.PCN_ITS ---
[facility] Procedure Note Date: 02/20/24 Time: 11:25 Procedure Note:: Upper Endoscopy Procedure Report: Esophagogastroduodenoscopy with cold biopsies Endoscopost: Rell Waller II, MD Referring Physician: Gagan Solomon M.D. Date of Procedure: February 20, 2024 Equipment: Olympus GIF 190 standard upper endoscope Sedation: MAC sedation Indications: Mrs. Ohara is a 68-year-old female with a 25 pound weight loss in the last 2-1/2 months. She also reports some periumbilical abdominal pain. She reports moderate early satiety and occasional nausea and occasional heartburn. She has occasional dysphagia. The patient did have profound anemia with iron deficiency (hemoglobin and hematocrit of 8.2 and 20.6 in November 2023) with iron saturation of 10% and ferritin 13.6. The patient did have gastric surgery at the [facility] for peptic ulcer disease in 2009. The patient did have an EGD with Dr. Stevan Husain M.D. in August 2021. The patient recently had a CAT scan of the abdomen and pelvis on 12/12 showing calcific chronic pancreatitis with mildly dilated pancreatic duct. A subsequent MRI did show some moderate biliary ductal dilatation. Her recent labs from November 2023 showed alkaline phosphatase 134 (mildly increased) with normal AST and ALT. Procedure: Prior to the procedure, a history and physical exam was performed, and patient's medications and allergies were reviewed. The risks, benefits and alternatives of the sedation and procedure were discussed with the patient. All questions were answered and informed consent was obtained. The patient was brought to the procedure room. Patient identification and proposed procedure were verified by the physician and the nurse. The patient was placed in a left lateral decubitus position and the scope was passed under direct vision. Throughout the procedure, the patient's blood pressure, pulse, and oxygen saturations were monitored continuously. The upper GI endoscopy was accomplished without difficulty. The patient tolerated the procedure well. Findings: The scope was passed directly into the upper esophagus and advanced to the Afferent and efferent limbs of the Billroth II anatomy. The efferent limb was entirely normal. The afferent limb was approximately 25 cm and the scope was advanced to the blind loop. Upon withdrawal, the ampulla was identified without abnormality at the ampulla. The duodenal and jejunal conniventes and mucosa were normal. The scope was withdrawn to the widely cary nt Billroth II anastomosis. There were no anastomotic ulcerations or marginal ulcers. The scope was withdrawn into the gastric remnant and this was a subtotal gastrectomy. There was marked bile reflux within the remaining body and fundus of the stomach with marked bile chemical reactive gastropathy. Biopsies were obtained. Upon retroflexion there was a small sliding hiatal hernia. The scope was then withdrawn into the esophagus. There was no evidence of reflux esophagitis or Covington's. There were tertiary contractions and evidence of moderate esophageal dysmotility. The remainder of the esophageal mucosa was normal. Impression: 1. 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 Bile reflux with moderate reactive gastropathy of the gastric remnant 3. Nonerosive GERD with moderate esophageal dysmotility Plan: I did want to examine the upper GI tract anatomy to familiarize. ERCP can be done with Billroth II anatomy and I would consider doing this because of her biliary ductal dilation and chronic pancreatitis. She does have a mildly eleva joseph alkaline phosphatase. She is not jaundiced and her bilirubin is normal. At this point, I am going to obtain fecal elastase and begin pancreatic digestive enzyme replacement. I feel certain she has some degree of EPI and I believe that her periumbilical pain is related to the chronic pancreatitis. I would recommend that she avoid tobacco and alcohol. We will discuss additional treatment options.
[2024-02-20 11:28] VITALS: BP 139/70; PULSE 72; RESP 16; TEMP 36.7; O2SAT 96
[2024-02-20 11:38] VITALS: BP 123/72; PULSE 69; RESP 16; O2SAT 96
[2024-02-20 11:48] VITALS: BP 136/74; PULSE 74; RESP 16; O2SAT 96
[2024-02-20 11:58] VITALS: BP 129/67; PULSE 72; RESP 16; O2SAT 97
== END 2024-02-20 12:35 | disposition home or self-care (01) ==
PROVIDERS: PCP Internal Medicine Adolescent Medicine; Visit Provider Internal Medicine Gastroenterology
PROC: 0DJ08ZZ Inspection of Upper Intestinal Tract, Via Natural or Artificial Opening Endoscopic (ICD-10-PCS; CPT 43235; principal; 2024-02-20 12:00)
DX: K86.1 Other chronic pancreatitis (principal); R68.81 Early satiety; D50.9 Iron deficiency anemia, unspecified; R10.33 Periumbilical pain; R63.4 Abnormal weight loss; K22.4 Dyskinesia of esophagus; K21.9 Gastro-esophageal reflux disease without esophagitis; K44.9 Diaphragmatic hernia without obstruction or gangrene; K31.9 Disease of stomach and duodenum, unspecified
CPT/HCPCS: 43239; J7120

== ENCOUNTER 2024-09-03 11:48 | Emergency (ER) | payer OTHER, MEDICARE, SELFPAY ==
[2024-09-03] VITALS (8 sets, daily range): BP systolic 165–218; BP diastolic 102–114; PULSE 78–110; RESP 14–19; TEMP 36.4–37; O2SAT 95–98; BMI 20.6
--- NOTE | 2024-09-03 12:01 | ECG_ITS ---
APPROVED REPORT Exam: Resting ECG HR:102 bpm ECG Measurements Heart Rate 102 AXES KS 148 P 53 QRSd 92 QRS 34 QT 350 T 57 QTc 409 Conclusion SINUS TACHYCARDIA RIGHT ATRIAL ENLARGEMENT [0.3mV P-WAVE] POSSIBLE LEFT ATRIAL ENLARGEMENT [-0.1mV P-WAVE IN V1/V2] LEFT VENTRICULAR HYPERTROPHY AND ST-T CHANGE [VOLTAGE CRITERIA PLUS ST/T ABNORMALITY] No STEMI Electronically signed by : NYLA [place], 09/04/2024 06:35:38
--- NOTE | 2024-09-03 12:21 | HMH.EDGENADL ---
Discharge Plan Disposition Patient Disposition: Home, Self-Care Condition: Fair Prescriptions Prescriptions: New lisinopril-hydrochlorothiazide [Zestoretic] 20-25 mg tablet 1 tab PO DAILY Qty: 20 0RF carvedilol 25 mg tablet 25 mg PO BID Qty: 20 0RF Rx Instructions: must administer with a meal/food No Action amantadine HCl 100 mg capsule 200 mg PO BID duloxetine 60 mg capsule,delayed release(DR/EC) 60 mg PO BID ergocalciferol (vitamin D2) 1,250 mcg (50,000 unit) capsule 1,250 mcg PO WEEKLY Rx Instructions: 2 weekly propranolol 40 mg tablet 40 mg PO BID famotidine 20 mg tablet 20 mg PO BID Patient Comments: TAKE 1 TABLET BY MOUTH TWICE DAILY cyanocobalamin (vitamin B-12) 1,000 mcg/mL solution 1,000 mcg IM WEEKLY Patient Comments: USE DIRECTED INTRAMUSCULARLY ONCE WEEKLY FOR 30 DAYS Creon 36,000-114,000- 180,000 unit capsule,delayed release(DR/EC) 2 cap PO .With meals Qty: 180 12RF Rx Instructions: administer 2 capsules with meals and/or snacks Referrals Follow up/Referrals: Gagan Solomon MD [Primary Care Provider, Internal Medicine] - See instructions Clinical Impressions Clinical Impression: Hypertension Instructions Patient Instructions: High Blood Pressure Print Language Print Language: Maltese Discharge ED Provider: Jony Do General Adult HPI <Jony Do MD - Last Filed: 09/03/24 15:52> General Chief complaint: PAIN Stated complaint: High BP 200/100 > Time Seen by Provider: 09/03/24 12:03 Related Data Home Medications ?Medication ?Instructions ?Recorded ?Confirmed amantadine HCl 100 mg capsule 200 mg PO BID Tremors 04/17/20 02/20/24 duloxetine 60 mg capsule,delayed 60 mg PO BID Depression 04/17/20 02/20/24 release ergocalciferol (vitamin D2) 1,250 1,250 mcg PO WEEKLY Supplement 04/17/20 02/20/24 mcg (50,000 unit) capsule propranolol 40 mg tablet 40 mg PO BID High blood pressure 04/17/20 02/20/24 cyanocobalamin (vitamin B-12) 1,000 mcg IM WEEKLY Supplement 03/23/22 02/20/24 1,000 mcg/mL injection solution famotidine 20 mg tablet 20 mg PO BID acid reflux 03/23/22 02/20/24 Previous Rx's ?Medication ?Instructions ?Recorded [id number]-[id number]-[id number] 2 cap PO .With meals #180 caps 02/20/24 36,000-114,000-180,000 unit capsule,delay rel (Creon) carvedilol 25 mg tablet 25 mg PO BID #20 tabs 09/03/24 lisinopril 20 1 tab PO DAILY #20 tabs 09/03/24 mg-hydrochlorothiazide 25 mg tablet (Zestoretic) Allergies Allergy/AdvReac Type Severity Reaction Status Date / Time tetracycline (TETRACYCLINE) Allergy Unknown I-HIVES Verified 02/20/24 10:46 <Sena Bustamante (ED), [employer] - Last Filed: 09/03/24 16:24> History of Present Illness HPI narrative: This is a 68-year-old female who presents to the ED today for complaint of elevated blood pressure at Dr. Solomon's office. It was 202/100. She was told to come to the ER. She has no chest pain or shortness of breath. On arrival to the ED her blood pressure was 171/91. Says she takes meds but she is not sure what they are called. Has hypertension but its never been this elevated. She has left neck pain, left arm pain and left back of the head pain. She has no nausea, vomiting or diarrhea. No other symptoms. [facility] <Jony Do MD - Last Filed: 09/03/24 15:52> [facility] Disclaimer: The information contained in this section may have been updated after the patient was seen, as this information can be updated by other users. Medical History Cholecystectomy planned Depression Anxiety HTN (hypertension) Stomach ulcer Multiple sclerosis Surgical History History of resection of stomach History of repair of right hip joint H/O tubal ligation Hx of appendectomy Family History Other CHF (congestive heart failure) Diabetes FH: kidney cancer Heart attack Social History (Updated 02/20/24 @ 10:54 by Doris Conner RN) Smoking Status: Current every day smoker alcohol intake: never substance use type: denies use current occupational status: disabled Travel in the last 8 weeks?: None household members: spouse housing: house current occupational exposures/hazards: No caffeine: Yes Have you lived/traveled outside US in past 30 days?: No Contact w/someone who lives/traveled outside US past 30 days?: No Exposure to someone with infectious disease in past 14 days?: No Do you have a fever (greater than 100.4 F or 38 C)?: No Have you tested positive for COVID-19?: No Exposed to someone with COVID-19 in past 14 days?: No Do you have a sore throat?: No Do you have a cough?: No Do you have any weakness?: No Do you have any diarrhea?: No Are you experiencing any unusual bleeding?: No Do you have any muscle aches/pain?: No Do you have any abdominal pain?: No Are you experiencing loss of taste or smell?: No Other Medical History Have you received the Flu Vaccine for this season: No Have you received the Pneumonia Vaccine: Yes <Sena Bustamante (ED), [employer] - Last Filed: 09/03/24 16:24> ROS Obtained: Yes Systems reviewed as appropriate & no additional complaints except as documented Constitutional Constitutional: Reports as per HPI Physical Exam <Sena Bustamante (ED), [employer] - Last Filed: 09/03/24 16:24> General General appearance: alert and in no apparent distress Head Head exam: atraumatic and normocephalic Eye Eye exam: Present PERRL and EOMI ENT ENT exam: Present normal oropharynx and mucous membranes moist Neck Neck exam: Present full ROM and trachea midline Respiratory Respiratory exam: Present normal lung sounds bilaterally Cardiovascular Cardiovascular exam: Present regular rate, normal rhythm, normal heart sounds, +S1 and +S2 Abdominal Exam Abdominal exam: Present soft and normal bowel sounds Extremities Exam Extremities exam: Present full ROM and normal capillary refill Neurological Exam Neurological exam: Present alert, oriented X3 and normal gait Skin Skin exam: Present warm, dry and intact Medical Decision Making <Jony Do MD - Last Filed: 09/03/24 15:52> Medical Records Screening: Per USPSTF and CDC recommendations, given the prevalence of disease in our region, it is our hospital?s policy to screen for HIV and viral Hepatitis for all patients aged 18 and over and those with ongoing risk factors. Vital Signs: 09/03/24 12:50 09/03/24 13:11 09/03/24 13:12 Temperature 98.6 F 98.3 F Temperature Source Oral Oral Pulse Rate 98 H 95 H Pulse Rate [Left Radial] 110 H Respiratory Rate 19 16 Blood Pressure 188/114 H 188/114 H Blood Pressure [Right Arm] 218/113 H Blood Pressure Mean [Right Arm] 148 Blood Pressure Source Automatic Cuff 02 Sat by Pulse Oximetry 97 97 96 Oxygen Delivery Method Room Air Room Air 09/03/24 13:14 09/03/24 14:09 09/03/24 15:00 Temperature Temperature Source Pulse Rate 96 H 98 H 96 H Pulse Rate [Left Radial] Respiratory Rate 18 Blood Pressure 190/107 H 168/104 H 165/102 H Blood Pressure [Right Arm] Blood Pressure Mean [Right Arm] Blood Pressure Source 02 Sat by Pulse Oximetry 96 96 95 Oxygen Delivery Method Room Air 09/03/24 15:30 09/03/24 16:18 Temperature 97.5 F L Temperature Source Oral Pulse Rate 92 H 78 Pulse Rate [Left Radial] Respiratory Rate 14 Blood Pressure 168/104 H 174/103 H Blood Pressure [Right Arm] Blood Pressure Mean [Right Arm] Blood Pressure Source Automatic Cuff 02 Sat by Pulse Oximetry 96 Oxygen Delivery Method Room Air Lab Data Lab Results 09/03/24 12:52: WBC 3.8 L, RBC 4.47, Hgb 9.5 L, Hct 33.2 L, MCV 74.3 L, MCH 21.3 L, MCHC 28.6 L, RDW 20.9 H, Plt Count 241, MPV 9.6, Neut % (Auto) 64.5, Lymph % (Auto) 23.0, Reeves % (Auto) 9.9 H, Eos % (Auto) 1.8, Baso % (Auto) 0.5, Neut # (Auto) 2.5, Lymph # (Auto) 0.9, Reeves # (Auto) 0.4, Eos # (Auto) 0.1, Baso # (Auto) 0.0, Sodium 140, Potassium 4.0, Chloride 110 H, Carbon Dioxide 27, Anion Gap 7.0, BUN 20 H, Creatinine 0.80, Estimated Creat Clear 49, Estimated GFR 72, Est GFR ( Amer) 87, Glucose 107 H, Calcium 9.1, Total Bilirubin 0.2, AST 35, ALT 22, Alkaline Phosphatase 140 H, Troponin I 0.04 H, Total Protein 6.5, Albumin 3.9, Globulin 2.6, Albumin/Globulin Ratio 1.5, HCV Ab STACIE w/Rflx PCR Qn Negative, HIV Ag/Ab Combo Qual Positive 09/03/24 14:15: HIV (1&2) Ag & Ab Conf Positive 09/03/24 15:15: Troponin I 0.04 H 09/03/24 12:52 09/03/24 12:52 Orders (Tests/Meds): ED MEDICATIONS Discontinued Medications Generic Name Dose Route Start Last Admin Trade Name Freq PRN Reason Stop Dose Admin Iopamidol 80 ml 09/03/24 13:36 09/03/24 13:37 Iopamidol-370 (76%);100ml Bottle IV 09/03/24 13:37 80 ml ONCE ONE Administration Sodium Chloride 10 ml 09/03/24 13:36 09/03/24 13:37 Sodium Chloride 0.9% 10ml Syr (Rad Only) IV 09/03/24 13:37 10 ml ONCE ONE Administration Sodium Chloride 50 ml 09/03/24 13:36 09/03/24 13:37 0.9 % Sodium Chloride 50 Ml Vial IV 09/03/24 13:37 50 ml ONCE ONE Administration ORDERS Category Date Time Status CT angio head Stat Cat Scan 09/03/24 12:[address] angio neck Stat Cat Scan 09/03/24 13:[address] head/brain wo con Stat Cat Scan 09/03/24 13:11 Completed CBC [Complete Blood Count Auto Diff] Stat Lab 09/03/24 12:52 Completed Comprehensive Metabolic Panel Stat Lab 09/03/24 12:52 Completed HIV Combo Retest Routine Lab 09/03/24 14:15 Completed HIV Combo Stat Lab 09/03/24 12:52 Completed Hepatitis C Ab Qual. W/ RFX Stat Lab 09/03/24 12:52 Completed Trop I [Troponin I] Stat Lab 09/03/24 12:52 Completed Troponin I Q3H Lab 09/03/24 15:15 Completed ECG Data Tracing #1: Independently interpreted by me rate is 102, rhythm is regular, axis is normal, no ST elevation in anatomical contiguous leads, QTc 409. Medical Decision Narrative: Insert review patient is a 68-year-old female presenting to the emergency department for evaluation of elevated blood pressure today at Dr. Keating's office. Her blood pressure was 202/100 and she was told to come to the emergency department. She has no chest pain or shortness of breath. Upon arrival to the ER her blood pressure was 171/91.. Patient is hemodynamically stable and nontoxic-appearing upon arrival, afebrile. Blood pressure was 171/91 upon arrival to the ED. With no symptoms. Differential diagnosis includes hypertensive emergency, CAD.. Workup will be conducted with labs, CTA of head and neck. Initial inventions include labs and monitoring blood pressure. Initial workup reviewed by me showed an elevated troponin of 0.04. Otherwise labs have been unremarkable. Please see radiology read for formal imaging final read. We are currently waiting on second troponin. Jony Do: I agree with initial workup under my direction. Patient was transferred here for hypertensive emergency with neck pain. Hematologic labs reviewed by me and are nonactionable, no MANDEEP or critical electrolyte abnormality. This troponin is minimally elevated however patient does not have any chest pain. Her blood pressure has spontaneously come down although it is elevated is not dangerous. Noncontrasted CT scan of the head and neck nonactionable, no cervical artery dissection. Noncontrasted CT scan of the head informally visualized by me, no acute large intra-axial hemorrhage. Formal read shows no acute abnormality, chronic right mastoiditis for which patient does not have any complaints. Repeat troponin for stress-induced myocardial injury secondary to hypertension pending at time of transfer care to the oncoming physician, Dr. Champion. <Sena Bustamante (ED), [employer] - Last Filed: 09/03/24 16:24> Medical Records Medical records reviewed: Yes I reviewed the patient's medical records. Lawrence Inquiry Pt receiving controlled substance: No [place] was queried for this patient: No Vital Signs: 09/03/24 12:50 09/03/24 13:11 09/03/24 13:12 Temperature 98.6 F 98.3 F Temperature Source Oral Oral Pulse Rate 98 H 95 H Pulse Rate [Left Radial] 110 H Respiratory Rate 19 16 Blood Pressure 188/114 H 188/114 H Blood Pressure [Right Arm] 218/113 H Blood Pressure Mean [Right Arm] 148 Blood Pressure Source Automatic Cuff 02 Sat by Pulse Oximetry 97 97 96 Oxygen Delivery Method Room Air Room Air 09/03/24 13:14 09/03/24 14:09 09/03/24 15:00 Temperature Temperature Source Pulse Rate 96 H 98 H 96 H Pulse Rate [Left Radial] Respiratory Rate 18 Blood Pressure 190/107 H 168/104 H 165/102 H Blood Pressure [Right Arm] Blood Pressure Mean [Right Arm] Blood Pressure Source 02 Sat by Pulse Oximetry 96 96 95 Oxygen Delivery Method Room Air 09/03/24 15:30 09/03/24 16:18 Temperature 97.5 F L Temperature Source Oral Pulse Rate 92 H 78 Pulse Rate [Left Radial] Respiratory Rate 14 Blood Pressure 168/104 H 174/103 H Blood Pressure [Right Arm] Blood Pressure Mean [Right Arm] Blood Pressure Source Automatic Cuff 02 Sat by Pulse Oximetry 96 Oxygen Delivery Method Room Air Lab Data Lab Results 09/03/24 12:52: WBC 3.8 L, RBC 4.47, Hgb 9.5 L, Hct 33.2 L, MCV 74.3 L, MCH 21.3 L, MCHC 28.6 L, RDW 20.9 H, Plt Count 241, MPV 9.6, Neut % (Auto) 64.5, Lymph % (Auto) 23.0, Reeves % (Auto) 9.9 H, Eos % (Auto) 1.8, Baso % (Auto) 0.5, Neut # (Auto) 2.5, Lymph # (Auto) 0.9, Reeves # (Auto) 0.4, Eos # (Auto) 0.1, Baso # (Auto) 0.0, Sodium 140, Potassium 4.0, Chloride 110 H, Carbon Dioxide 27, Anion Gap 7.0, BUN 20 H, Creatinine 0.80, Estimated Creat Clear 49, Estimated GFR 72, Est GFR ( Amer) 87, Glucose 107 H, Calcium 9.1, Total Bilirubin 0.2, AST 35, ALT 22, Alkaline Phosphatase 140 H, Troponin I 0.04 H, Total Protein 6.5, Albumin 3.9, Globulin 2.6, Albumin/Globulin Ratio 1.5, HCV Ab STACIE w/Rflx PCR Qn Negative, HIV Ag/Ab Combo Qual Positive 09/03/24 14:15: HIV (1&2) Ag & Ab Conf Positive 09/03/24 15:15: Troponin I 0.04 H Orders (Tests/Meds): ED MEDICATIONS Discontinued Medications Generic Name Dose Route Start Last Admin Trade Name Luigi PRN Reason Stop Dose Admin Iopamidol 80 ml 09/03/24 13:36 09/03/24 13:37 Iopamidol-370 (76%);100ml Bottle IV 09/03/24 13:37 80 ml ONCE ONE Administration Sodium Chloride 10 ml 09/03/24 13:36 09/03/24 13:37 Sodium Chloride 0.9% 10ml Syr (Rad Only) IV 09/03/24 13:37 10 ml ONCE ONE Administration Sodium Chloride 50 ml 09/03/24 13:36 09/03/24 13:37 0.9 % Sodium Chloride 50 Ml Vial IV 09/03/24 13:37 50 ml ONCE ONE Administration ORDERS Category Date Time Status CT angio head Stat Cat Scan 09/03/24 12:[address] angio neck Stat Cat Scan 09/03/24 13:[address] head/brain wo con Stat Cat Scan 09/03/24 13:11 Completed CBC [Complete Blood Count Auto Diff] Stat Lab 09/03/24 12:52 Completed Comprehensive Metabolic Panel Stat Lab 09/03/24 12:52 Completed HIV Combo Retest Routine Lab 09/03/24 14:15 Completed HIV Combo Stat Lab 09/03/24 12:52 Completed Hepatitis C Ab Qual. W/ RFX Stat Lab 09/03/24 12:52 Completed Trop I [Troponin I] Stat Lab 09/03/24 12:52 Completed Troponin I Q3H Lab 09/03/24 15:15 Completed Medical Decision Narrative: Insert review patient is a 68-year-old female presenting to the emergency department for evaluation of elevated blood pressure today at Dr. Keating's office. Her blood pressure was 202/100 and she was told to come to the emergency department. She has no chest pain or shortness of breath. Upon arrival to the ER her blood pressure was 171/91.. Patient is hemodynamically stable and nontoxic-appearing upon arrival, afebrile. Blood pressure was 171/91 upon arrival to the ED. With no symptoms. Differential diagnosis includes hypertensive emergency, CAD.. Workup will be conducted with labs, CTA of head and neck. Initial inventions include labs and monitoring blood pressure. Initial workup reviewed by me showed an elevated troponin of 0.04. Otherwise labs have been unremarkable. Please see radiology read for formal imaging final read. We are currently waiting on second troponin. Second troponin was unchanged. I discussed with Dr. Keating patient's medications. We changed medications to lisinopril HCTZ 20/25 once a day and carvedilol 25 twice a day and sent to [facility]. Patient aware and safe for discharge home. Jony Do: I agree with initial workup under my direction. Patient was transferred here for hypertensive emergency with neck pain. Hematologic labs reviewed by me and are nonactionable, no MANDEEP or critical electrolyte abnormality. This troponin is minimally elevated however patient does not have any chest pain. Her blood pressure has spontaneously come down although it is elevated is not dangerous. Noncontrasted CT scan of the head and neck nonactionable, no cervical artery dissection. Noncontrasted CT scan of the head informally visualized by me, no acute large intra-axial hemorrhage. Formal read shows no acute abnormality, chronic right mastoiditis for which patient does not have any complaints. Repeat troponin for stress-induced myocardial injury secondary to hypertension pending at time of transfer care to the oncoming physician, Dr. Champion. <Raymon Champion MD - Last Filed: 09/03/24 23:47> Vital Signs: 09/03/24 12:50 09/03/24 13:11 09/03/24 13:12 Temperature 98.6 F 98.3 F Temperature Source Oral Oral Pulse Rate 98 H 95 H Pulse Rate [Left Radial] 110 H Respiratory Rate 19 16 Blood Pressure 188/114 H 188/114 H Blood Pressure [Right Arm] 218/113 H Blood Pressure Mean [Right Arm] 148 Blood Pressure Source Automatic Cuff 02 Sat by Pulse Oximetry 97 97 96 Oxygen Delivery Method Room Air Room Air 09/03/24 13:14 09/03/24 14:09 09/03/24 15:00 Temperature Temperature Source Pulse Rate 96 H 98 H 96 H Pulse Rate [Left Radial] Respiratory Rate 18 Blood Pressure 190/107 H 168/104 H 165/102 H Blood Pressure [Right Arm] Blood Pressure Mean [Right Arm] Blood Pressure Source 02 Sat by Pulse Oximetry 96 96 95 Oxygen Delivery Method Room Air 09/03/24 15:30 09/03/24 16:18 Temperature 97.5 F L Temperature Source Oral Pulse Rate 92 H 78 Pulse Rate [Left Radial] Respiratory Rate 14 Blood Pressure 168/104 H 174/103 H Blood Pressure [Right Arm] Blood Pressure Mean [Right Arm] Blood Pressure Source Automatic Cuff 02 Sat by Pulse Oximetry 96 Oxygen Delivery Method Room Air Lab Data Lab Results 09/03/24 12:52: WBC 3.8 L, RBC 4.47, Hgb 9.5 L, Hct 33.2 L, MCV 74.3 L, MCH 21.3 L, MCHC 28.6 L, RDW 20.9 H, Plt Count 241, MPV 9.6, Neut % (Auto) 64.5, Lymph % (Auto) 23.0, Reeves % (Auto) 9.9 H, Eos % (Auto) 1.8, Baso % (Auto) 0.5, Neut # (Auto) 2.5, Lymph # (Auto) 0.9, Reeves # (Auto) 0.4, Eos # (Auto) 0.1, Baso # (Auto) 0.0, Sodium 140, Potassium 4.0, Chloride 110 H, Carbon Dioxide 27, Anion Gap 7.0, BUN 20 H, Creatinine 0.80, Estimated Creat Clear 49, Estimated GFR 72, Est GFR ( Amer) 87, Glucose 107 H, Calcium 9.1, Total Bilirubin 0.2, AST 35, ALT 22, Alkaline Phosphatase 140 H, Troponin I 0.04 H, Total Protein 6.5, Albumin 3.9, Globulin 2.6, Albumin/Globulin Ratio 1.5, HCV Ab STACIE w/Rflx PCR Qn Negative, HIV Ag/Ab Combo Qual Positive 09/03/24 14:15: HIV (1&2) Ag & Ab Conf Positive 09/03/24 15:15: Troponin I 0.04 H Orders (Tests/Meds): ED MEDICATIONS Discontinued Medications Generic Name Dose Route Start Last Admin Trade Name Freq PRN Reason Stop Dose Admin Iopamidol 80 ml 09/03/24 13:36 09/03/24 13:37 Iopamidol-370 (76%);100ml Bottle IV 09/03/24 13:37 80 ml ONCE ONE Administration Sodium Chloride 10 ml 09/03/24 13:36 09/03/24 13:37 Sodium Chloride 0.9% 10ml Syr (Rad Only) IV 09/03/24 13:37 10 ml ONCE ONE Administration Sodium Chloride 50 ml 09/03/24 13:36 09/03/24 13:37 0.9 % Sodium Chloride 50 Ml Vial IV 09/03/24 13:37 50 ml ONCE ONE Administration ORDERS Category Date Time Status CT angio head Stat Cat Scan 09/03/24 12:[address] angio neck Stat Cat Scan 09/03/24 13:[address] head/brain wo con Stat Cat Scan 09/03/24 13:11 Completed CBC [Complete Blood Count Auto Diff] Stat Lab 09/03/24 12:52 Completed Comprehensive Metabolic Panel Stat Lab 09/03/24 12:52 Completed HIV Combo Retest Routine Lab 09/03/24 14:15 Completed HIV Combo Stat Lab 09/03/24 12:52 Completed Hepatitis C Ab Qual. W/ RFX Stat Lab 09/03/24 12:52 Completed Trop I [Troponin I] Stat Lab 09/03/24 12:52 Completed Troponin I Q3H Lab 09/03/24 15:15 Completed Medical Decision Narrative: Insert review patient is a 68-year-old female presenting to the emergency department for evaluation of elevated blood pressure today at Dr. Keating's office. Her blood pressure was 202/100 and she was told to come to the emergency department. She has no chest pain or shortness of breath. Upon arrival to the ER her blood pressure was 171/91.. Patient is hemodynamically stable and nontoxic-appearing upon arrival, afebrile. Blood pressure was 171/91 upon arrival to the ED. With no symptoms. Differential diagnosis includes hypertensive emergency, CAD.. Workup will be conducted with labs, CTA of head and neck. Initial inventions include labs and monitoring blood pressure. Initial workup reviewed by me showed an elevated troponin of 0.04. Otherwise labs have been unremarkable. Please see radiology read for formal imaging final read. We are currently waiting on second troponin. Second troponin was unchanged. I discussed with Dr. Keating patient's medications. We changed medications to lisinopril HCTZ 20/25 once a day and carvedilol 25 twice a day and sent to [facility]. Patient aware and safe for discharge home. Jony Do: I agree with initial workup under my direction. Patient was transferred here for hypertensive emergency with neck pain. Hematologic labs reviewed by me and are nonactionable, no MANDEEP or critical electrolyte abnormality. This troponin is minimally elevated however patient does not have any chest pain. Her blood pressure has spontaneously come down although it is elevated is not dangerous. Noncontrasted CT scan of the head and neck nonactionable, no cervical artery dissection. Noncontrasted CT scan of the head informally visualized by me, no acute large intra-axial hemorrhage. Formal read shows no acute abnormality, chronic right mastoiditis for which patient does not have any complaints. Repeat troponin for stress-induced myocardial injury secondary to hypertension pending at time of transfer care to the oncoming physician, Dr. Champion. Raymon Champion MD SHARLENE: I assumed care of this patient from the previous emergency medicine physician. Repeat troponin is without delta. Patient denies any complaints at this time. She was reevaluated by YEIMY deemed stable for discharge after shared decision making. Return precautions given. Critical Care <Jony Do MD - Last Filed: 09/03/24 15:52> Critical Care Time Critical Care Time: No
--- NOTE | 2024-09-03 12:28 | CT_ITS ---
FINAL REPORT TECHNIQUE: Thin section axial images are obtained through the brain after intravenous contrast injection. Multiplanar reconstructions were obtained from the axial data. Exam was performed using dose reduction techniques such as automated exposure control, adjustment of the mA and kV according to patient size, and use of iterative reconstruction technique. CLINICAL HISTORY: hbp COMPARISON: None FINDINGS: The intracerebral portions of the carotid arteries are patent. The anterior and middle cerebral arteries are patent. The posterior cerebral arteries arise from the basilar artery. They are patent. [place] is intact. The basilar artery is patent. The vertebral arteries are patent. There is no significant stenosis, aneurysm, or AVM. IMPRESSION: Unremarkable CT angiogram of the intracerebral vasculature. Reviewed, Interpreted and Dictated by Milana Rhodes MD Transcribed by [place] Authenticated and [facility]
--- NOTE | 2024-09-03 12:40 | PC.NURSE ---
Pt asked for an update on pt as she was in a chair room and unable to have a visitor. this nurse updated the that we obtained labs and were going to do CTs of her head and neck and monitor blood pressure. He informed this nurse that she has bad anxiety and to let him know if she needed him. I also informed the patient that her checked on her and that we would get them back to a room as soon as one opens up.
[2024-09-03 13:01] LABS: Basophils % 0.5 % (0.1-2.0); Eosinophils # 0.1 Kmm3 (0.0-0.4); Eosinophils % 1.8 % (0.1-12.0); Hematocrit 33.2 % (37.0-47.0); Hemoglobin 9.5 g/dL (12.2-16.2); Immature Granulocytes # 0.01 10^3uL; Immature Granulocytes % 0.3 %; Lymphocytes # 0.9 K/mm3 (0.7-4.5); Mean Corpuscular HGB Conc 28.6 g/dL (31.8-35.4); Mean Corpuscular Hemoglobin 21.3 pg (27.0-31.2); Mean Corpuscular Volume 74.3 fl (81-99); Mean Platelet Volume 9.6 fl (7.4-10.4); Monocytes # 0.4 K/mm3 (0.1-1.0); Monocytes % 9.9 % (1.7-9.3); Neutrophils # 2.5 K/mm3 (1.8-7.8); Neutrophils % 64.5 % (37.0-80.0); Nucleated Red Blood Cells # 0 10^3/uL; Nucleated Red Blood Cells % 0 %; Platelet Count 241 K/mm3 (142-424); Red Blood Count 4.47 M/mm3 (4.20-5.40); Red Cell Distribution Width 20.9 % (11.5-17.5); Red Cell Distribution Width-SD 55.2 fL; White Blood Count 3.8 K/mm3 (4.8-10.8)
--- NOTE | 2024-09-03 13:11 | CT_ITS ---
FINAL REPORT TECHNIQUE: Thin-section axial CT with IV contrast supplemented with multi planar reconstruction under CT angiogram protocol was performed of the neck. This study was performed technique to keep radiation doses as low as reasonably achievable, (ALARA). NASCET criteria was utilized during interpretation. CLINICAL HISTORY: L neck painn HTN COMPARISON: None FINDINGS: Overall image quality is somewhat limited by motion artifact. Aortic arch: Arch shows no significant narrowing. Great vessel origins are widely patent. Right carotid: Calcification of the right carotid bulb is present, with no significant stenosis seen at the cervical common or internal carotid artery. Left carotid: Calcification of the left carotid bulb is present, with 20% stenosis stenosis seen at the left cervical bulb. Vertebrals: No significant stenosis is present. IMPRESSION: No evidence of significant stenosis or major branch occlusion. Reviewed, Interpreted and Dictated by Milana Rhodes MD Transcribed by Africa Ohara Authenticated and [facility]
--- NOTE | 2024-09-03 13:11 | CT_ITS ---
FINAL REPORT TECHNIQUE: Thin section axial images were obtained from skull base to vertex without contrast. Coronal reconstruction images were obtained from the axial data. Exam was performed using dose reduction techniques such as automated exposure control, adjustment of the mA and kV according to patient size, and use of iterative reconstruction technique. CLINICAL HISTORY: L TOBAR L neck pain HTN COMPARISON: None FINDINGS: There is no mass effect or midline shift. There is no hydrocephalus. There is no intracranial hemorrhage. The posterior fossa is without acute abnormality. The basilar cisterns are preserved. The soft tissues are without acute abnormality. There is right mastoid opacification with hypertrophic changes, likely chronic. IMPRESSION: No acute intracranial abnormality. Chronic right mastoiditis. Reviewed, Interpreted and Dictated by Milana Rhodes MD Transcribed by Africa Ohara Authenticated and [facility]
[2024-09-03 13:21] LABS: Albumin Level 3.9 g/dl (3.5-5.0); Chloride 110 mmol/L (98-107); Sodium 140 mmol/L (136-145)
[2024-09-03 13:23] LABS: Blood Urea Nitrogen 20 mg/dl (7-17); Creatinine Clearance Estimated 49 mL/min (50-200); Estimated Glomerular Filt Rate 72 ml/min (>60); GFR (African American) 87 ML/MIN (>60)
[2024-09-03 13:24] LABS: Alanine Aminotransferase 22 U/L (12-78); Albumin/Globulin Ratio 1.5 (1.1-1.8); Alkaline Phosphatase 140 U/L (38-126); Aspartate Amino Transferase 35 U/L (14-36); Bilirubin,Total 0.2 mg/dl (0.2-1.3); Calcium 9.1 mg/dl (8.4-10.2); Carbon Dioxide 27 mmol/L (22.0-30.0); Globulin 2.6 g/dL (1.3-3.2); Glucose 107 mg/dl (74-100); Total Protein,Serum 6.5 g/dl (6.3-8.2)
[2024-09-03 13:36] LABS: Troponin I 0.04 ng/ml (0.00-0.034)
[2024-09-03] MEDS: IOPAMIDOL-370 (76%);100ML BOTTLE 80 ML IV (13:37)
[2024-09-03] MEDS: SODIUM CHLORIDE 0.9% 10ML SYR (RAD ONLY) 10 ML IV (13:37)
[2024-09-03] MEDS: 0.9 % SODIUM CHLORIDE 50 ML VIAL IV (13:37)
[2024-09-03 14:05] LABS: HIV Combo POSITIVE (Negative)
[2024-09-03 14:13] LABS: Hepatitis C Ab Qual. W/ RFX NEGATIVE (Negative)
[2024-09-03 15:20] LABS: HIV Combo Retest POSITIVE (Negative)
[2024-09-03 15:22] LABS: HIV 1 Ab ND; HIV 2 Ab ND
--- NOTE | 2024-09-03 15:28 | PC.NURSE ---
2nd trop sent to lab at 1521
[2024-09-03 16:11] LABS: Troponin I 0.04 ng/ml (0.00-0.034)
--- NOTE | 2024-09-03 16:18 | PC.NURSE ---
pt came to the nurses station and reported that they were done and he wanted her IV taken out and they were ready to go home. this nurse informed him that we just got the second trop level back that we were waiting on and that the provider was just going to touch base with Dr. Solomon about possible med chnages. He stated he didnt want to wait anymore and that they were ready to leave. notified
[2024-09-04 09:12] LABS: HIV Screen 4th Generation wRfx Non Reactive (Non Reactive)
== END 2024-09-03 16:25 | disposition home or self-care (01) ==
PROVIDERS: Nurse Practitioner; Emergency Provider Emergency Medicine; PCP Internal Medicine Adolescent Medicine
DX: R51.9 Headache, unspecified (principal); M54.2 Cervicalgia; I10 Essential (primary) hypertension; F17.210 Nicotine dependence, cigarettes, uncomplicated; Z11.59 Encounter for screening for other viral diseases; Z11.4 Encounter for screening for human immunodeficiency virus [HIV]
CPT/HCPCS: 70450; 70496; 70498; 80053; 84484; 85025; 86803; 87389; 93005; 99285; G0432; Q9967

== ENCOUNTER 2024-10-30 11:20 | Outpatient (CLI) | payer OTHER, MEDICARE, SELFPAY ==
--- OUTSIDE RECORDS SUMMARY | 2024-10-30 11:24 | XMS_ITS | Clinical Summary ---
Author Organization [facility] Address [facility] [place] [address] Care Team Providers Care Die Welder Name Role Phone Gagan Solomon MD Primary Care Provider [phone] Source Comments This information has been disclosed [...] therelease of HIV test results or diagnoses. [id number] Allergies Active Allergy Reactions Criticality Noted [...] Plan of Treatment Not on file Insurance [facility] [address] RESOURCE Care Teams Die Welder Relationship Specialty Start Date End Date Gagan Solomon MD PCP - General Internal Medicine 01/25/17
--- OUTSIDE RECORDS SUMMARY | 2024-10-30 11:24 | XMS_ITS | Clinical Summary ---
Author Organization [facility] Address [address] [place] [address] Care Team Providers Care Aerodynamics Engineer Name Role Phone Gagan Solomon MD Primary Care Provider [phone] Allergies Active Allergy Reactions Criticality Noted Date [...] Primary hypertension 05/07/2022 Multiple sclerosis 05/07/2022 Immunizations Immunization Administration Dates Next Due Influenza, seasonal, injectable [...] 88 06/23/2022 7:58 AM EDT Temperature 36.8 C (98.2 F) 06/23/2022 7:58 AM EDT Respiratory Rate 16 05/14/2022 12:14 PM EST [...] Density Scan 1955 [facility]-Hepatitis C Screening 1955 [facility]-Medicare Annual Wellness (AWV) 1955 [facility]-/Child/Adol SDOH Screenings 1955 [facility]- SDOH Screenings 11/29/1975 [facility]-Adult SDOH Screenings 11/29/1975 CT Colonography 2002 FIT-DNA 2002 FIT 2002 FOBT 2002 Sigmoidoscopy 2002 [facility]-Breast Cancer Screening 11/29/2007 [facility]-Zoster Vaccines (1 of 2) 11/29/2007 [facility]-Pneumococcal Vaccine: 50+ Years (2 of 2 - PCV) 06/06/2013 06/06/2012 [facility]-Depression Screening 05/24/2023 05/24/2022 [id number] Vaccine (2 - season) 2023 08/11/2020 [facility]-Influenza Vaccine (#1) 12/03/202412/10, 01/07/2020, 01/24/2019, Additional history exists Colonoscopy 03/10/2026 03/10/2016, 10/22/2011 [facility]-Colorectal Cancer Screening 03/10/2026 [facility]-DTaP,Tdap,and Td Vaccines (2 - Td or Tdap) 04/17/2030 04/17/2020 [facility]-RSV Vaccine: 60+ Years or (1 - 1-dose 75+ series) 2032 HPV Vaccines Aged Out No longer eligi ble based on patient's age to complete this topic [facility]-HIB Vaccines Aged Out No longer e [...] this topic Medical Devices Implanted Type Area Target Network Analyst Device Identifier Shelf Expiration Date Model / Serial / Lot Screw Lag Gamma3 10.5mm Ti 90mm - [id number] Implanted:Qty: 1 on 05/08/2022 by Eleuterio Rod MD at [facility] Right: Femur [employer] ([facility])-[id number] 02/01/2027 3060-0090S / / [id number] Nail Long 2mm Rad [id number] Rt - [id number] Implanted:Qty: 1 on 05/08/2022 by Eleuterio Rod MD at [facility] Right: [employer] ([employer])-[id number] 07/02/2026 [id number] / / [id number] Screw 5.0mm T2 Lock Full Thrd 45mm - [id number] Implanted:Qty: 1 on 05/08/2022 by Eleuterio Rod MD at [facility] Right: [employer] ([employer])-[id number] 09/01/2026 1896-5045S / / [id number] Screw 5.0mm Ti T2 Lock Full Thrd 40mm - [id number] Implanted:Qty: 1 on 05/08/2022 by Eleuterio Rod MD at [facility] Right: [employer] ([employer])-[id number] 02/01/2027 1896-5040S / / [id number] Procedures Procedure Name Priority Date/Time Associated Diagnosis Comments COLONOSCOPY 03/10/2016 from Last 3 Months or Most Recently Relevant to Health Maintenance Results * COLONOSCOPY (03/10/2016) Anatomical Region Laterality Modality Endoscopy Narrative 03/10/2016 Ordered by an unspecified provider. us Historical Provider GI PROCEDURE ORDERABLES F inal Result from Last 3 Months or Most Recently Relevant to Health Maintenance Insurance MEDICARE [facility] Advance Directives * Full Code (Latest Code Status on File) Date Activated Date Inactivated Comments 05/07/2022 8:33 PM 05/14/2022 3:56 PM Question Answer Comments Patient has decision-making capacity? Yes Care Teams Aerodynamics Engineer Relationship Specialty Start Date End Date Gagan Solomon MD [address] [place] [id number] PCP - General 08/15/20
--- OUTSIDE RECORDS SUMMARY | 2024-10-30 11:24 | XMS_ITS | Encounter Summary ---
Author Organization [facility] Address [facility] [place] [address] Care Team Providers Care Acid Correction Hand Name Role Phone Gagan Solomon MD Primary Care Provider [phone] Source Comments This information has been disclosed [...] release of HIV test results or diagnoses. [id number] Encounter Details Date Type Department Care Team (Late st Contact Info) Description 02/08/2017 Oncology Treatment Summary [facility] Neurology at [address] [place] [phone] Gallo Arora MD [address] [facility] [place] [phone] Social History Tobacco Use Types Packs/Day Years [...] on filedocumented in this encounter Care Teams Acid Correction Hand Relationship Specialty Start Date End Date Gagan Solomon MD PCP - General Internal Medicine 01/25/17 documented as of this encounter
[2024-10-30 11:58] LABS: Hematocrit 35.8 % (37.0-47.0); Hemoglobin 10.0 g/dL (12.2-16.2); Mean Corpuscular HGB Conc 27.9 g/dL (31.8-35.4); Mean Corpuscular Hemoglobin 21.0 pg (27.0-31.2); Mean Corpuscular Volume 75.2 fl (81-99); Platelet Count 210 K/mm3 (142-424); Red Blood Count 4.76 M/mm3 (4.20-5.40); Red Cell Distribution Width-SD 53.6 fL; White Blood Count 5.2 K/mm3 (4.8-10.8)
[2024-10-30 11:59] LABS: Immature Granulocytes % 0.6 %; Nucleated Red Blood Cells % 0 %
[2024-10-30 12:20] LABS: Iron 33 ug/dL (37-170)
[2024-10-30 12:30] LABS: Total Iron Binding Capacity 391 ug/dL (265-497)
[2024-10-30 12:56] LABS: Ferritin 5.60 ng/ml (11.1-264)
== END 2024-10-30 23:59 | disposition home or self-care (01) ==
LOC: LAB 11:22
PROVIDERS: PCP Internal Medicine Adolescent Medicine; Visit Provider Internal Medicine Medical Oncology
DX: D64.9 Anemia, unspecified (principal)
CPT/HCPCS: 36415; 82728; 83540; 83550; 85025

== ENCOUNTER 2024-11-09 08:14 | Outpatient (CLI) | payer OTHER, MEDICARE, SELFPAY ==
[2024-11-09] MEDS: IRON SUCROSE COMPLEX 200 MG in 0.9 % SODIUM CHLORIDE 100 ML 220 MG IV (08:51)
[2024-11-09 08:55] VITALS: BP 165/78; PULSE 81; RESP 17; O2SAT 97
[2024-11-09 09:25] VITALS: BP 151/78; PULSE 77; RESP 17
== END 2024-11-09 09:35 | disposition home or self-care (01) ==
LOC: INF 08:16
PROVIDERS: PCP Internal Medicine Adolescent Medicine; Visit Provider Internal Medicine Medical Oncology
DX: D64.9 Anemia, unspecified (principal)
CPT/HCPCS: 96365; J1756

== ENCOUNTER 2024-11-16 08:11 | Outpatient (CLI) | payer OTHER, MEDICARE, SELFPAY ==
[2024-11-16 08:31] VITALS: BP 159/93; PULSE 84; RESP 18; TEMP 36.8; O2SAT 98
[2024-11-16] MEDS: SODIUM CHLORIDE 0.9% 10ML FLUSH SYRINGE 10 ML IV (08:31)
[2024-11-16] MEDS: IRON SUCROSE COMPLEX 200 MG in 0.9 % SODIUM CHLORIDE 100 ML 220 MG IV (08:31)
[2024-11-16 09:15] VITALS: BP 166/83; PULSE 86; RESP 20; O2SAT 99
== END 2024-11-16 09:15 | disposition home or self-care (01) ==
LOC: INF 08:13
PROVIDERS: PCP Internal Medicine Adolescent Medicine; Visit Provider Internal Medicine Medical Oncology
DX: D64.9 Anemia, unspecified (principal)
CPT/HCPCS: 96365; J1756

== ENCOUNTER 2024-11-23 08:28 | Outpatient (CLI) | payer OTHER, MEDICARE, SELFPAY ==
--- OUTSIDE RECORDS SUMMARY | 2024-11-23 08:36 | XMS_ITS | Clinical Summary ---
Author Organization [facility] Address [address] [place] [address] Care Team Providers Care Capacity Planning Engineer Name Role Phone Gagan Solomon MD Primary Care Provider [phone] Allergies Active Allergy Reactions Criticality Noted Date [...] Density Scan 1955 [facility]-Hepatitis C Screening 1955 [facility]Medicare Annual Wellness (AWV) 1957 [facility]-/Child/Adol SDOH Screenings 1955 [facility]- SDOH Screenings 11/29/1975 [facility]-Adult SDOH Screenings 11/29/1975 CT Colonography 2002 FIT-DNA 2002 FIT 2002 FOBT 2002 Sigmoidoscopy 2002 [facility]-Breast Cancer Screening 11/29/2007 [facility]-Zoster Vaccines (1 of 2) 11/29/2007 [facility]-Pneumococcal Vaccine: 50+ Years (2 of 2 - PCV) 06/06/2013 06/06/2012 [facility]-RSV Vaccine: 60+ Years or (1 - Risk 60-74 years 1-dose series) 2017 [id number] Vaccine (2 - Felipa risk series) 09/08/2020 08/11/2020 [facility]-Depression Screening 05/24/2023 05/24/2022 [facility]-Influenza Vaccine (#1) 12/03/202412/10, 01/07/2020, 01/24/2019, Additional history exists Colonoscopy 03/10/2026 03/10/2016, 10/22/2011 [facility]-Colorectal Cancer Screening 03/10/2026 [facility]-DTaP,Tdap,and Td Vaccines (2 - Td or Tdap) 04/17/2030 04/17/2020 HPV Vaccines Aged Out No longer eligi [...] this topic Medical Devices Implanted Type Area Financial Management Device Identifier Shelf Expiration Date Model / Serial / Lot Screw Lag Gamma3 10.5mm Ti 90mm - [id number] Implanted:Qty: 1 on 05/08/2022 by Eleuterio Rod MD at [facility] Right: Femur [employer] ([facility])-[id number] 02/01/2027 3060-0090S / / [id number] Nail Long 2mm Rad [id number] Rt - [id number] Implanted:Qty: 1 on 05/08/2022 by Eleuterio Rod MD at [facility] Right: [employer] ([employer])-[id number] 07/02/2026 3430-3380S / / [id number] Screw 5.0mm T2 Lock Full Thrd 45mm - [id number] Implanted:Qty: 1 on 05/08/2022 by Eleuterio Rod MD at [facility] Right: [employer] ([employer])-[id number] 09/01/2026 1896-5045S / / [id number] Screw 5.0mm Ti T2 Lock Full Thrd 40mm - [id number] Implanted:Qty: 1 on 05/08/2022 by Eleuterio Rod MD at [facility] Right: Femur [employer] ([employer])-[id number] 02/01/2027 1896-5040S / / [id number] Procedures Procedure Name Priority Date/Time Associated Diagnosis Comments COLONOSCOPY 03/10/2016 from Last 3 Months or Most Recently Relevant to Health Maintenance Results * COLONOSCOPY (03/10/2016) Anatomical Region Laterality Modality Endoscopy Narrative 03/10/2016 Ordered by an unspecified provider. us Historical Provider GI PROCEDURE ORDERABLES Jocelyn l Result from Last 3 Months or Most Recently Relevant to Health Maintenance Insurance MEDICARE [facility] Advance Directives * Full Code (Latest Code Status on File) Date Activated Date Inactivated Comments 05/07/2022 8:33 PM 05/14/2022 3:56 PM Question Answer Comments Patient has decision-making capacity? Yes Care Teams Capacity Planning Engineer Relationship Specialty Start Date End Date Gagan Solomon MD [address] [place] [id number] PCP - General 08/15/20
--- OUTSIDE RECORDS SUMMARY | 2024-11-23 08:36 | XMS_ITS | Encounter Summary ---
Author Organization Address [facility] [place] [address] Care Team Providers Care Strategic Consultant Name Role Phone Gagan Solomon MD Primary Care Provider [phone] Source Comments This information has been disclosed [...] release of HIV test results or diagnoses. [id number] Encounter Details Date Type Department Care Team (Late st Contact Info) Description 02/08/2017 Oncology Treatment Summary Neurology at [address] [place] [phone] Gallo Arora MD [address] [facility] [place] [phone] Social History Tobacco Use Types Packs/Day Years [...] on filedocumented in this encounter Care Teams Strategic Consultant Relationship Specialty Start Date End Date Gagan Solomon MD PCP - General Internal Medicine 01/25/17 documented as of this encounter
--- OUTSIDE RECORDS SUMMARY | 2024-11-23 08:36 | XMS_ITS | Clinical Summary ---
Author Organization [facility] Address [facility] [place] [address] Care Team Providers Care Otr Company Truck Driver Name Role Phone Gagan Solomon MD Primary Care Provider [phone] Source Comments This information has been disclosed [...] therelease of HIV test results or diagnoses. [id number] Allergies Active Allergy Reactions Criticality Noted [...] Plan of Treatment Not on file Insurance [facility] [address] [facility] Address: [address] [id number] Care Teams Otr Company Truck Driver Relationship Specialty Start Date End Date Gagan Solomon MD PCP - General Internal Medicine 01/25/17
[2024-11-23 08:37] VITALS: BP 144/89; PULSE 87; RESP 18; TEMP 36.4; O2SAT 98
[2024-11-23] MEDS: IRON SUCROSE COMPLEX 200 MG in 0.9 % SODIUM CHLORIDE 100 ML 220 MG IV (08:37)
[2024-11-23] MEDS: SODIUM CHLORIDE 0.9% 10ML FLUSH SYRINGE 10 ML IV (08:38)
[2024-11-23 09:25] VITALS: BP 150/86; PULSE 80; RESP 18; O2SAT 98
== END 2024-11-23 09:25 | disposition home or self-care (01) ==
LOC: INF 08:30
PROVIDERS: PCP Internal Medicine Adolescent Medicine; Visit Provider Internal Medicine Adolescent Medicine
DX: D64.9 Anemia, unspecified (principal)
CPT/HCPCS: 96365; J1756

== ENCOUNTER 2024-11-30 08:20 | Outpatient (CLI) | payer OTHER, MEDICARE, SELFPAY ==
[2024-11-30 08:36] VITALS: BP 180/85; PULSE 87; RESP 20; TEMP 36.2; O2SAT 100
[2024-11-30] MEDS: IRON SUCROSE COMPLEX 200 MG in 0.9 % SODIUM CHLORIDE 100 ML 220 MG IV (08:36)
[2024-11-30] MEDS: SODIUM CHLORIDE 0.9% 10ML FLUSH SYRINGE 10 ML IV (08:36)
[2024-11-30 09:20] VITALS: BP 152/83; PULSE 94; RESP 20; O2SAT 99
== END 2024-11-30 09:20 | disposition home or self-care (01) ==
LOC: INF 08:29
PROVIDERS: PCP Internal Medicine Adolescent Medicine; Visit Provider Internal Medicine Medical Oncology
DX: D64.9 Anemia, unspecified (principal)
CPT/HCPCS: 96365; J1756